=== PATIENT | female | born 1940 | race Caucasian/White ===

== ENCOUNTER 2017-07-21 10:10 | Emergency (ER) | payer OTHER, MEDICARE, SELFPAY | END 2017-07-21 11:46 | disposition home or self-care (01) | PROVIDERS: Emergency Provider Emergency Medicine; Family Provider Family Medicine; Visit Provider Emergency Medicine | DX: S90.02XA Contusion of left ankle, initial encounter (principal); M79.672 Pain in left foot; V03.90XA Pedestrian on foot injured in collision with car, pick-up truck or van, unspecified whether traffic or nontraffic accident, initial encounter | CPT/HCPCS: 73610; 73630; 99282 ==

== ENCOUNTER → 2017-11-22 09:55 | Outpatient (CLI) | payer MEDICARE, SELFPAY | PROVIDERS: PCP Family Medicine; Visit Provider Family Medicine | DX: I25.10 Atherosclerotic heart disease of native coronary artery without angina pectoris (principal) | CPT/HCPCS: 93005 ==

== ENCOUNTER → 2017-11-28 09:16 | Outpatient (CLI) | payer MEDICARE, SELFPAY ==
--- NOTE | 2017-11-28 09:22 | MM_ITS ---
MM Dig screening mamm BI w/CAD CAD Screening ORDERING PHYSICIAN : Yuniel Rosales MD PATIENT AGE: 77 years GENDER: Female INDICATION: Routine screening mammogram.. Note Premarin. Previous mammograms but not fissure. Previous stereotactic biopsy left breast. Family history. Sister with breast cancer COMPARISON: Previous mammograms: September 2014, 2013, January 2010 & May 2008 TECHNIQUE: Standard CC and MLO images were obtained. R2 CAD reviewed. FINDINGS: Moderate density breast with mild asymmetry RIGHT BREAST:Scattered small secretory calcifications. Benign appearance. And no significant change since previous study. LEFT BREAST Small metallic marker from previous percutaneous biopsy central left breast.:Stable appearing mild asymmetry with what is likely ductal prominence seen at the lateral retroareolar region,. It overall stable since 2014 and 14 with Similar appearance dates back to to 2009 2007 study. ...IMPRESSION: ...... . Stable mammogram with no significant new findings. Stable mild asymmetry, most likely reflecting some minimal ductal prominence retroareolar region on left. Follow-up in one year recommended BI-RADS Category: 2 Benign Finding(s) RECOMMENDED FOLLOW-UP: 1YR - 1 YEAR FOLLOW-UP (A letter has been sent to the patient regarding results of the study.)
--- NOTE | 2017-11-28 09:23 | XR_ITS ---
XR DEXA axial skeleton HISTORY: ITS.REASON: OSTEOPENIA ORDERING PHYSICIAN: Yuniel Rosales MD PATIENT AGE: 77 years FINDINGS: The BMD measured at the left femoral neck is 0.862 g/cm squared with a T score of -1.3. This is considered Osteopenic according to the World Health Organization criteria. Fracture risk is Moderate. Treatment is advised. IMPRESSION: Osteopenia with moderate fracture risk. Recommend follow-up exam November 2019
== END ==
PROVIDERS: Family Provider Family Medicine; PCP Family Medicine; Visit Provider Family Medicine
DX: Z12.31 Encounter for screening mammogram for malignant neoplasm of breast (principal); Z13.820 Encounter for screening for osteoporosis; M85.89 Other specified disorders of bone density and structure, multiple sites
CPT/HCPCS: 77067; 77080

== ENCOUNTER → 2020-01-17 09:39 | Outpatient (CLI) | payer MEDICARE, SELFPAY ==
[2020-01-17 11:46] LABS: Coronavirus 19 IgG Antibody Negative (Negative); Coronavirus 19 IgM Antibody Negative (Negative)
== END ==
PROVIDERS: Physician Assistant; Visit Provider Family Medicine
DX: Z03.818 Encounter for observation for suspected exposure to other biological agents ruled out (principal); Z11.59 Encounter for screening for other viral diseases
CPT/HCPCS: 36415; 86328

== ENCOUNTER → 2020-03-04 09:38 | Outpatient (CLI) | payer MEDICARE, SELFPAY ==
--- NOTE | 2020-03-04 09:42 | XR_ITS ---
PROCEDURE: XR DEXA AXIAL SKELETON CLINICAL HISTORY: OSTEOPENIA COMPARISON: No exams were available for comparison FINDINGS: The right hip BMD is 0.673 with a t-score of -1.6. The left hip BMD is 0.687 with a t-score of -1.5. The lumbar spine BMD is 1.114 with a t-score of 0.6. IMPRESSION: This patient is considered osteopenic according to the World Health Organization criteria. Bone density is between 10 and 25 percent below young normal . Fracture risk is moderate. Treatment is advised. Based on these results of follow-up exam is recommended in 2 years Dictated b Lenny Ralph MD 03/05/2020 23:22 Lenny Rlaph MD in [place] 03/06/2020 08:51
--- NOTE | 2020-03-04 09:42 | MM_ITS ---
PROCEDURE: MM DIG SCREENING MAMM BI W/CAD Digital Breast Tomosynthesis Included CLINICAL INDICATION: FIBROCYSTIC BREAST DISEASE, UNSPECIFIED LATERALITY There is a history of breast cancer in patient's sister. There has been a previous biopsy left breast for benign disease. COMPARISON: MG [facility] DIG MAMM-SCREEN LONA from 10/07/2013 MG [facility] DIG MAMM-SCREEN LONA from 10/20/2014 [facility] MM Dig screening mamm BI w/CAD from 11/28/2017 TECHNIQUE: Standard CC and MLO images and 3D Tomosynthesis was obtained. R2 CAD reviewed. FINDINGS: Scattered fibroglandular densities are seen throughout both breast again with slightly more ductal prominence subareolar region left breast. There are scattered benign-appearing calcifications in each breast primarily secretory type calcifications. There is a biopsy clip left breast. There are couple of stable benign-appearing nodular densities subareolar region right breast. There is no new or suspicious lesion in either breast and no suspicious microcalcifications. IMPRESSION: Fibrofatty parenchyma with no suspicious lesions seen BI-RAD Category: 2 Benign Finding(s) FOLLOW-UP: 1YR 1 Year Follow-up (A letter has been sent to the patient regarding results of the study.) Dictated Dr. Eliazar Aldana MD 03/06/2020 08:45 Dr. Eliazar Grimes MD in [place] 03/06/2020 08:45
== END ==
PROVIDERS: PCP Family Medicine; Visit Provider Family Medicine
DX: Z12.31 Encounter for screening mammogram for malignant neoplasm of breast (principal); M85.89 Other specified disorders of bone density and structure, multiple sites
CPT/HCPCS: 77063; 77067; 77080

== ENCOUNTER 2020-03-21 09:03 | Emergency (ER) | payer MEDICARE, SELFPAY ==
[2020-03-21] VITALS (8 sets, daily range): BP systolic 152–182; BP diastolic 58–100; PULSE 54–63; RESP 13–19; TEMP 36.4–36.6; O2SAT 96–99; BMI 28.3
--- NOTE | 2020-03-21 09:05 | HMH.EDGENADL ---
ED Disposition Clinical Impression: Back pain Qualifiers: Back pain location: thoracic back pain Chronicity: acute Back pain laterality: unspecified Qualified Code(s): M54.6 - Pain in thoracic spine Disposition: Home, Self-Care Condition on Discharge: Good Instructions: DI for Low Back Pain Referrals: Yuniel Rosales MD [Primary Care Provider] - - Critical Care Critical Care Time: No Attestation: On , the high probability of a clinically significant, sudden or life threatening deterioration of the following system(s) required my full and direct attention, intervention and personal management. The time I documented below is in addition to time spent performing reported procedures but includes the following listed in this critical care notation. Medical Decision Making - Medical Records Medical records reviewed: Yes: I reviewed the patient's medical records. MR Comment: 79-year-old female presents emergency department 6 days after a fall with continued back pain. She arrives the ED hemodynamically stable, with reassuring vital signs, and looks well on exam. Given that she has paraspinal tenderness and trauma that occurred a few days ago, will CT her spine, she has multiple areas of paraspinal tenderness. She also hit her head will get a CT head to further evaluate. In the room, she is comfortable, she is ambulating without pain in her hips or lower extremities, so I do not feel that x-ray or CT of the pelvis or any further extremity x-rays are necessary at this time. Will get labs, scans and reassess. On reassessment, patient remained stable. Labs are personally reviewed and nonactionable. CT scan showing L1 compression fracture. She does have some height loss and retropulsion due to this. Talk to orthopedics as well and is calling PT here and she will need a soft brace that puts her in slight extension. There is also possible acute changes of T6, however patient has no pain or tenderness here, and I do not believe that this is an acute fracture. We do not have this available and it is also not available right now through physical therapy. Talk to the physician on-call for her PCP and wrote a prescription for her to take to [facility] to last picker the brace on Monday. She is given strict return precautions and discharge instructions and verbalized understanding and agreement to the plan. Safe to discharge. - Jaspreet Inquiry Pt receiving controlled substance: No Vital Signs: 03/21/20 09:04 03/21/20 09:27 03/21/20 10:24 Temperature 97.9 F Temperature Source Oral Pulse Rate Pulse Rate [Left Radial] 60 63 57 L Respiratory Rate 19 Blood Pressure Blood Pressure [Right Arm] 169/75 H 152/67 H 168/73 H Blood Pressure Mean [Right Arm] 106 95 104 Blood Pressure Source Blood Pressure Source [Right Arm] Automatic Cuff Automatic Cuff Automatic Cuff Blood Pressure Position Blood Pressure Position [Right Arm] Sitting Sitting Sitting 02 Sat by Pulse Oximetry 99 96 98 Oxygen Delivery Method Room Air Room Air Room Air 03/21/20 10:30 03/21/20 11:31 03/21/20 12:16 Temperature Temperature Source Pulse Rate Pulse Rate [Left Radial] 56 L 58 L 54 L Respiratory Rate Blood Pressure Blood Pressure [Right Arm] 157/72 H 160/58 H 169/75 H Blood Pressure Mean [Right Arm] 100 92 106 Blood Pressure Source Blood Pressure Source [Right Arm] Automatic Cuff Automatic Cuff Automatic Cuff Blood Pressure Position Blood Pressure Position [Right Arm] Sitting Sitting Sitting 02 Sat by Pulse Oximetry 98 98 98 Oxygen Delivery Method Room Air Room Air Room Air 03/21/20 13:03 03/21/20 13:36 Temperature 97.5 F L Temperature Source Oral Pulse Rate 56 L Pulse Rate [Left Radial] 59 L Respiratory Rate 13 Blood Pressure 172/70 H Blood Pressure [Right Arm] 182/100 H Blood Pressure Mean [Right Arm] 127 Blood Pressure Source Automatic Cuff Blood Pressure Source [Right Arm] Automatic Cuff Blo
--- NOTE | 2020-03-21 09:20 | CT_ITS ---
PROCEDURE: CT HEAD/BRAIN WO CON CLINICAL INDICATION: fall Head injury with headache/pain, contusion, abrasion or hematoma COMPARISON: No exams were available for comparison TECHNIQUE: Axial images obtained. All CT scans at the facility use one or more dose reduction, viz: automated exposure control, ma/kV adjustment per patient size (including targeted exams where dose is matched to indication, i.e. head), or iterative reconstruction technique. FINDINGS: No midline shift, mass effect, intracranial hemorrhage, hydrocephalus, or extra-axial fluid collection is evident. There is generalized atrophy with hypoattenuation of the periventricular white matter consistent with microangiopathic changes. The calvarium has an unremarkable appearance. No mastoid effusion. No sinus air-fluid level. IMPRESSION: No acute intracranial finding Dictated by: Lenny Ralph MD 03/21/2020 10:47 Lenny Ralph MD in [place] 03/21/2020 10:47
--- NOTE | 2020-03-21 09:22 | CT_ITS ---
PROCEDURE: CT THORACIC SPINE WO CON CLINICAL HISTORY: trauma Back pain following injury COMPARISON: CR XR CHEST 2V from 07/21/2019 TECHNIQUE: Axial images obtained with sagittal and coronal reformats. All CT scans at the facility use one or more dose reduction, viz: automated exposure control, ma/kV adjustment per patient size (including targeted exams where dose is matched to indication, i.e. head), or iterative reconstruction technique. FINDINGS: Normal alignment. There is mild wedge compression changes of T6 with loss of height anteriorly of approximately 30 percent without obvious retropulsion. The there is mild multilevel degenerative disc disease. The compression changes at T6 are slightly greater on the left compared to the right. IMPRESSION: Mild wedge compression changes of T6 possibly acute without obvious retropulsion with multilevel thoracic spondylosis Dictated by: Lenny Ralph MD 03/21/2020 10:56 Lenny Ralph MD in [place] 03/21/2020 10:56
--- NOTE | 2020-03-21 09:22 | CT_ITS ---
PROCEDURE: CT CERVICAL SPINE WO CON CLINICAL INDICATION: trauma Neck injury with pain, contusion/abrasion or hematoma, cervical sprain/strain the COMPARISON: No exams were available for comparison TECHNIQUE: Axial images obtained with sagittal and coronal reformats. All CT scans at the facility use one or more dose reduction, viz: automated exposure control, ma/kV adjustment per patient size (including targeted exams where dose is matched to indication, i.e. head), or iterative reconstruction technique. Axial spiral CT scanning performed of the cervical spine beginning at the base of the skull and continuing to the upper T-spine. 3-D multiplanar reconstruction with 3-D manipulation of volumetric data set in image rendering was completed by the radiologist and/or technologist with the supervision of the radiologist on independent workstation. FINDINGS: There is normal alignment. There is a defect within the right aspect of the posterior arch of C1. This is well-circumscribed and may be congenital or due to an old fracture. This does not appear to represent an acute fracture. Please correlate as the patient's area pain and tenderness. C2-C3: Unremarkable. C3-C4: 3 mm anterolisthesis of C3. C4-C5: Degenerative disc disease with endplate hypertrophy and small right paracentral disc protrusion with facet and uncovertebral hypertrophy. 3 mm anterolisthesis of C4. C5-C6: Degenerate disc disease with small left paracentral disc bulge with left lateral recess narrowing C6-C7: Degenerate disc disease with small left paracentral disc osteophyte complex with left lateral recess and foraminal narrowing. C7-T1: Unremarkable Lung apices are clear. IMPRESSION: 1. No definite acute fracture. 2. Old fracture versus congenital defect within the posterior arch of C1 on the right 3. Cervical spondylosis. Dictated by: Lenny Ralph MD 03/21/2020 10:51 Lenny Ralph MD in [place] 03/21/2020 10:51
--- NOTE | 2020-03-21 09:23 | CT_ITS ---
PROCEDURE: CT LUMBAR SPINE WO CON CLINICAL HISTORY: trauma Low back pain following injury COMPARISON: No exams were available for comparison TECHNIQUE: Axial images obtained with sagittal and coronal reformats. All CT scans at the facility use one or more dose reduction, viz: automated exposure control, ma/kV adjustment per patient size (including targeted exams where dose is matched to indication, i.e. head), or iterative reconstruction technique. FINDINGS: There is normal alignment. There is acute wedge compression changes involving the superior endplate L1 with loss of height centrally and anteriorly of approximately 25 percent. There is 3 mm retropulsion of the posterior superior aspect of the L1 vertebral body slightly greater on left compared to right. The pedicles and posterior elements are intact. L2-L3: Mild bulging disc. L3-L4: Bulging disc. There are hypertrophic changes the L3 and L4 spinous process at their junction with bony sclerosis consistent with Baastrup's disease. There is slight increase in soft tissue thickening at this area bony hypertrophy. L4-5: Bulging disc with mild degenerative changes at the posterior spinous process at L4 and L5 and slight increase in soft tissue thickening. L5-S1: Severe degenerative disc disease with bulging disc and small central/right paracentral disc osteophyte complex. 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 There is acute wedge compression changes involving the superior endplate L1 with loss of height centrally and anteriorly of approximately 25 percent. There is 3 mm retropulsion of the posterior superior aspect of the L1 vertebral body slightly greater on left compared to right 2. 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
--- NOTE | 2020-03-21 09:32 | PC.NURSE ---
Pt to rad.
--- NOTE | 2020-03-21 09:34 | PC.NURSE ---
20g IV inserted in right FA
[2020-03-21 09:38] LABS: Basophils % 0.5 % (0.1-2.0); Eosinophils # 0.1 K/mm3 (0.0-0.4); Eosinophils % 0.9 % (0.1-12.0); Hematocrit 37.9 % (37.0-47.0); Hemoglobin 13.1 g/dL (12.2-16.2); Lymphocytes # 1.5 K/mm3 (0.7-4.5); Lymphocytes % 24.8 % (10-50); Mean Corpuscular HGB Conc 34.5 g/dL (31.8-35.4); Mean Corpuscular Hemoglobin 31.7 pg (27.0-31.2); Mean Corpuscular Volume 91.7 fl (81-99); Mean Platelet Volume 7.4 fl (7.4-10.4); Monocytes # 0.4 K/mm3 (0.1-1.0); Monocytes % 7.1 % (1.7-9.3); Neutrophils # 4.1 K/mm3 (1.8-7.8); Neutrophils % 66.6 % (37.0-80.0); Platelet Count 244 K/mm3 (142-424); Red Blood Count 4.13 M/mm3 (4.20-5.40); Red Cell Distribution Width 13.2 % (11.5-17.5); White Blood Count 6.2 K/mm3 (4.8-10.8)
[2020-03-21 09:47] LABS: Alanine Aminotransferase 13 U/L (12-78); Albumin Level 4.2 g/dl (3.5-5.0); Albumin/Globulin Ratio 1.4 (1.1-1.8); Alkaline Phosphatase 65 U/L (38-126); Anion Gap 14.3 mEq/L (5-15); Aspartate Amino Transferase 23 U/L (14-36); Bilirubin,Total 0.6 mg/dl (0.2-1.3); Blood Urea Nitrogen 17 mg/dl (7-17); Calcium 10.2 mg/dl (8.4-10.2); Carbon Dioxide 26 mmol/L (22.0-30.0); Chloride 102 mmol/L (98-107); Creatinine Clearance Estimated 49 mL/min (50-200); Estimated Glomerular Filt Rate 60 ml/min (>60); GFR (African American) 73 ML/MIN (>60); Globulin 2.9 g/dL (1.3-3.2); Glucose 98 mg/dl (74-100); Potassium 4.3 mmoL/L (3.5-5.1); Sodium 138 mmol/L (136-145); Total Protein,Serum 7.1 g/dl (6.3-8.2)
[2020-03-21 10:13] LABS: Microscopic, Urine URINE MICROSCOPIC (MICROSCOPIC)
[2020-03-21 10:14] LABS: Appearance,Urine SL CLOUDY (Clear); Blood, Urine Negative (Negative); Color,Urine YELLOW (Yellow); Glucose,Urine (UA) Negative (Negative); Ketones,Urine TRACE (Negative); Leukocyte Esterase,Urine TRACE (Negative); Nitrate,Urine Negative (Negative); Protein,Urine Negative (Negative); Specific Gravity, Urine >= 1.030 (1.005-1.030)
[2020-03-21 10:16] LABS: Bilirubin,Urine Negative (Negative)
[2020-03-21 10:29] LABS: Amorphous Sediment,Urine 1+ /lpf; RBC,Urine Occasional #/hpf (0-3)
--- NOTE | 2020-03-21 11:53 | PC.NURSE ---
return call received from Dr. Doty
--- NOTE | 2020-03-21 12:07 | PC.NURSE ---
Called and spoke with Arsh in PT, he was going to call back concerning back brace that Dr Bey requested.
--- NOTE | 2020-03-21 12:22 | PC.NURSE ---
spoke with care management, reymundo concerning back brace and steps to follow in order to obtain. reymundo states that she will take care of ordering of brace on monday as ordering services are not available during the weekend. pt and family informed and updated on plan of care.
--- NOTE | 2020-03-21 13:11 | PC.NURSE ---
Dr stallworth spoke with Dr Lilly
--- NOTE | 2020-03-23 10:53 | SW/DCPLANNER ---
RECEIVED REFERRAL FOR THIS PATIENT FOR A SOFT SHELL BACK BRACE...PATIENT WENT TO [facility] [place] THIS MORNING AND WAS FITTED AND CAME BACK TO THE HOSPITAL PT TO MAKE SURE IT WAS ON APPROPRIATELY AND FOR PT SERVICES...
== END 2020-03-21 13:37 | disposition home or self-care (01) ==
PROVIDERS: Emergency Provider Emergency Medicine; PCP Family Medicine
DX: M54.6 Pain in thoracic spine (principal); W01.198A Fall on same level from slipping, tripping and stumbling with subsequent striking against other object, initial encounter; Y92.017 Garden or yard in single-family (private) house as the place of occurrence of the external cause; I10 Essential (primary) hypertension; E78.5 Hyperlipidemia, unspecified; Z90.09 Acquired absence of other part of head and neck
CPT/HCPCS: 70450; 72125; 72128; 72131; 80053; 81001; 85025; 96374; 99284

== ENCOUNTER → 2020-04-30 09:58 | Outpatient (CLI) | payer MEDICARE, SELFPAY ==
--- NOTE | 2020-04-30 09:58 | MR_ITS ---
PROCEDURE: MR HEAD/BRAIN WO CON CLINICAL INDICATION: memry loss, falls SHORT TERM MEMORY LOSS X9 MONTHS. PREVIOUS CT HEAD 03-21-20 COMPARISON: CT CT HEAD/BRAIN WO CON from 03/21/2020 TECHNIQUE: Routine multiplanar multi echo sequences are performed without gadolinium enhancement. FINDINGS: No midline shift, mass effect, intracranial hemorrhage, or hydrocephalus is evident. The cerebellopontine angles, cerebellum, and brainstem have an unremarkable appearance.. There are scattered periventricular and subcortical T2 white matter hyperintensities consistent with mild ischemic gliotic change from microvascular disease. There is a 6 mm choroidal fissure cyst in the subinsular region on the left. The hippocampal gyri are unremarkable in the temporal horns are symmetric. There is a partial empty sella as a normal variant. The optic chiasm, corpus callosum, and craniocervical junction have an unremarkable appearance. Upper cervical images show degenerative disc disease at C4-C5 and C5-C6 with mild bulging disc at C4-C5. No mastoid effusion or sinus air-fluid level. IMPRESSION: 1. No acute intracranial findings. 2. Nonacute findings as described above Dictated by: Lenny Ralph MD 05/01/2020 16:28 Lenny Ralph MD in [place] 05/01/2020 16:28
[2020-04-30 14:12] LABS: Vitamin B12 748 pg/mL (239-931)
[2020-05-06 22:02] LABS: Methylmalonic Acid 104 nmol/L (0-378)
== END ==
PROVIDERS: PCP Family Medicine; Visit Provider Specialist
DX: R41.3 Other amnesia (principal); E53.8 Deficiency of other specified B group vitamins
CPT/HCPCS: 36415; 70551; 82131; 82607

== ENCOUNTER 2020-05-20 00:19 | Observation (INO) | payer MEDICARE, SELFPAY ==
[2020-05-20] VITALS (18 sets, daily range): BP systolic 121–178; BP diastolic 51–100; PULSE 58–78; RESP 13–18; TEMP 36.8–36.9; O2SAT 97–100; BMI 27.4; BMI 26.8; BMI 30.7
--- NOTE | 2020-05-20 00:09 | XR_ITS ---
PROCEDURE: XR CHEST PORTABLE CLINICAL HISTORY: fall COMPARISON: CR XR CHEST 2V from 07/21/2019 FINDINGS: The cardiomediastinal silhouette and pulmonary vascularity are within normal limits considering the supine position. The lungs are clear without infiltrates, suspicious nodules, or pleural effusions, there is a slightly poor inspiration. No acute bony abnormalities. IMPRESSION: No acute findings. Dictated by: Dr. Eliazar Grimes MD 05/20/2020 07:45 Dr. Eliazar Grimes MD in [place] 05/20/2020 07:45
--- NOTE | 2020-05-20 00:09 | XR_ITS ---
PROCEDURE: XR PELVIS 1-2V CLINICAL INDICATION: fall COMPARISON: No exams were available for comparison TECHNIQUE: XR Pelvis AP View FINDINGS: No fracture or dislocation is evident. No significant degenerative change except for mild joint space narrowing of both hips. No lytic or blastic change. IMPRESSION: No acute findings. Dictated by: Dr. Eliazar Grimes MD 05/20/2020 07:46 Dr. Eliazar Grimes MD in [place] 05/20/2020 07:46
--- NOTE | 2020-05-20 00:09 | ECG_ITS ---
APPROVED REPORT Exam: Resting ECG HR:74 bpm ECG Measurements Heart Rate 74 AXES [place] 142 P 47 QRSd 90 QRS 4 QT 418 T 0 QTc 463 Conclusion Normal sinus rhythm Nonspecific ST and T wave abnormality Abnormal ECG Electronically signed by : Addison Stephens, 05/22/2020 11:22:08
--- NOTE | 2020-05-20 00:09 | CT_ITS ---
PROCEDURE: CT CERVICAL SPINE WO CON CLINICAL INDICATION: fall, unwitnessed Posttraumatic pain, Neck injury with pain, contusion/abrasion or hematoma, cervical sprain/strain the COMPARISON: CT CT CERVICAL SPINE WO CON from 03/21/2020 TECHNIQUE: Axial images obtained with sagittal and coronal reformats. All CT scans at the facility use one or more dose reduction, viz: automated exposure control, ma/kV adjustment per patient size (including targeted exams where dose is matched to indication, i.e. head), or iterative reconstruction technique. Axial spiral CT scanning performed of the cervical spine beginning at the base of the skull and continuing to the upper T-spine. 3-D multiplanar reconstruction with 3-D manipulation of volumetric data set in image rendering was completed by the radiologist and/or technologist with the supervision of the radiologist on independent workstation. FINDINGS: There is incomplete fusion of the C1 posterior arch on the right. There is mild multilevel cervical spondylosis with left-sided facet hypertrophic change at C3-C4, degenerative disc disease C4-C5, degenerative disc disease C5-C6 with endplate hypertrophic change eccentric toward the left, degenerative disc disease C6-C7 with endplate hypertrophic change in small left paracentral and foraminal disc osteophyte complex, anterior osteophytes at multiple levels. No acute fracture or dislocation. Lung apices are clear. Incidental note is made several small foci of air density in the pterygoid region on the left as mentioned in the head CT report and could be related to sequela from IV access, trauma, or infection. IMPRESSION: 1. Cervical spondylosis, no acute fracture. 2. Several small foci of air density in the pterygoid region on the left as mentioned in the head CT report and could be related to sequela from IV access, trauma, or infection Dictated by: Lenny Ralph MD 05/20/2020 06:24 Lenny Ralph MD in [place] 05/20/2020 06:24
--- NOTE | 2020-05-20 00:09 | CT_ITS ---
PROCEDURE: CT HEAD/BRAIN WO CON CLINICAL INDICATION: fall, unwitnessed Head injury with headache/pain, contusion, abrasion or hematoma COMPARISON: CT CT HEAD/BRAIN WO CON from 03/21/[address] CERVICAL SPINE WO CON from 05/20/2020 TECHNIQUE: Axial images obtained. All CT scans at the facility use one or more dose reduction, viz: automated exposure control, ma/kV adjustment per patient size (including targeted exams where dose is matched to indication, i.e. head), or iterative reconstruction technique. FINDINGS: No midline shift, mass effect, intracranial hemorrhage, hydrocephalus, or extra-axial fluid collection is evident. There is generalized atrophy with hypoattenuation of the periventricular white matter consistent with microangiopathic changes. The calvarium has an unremarkable appearance. No mastoid effusion. No sinus air-fluid level. There are a few small foci of air density noted in the pterygoid region on the left. This is nonspecific and could be from intravenous access, trauma, or infection. Please correlate clinically. IMPRESSION: 1. No acute intracranial findings. 2. There are a few small foci of air density noted in the pterygoid region on the left. This is nonspecific and could be from intravenous access, trauma, or infection. Please correlate clinically Dictated by: Lenny Ralph MD 05/20/2020 06:15 Lenny Ralph MD in [place] 05/20/2020 06:15
[2020-05-20 00:23] LABS: POC Glucose,Bedside 77 (70-110)
[2020-05-20 00:34] LABS: Microscopic, Urine URINE MICROSCOPIC (MICROSCOPIC)
[2020-05-20 00:40] LABS: Appearance,Urine CLEAR (Clear); Blood, Urine Negative (Negative); Color,Urine YELLOW (Yellow); Glucose,Urine (UA) Negative (Negative); Ketones,Urine TRACE (Negative); Leukocyte Esterase,Urine Negative (Negative); Nitrate,Urine Negative (Negative); Protein,Urine Negative (Negative); Specific Gravity, Urine >= 1.030 (1.005-1.030); Urobilinogen,Urine 0.2 EU/dl (0.2)
--- NOTE | 2020-05-20 00:42 | HMH.EDSYNC ---
ED Disposition Clinical Impression: Left carotid bruit Syncope Qualifiers: Syncope type: unspecified Qualified Code(s): R55 - Syncope and collapse Disposition: Admitted as Observation Condition on Discharge: Good Referrals: PCP,No [Primary Care Provider] - - Critical Care Critical Care Time: No Attestation: On , the high probability of a clinically significant, sudden or life threatening deterioration of the following system(s) required my full and direct attention, intervention and personal management. The time I documented below is in addition to time spent performing reported procedures but includes the following listed in this critical care notation. Medical Decision Making - Medical Records Medical records reviewed: Yes: I reviewed the patient's medical records. - Jaspreet Inquiry Pt receiving controlled substance: No Vital Signs: 05/20/20 00:11 05/20/20 00:30 05/20/20 01:08 Temperature 98.2 F Temperature Source Oral Pulse Rate [Right Brachial] 75 72 68 Respiratory Rate 13 17 17 Blood Pressure [Right Arm] 178/100 H 178/77 H 158/68 H Blood Pressure Mean [Right Arm] 126 110 98 Blood Pressure Source [Right Arm] Automatic Cuff Automatic Cuff Automatic Cuff Blood Pressure Position [Right Arm] Sitting Supine Supine 02 Sat by Pulse Oximetry 100 99 99 Oxygen Delivery Method Room Air Room Air Room Air 05/20/20 01:30 Temperature Temperature Source Pulse Rate [Right Brachial] 65 Respiratory Rate 17 Blood Pressure [Right Arm] 125/51 L Blood Pressure Mean [Right Arm] 75 Blood Pressure Source [Right Arm] Automatic Cuff Blood Pressure Position [Right Arm] Supine 02 Sat by Pulse Oximetry 99 Oxygen Delivery Method Room Air - Lab Data Lab results reviewed: Yes: I reviewed the patient's lab results. Lab Results 05/20/20 00:00: WBC 8.3, RBC 4.12 L, Hgb 12.3, Hct 38.1, MCV 92.5, MCH 29.8, MCHC 32.3, RDW 13.4, Plt Count 254, MPV 8.5, Neut % (Auto) 66.2, Lymph % (Auto) 24.9, [place] % (Auto) 7.5, Eos % (Auto) 0.8, Baso % (Auto) 0.5, Neut # (Auto) 5.5, Lymph # (Auto) 2.1, [place] # (Auto) 0.6, Eos # (Auto) 0.1, Baso # (Auto) 0.0 05/20/20 00:00: Sodium Cancelled, Potassium Cancelled, Chloride Cancelled, Carbon Dioxide Cancelled, Anion Gap Cancelled, BUN Cancelled, Creatinine Cancelled, Estimated Creat Clear Cancelled, Estimated GFR Cancelled, Est GFR ( Amer) Cancelled, Glucose Cancelled, Calcium Cancelled, Total Bilirubin Cancelled, AST Cancelled, ALT Cancelled, Alkaline Phosphatase Cancelled, Total Protein Cancelled, Albumin Cancelled, Globulin Cancelled, Albumin/Globulin Ratio Cancelled 05/20/20 00:00: SARS-CoV-2 IgG Ab (Rapid) Negative, SARS-CoV-2 IgM Ab (Rapid) Negative 05/20/20 00:00: Sodium 139, Potassium 4.0, Chloride 107, Carbon Dioxide 25, Anion Gap 11.0, BUN 18 H, Creatinine 0.90, Estimated Creat Clear 46, Estimated GFR 60, Est GFR ( Amer) 73, Glucose 96, Calcium 9.4, Total Bilirubin 0.5, AST 25, ALT 14, Alkaline Phosphatase 67, Troponin I < 0.01, Total Protein 6.5, Albumin 3.9, Globulin 2.6, Albumin/Globulin Ratio 1.5, TSH 4.14 05/20/20 00:00: Free T4 1.48 05/20/20 00:11: POC Glucose 77 05/20/20 00:30: Urine Color Yellow, Urine Appearance Clear, Urine pH 6.0, Ur Specific [place] >= 1.030, Urine Protein Negative, Urine Glucose (UA) Negative, Urine Ketones Trace, Urine Blood Negative, Urine Nitrate Negative, Urine Bilirubin Negative, Urine Urobilinogen 0.2, Ur Leukocyte Esterase Negative, Urine RBC Occasional, Urine WBC Occasional, Calcium Oxalate Crystal Trace, Urine Bacteria Trace 05/20/20 00:30: Urine Opiates Screen Negative, Urine Methadone Screen Negative, Ur Barbituates Screen Negative, Ur Phencyclidine Scrn Negative, Ur Amphetamines Screen Negative, U Benzodiazepines Scrn Negative, Urine Cocaine Screen Negative, U Marijuana (THC) Screen Negative Result diagrams: 05/20/20 00:00 05/20/20 00:00 Orders (Tests/Meds): ORDERS Category Date Time Status CT cervical spine wo con Stat Cat Scan 04/24
[2020-05-20 00:47] LABS: Bilirubin,Urine Negative (Negative)
[2020-05-20 00:52] LABS: Alanine Aminotransferase 14 U/L (12-78); Albumin Level 3.9 g/dl (3.5-5.0); Albumin/Globulin Ratio 1.5 (1.1-1.8); Alkaline Phosphatase 67 U/L (38-126); Aspartate Amino Transferase 25 U/L (14-36); Bilirubin,Total 0.5 mg/dl (0.2-1.3); Blood Urea Nitrogen 18 mg/dl (7-17); Calcium 9.4 mg/dl (8.4-10.2); Carbon Dioxide 25 mmol/L (22.0-30.0); Chloride 107 mmol/L (98-107); Creatinine Clearance Estimated 46 mL/min (50-200); Estimated Glomerular Filt Rate 60 ml/min (>60); GFR (African American) 73 ML/MIN (>60); Globulin 2.6 g/dL (1.3-3.2); Glucose 96 mg/dl (74-100); Sodium 139 mmol/L (136-145); Total Protein,Serum 6.5 g/dl (6.3-8.2)
[2020-05-20 01:07] LABS: Coronavirus 19 IgG Antibody Negative (Negative); Coronavirus 19 IgM Antibody Negative (Negative)
[2020-05-20 01:09] LABS: Free T4 (Free Thyroxine) 1.48 ng/dl (0.78-2.19)
[2020-05-20 01:18] LABS: Basophils % 0.5 % (0.1-2.0); Eosinophils # 0.1 K/mm3 (0.0-0.4); Eosinophils % 0.8 % (0.1-12.0); Hematocrit 38.1 % (37.0-47.0); Hemoglobin 12.3 g/dL (12.2-16.2); Lymphocytes # 2.1 K/mm3 (0.7-4.5); Lymphocytes % 24.9 % (10-50); Mean Corpuscular HGB Conc 32.3 g/dL (31.8-35.4); Mean Corpuscular Hemoglobin 29.8 pg (27.0-31.2); Mean Corpuscular Volume 92.5 fl (81-99); Mean Platelet Volume 8.5 fl (7.4-10.4); Monocytes # 0.6 K/mm3 (0.1-1.0); Monocytes % 7.5 % (1.7-9.3); Neutrophils # 5.5 K/mm3 (1.8-7.8); Neutrophils % 66.2 % (37.0-80.0); Platelet Count 254 K/mm3 (142-424); Red Blood Count 4.12 M/mm3 (4.20-5.40); Red Cell Distribution Width 13.4 % (11.5-17.5); White Blood Count 8.3 K/mm3 (4.8-10.8)
[2020-05-20 01:20] LABS: RBC,Urine Occasional #/hpf (0-3); WBC,Urine Occasional #/hpf (0-3)
[2020-05-20 01:21] LABS: Bacteria,Urine Trace /lpf; Calcium Oxalate Crystals,Urine Trace /lpf
[2020-05-20 01:31] LABS: Amphetamine/Metha Screen,Urine Negative ng/ml (<1000); Benzodiazepines Screen,Urine Negative ng/ml (<200)
[2020-05-20 01:32] LABS: Barbiturates Screen,Urine Negative ng/ml (<200); Cannabinoid Screen,Urine Negative ng/ml (<50)
[2020-05-20 01:33] LABS: Cocaine Screen,Urine Negative ng/ml (<300)
[2020-05-20 01:34] LABS: Methadone Screen,Urine Negative ng/ml (<300); Opiate Screen,Urine Negative ng/ml (<300)
[2020-05-20 01:35] LABS: Phencyclidine Screen,Urine Negative ng/ml (<25)
[2020-05-20 02:26] LABS: Thyroid Stimulating Hormone 4.14 uIU/mL (0.465-4.68); Troponin I < 0.01 ng/ml (0.00-0.034)
--- NOTE | 2020-05-20 02:32 | PC.NURSE ---
call placed to dr mills
--- NOTE | 2020-05-20 03:20 | PC.NURSE ---
Report received from Miguel Angel Lopez at this time.
--- NOTE | 2020-05-20 03:45 | PC.NURSE ---
PT ARRIVED TO ROOM 276 AT THIS TIME VIA STRETCHER.
[2020-05-20 03:58] LABS: Troponin I < 0.01 ng/ml (0.00-0.034)
--- NOTE | 2020-05-20 04:15 | PC.NURSE ---
PT ASSESSMENT COMPLETED AT THIS TIME. PT DENIES ANY PAIN. BILATERAL LUNG SOUNDS CLEAR. NO EDEMA NOTED. L CAROTID BRUIT NOTED. PT ABLE TO COMPLETE ADMISSION AND HISTORY QUESTIONS. HOWEVER, PT DID SEEM TO BE CONFUSED ABOUT HEALTH HISTORY AT TIMES. PT NOTED TO BE TAKING A MEDICATION THAT IS TO HELP WITH DEMENTIA. INDWELLING CATH PATENT AND DRAINING FREELY. RAC IV INFUSING 50ML/HR OF NS. LAC IV SL.
--- NOTE | 2020-05-20 05:47 | PC.NURSE ---
PT ASLEEP WITH EYES CLOSED. RESPIRATIONS EVEN AND UNLABORED. WILL CONTINUE TO OBSERVE.
--- NOTE | 2020-05-20 06:30 | PC.NURSE ---
PT SLEPT AT INTERVAL. DENIES ANY PAIN OR FURTHER NEEDS AT THIS TIME. WILL CONTINUE TO OBSERVE.
--- NOTE | 2020-05-20 06:35 | PC.NURSE ---
Ultrasound at bedside at this time performing echo.
--- NOTE | 2020-05-20 07:05 | PC.NURSE ---
LAB AT BEDSIDE AT THIS TIME.
--- NOTE | 2020-05-20 07:10 | PC.NURSE ---
Report given to Rashard Galdamez RN.
[2020-05-20 07:22] LABS: Basophils % 0.5 % (0.1-2.0); Chloride 111 mmol/L (98-107); Eosinophils # 0.1 K/mm3 (0.0-0.4); Eosinophils % 0.7 % (0.1-12.0); Hematocrit 34.7 % (37.0-47.0); Hemoglobin 11.7 g/dL (12.2-16.2); Lymphocytes # 1.6 K/mm3 (0.7-4.5); Lymphocytes % 24.9 % (10-50); Mean Corpuscular HGB Conc 33.6 g/dL (31.8-35.4); Mean Corpuscular Hemoglobin 31.1 pg (27.0-31.2); Mean Corpuscular Volume 92.6 fl (81-99); Mean Platelet Volume 7.7 fl (7.4-10.4); Monocytes # 0.5 K/mm3 (0.1-1.0); Monocytes % 7.5 % (1.7-9.3); Neutrophils # 4.4 K/mm3 (1.8-7.8); Neutrophils % 66.4 % (37.0-80.0); Platelet Count 237 K/mm3 (142-424); Red Blood Count 3.75 M/mm3 (4.20-5.40); Red Cell Distribution Width 13.5 % (11.5-17.5); Sodium 139 mmol/L (136-145); White Blood Count 6.6 K/mm3 (4.8-10.8)
[2020-05-20 07:25] LABS: Blood Urea Nitrogen 14 mg/dl (7-17); Carbon Dioxide 23 mmol/L (22.0-30.0); Creatinine Clearance Estimated 53 mL/min (50-200); Estimated Glomerular Filt Rate 69 ml/min (>60); GFR (African American) 84 ML/MIN (>60)
[2020-05-20 07:26] LABS: Glucose 93 mg/dl (74-100); Magnesium 1.8 mg/dl (1.6-2.3)
--- NOTE | 2020-05-20 07:31 | PC.NURSE ---
ULTRASOUND STILL AT BEDSIDE. NO NEEDS. WILL RETURN FOR ASSESSMENT
[2020-05-20 07:38] LABS: Troponin I < 0.01 ng/ml (0.00-0.034)
--- NOTE | 2020-05-20 08:00 | CA_ITS ---
APPROVED REPORT EXAM: Comprehensive 2D, Doppler, and color-flow Echocardiogram Student Truck Driver: Nikia Batista CRT Ht: 5 ft 1 in Wt: 142lbs BSA: 1.63 BP: 158/68 mmHg Indications: Syncope, Hyperlipidemia, Hypertension/HDD 2D Dimensions Aortic Root 2.56 cm LVOT 1.61 cm (M/F) 1.5-2.5 M-Mode Dimensions RVDd 2.10 cm (0.9-2.6) LA Diam 4.07 cm (1.9-4.0) LVDd 3.91 cm (3.5-5.7) Ao Diam 3.30 cm (2.0-3.7) LVDs 2.66 cm (3.5-5.7) IVSd 1.63 cm (0.6-1.1) PWd 0.75 cm (0.6-1.1) EF (Teich) 60.80% FS 32.00% EDV (Teich) 66.30 mL ESV (Teich) 26.00 mL LV Diastology E Decel Time 213.00 (160-240 msec) E/A Ratio 0.65 MED E' 8.80 (< 7 cm/sec) E'/MED E' Ratio 8.18 (>14) LAT E' 6.40 (<10 cm/sec) E/LAT E' Ratio 11.25 (>14) Aortic Valve LVOT Max 127.00 (70-110 cm/s) LVOT VTI 29.74 cm AoV Peak Ilan. 148.00 (50-130 cm/s) AI PHT 585.00 ms AO Peak GR. 8.80 mmHg AO Mean GR. 4.40 (<5 mmHg) AO VTI 33.48 (18-25 cm) NII (VTI) 1.81 (2.5-4.5 cm2) Mitral Valve MV A Velocity 110.00 (40-130 cm/s) E/A Ratio 0.65 MV Decel. Time 213.00 (160-240 ms) Pulmonary Valve PV Peak Velocity 113.00 (50-150 cm/s) Tricuspid Valve TR P. Velocity 379.00 cm/s RAP Estimate 10.00 mmHg RVSP 67.50 mmHg Left Ventricle Left atrium is moderately enlarged, left ventricle is normal size, mild concentric left ventricular hypertrophy, visually estimated ejection fraction 55% with no regional wall motion abnormality, grade 1 diastolic dysfunction seen without tissue Doppler evidence of raise left atrial pressure. Right Ventricle Right atrium and right ventricular normal size and contractility. Aortic Valve Aortic valve is thickened and calcified leaflet chordae display good mobility, there is no aortic stenosis, there is mild aortic insufficiency. Mitral Valve Mitral valve leaflets are minimally thickened, there is mild mitral regurgitation. Tricuspid Valve Tricuspid valve is grossly normal, there is mild tricuspid regurgitation, tricuspid regurgitation jet velocity is inadequate for calculation of the right ventricular systolic pressure. Pulmonic Valve Pulmonic valve is poorly visualized. Great Vessels Aortic root is normal size. Pericardium No significant pericardial effusion noted. Conclusion 1. Moderately enlarged left atrium, normal left ventricular size, mild concentric left ventricular hypertrophy, visually estimated ejection fraction 55% with no regional wall motion abnormality, grade 1 diastolic dysfunction seen without tissue Doppler evidence of raise left atrial pressure. 2. Mild mitral, mild aortic and tricuspid regurgitation. 3. No significant pericardial effusion noted. Electronically signed by : Nixon Valencia, 05/21/2020 10:08:39
--- NOTE | 2020-05-20 08:00 | P.CONPHA_ITS ---
[facility] Pharmacy VTE Monitoring - Patient Demographics Admission date: 05/20/20 Report Date: 05/20/20 Time: 08:00 Allergies/Adverse Reactions: Patient Allergies No Known Allergies Allergy (Verified 05/07/20 10:24) Height: 1.55 m Weight: 73.618 kg Patient Problems: Current Active Problems Syncope (Acute) Left carotid bruit (Acute) - VTE Risk Labs: VTE Related Lab Results Hgb 11.7 g/dL (12.2-16.2) L 05/20/20 07:05 Hct 34.7 % (37.0-47.0) L 05/20/20 07:05 Plt Count 237 K/mm3 (142-424) 05/20/20 07:05 BUN 14 mg/dl (7-17) 05/20/20 07:05 Creatinine 0.80 mg/dl (0.52-1.04) 05/20/20 07:05 Estimated Creat Clear 53 mL/min (50-200) 05/20/20 07:05 Was VTE Risk Assessment Performed: Yes VTE Score: 1 VTE Risk Level: Very Low Risk - Prophylaxis VTE Prophylaxis Ordered?: Yes Types of VTE Prophylaxis: TEDS Knee High Location of Applied Device: Bilateral Lower Extremeties
--- NOTE | 2020-05-20 08:00 | CA_ITS ---
APPROVED REPORT Director Of Teenage Activities: CT Laterality: Bilateral Study Quality: Fair, Due to body habitus. Indications: syncope/carotid bruit Risk Factors Hypertension: Hyperlipidemia Doppler Spectral Velocity Analysis ECA (R) 93.50/12.70 cm/s ECA (L) 152.20/1.00 cm/s dICA (R) 114.00/21.80 cm/s dICA (L) 85.30/18.70 cm/s Serena (R) 124.30/24.30 cm/s Serena (L) 122.30/32.70 cm/s pICA (R) 151.20/17.90 cm/s pICA (L) 80.90/16.40 cm/s dCCA (R) 118.80/16.50 cm/s dCCA (L) 175.40/19.20 cm/s pCCA (R) 94.10/14.10 cm/s pCCA (L) 171.10/21.40 cm/s Vert (R) 62.00/8.90 cm/s Vert (L) 24.60/5.40 cm/s ICA/CCA 1.30 ICA/CCA 0.70 Findings Duplex evaluation demonstrates stenosis of the right proximal internal carotid artery in the range of 50-69%. Duplex evaluation demonstrates stenosis of the left proximal internal carotid artery in the range of 20-49%. Duplex evaluation demonstrates antegrade flow of the bilateral Vertebral Arteries. Plaque noted in CCA's bilaterally. Cysts noted in thyroid. Conclusion Duplex evaluation demonstrates stenosis of the right proximal internal carotid artery in the range of 50-69%. Duplex evaluation demonstrates stenosis of the left proximal internal carotid artery in the range of 20-49%. Duplex evaluation demonstrates antegrade flow of the bilateral Vertebral Arteries. Electronically signed by : Lenny Ralph MD 05/20/2020 16:22:08
--- NOTE | 2020-05-20 09:01 | HMH.HP ---
*Admission Date: 05/20/20 *Chief complaint: Syncopal episode *History of present illness: Ms. Mccabe is a 79-year-old female with a history of hypertension, left carotid stenosis, hypothyroidism, and some dementia as well as heart disease who presented to [facility] after experiencing a syncopal episode at home. Patient states she was sitting on the couch, got up to go to the kitchen and then fell to the floor. She states she does not recall having any chest, pain shortness of breath, or heart palpitations before or after her fall. The next thing she remembers is being transported by EMS to the hospital. Her apparently was in the home and did call EMS. He did not actually witness the fall. She had no loss of bowel or bladder function. Apparently she had a low heart rate and received some IV fluids in the ambulance after which she did improve. She denies having any injuries from the fall. She had multiple imagings completed in the emergency room with CT of the cervical spine showing no acute fracture, Chest x-ray with no acute findings, CT of the head/brain with no acute intracranial findings, X-ray of the pelvis showing no acute findings. Laboratory data showed a hemoglobin of 12.3 and hematocrit of 38.1. Blood chemistry showed normal electrolytes with a BUN of 18 and creatinine 0.9. Liver function studies were normal. Troponin I's have been normal x3. TSH normal at 4.14. Urinalysis was negative. Drug screen was negative as well. Covid IgG and IgM were both negative. In the emergency room with evaluation patient was felt to be alert. Son did report that she was confused after the fall. She was admitted for further evaluation and treatment. [facility] History Medical History: Reports:: Carotid Stenosis, Coronary Artery Disease, Hyperlipidemia, Hypertension Denies:: Cancer, Diabetes Mellitus Type 1, Diabetes Mellitus Type 2, MRSA *Have you ever received a pneumonia vaccine?: No *Have you received a flu vaccine this season?: Yes Other Medical History: Reports: Hypothyroidism, Thyroid Disease Laterality Cases: Right: Carotid Endarterectomy, Bilateral: Tonsillectomy Other Surgeries: Yes: Cardiac Catheterization, Colonoscopy, Hysterectomy-Total Amputation: No Fractures: No - *Social History Last grade of school completed: High school graduate Smoking Status: Never smoker Alcohol Intake: never Alcohol Intake Frequency:: other Substance Use Type: denies use *Occupational Status:: employed Housing: house Household Members: spouse *Travel in the last 8 weeks: None Family Hx:: Coronary Artery Disease Review of Systems - Constitutional Denies fever(s), Denies lack of energy - Eyes Denies change in vision - ENT Denies ear pain, Denies sore throat - *Cardiovascular Denies chest pain, Denies shortness of breath, Denies leg swelling, Denies rapid, pounding, or irregular heartbeat - *Respiratory Denies chest congestion, Denies cough, Denies shortness of breath - *Gastrointestinal Denies abdominal pain, Denies constipation, Denies loose stools, Denies nausea, Denies vomiting - *Genitourinary Denies difficulty urinating - *Musculoskeletal Denies abnormal walking, Denies muscle weakness, Denies body aches - *Neurologic Denies abnormal walking, Denies dizziness, Denies localized weakness, Denies headache(s), Denies lack of coordination, Denies seizure-like activity Meds Home Medications Medication Instructions Recorded Confirmed Type Evolocumab [Repatha Syringe] 140 mg SQ .[id number] 03/21/20 05/20/20 History Levocetirizine Dihydrochloride 5 mg PO DAILY 03/21/20 05/20/20 History Levothyroxine Sodium 25 mcg PO DAILY 03/21/20 05/20/20 History [Levothyroxine 25mcg (0.025mg) Tab] Metoprolol Succinate [Metoprolol 25 mg PO DAILY 03/21/20 05/20/20 History Succinate 25mg Tablet*] Ranolazine [Ranexa 500mg ER tablet] 500 mg PO BID 03/21/20 05/20/20 History lisinopriL [Zestril 5mg 5 mg PO DAILY 03/21/20
--- NOTE | 2020-05-20 09:08 | HMH.PHAINT ---
home medication reconciliation completed using list from [facility]
--- NOTE | 2020-05-20 10:59 | HMH.CNCARD ---
History of Present Illness Consult date: 05/20/20 Requesting physician: Yuniel Rosales Chief complaint: syncope Additional Medical History:: 1. CAD A. Reports having been told she has coronary artery disease with 100% occlusion with collateral circulation. She does not know when she had her last left cardiac catheterization or stress test. 2. Bilateral carotid artery stenosis A. Carotid ultrasound March 2017 shows right internal carotid arteries 50 to 69% stenosis and left internal carotid artery is 20 to 49% stenosis 3. Hypertension 4. Hyperlipidemia History of present illness: This is a 79-year-old white female who presented to the emergency department with a syncopal episode at home. The patient states that she was sitting on the couch and she got up and walked to the kitchen. She states that while she was in the kitchen she fell to the floor. She does not recall what happened after she got into the kitchen. She states that when she woke up she was being transported to [facility] by EMS. Her was at home and states that he called EMS when she passed out. Her is not here today to give me any information about how long she was passed out and the patient states that she does not know. She does not recall having any chest pain or chest pressure. She does not recall being short of breath or having palpitations. She does not recall being dizzy or lightheaded either. The patient states that she has still been working and feeling pretty well. Some occasional shortness of breath with exertion that improves with rest. According to her emergency department records EMS reported that her heart rate was low when her blood pressure was low but I am not sure how low her heart rate or blood pressure was because there is no documentation of this and no one can tell me how low her blood pressure and heart rate really work. She does have a history of coronary artery disease. The patient reports that she had a cardiac catheterization several years ago and was told she had 100% occlusion that had rerouted its own circulation. She states it has been several years since she has had a cardiac catheterization or a stress test. We are going to try to obtain the records of her previous cardiac catheterization from [facility]. She also has known bilateral carotid artery stenosis that was last evaluated here in 2016. She also has a history of hypertension, hyperlipidemia and some dementia. Her first 2 troponins have been negative. Did report that she was confused initially after her fall. Oriented today but she does have some trouble recalling her history and is kind of vague on some information. [facility] History I have reviewed the patient's past medical history: Yes Medical History: Reports:: Atherosclerotic Heart Disease, Carotid Stenosis, Coronary Artery Disease, Hyperlipidemia, Hypertension Denies:: Cancer, Diabetes Mellitus Type 1, Diabetes Mellitus Type 2, MRSA *Have you ever received a pneumonia vaccine?: No *Have you received a flu vaccine this season?: Yes Other Medical History: Reports: Hypothyroidism, Thyroid Disease Laterality Cases: Right: Carotid Endarterectomy, Bilateral: Tonsillectomy Other Surgeries: Yes: Cardiac Catheterization, Colonoscopy, Hysterectomy-Total Amputation: No Fractures: No - *Social History Last grade of school completed: High school graduate Smoking Status: Never smoker Alcohol Intake: never Alcohol Intake Frequency:: other Substance Use Type: denies use *Occupational Status:: employed Housing: house Household Members: spouse *Travel in the last 8 weeks: None Family Hx:: Coronary Artery Disease Meds Home Medications Medication Instructions Recorded Confirmed Type Evolocumab [Repatha Syringe] 140 mg SQ .[id number] 03/21/20 05/20/20 History Levocetirizine Dihydrochloride 5 mg PO DAILY 03/21/20 05/20/20 History Levothyroxine Sodium 25 mcg PO DAILY 03/21/20 05/20/20
--- NOTE | 2020-05-20 12:30 | PC.NURSE ---
Took patient's tray in to her. refused tray, states she is not hungry. Told patient we will get up to chair later if she wanted. pt agreeable.
--- NOTE | 2020-05-20 16:00 | PC.NURSE ---
NO CHANGES NOTED FROM PREVIOUS ASSESSMENT. PT/. A/OX4 THROUGHOUT SHIFT. LUNGS REMAIN CTA AND BOWELS ACTIVE X4. PULSES 2+ AND NO EDEMA NOTED. TEDS APPLIED BILATERALLY. CAP REFILL <3 SECONDS. NO DISTRESS NOTED. PATIENT IS AWARE OF HEART CATH IN AM. NO NEEDS.
--- NOTE | 2020-05-20 17:15 | PC.NURSE ---
PATIENTS IV TO LEFT A/C HURTING HER- REMOVED PER PT. REQUEST.
--- NOTE | 2020-05-20 18:00 | PC.NURSE ---
HEART CATH CONSENT WENT OVER AT THIS TIME AND SIGNED. ENCOURAGED QUESTIONS AND PT V/U
--- NOTE | 2020-05-20 19:10 | PC.NURSE ---
REPORT RECEIVED FROM Rashard STUBBS RN.
--- NOTE | 2020-05-20 20:10 | PC.NURSE ---
PT ASSESSED AT THIS TIME. BILATERAL LUNG SOUNDS SOUNDS CLEAR. NO EDEMA NOTED. CAP REFILL LESS THAN THREE SECS. BILATERAL KNEE HIGH TEDS IN PLACE. CAROTID, BRACHIAL, RADIAL, TIBIAL, AND PEDAL PULSES ARE EASILY PALPABLE AND STRONG PT IS ABLE TO AMBULATE TO BR AND BACK WITHOUT ASSISTANCE AND TOLERATES IT WELL. PT DENIES ANY PAIN AT THIS TIME. PT AWARE OF NPO STATUS AT MIDNIGHT. AND IS ENCOURAGED TO TAKE A SHOWER AND TO BE SHAVED FOR CATH IN AM. PT WILL RING OUT WHEN READY TO DO SO. WILL CONTINUE TO OBSERVE.
--- NOTE | 2020-05-20 21:44 | PC.NURSE ---
PT R GROIN AREA SHAVED AT THIS TIME AND PT IN SHOWER.
--- NOTE | 2020-05-20 22:15 | PC.NURSE ---
PT OUT OF SHOWER AT THIS TIME. IV FLUSHED AND RESTARTED. TELE MONITOR REAPPLIED. NYDIA HOSE REAPPLIED. PT DENIES ANY FURTHER NEEDS AT THIS TIME. WILL CONTINUE TO OBSERVE.
[2020-05-21] VITALS (24 sets, daily range): BP systolic 103–176; BP diastolic 47–74; PULSE 54–90; RESP 16–20; TEMP 36.4–36.7; O2SAT 94–99; BMI 29.2; BMI 29.7
--- NOTE | 2020-05-21 | IR_ITS ---
APPROVED REPORT Patient Location: Inpatient Assisted Living Assistant: ROSEMARY Schmid RT (R) PROCEDURES Left heart catheterization Left ventriculogram Selective coronary angiogram Informed consent was obtained prior to the procedure. COMPLICATIONS None Estimated Blood Loss: less than 10ml TECHNIQUE One percent lidocaine used to anesthetize the right anterior aspect of the wrist. The right radial artery was accessed via the Seldinger technique. A 6 Greek sheath was placed in the right radial artery. 2.5 mg of verapamil, 800 mcg of nitroglycerin, 1mg Lidocaine and 5000 U Heparin were given through the arterial sheath. The an AL 0.75 guide catheter was also used to perform left heart catheterization, left ventriculogram and selective coronary angiogram. At the end of the procedure the sheath was removed good hemostasis was achieved using Traclet band, patient was transferred to the postop holding area in stable condition. ANGIOGRAPHIC RESULTS The left main artery Is normal The left anterior descending artery Is an unusually shaped yet still large vessel with proximal and mid vessel 10 to 20% stenoses. The circumflex artery Nondominant with a proximal 20% stenosis. The vessel was tortuous. Large Kugel collateral supply the distal right coronary artery The right coronary artery Is a dominant vessel and has an ostial 90% a proximal greater than 90% stenosis followed by an additional proximal 90% stenosis. The mid segment has a calcified 90% stenosis. Kugel collateral supply the posterior lateral branch as well as bridging collaterals supply the mid right coronary artery beyond the subtotal occlusion. There is antegrade flow via the Kugel collateral as well as the bridging collaterals. Distally the vessel also has left to right collaterals from the circumflex artery The PACHE[place] ventriculogram reveals Normal 65% The left ventricular end-diastolic pressure 10 mmHg IMPRESSION Coronary disease as described above Normal ejection fraction Normal left ventricular end-diastolic pressure PLAN 1. Medical management 2. Loop recorder to continue assessment of syncope 3. Referral for electrophysiology study to determine if inducible arrhythmia is identified Electronically signed by : True Cohen, 05/21/2020 13:47:33
--- NOTE | 2020-05-21 04:10 | PC.NURSE ---
NO CHANGES NOTED IN REASSESSMENT. PT AMBULATED TO BR AND BACK TO BED. TOLERATED WELL. DENIES ANY NEEDS AT THIS TIME. WILL CONTINUE TO OBSERVE.
--- NOTE | 2020-05-21 08:00 | PC.NURSE ---
PATIENT SITTING ON THE SIDE OF THE BED THIS AM. DENIES ANY PAIN AT THIS TIME. A/O X4. IV INFUSING WITHOUT DIFFICULTY. PLAN IS FOR PATIENT TO HAVE A LEFT HEART CATH TODAY.
--- NOTE | 2020-05-21 10:20 | PC.NURSE ---
DR. MACIEL AT BEDSIDE.
--- NOTE | 2020-05-21 10:35 | PC.NURSE ---
CHULA BERMUDEZ AT BEDSIDE.
--- NOTE | 2020-05-21 10:58 | HMH.ACPN2 ---
Internal Medicine - PN: Subj *Date: 05/21/20 *Time: 10:58 Interval history: She reports a quiet night. She has had no rhythm disturbances or syncope. She is scheduled for cardiac catheterization this morning. Exam Vital signs and Labs for Last 24 Hours: Temp Pulse Resp BP Pulse Ox 98.1 F 71 18 160/70 H 99 05/21/20 08:00 05/21/20 08:00 05/21/20 08:00 05/21/20 09:57 05/21/20 08:00 I & O for Last 24 hours: Intake & Output 05/18/20 05/19/20 05/20/20 05/21/20 11:59 11:59 11:59 11:59 Intake Total 1709 / 1709 Output Total 800 / 800 1300 / 1300 Balance -800 / -800 409 / 409 Weight 162 lb 4.8 oz 155 lb 3.2 oz - Constitutional no acute distress - *Routine HEENT Exam Head: Present: normocephalic Eye: Present: PERRL ENT: Present: mucous membranes moist - *Routine Neck Exam Present: supple. Absent: JVD - *Routine Respiratory Exam Present: rales (Bibasilar but more prominent on the left.) - *Routine Cardiovascular Exam Present: RRR - *Routine Abdominal Exam Present: soft. Absent: tenderness - *Routine Extremities Exam Absent: edema Assessment and Plan (1) Syncope Status: Acute Qualifiers: Syncope type: unspecified Qualified Code(s): R55 - Syncope and collapse Category: Medical Code(s): R55 - Syncope and collapse (2) Coronary artery disease Status: Chronic Category: Medical Code(s): I25.10 - Atherosclerotic heart disease of [place] coronary artery without angina pectoris (3) Hypertension Status: Chronic Category: Medical Code(s): I10 - Essential (primary) hypertension (4) Left carotid bruit Status: Chronic Category: Medical Code(s): R09.89 - Other specified symptoms and signs involving the circulatory and respiratory systems (5) HLD (hyperlipidemia) Status: Chronic Qualifiers: Hyperlipidemia type: mixed hyperlipidemia Qualified Code(s): E78.2 - Mixed hyperlipidemia Category: Medical Code(s): E78.5 - Hyperlipidemia, unspecified (6) Bilateral carotid bruits Status: Acute Category: Medical Code(s): R09.89 - Other specified symptoms and signs involving the circulatory and respiratory systems (7) Carotid artery stenosis Status: Chronic Qualifiers: Laterality: bilateral Qualified Code(s): I65.23 - Occlusion and stenosis of bilateral carotid arteries Category: Medical Code(s): I65.29 - Occlusion and stenosis of unspecified carotid artery (8) SOB (shortness of breath) Status: Acute Category: Medical Code(s): R06.02 - Shortness of breath (9) Hypothyroidism Status: Chronic Category: Medical Code(s): E03.9 - Hypothyroidism, unspecified - Assessment and plan all Dx Assessment and Plan for all problems:: Left heart cath today.
--- NOTE | 2020-05-21 11:13 | HMH.PNCARD ---
Subjective Date: 05/21/20 Time: 11:13 Principal diagnosis: Syncope Interval history: 79-year-old white female in bed in no acute distress denies any chest pain, pressure or tightness overnight. Carotid ultrasound results reviewed with the patient with essentially no change compared to previous reports. Exam Vital signs and Labs for Last 24 Hours: Temp Pulse Resp BP Pulse Ox 98.1 F 71 18 160/70 H 99 05/21/20 08:00 05/21/20 08:00 05/21/20 08:00 05/21/20 09:57 05/21/20 08:00 I & O for Last 24 hours: Intake & Output 05/18/20 05/19/20 05/20/20 05/21/20 11:59 11:59 11:59 11:59 Intake Total 1709 / 1709 Output Total 800 / 800 1300 / 1300 Balance -800 / -800 409 / 409 Weight 162 lb 4.8 oz 155 lb 3.2 oz - *Routine Neck Exam Present: supple, carotid bruit. Absent: lymphadenopathy - *Routine Respiratory Exam Present: CTA bilaterally - *Routine Cardiovascular Exam Present: RRR - *Routine Extremities Exam Absent: cyanosis, clubbing, edema - *Routine Neurological Exam Present: alert, oriented X3 Progress Note: A&P (1) Syncope Status: Acute (2) Coronary artery disease Status: Chronic (3) Hypertension Status: Chronic (4) Left carotid bruit Status: Chronic (5) HLD (hyperlipidemia) Status: Chronic (6) Bilateral carotid bruits Status: Acute (7) Carotid artery stenosis Status: Chronic (8) SOB (shortness of breath) Status: Acute (9) Hypothyroidism Status: Chronic Assessment and Plan for All Diagnoses:: 1. Proceed with left heart catheterization today 2. Echo shows ejection fraction of 55% with moderate left atrial enlargement. Mild AR MR and TR. No wall motion abnormalities noted. 3. Further recommendations to follow pending above results. Consideration for loop recorder implantation pending results of cardiac catheterization.
--- NOTE | 2020-05-21 11:50 | PC.NURSE ---
called maddy serrato regarding patients bp. orders for metoprolol 25 mg po now. all orders r/v
--- NOTE | 2020-05-21 12:00 | PC.NURSE ---
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
--- NOTE | 2020-05-21 18:24 | PC.NURSE ---
PT IS SITTING UP IN THE CHAIR WITH FAMILY IN THE ROOM. NO COMPLAINTS OF CP/SOA/DIZZINESS. PT TOLERATED GETTING OOB AMBULATING TO THE BATHROOM W/O DIZZINESS. VSS. TRACELET TO THE RT WRIST WAS REMOVED AT 1800. NO BLEEDING/HEMATOMA NOTED. THE PLAN IS FOR PT TO HAVE A LOOP RECORDER PLACED IN THE MORNING BEFORE DISCHARGE.
[2020-05-22] VITALS: BP 122/68; PULSE 60; PULSE 75; RESP 16; TEMP 36.7; O2SAT 98
--- NOTE | 2020-05-22 03:12 | PC.NURSE ---
Pt A&OX4. Lungs CTA. pt denies pain SOA. post cath incision surgical dressing in place c/d/i. pt ambulates to BR x1. pt has rested quietly
[2020-05-22 04:00] VITALS: BP 133/63; PULSE 60; PULSE 75; RESP 16; TEMP 36.8; O2SAT 98
[2020-05-22 05:20] VITALS: BMI 28.5
[2020-05-22 08:00] VITALS: BP 164/72; PULSE 76; PULSE 80; RESP 18; TEMP 36.5; O2SAT 98
--- NOTE | 2020-05-22 08:21 | P.PN_ITS ---
Subjective Date: 05/22/20 Time: 08:21 Principal diagnosis: Syncope Interval history: 79-year-old white female at bedside eating breakfast in no acute distress. Denies any chest pain, pressure or tightness overnight. Telemetry shows no arrhythmias overnight. Cardiac catheter results reviewed with recommendation for medical therapy. Exam Vital signs and Labs for Last 24 Hours: Temp Pulse Resp BP Pulse Ox 98.3 F 75 16 133/63 98 05/22/20 04:00 05/22/20 04:00 05/22/20 04:00 05/22/20 04:00 05/22/20 04:00 I & O for Last 24 hours: Intake & Output 05/19/20 05/20/20 05/21/20 05/22/20 11:59 11:59 11:59 11:59 Intake Total 1709 / 1709 364 / 364 Output Total 800 / 800 1300 / 1300 Balance -800 / -800 409 / 409 364 / 364 Weight 162 lb 4.8 oz 155 lb 3.2 oz 150 lb 12.8 oz - Constitutional no acute distress - *Routine HEENT Exam Head: Present: normocephalic Eye: Present: EOMI, PERRL ENT: Present: mucous membranes moist - *Routine Neck Exam Present: supple. Absent: lymphadenopathy - *Routine Respiratory Exam Present: CTA bilaterally - *Routine Cardiovascular Exam Present: RRR - *Routine Abdominal Exam Present: soft, normoactive bowel sounds. Absent: tenderness - *Routine Extremities Exam Absent: cyanosis, clubbing, edema - *Routine Skin Exam Present: warm. Absent: rash - *Routine Neurological Exam Present: alert, oriented X3 Progress Note: A&P (1) Syncope Status: Acute (2) Coronary artery disease Status: Chronic (3) Hypertension Status: Chronic (4) Left carotid bruit Status: Chronic (5) HLD (hyperlipidemia) Status: Chronic (6) Bilateral carotid bruits Status: Acute (7) Carotid artery stenosis Status: Chronic (8) SOB (shortness of breath) Status: Acute (9) Hypothyroidism Status: Chronic Assessment and Plan for All Diagnoses:: 1. Syncope of unknown etiology. Discussed recommendation for loop recorder and referral to estate conservator. We will plan to proceed with loop recorder implantation today and referral to Dr. Guevara in [place] as an outpatient. 2. Coronary artery disease, primarily of the right coronary artery, medical therapy recommended. Continue aspirin and Ranexa 500 mg twice daily 3. Bilateral carotid artery disease of moderate severity, continue Repatha therapy. Patient has been intolerant of statins in the past. 4. Hypertension, controlled on lisinopril therapy. Patient could be discharged home later today from a cardiac standpoint with follow-up in our office in 1 week.
[2020-05-22 09:23] VITALS: BP 165/69; PULSE 69; RESP 20; O2SAT 98
--- NOTE | 2020-05-22 09:45 | PC.NURSE ---
PATIENT ARRIVED BACK ON FLOOR FROM CARDIOLOGY AFTER LOOP RECORDER PLACEMENT. WHILE IN WHEELCHAIR, PATIENT'S HANDS BEGAN SHAKING, THIS RN INQUIRED IF PATIENT WAS OKAY. PATIENT STATED, YES, I WAS JUST A LITTLE WORRIED, I COULD HEAR THEM CUTTING MY SKIN. PATIENT STOOD UP, THIS RN ADJUSTED HER GOWN AND PATIENT STATED. LOOK I AM NOT SHAKING ANYMORE, I WILL BE OKAY. PATIENT AMBULATED TO RESTROOM, GAIT STEADY. NO OTHER CONCERNS.
--- NOTE | 2020-05-22 10:22 | P.PCN_ITS ---
[facility] Loop Recorder Date: 05/22/20 Time: 09:00 Procedure Performed:: Implantation of loop recorder Indication:: Syncope Technique:: Patient was brought to the cardiac [employer]. After informed consent obtained, 1% lidocaine with epinephrine was used to anesthetize the site along the left anterior aspect of the chest near the sternal border. Using the preformed scalpel, an incision was made and using the supplied preloaded apparatus, the lo op recorder was placed subcutaneously without difficulty. Following the deployment of the loop recorder interrogation of the device was performed to ensure appropriate voltage was being detected (0.9 mV). Once this was verified, Steri-Strips were placed over the incision and the patient was prepped to discharge home. Patient tolerated the procedure well with minimal discomfort. Impression:: Successful implantation of loop recorder Serial Number:: [id number] Plan:: Routine postop care
[2020-05-22 11:30] VITALS: BMI 28.1
[2020-05-22 12:00] VITALS: PULSE 60
--- NOTE | 2020-05-22 13:37 | P.PN_ITS ---
Internal Medicine - PN: Subj *Date: 05/22/20 *Time: 13:37 Interval history: She was stable through the night. [facility] report reviewed. Stable CAD with collaterals. Loop recorder placed this AM per cardiology. Will discharge and follow up in [facility]. Exam Vital signs and Labs for Last 24 Hours: Temp Pulse Resp BP Pulse Ox 97.7 F 69 20 165/69 H 98 05/22/20 08:00 05/22/20 09:23 05/22/20 09:23 05/22/20 09:23 05/22/20 09:23 I & O for Last 24 hours: Intake & Output 05/20/20 05/21/20 05/22/20 05/23/20 11:59 11:59 11:59 11:59 Intake Total 1709 / 1709 724 / 724 Output Total 800 / 800 1300 / 1300 Balance -800 / -800 409 / 409 724 / 724 Weight 162 lb 4.8 oz 155 lb 3.2 oz 149 lb - Constitutional no acute distress - *Routine HEENT Exam Head: Present: normocephalic Eye: Present: PERRL ENT: Present: mucous membranes moist - *Routine Respiratory Exam Present: rales (few bibasilar) - *Routine Cardiovascular Exam Present: RRR - *Routine Abdominal Exam Present: soft. Absent: tenderness - *Routine Extremities Exam Absent: edema Assessment and Plan (1) Syncope Status: Acute Qualifiers: Syncope type: unspecified Qualified Code(s): R55 - Syncope and collapse Category: Medical Code(s): R55 - Syncope and collapse (2) Coronary artery disease Status: Chronic Category: Medical Code(s): I25.10 - Atherosclerotic heart disease of [place] coronary artery without angina pectoris (3) Hypertension Status: Chronic Category: Medical Code(s): I10 - Essential (primary) hypertension (4) Left carotid bruit Status: Chronic Category: Medical Code(s): R09.89 - Other specified symptoms and signs involving the circulatory and respiratory systems (5) HLD (hyperlipidemia) Status: Chronic Qualifiers: Hyperlipidemia type: mixed hyperlipidemia Qualified Code(s): E78.2 - Mixed hyperlipidemia Category: Medical Code(s): E78.5 - Hyperlipidemia, unspecified (6) Bilateral carotid bruits Status: Acute Category: Medical Code(s): R09.89 - Other specified symptoms and signs involving the circulatory and respiratory systems (7) Carotid artery stenosis Status: Chronic Qualifiers: Laterality: bilateral Qualified Code(s): I65.23 - Occlusion and stenosis of bilateral carotid arteries Category: Medical Code(s): I65.29 - Occlusion and stenosis of unspecified carotid artery (8) SOB (shortness of breath) Status: Acute Category: Medical Code(s): R06.02 - Shortness of breath (9) Hypothyroidism Status: Chronic Category: Medical Code(s): E03.9 - Hypothyroidism, unspecified - Assessment and plan all Dx Assessment and Plan for all problems:: discharge, follow up [facility] next week
[2020-05-22 16:00] VITALS: BP 169/81; PULSE 60; PULSE 71; RESP 18; TEMP 36.9; O2SAT 95
--- NOTE | 2020-05-22 17:16 | PC.NURSE ---
PATIENT A&O X4, LUNGS CLEAR, PULSES EQUAL. THIS RN PROVIDED D/C INSTRUCTIONS FOR CARDIAC CATHERIZATION, PATIENT AND SPOUSE VERBALIZED AN UNDERSTANDING. PATIENT SENT HOME WITH LOOP RECORDER, EDUCATION PROVIDED BY SUDHEER JENKINS FROM [facility]. PATIENT LEFT FLOOR VIA WHEELCHAIR. NO CONCERNS AT D/C.
--- NOTE | 2020-05-22 23:30 | HMH.DCSUM ---
General - General Admission date:: 05/20/20 Discharge date: 05/22/20 HPI HPI: Ms. Mccabe is a 79-year-old female with a history of hypertension, left carotid stenosis, hypothyroidism, and some dementia as well as heart disease who presented to [facility] after experiencing a syncopal episode at home. Patient stated she was sitting on the couch, got up to go to the kitchen and then fell to the floor. She stated she did not recall having any chest pain, shortness of breath, or heart palpitations before or after her fall. The next thing she remembered was being transported by EMS to the hospital. Her apparently was in the home and did call EMS. He did not actually witness the fall. She had no loss of bowel or bladder function. Apparently she had a low heart rate and received some IV fluids in the ambulance after which she did improve. She denied having any injuries from the fall. She had multiple imagings completed in the emergency room with CT of the cervical spine showing no acute fracture, Chest x-ray with no acute findings, CT of the head/brain with no acute intracranial findings, X-ray of the pelvis showing no acute findings. Laboratory data showed a hemoglobin of 12.3 and hematocrit of 38.1. Blood chemistry showed normal electrolytes with a BUN of 18 and creatinine 0.9. Liver function studies were normal. Troponin I's were normal x3. TSH was normal at 4.14. Urinalysis was negative. Drug screen was negative as well. Covid IgG and IgM were both negative. In the emergency room with evaluation patient was felt to be alert. Son did report that she was confused after the fall. She was admitted for further evaluation and treatment. Hospital Course Hospital Course: Patient had a cardiology consult on admission who followed her throughout her stay. She had no rhythm disturbances or syncope after admission. She did have a cardiac cath with the following results: ANGIOGRAPHIC RESULTS The left main artery Is normal The left anterior descending artery Is an unusually shaped yet still large vessel with proximal and mid vessel 10 to 20% stenoses. The circumflex artery Nondominant with a proximal 20% stenosis. The vessel was tortuous. Large Kugel collateral supply the distal right coronary artery The right coronary artery Is a dominant vessel and has an ostial 90% a proximal greater than 90% stenosis followed by an additional proximal 90% stenosis. The mid segment has a calcified 90% stenosis. Kugel collateral supply the posterior lateral branch as well as bridging collaterals supply the mid right coronary artery beyond the subtotal occlusion. There is antegrade flow via the Kugel collateral as well as the bridging collaterals. Distally the vessel also has left to right collaterals from the circumflex artery The [place] ventriculogram reveals Normal 65% The left ventricular end-diastolic pressure 10 mmHg IMPRESSION Coronary disease as described above Normal ejection fraction Normal left ventricular end-diastolic pressure PLAN 1. Medical management 2. Loop recorder to continue assessment of syncope 3. Referral for electrophysiology study to determine if inducible arrhythmia is identified Hypertension was controlled with lisinopril therapy. She had a loop recorder implantation without problems.. She was to have a referral to Dr. Guevara in [place] as an outpatient. On 05/22/2020 she remained stable through the night. She was discharged home on this date in stable and satisfactory condition. She [facility] following week and with cardiology as well. see data for test resuts. Objective Vital signs: Temp Pulse Resp BP Pulse Ox 98.4 F 71 18 169/81 H 95 05/22/20 16:00 05/22/20 16:00 05/22/20 16:00 05/22/20 16:00 05/22/20 16:00 Narrative: Exam Vital signs and Labs for Last 24 Hours: Temp Pulse Resp BP Pulse Ox 97
== END 2020-05-22 17:14 | disposition home or self-care (01) ==
LOC: ER 02:39 → OB 03:50 → 2ND 05-21 13:58
PROVIDERS: Internal Medicine; Admitting Provider Family Medicine; Emergency Provider Emergency Medicine; Visit Provider Family Medicine
DX: R55 Syncope and collapse (principal); I25.10 Atherosclerotic heart disease of native coronary artery without angina pectoris; R09.89 Other specified symptoms and signs involving the circulatory and respiratory systems; I10 Essential (primary) hypertension; E03.9 Hypothyroidism, unspecified; I65.23 Occlusion and stenosis of bilateral carotid arteries; Z79.899 Other long term (current) drug therapy
CPT/HCPCS: 33285; 36415; 70450; 71045; 72125; 72170; 80048; 80053; 80305; 81001; 82962; 83735; 84439; 84443; 84484; 85025; 86328; 93005; 93306; 93458; 93880; 96365; 96366; 99152; 99153; 99284; C1725; C1769; G0378; J1644; Q9967

== ENCOUNTER → 2020-10-28 10:49 | Outpatient (CLI) | payer MEDICARE, SELFPAY ==
--- NOTE | 2020-10-28 10:50 | CA_ITS ---
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: Chitra RCS, RVS Laterality: Bilateral Study Quality: Good Indications: CARISA Doppler Spectral Velocity Analysis ECA (R) 156.00/14.40 cm/s ECA (L) 152.90/10.70 cm/s dICA (R) 133.90/29.90 cm/s dICA (L) 119.80/25.70 cm/s Serena (R) 133.90/32.70 cm/s Serena (L) 149.70/32.10 cm/s pICA (R) 95.40/23.10 cm/s pICA (L) 106.90/20.30 cm/s dCCA (R) 70.30/15.40 cm/s dCCA (L) 105.00/21.20 cm/s pCCA (R) 97.00/14.00 cm/s mCCA (L) 89.60/14.40 cm/s Vert (R) 43.30/15.40 cm/s Vert (L) 98.80/15.00 cm/s ICA/CCA 1.90 ICA/CCA 1.68 Findings Duplex evaluation demonstrates antegrade flow of the bilateral Vertebral Arteries.Duplex evaluation demonstrates stenosis of the right proximal internal carotid artery in the range of 20-49% with PSV =140 cm/sec, EDV <100 cm/sec, and IC/CC Ratio <4.0.Duplex evaluation demonstrates stenosis of the left proximal internal carotid artery in the range of 50-69% with PSV =140 cm/sec, EDV <100 cm/sec, and IC/CC Ratio <4.0. Conclusion Duplex evaluation demonstrates antegrade flow of the bilateral Vertebral Arteries.Duplex evaluation demonstrates stenosis of the right proximal internal carotid artery in the range of 20-49% with PSV =140 cm/sec, EDV <100 cm/sec, and IC/CC Ratio <4.0.Duplex evaluation demonstrates stenosis of the left proximal internal carotid artery in the range of 50-69% with PSV =140 cm/sec, EDV <100 cm/sec, and IC/CC Ratio <4.0. Electronically signed by : Lenny Ralph MD 10/28/2020 17:10:48
== END ==
PROVIDERS: PCP Family Medicine; Visit Provider Physician Assistant
DX: I65.23 Occlusion and stenosis of bilateral carotid arteries (principal)
CPT/HCPCS: 93880

== ENCOUNTER → 2020-12-22 10:03 | Outpatient (CLI) | payer MEDICARE, SELFPAY ==
--- NOTE | 2020-12-22 10:12 | XR_ITS ---
PROCEDURE: XR FOOT WT BEARING LT 3V CLINICAL INDICATION: COMPARISON VIEWS COMPARISON: CR FTL3 FOOT-LT-3 VIEWS from 07/21/2017 FINDINGS: Bunion formation at the distal aspect of the 1st metatarsal with mild bony hypertrophy and subchondral cystic changes at the medial and distal aspect of the 1st metatarsal. There is a small area of cortical discontinuity involving the distal medial aspect of the 1st metatarsal just deep to the soft tissue swelling. No other significant anomalies are evident. There is an old distal fibular fracture suspected. Small calcaneal spur noted. IMPRESSION: Mild bony hypertrophy with subchondral cystic changes and overlying soft tissue swelling at the distal 1st metatarsal medially. The oblique view shows some minimal cortical discontinuity at this region which could be related to the subchondral cystic changes. Please correlate with clinical parameters. Dictated by: Lenny Ralph MD 12/22/2020 11:42 Lenny Ralph MD in [place] 12/22/2020 11:42
--- NOTE | 2020-12-22 10:12 | XR_ITS ---
PROCEDURE: XR FOOT WT BEARING RT 3V CLINICAL INDICATION: painful callus of right foot COMPARISON: CR FTL3 FOOT-LT-3 VIEWS from 07/21/2017 FINDINGS: No fracture or dislocation. No lytic or blastic change. There is normal mineralization. 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 There is 3 mm lateral displacement of the middle phalanx of the 2nd toe. The there is a tiny calcaneal spur and partially calcified Achilles enthesophyte. Other findings:None. IMPRESSION: Mild degenerative changes 3 mm lateral displacement the middle phalanx of the 2nd toe Dictated by: Lenny Ralph MD 12/22/2020 11:40 Lenny Ralph MD in [place] 12/22/2020 11:40
== END ==
PROVIDERS: PCP Family Medicine; Visit Provider Nurse Practitioner
DX: L84 Corns and callosities (principal); M79.674 Pain in right toe(s)
CPT/HCPCS: 73630

== ENCOUNTER → 2021-01-05 10:38 | Outpatient (CLI) | payer MEDICARE, SELFPAY | PROVIDERS: Visit Provider Physician Assistant | DX: Z01.812 Encounter for preprocedural laboratory examination (principal); Z20.822 Contact with and (suspected) exposure to COVID-19; I49.5 Sick sinus syndrome | CPT/HCPCS: 36415; U0003 ==

== ENCOUNTER 2021-01-06 09:42 | Day surgery (SDC) | payer MEDICARE, SELFPAY ==
--- NOTE | 2021-01-06 | IR_ITS ---
APPROVED REPORT Patient Location: Outpatient Health Tech: ROSEMARY Pittman RT (R) PROCEDURES 1. Pocket formation for Permanent Pacemaker Placement. 2. Placement of an atrial sensing and pacing coil into the right atrial appendage. 3. Placement of a ventricular sensing and pacing coil in the right ventricular apex. 4. Permanent Pacemaker Placement. INDICATION Sick Sinus Syndrome, Eduardo Tachy Syndrome Informed consent was obtained prior to the procedure. COMPLICATIONS None Estimated Blood Loss: Less than 10 mls TECHNIQUE 1% Lidocaine with epinephrine used to anesthetized the left anterior aspect of the chest. Scalpel was used to make the initial cutaneous incision while electrocautery was used to dissect down tinto the fascia. The fascia was lifted off the pectoralis muscle and digitally manipulated creating a pocket for the pacemaker. The patient was then placed in Trendelenburg position and the subclavian vein was accessed twice via the Selinger technique, there are two wires in the vein. A 6 [place] sheath was placed under fluoroscopic guidance into the subclavian vein over one of the wires while keeping the other wire in place within the subclavian vein. The dilator was removed from the sheath. Using fluoroscopic guidance, the ventricular lead was placed into the right ventricular apex, screwed and secured into place. Electronic interrogation proved acceptable thresholds and voltage within the lead. Using 3-0 silk, the ventricular lead was then secured into place. Lead was secured to the facia using the 3-0 silk. Following this, the sheath was pealed away. An additional 6 [place] fresh sheath and dilator was placed over the existing wire. Using fluoroscopic guidance, the atrial lead was the placed into the right atrial appendage and screwed and secured in place. Electrical interrogation demonstrated acceptable thresholds and voltage number. The atrial lead was then secured into place using 3-0 silk. 1 gram of Ancef was used to flush the pocket. Following the pacemaker generator being secured to the fascia and in place, Monocryl was used to close the subcutaneous layers while naima were used to close the cutaneous layer. A pressure dressing was placed and the patient was transferred to the postop holding area in stable condition for postoperative care. INTERROGATION Generator Model number: CASSANDRA GLEASON DR, L311 Generator Serial number: [id number] Atrial lead model number: INGEVITY+ 45cm, 7840 Atrial lead serial number: [id number] P-wave: 2.5mV Impedence: 700 ohms Threshold: 1.0V@0.4ms Right Ventricular lead model number: TODD+ 52cm, 7841 Right Ventricular lead serial number: [id number] R-wave: 14.0mV Impedence: 850 ohms Threshold: 0.5V@0.4ms Pacing Parameters: Mode: DDDR Base/Max Track: 60/130 ppm No diaphragmatic stimulation at 10 volts. IMPRESSION 1. Successful pocket formation for Permanent Pacemaker Placement. 2. Successful placement of an atrial sensing and pacing coil into the right atrial appendage. 3. Successful placement of a ventricular sensing and pacing coil in the right ventricular apex. 4. Successful permanent Pacemaker Placement. PLAN 1. Post op wound care, follow up office visit Electronically signed by : True Cohen, 01/06/2021 14:53:54
[2021-01-06 09:50] VITALS: BMI 62.8
[2021-01-06 10:13] VITALS: BP 195/82; PULSE 60; PULSE 69; RESP 18; O2SAT 98
[2021-01-06 10:25] LABS: Basophils # 0.1 K/mm3 (0-0.2); Basophils % 0.7 % (0.1-2.0); Eosinophils # 0.1 K/mm3 (0.0-0.4); Eosinophils % 0.9 % (0.1-12.0); Hematocrit 39.9 % (37.0-47.0); Hemoglobin 13.2 g/dL (12.2-16.2); Lymphocytes # 1.9 K/mm3 (0.7-4.5); Lymphocytes % 20.9 % (10-50); Mean Corpuscular HGB Conc 33.2 g/dL (31.8-35.4); Mean Corpuscular Hemoglobin 29.7 pg (27.0-31.2); Mean Corpuscular Volume 89.6 fl (81-99); Mean Platelet Volume 7.7 fl (7.4-10.4); Monocytes # 0.5 K/mm3 (0.1-1.0); Monocytes % 5.5 % (1.7-9.3); Neutrophils # 6.4 K/mm3 (1.8-7.8); Platelet Count 287 K/mm3 (142-424); Red Blood Count 4.45 M/mm3 (4.20-5.40); Red Cell Distribution Width 13.6 % (11.5-17.5); White Blood Count 8.9 K/mm3 (4.8-10.8)
[2021-01-06 10:29] LABS: Chloride 105 mmol/L (98-107); Potassium 4.4 mmoL/L (3.5-5.1); Sodium 141 mmol/L (136-145)
[2021-01-06 10:32] LABS: Anion Gap 13.4 mEq/L (5-15); Blood Urea Nitrogen 22 mg/dl (7-17); Carbon Dioxide 27 mmol/L (22.0-30.0); Creatinine Clearance Estimated 34 mL/min (50-200); Estimated Glomerular Filt Rate 60 ml/min (>60); GFR (African American) 73 ML/MIN (>60)
[2021-01-06 10:33] LABS: Calcium 10.4 mg/dl (8.4-10.2); Glucose 94 mg/dl (74-100)
--- NOTE | 2021-01-06 11:06 | HMH.ANESCL ---
[facility] Anesthesia Checklist - Patient Identification Patient Identification: Arm Band - Structural Data Admitted From: Home Planned Operative Procedure/s: Pacemaker placement Consent for Planned Operative Procedure(s) Verified: Yes - NPO Status Verified Time NPO: 00:00 - Airway Assessment C-Spine Mobility Assessed: Yes TMJ Mobility Assessed: Yes Dentition: Good Dentition - Neurological Assessment Level of Consciousness: Awake Hx Seizures: No Numbness or tingling in extremities: No - Anesthesia Plan Anesthesia Risk discussed: Yes Anesthesia Plan: Verified ASA Class: III Anesthesia Type: MAC [facility] History I have reviewed the patient's past medical history: Yes Medical History: Reports:: Atherosclerotic Heart Disease, Carotid Stenosis, Coronary Artery Disease, Hyperlipidemia, Hypertension Denies:: Cancer, Diabetes Mellitus Type 1, Diabetes Mellitus Type 2, Internal Pacemaker, MRSA, Seizures *Have you ever received a pneumonia vaccine?: Yes *Have you received a flu vaccine this season?: Yes Other Medical History: Reports: Hypothyroidism, Thyroid Disease Anesthesia experience/problems:: None Laterality Cases: Right: Carotid Endarterectomy, Bilateral: Tonsillectomy Other Surgeries: Yes: Cardiac Catheterization, Colonoscopy, Hysterectomy-Total. No: Pacemaker Amputation: No Fractures: No - *Social History Last grade of school completed: High school graduate Smoking Status: Never smoker Alcohol Intake: never Alcohol Intake Frequency:: other Substance Use Type: denies use *Occupational Status:: employed Housing: house Household Members: spouse *Travel in the last 8 weeks: None Family Hx:: Coronary Artery Disease
[2021-01-06 13:10] VITALS: BP 80/67; PULSE 90; RESP 18; TEMP 36.2; O2SAT 96
--- NOTE | 2021-01-06 13:18 | XR_ITS ---
PROCEDURE: XR CHEST PORTABLE CLINICAL HISTORY: Confirm pacemaker/AID placement COMPARISON: CR XR CHEST 2V from 07/21/2019 CR XR CHEST PORTABLE from 05/20/2020 FINDINGS: Portable chest shows interval placement of left-sided pacemaker with leads in right atrium and right ventricle in good position. Mild bibasilar scar versus atelectasis. No pleural effusion or pneumothorax. No acute bony abnormality. IMPRESSION: Interval placement of left-sided pacemaker with leads in good position. Mild bibasilar scar versus atelectasis. Dictated by: Eusebio Garcia MD 01/06/2021 13:34 Eusebio Garcia MD in [place] 01/06/2021 13:34
[2021-01-06 13:24] VITALS: PULSE 78
[2021-01-06 13:25] VITALS: BP 117/57; PULSE 62; RESP 12; TEMP 36.6; O2SAT 99
[2021-01-06 13:55] VITALS: BP 114/54; PULSE 60; RESP 18; O2SAT 96
[2021-01-06 14:47] VITALS: BP 143/61; PULSE 61; RESP 18; O2SAT 100
== END 2021-01-06 14:54 | disposition home or self-care (01) ==
LOC: CATHLAB 09:45
PROVIDERS: PCP Family Medicine; Visit Provider Internal Medicine
DX: I49.5 Sick sinus syndrome (principal); I25.10 Atherosclerotic heart disease of native coronary artery without angina pectoris; I65.23 Occlusion and stenosis of bilateral carotid arteries; E78.2 Mixed hyperlipidemia; I10 Essential (primary) hypertension; Z20.822 Contact with and (suspected) exposure to COVID-19; Z79.82 Long term (current) use of aspirin; I65.29 Occlusion and stenosis of unspecified carotid artery; E03.9 Hypothyroidism, unspecified
CPT/HCPCS: 33208; 71045; 80048; 85025; C1785; C1898

== ENCOUNTER → 2021-03-01 10:01 | Outpatient (CLI) | payer MEDICARE, SELFPAY | PROVIDERS: PCP Family Medicine; Visit Provider Family Medicine | DX: Z20.822 Contact with and (suspected) exposure to COVID-19 (principal) | CPT/HCPCS: U0003 ==

== ENCOUNTER → 2021-05-11 13:32 | Outpatient (CLI) | payer MEDICARE, SELFPAY ==
--- NOTE | 2021-05-11 13:47 | XR_ITS ---
PROCEDURE: XR CHEST 2V CLINICAL HISTORY: HTN,PACEMAKER, COMPARISON: CR XR CHEST 2V from 07/21/[address] LUMBAR SPINE WO CON from 03/21/2020 CR XR CHEST PORTABLE from 05/20/2020 CR XR CHEST PORTABLE from 01/06/2021 FINDINGS: Bipolar pacemaker is present from left subclavian approach. Borderline cardiomegaly without failure. The lungs are clear without infiltrates, suspicious nodules, or pleural effusions. There is mild chronic wedge compression changes of T6. Wedge compression changes are also present at L1 which was present on previous CT scan of 03/21/2020 and may be slightly increased now at approximately 50 percent previously at 30 percent.. There is retropulsion of the posterior superior aspect of L1 by 3 mm. IMPRESSION: No acute cardiac or pulmonary findings. Slight increased wedge compression changes of L1 with 3 mm retropulsion of the posterior superior aspect of L1. Dictated by: Lenny Ralph MD 05/12/2021 08:00 Lenny Ralph MD in [place] 05/12/2021 08:00
[2021-05-11 13:57] LABS: Basophils # 0.1 K/mm3 (0-0.2); Basophils % 0.6 % (0.1-2.0); Eosinophils # 0.1 K/mm3 (0.0-0.4); Eosinophils % 0.6 % (0.1-12.0); Hematocrit 42.2 % (37.0-47.0); Lymphocytes # 1.6 K/mm3 (0.7-4.5); Lymphocytes % 20.5 % (10-50); Mean Corpuscular HGB Conc 30.9 g/dL (31.8-35.4); Mean Corpuscular Hemoglobin 30.2 pg (27.0-31.2); Mean Corpuscular Volume 97.8 fl (81-99); Mean Platelet Volume 7.4 fl (7.4-10.4); Monocytes # 0.4 K/mm3 (0.1-1.0); Monocytes % 5.4 % (1.7-9.3); Neutrophils # 5.8 K/mm3 (1.8-7.8); Neutrophils % 72.8 % (37.0-80.0); Platelet Count 274 K/mm3 (142-424); Red Blood Count 4.32 M/mm3 (4.20-5.40); Red Cell Distribution Width 13.1 % (11.5-17.5)
[2021-05-11 14:36] LABS: Chloride 106 mmol/L (98-107); Potassium 4.7 mmoL/L (3.5-5.1); Sodium 140 mmol/L (136-145)
[2021-05-11 14:39] LABS: Alanine Aminotransferase 13 U/L (12-78); Albumin Level 3.9 g/dl (3.5-5.0); Albumin/Globulin Ratio 1.6 (1.1-1.8); Alkaline Phosphatase 60 U/L (38-126); Anion Gap 11.7 mEq/L (5-15); Aspartate Amino Transferase 21 U/L (14-36); Bilirubin,Total 0.3 mg/dl (0.2-1.3); Blood Urea Nitrogen 18 mg/dl (7-17); Carbon Dioxide 27 mmol/L (22.0-30.0); Estimated Glomerular Filt Rate 60 ml/min (>60); GFR (African American) 73 ML/MIN (>60); Globulin 2.5 g/dL (1.3-3.2); Total Protein,Serum 6.4 g/dl (6.3-8.2)
[2021-05-11 14:40] LABS: Calcium 10.1 mg/dl (8.4-10.2); Glucose 148 mg/dl (74-100)
== END ==
PROVIDERS: Visit Provider Podiatrist
DX: Z01.818 Encounter for other preprocedural examination (principal); M79.671 Pain in right foot; S93.104S Unspecified dislocation of right toe(s), sequela; M20.41 Other hammer toe(s) (acquired), right foot
CPT/HCPCS: 36415; 71046; 80053; 85025

== ENCOUNTER → 2021-05-17 10:19 | Outpatient (CLI) | payer MEDICARE, SELFPAY | PROVIDERS: Visit Provider Podiatrist | DX: Z01.812 Encounter for preprocedural laboratory examination (principal); Z11.52 Encounter for screening for COVID-19; M20.41 Other hammer toe(s) (acquired), right foot | CPT/HCPCS: C9803; U0003; U0005 ==

== ENCOUNTER 2021-05-19 07:38 | Day surgery (SDC) | payer MEDICARE, SELFPAY ==
[2021-05-14 14:37] VITALS: BMI 25.4
[2021-05-19 07:53] VITALS: BP 171/83; PULSE 58; RESP 18; TEMP 36.2; O2SAT 97
--- NOTE | 2021-05-19 08:37 | HMH.ANESCL ---
[facility] Anesthesia Checklist - Patient Identification Patient Identification: Arm Band, Verbal (Name & ) - Structural Data Admitted From: Home Planned Operative Procedure/s: Right 2nd hammer toe correction Consent for Planned Operative Procedure(s) Verified: Yes Verified Documents: Surgical Consent - NPO Status Verified Time NPO: 00:00 - Chart Verification Results Verified: CBC, BMP, Chest Xray - Additional verifications Anesthesia Reactions: No Hx Blood Transfusions: No Blood Transfusion Reaction: No - Cardiovascular Assessment Heart Sounds: S1 & S2 - Airway Assessment C-Spine Mobility Assessed: Yes TMJ Mobility Assessed: Yes Dentition: Good Dentition - Neurological Assessment Level of Consciousness: Awake, Alert, Appropriate - Anesthesia Plan Anesthesia Risk discussed: Yes ASA Class: III Anesthesia Type: MAC w/Block [facility] History Medical History: Reports:: Atherosclerotic Heart Disease, Carotid Stenosis, Coronary Artery Disease, Hyperlipidemia, Hypertension, Internal Pacemaker Denies:: Cancer, Diabetes Mellitus Type 1, Diabetes Mellitus Type 2, MRSA, Seizures *Have you ever received a pneumonia vaccine?: Yes *Have you received a flu vaccine this season?: Yes Other Medical History: Reports: Hypothyroidism, Thyroid Disease. Denies: Blood Transfusion Reaction Anesthesia experience/problems:: no issues Laterality Cases: Right: Carotid Endarterectomy, Bilateral: Cataract, Tonsillectomy Other Surgeries: Yes: Cardiac Catheterization, Colonoscopy, Hysterectomy-Total, Pacemaker Amputation: No Fractures: No - *Social History Last grade of school completed: High school graduate Smoking Status: Never smoker Alcohol Intake: never Alcohol Intake Frequency:: other Substance Use Type: denies use *Occupational Status:: employed Housing: house Household Members: spouse *Travel in the last 8 weeks: None Family Hx:: No significant family history
--- NOTE | 2021-05-19 11:23 | SUR.OPER ---
1101 family provided with update
--- NOTE | 2021-05-19 11:29 | XR_ITS ---
PROCEDURE: XR FOOT RT 2V CLINICAL INDICATION: RIGHT HAMMERTOE REPAIR IN SX COMPARISON: Plain films right foot same date FINDINGS: A fluoroscopic image obtained in surgery shows placement of the orthopedic wire through the distal middle and proximal phalanx 2nd toe. Fluoroscopic time is 0.15 minutes. IMPRESSION: Postop surgical reduction and stabilization hammertoe deformity 2nd toe Dictated by: Dr. Eliazar Grimes MD 05/19/2021 12:33 Dr. Eliazar Grimes MD in [place] 05/19/2021 12:33
[2021-05-19 11:43] VITALS: BP 124/69; PULSE 64; RESP 16; TEMP 36.6; O2SAT 92
--- NOTE | 2021-05-19 11:47 | HMH.OPNOTE ---
Date of procedure: 05/19/21 Pre-op Diagnosis:: 1. 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 Right hammertoe 3. Callus Post-op Diagnosis:: Same Procedure performed:: 1. Right open reduction internal fixation 2nd toe fracture 2. Right 2nd digit PIPJ arthrodesis 3. Callus debridement Surgeon:: Phyllis Montgomery DPM [employer] LIAISON:: Emile Ceron Anesthesia: MAC, regional, local (20cc 0.5% marcaine plain) Estimated blood loss (mL): 5 Clinical Note:: I discussed conservative versus surgical treatment for the hammertoe deformity. The patient has tried modification of shoe gear, taping, strapping, multiple office debridements and has failed conservative treatment. The patient continues to have pain and worsening symptoms, affecting daily activities. I discussed the risks versus benefits of surgery to include: bleeding, infection, nerve or blood vessel damage, need for future surgery, need for removal of the implant, prolonged swelling of the digit, prolonged pain, RSD/CRPS, wound complications including dehiscence, gangrene, soft tissue or bone infection which could lead to amputation, DVT/PE, and anesthetic complications including . Discussed ABIs-patient has palpable pedal pulses, CFT not delayed, skin temp wnl. No guarantees were given. All questions fully answered. The patient verbalized understanding and agreed to proceed with surgery. Consent was obtained. Necessary labs and pre-op testing ordered: cbc, cmp, chest x-ray, (defer ekg to cardiology), covid. Has pacemaker and sees Dr. Cohen. Denies hx DVT/PE, smoking, PVD. Cardio and PCP-Dr. Rosales clearance granted. Has a walker and got fitted for short fx boot at hospital. Operative findings:: Right second digit distal lateral fracture dislocation. Fracture noted to middle phalanx healed with malalignment and angulation of the toe. Scar tissue noted at the PIPJ. Difficulty to enter the PIPJ due to scar tissue. Prominent medial proximal phalanx head with overlying callus. No signs of infection noted. Operative note:: On this date and time patient was deemed an appropriate surgical candidate. With informed consent signed, the patient was taken to the operating theater. The patient was positioned supine. MAC anesthesia was induced. Tourniquet was applied to the right mid-calf. Pre-op right forefoot block given with 20 cc 0.5% marcaine plain. The right lower extremity was prepped and draped in normal sterile fashion. IV Ancef given. Right open reduction internal fixation 2nd toe fracture: Attention was directed to the right 2nd toe, where a dorsal linear incision was mapped out over the PIPJ extending distally over the DIPJ. There was dislocation noted at the level of the PIPJ, distal toe angulated laterally. Dissection was carried thru skin and sub q tissue, with care to maintain surgical hemostasis. Transverse tenotomy performed at the PIPJ, with release of the medial and lateral collateral ligaments. There were was fibrotic scar tissue noted over the base of the medial phalanx likely where the previous fracture was. Fracture is healed in the malunited position. Intraoperative fluoroscopy used. Due to soft tissue contracture and arthritic changes at the second toe, decision was made to proceed with PIP joint fusion. Right 2nd Digit PIPJ AD: The head of the proximal and base of the middle phalanx was removed, exposing good cancellous bone. The angulation was reduced and position maintained with a smooth 1.4 mm K wire. Utilizing standard technique, the digit was fixed with a BandPage phalanx hammertoe implant in standard technique. Smooth wire left intact due to soft tissue contracture. Intraoperative fluoroscopy was utilized to check reduction and position of the implants. Adequate reduction noted. The hammertoe implant was seated appropriately. Smooth wire intact. A Carlos ball was fixated to the K wire. The was flushed with copious amounts of normal sterile saline. The tendon was repaired with 3-0 Vicryl and 3-0
[2021-05-19 11:58] VITALS: BP 147/64; PULSE 64; RESP 16; TEMP 36.6; O2SAT 100
--- NOTE | 2021-05-19 12:00 | XR_ITS ---
PROCEDURE: XR FOOT RT MIN 3V CLINICAL INDICATION: Post op toe fx COMPARISON: CR XR FOOT RT 2V from 05/19/2021 FINDINGS: There is an orthopedic pin placed through the distal middle phalanx of the 2nd toe. There appears to be an osteotomy at the base of the middle phalanx. The metatarsals and remaining toes all appear intact. Other findings:None. IMPRESSION: Postop changes 2nd toe as noted Dictated by: Dr. Eliazar Grimes MD 05/19/2021 12:13 Dr. Eliazar Grimes MD in [place] 05/19/2021 12:13
[2021-05-19 12:13] VITALS: BP 136/66; PULSE 62; RESP 16; O2SAT 100
[2021-05-19 12:35] VITALS: BP 144/88; PULSE 62; RESP 16; TEMP 36.7; O2SAT 100
--- NOTE | 2021-05-19 12:47 | SUR.OPER ---
1130 family provided with update
== END 2021-05-19 12:38 | disposition home or self-care (01) ==
LOC: OR 07:41
PROVIDERS: PCP Family Medicine; Visit Provider Podiatrist
PROC: (CPT 28285; principal; 2021-05-19 09:15)
DX: M20.41 Other hammer toe(s) (acquired), right foot (principal); S92.521 Displaced fracture of middle phalanx of right lesser toe(s); M25.774 Osteophyte, right foot; W19.XXXD Unspecified fall, subsequent encounter; L84 Corns and callosities
CPT/HCPCS: 28285; 73620; 73630; 76000; 96374

== ENCOUNTER → 2021-06-21 09:05 | Outpatient (CLI) | payer MEDICARE, SELFPAY ==
--- NOTE | 2021-06-21 09:08 | XR_ITS ---
PROCEDURE: XR FOOT WT BEARING RT 3V CLINICAL INDICATION: post-op COMPARISON: CR XR FOOT WT BEARING LT 3V from 12/22/2020 CR XR FOOT WT BEARING RT 3V from 12/22/2020 CR XR FOOT RT 2V from 05/19/2021 CR XR FOOT RT MIN 3V from 05/19/2021 FINDINGS: No change status post K-wire placement through an indwelling screw at the 2nd PIP with good alignment. Hypertrophic changes with subchondral cyst at the 1st MTP joint. Other findings:None. IMPRESSION: No change status post ORIF good alignment 2nd PIP joint Dictated by: Lenny Ralph MD 06/21/2021 10:24 Lenny Ralph MD in [place] 06/21/2021 10:24
== END ==
PROVIDERS: PCP Family Medicine; Visit Provider Podiatrist
DX: Z98.890 Other specified postprocedural states (principal); S93.104D Unspecified dislocation of right toe(s), subsequent encounter
CPT/HCPCS: 73630

== ENCOUNTER 2021-08-17 13:42 | Emergency (ER) | payer MEDICARE, SELFPAY ==
[2021-08-17 13:44] VITALS: BP 134/55; PULSE 60; RESP 12; TEMP 36.7; O2SAT 99; BMI 27.3
--- NOTE | 2021-08-17 13:52 | XR_ITS ---
FINAL REPORT CLINICAL HISTORY: syncope COMPARISON: 05/11/2021 FINDINGS: SINGLE VIEW CHEST There is mild cardiomegaly. A pacer is identified. The mediastinum is unremarkable. There are chronic changes in both lungs. There is no pneumothorax. IMPRESSION: No acute cardiopulmonary process. Reviewed, Interpreted and Dictated by Herberth Dubois MD Transcribed by Bettie Sin Authenticated by Herberth Dubois MD on 08/17/2021 02:42:18 PM [facility]
--- NOTE | 2021-08-17 13:57 | CT_ITS ---
FINAL REPORT CLINICAL HISTORY: syncope FINDINGS: Axial images of the head were obtained without contrast. Coronal reformatted images were also obtained. This study was performed with techniques to keep radiation doses as low as reasonably achievable (ALARA). Individualized dose reduction techniques using automated exposure control or adjustment of mA and/or kV according to the patient's size were employed. There is mild to moderate atrophy. Periventricular low-attenuation areas are seen consistent with moderate chronic ischemic changes. There is no evidence of intracranial hemorrhage or mass. There is no evidence of acute infarct. There is no evidence of shift of the midline structures. No skull abnormality is seen on the bone window images. There is mild mucoperiosteal thickening of the left maxillary sinus. IMPRESSION: Atrophy and moderate periventricular chronic ischemic changes. No acute intracranial abnormality identified. Reviewed, Interpreted and Dictated by Herberth Dubois MD Transcribed by Bettie Sin Authenticated by Herberth Dubois MD on 08/17/2021 02:42:22 PM [facility]
--- NOTE | 2021-08-17 14:00 | HMH.EDSYNC ---
ED Disposition Clinical Impression: Syncope Qualifiers: Syncope type: unspecified Qualified Code(s): R55 - Syncope and collapse Disposition: Home, Self-Care Condition on Discharge: Good Instructions: DI for Syncope in Adults (Fainting), DI for Syncope in Children (Fainting) Additional Instructions: follow up Cardiology tomorrow - Critical Care Critical Care Time: No Attestation: On , the high probability of a clinically significant, sudden or life threatening deterioration of the following system(s) required my full and direct attention, intervention and personal management. The time I documented below is in addition to time spent performing reported procedures but includes the following listed in this critical care notation. Medical Decision Making - Medical Records Medical records reviewed: Yes: I reviewed the patient's medical records. - Jaspreet Inquiry Pt receiving controlled substance: No Vital Signs: 08/17/21 13:44 08/17/21 14:30 08/17/21 14:45 Temperature 98.1 F Temperature Source Oral Pulse Rate 61 60 Pulse Rate [Left Radial] 60 Respiratory Rate 12 18 17 Blood Pressure 119/50 L 133/64 Blood Pressure [Right Arm] 134/55 L Blood Pressure Mean [Right Arm] 81 Blood Pressure Source [Right Arm] Automatic Cuff Blood Pressure Position [Right Arm] Sitting 02 Sat by Pulse Oximetry 99 100 99 Oxygen Delivery Method Room Air 08/17/21 15:15 Temperature Temperature Source Pulse Rate 60 Pulse Rate [Left Radial] Respiratory Rate 16 Blood Pressure 130/65 Blood Pressure [Right Arm] Blood Pressure Mean [Right Arm] Blood Pressure Source [Right Arm] Blood Pressure Position [Right Arm] 02 Sat by Pulse Oximetry 100 Oxygen Delivery Method - Lab Data Lab Results 08/17/21 13:35: WBC 5.9, RBC 4.08 L, Hgb 12.4, Hct 39.0, MCV 95.8, MCH 30.4, MCHC 31.7 L, RDW 13.8, Plt Count 282, MPV 8.1, Neut % (Auto) 67.6, Lymph % (Auto) 24.6, [place] % (Auto) 5.8, Eos % (Auto) 1.1, Baso % (Auto) 0.8, Neut # (Auto) 4.0, Lymph # (Auto) 1.5, [place] # (Auto) 0.3, Eos # (Auto) 0.1, Baso # (Auto) 0.1 08/17/21 13:35: Sodium 138, Potassium 4.6, Chloride 104, Carbon Dioxide 28, Anion Gap 10.6, BUN 29 H, Creatinine 1.00, Estimated Creat Clear 46, Estimated GFR 53 L, Est GFR ( Amer) 64, Glucose 124 H, Calcium 10.0, Total Bilirubin 0.3, AST 24, ALT 15, Alkaline Phosphatase 43, Troponin I < 0.01, Total Protein 6.2 L, Albumin 3.9, Globulin 2.3, Albumin/Globulin Ratio 1.7 08/17/21 16:00: Troponin I < 0.01 Result diagrams: 08/17/21 13:35 08/17/21 13:35 Orders (Tests/Meds): ED MEDICATIONS Generic Name Dose Route Start Last Admin Trade Name Freq PRN Reason Stop Dose Admin Sodium Chloride 10 ml 08/17/21 14:27 Sodium Chloride 0.9% 10ml Flush Syringe IV 08/18/21 02:27 NEEDED PRN Maintain IV Site Discontinued Medications Generic Name Dose Route Start Last Admin Trade Name Freq PRN Reason Stop Dose Admin Sodium Chloride 1,000 mls @ 999 mls/hr 08/17/21 14:30 08/17/21 14:52 Sod Chlor 0.9% 1000ml Bag IV 08/17/21 15:30 999 mls/hr .[id number] [place] Administration ORDERS Category Date Time Status Troponin I Q3H Lab 08/17/21 20:00 Ordered Urinalysis and Microscopic Stat Lab 08/17/21 13:53 Ordered ABG [Arterial Blood Gas] Stat RT 08/17/21 15:00 Ordered - ECG Data Tracing #1 ekg by me paced 60, qrs narrow, non spec st changes Medical Decision Narrative: reeval, vss, appears well, asymptomatic here device interrogatiion unremarkable today discussed with PA for Dr Noel whitaker for lowering bp med and f/u tomorrow in office Syncope HPI - General Chief Complaint: Syncope Stated Complaint: syncopal Time Seen by Provider: 08/17/21 13:42 Mode of Arrival: Ambulatory Limitations: No Limitations Description of Symptoms (Recalled from ER Triage Doc. by RN): pt states that she was sitting talking to her and woke to vomit on her shirt. PER EMS family states stacey
[2021-08-17 14:03] LABS: Basophils # 0.1 K/mm3 (0-0.2); Basophils % 0.8 % (0.1-2.0); Eosinophils # 0.1 K/mm3 (0.0-0.4); Eosinophils % 1.1 % (0.1-12.0); Hemoglobin 12.4 g/dL (12.2-16.2); Lymphocytes # 1.5 K/mm3 (0.7-4.5); Lymphocytes % 24.6 % (10-50); Mean Corpuscular HGB Conc 31.7 g/dL (31.8-35.4); Mean Corpuscular Hemoglobin 30.4 pg (27.0-31.2); Mean Corpuscular Volume 95.8 fl (81-99); Mean Platelet Volume 8.1 fl (7.4-10.4); Monocytes # 0.3 K/mm3 (0.1-1.0); Monocytes % 5.8 % (1.7-9.3); Neutrophils % 67.6 % (37.0-80.0); Platelet Count 282 K/mm3 (142-424); Red Blood Count 4.08 M/mm3 (4.20-5.40); Red Cell Distribution Width 13.8 % (11.5-17.5); White Blood Count 5.9 K/mm3 (4.8-10.8)
[2021-08-17 14:05] LABS: Alanine Aminotransferase 15 U/L (12-78); Albumin Level 3.9 g/dl (3.5-5.0); Albumin/Globulin Ratio 1.7 (1.1-1.8); Alkaline Phosphatase 43 U/L (38-126); Anion Gap 10.6 mEq/L (5-15); Aspartate Amino Transferase 24 U/L (14-36); Bilirubin,Total 0.3 mg/dl (0.2-1.3); Blood Urea Nitrogen 29 mg/dl (7-17); Carbon Dioxide 28 mmol/L (22.0-30.0); Chloride 104 mmol/L (98-107); Creatinine Clearance Estimated 46 mL/min (50-200); Estimated Glomerular Filt Rate 53 ml/min (>60); GFR (African American) 64 ML/MIN (>60); Globulin 2.3 g/dL (1.3-3.2); Glucose 124 mg/dl (74-100); Potassium 4.6 mmoL/L (3.5-5.1); Sodium 138 mmol/L (136-145); Total Protein,Serum 6.2 g/dl (6.3-8.2)
--- NOTE | 2021-08-17 14:09 | PC.NURSE ---
pt to rad
--- NOTE | 2021-08-17 14:10 | PC.NURSE ---
BUSTER MOTT speaking with Dr Cohen.
--- NOTE | 2021-08-17 14:13 | PC.NURSE ---
pt returning from rad.
[2021-08-17 14:17] LABS: Troponin I < 0.01 ng/ml (0.00-0.034)
[2021-08-17 14:30] VITALS: BP 119/50; PULSE 61; RESP 18; O2SAT 100
[2021-08-17 14:45] VITALS: BP 133/64; PULSE 60; RESP 17; O2SAT 99
[2021-08-17 15:15] VITALS: BP 130/65; PULSE 60; RESP 16; O2SAT 100
[2021-08-17 16:30] LABS: Troponin I < 0.01 ng/ml (0.00-0.034)
[2021-08-17 17:30] VITALS: BP 132/84; PULSE 71; RESP 17; TEMP 36.7; O2SAT 99
== END 2021-08-17 17:31 | disposition home or self-care (01) ==
PROVIDERS: Emergency Provider Emergency Medicine; PCP Family Medicine
DX: R55 Syncope and collapse (principal); I10 Essential (primary) hypertension; I25.10 Atherosclerotic heart disease of native coronary artery without angina pectoris; E78.5 Hyperlipidemia, unspecified; Z95.0 Presence of cardiac pacemaker; E03.9 Hypothyroidism, unspecified; Z79.899 Other long term (current) drug therapy
CPT/HCPCS: 70450; 71045; 80053; 84484; 85025; 96365; 99283

== ENCOUNTER → 2021-08-23 08:41 | Outpatient (CLI) | payer MEDICARE, SELFPAY ==
--- NOTE | 2021-08-23 08:51 | XR_ITS ---
FINAL REPORT CLINICAL HISTORY: post-op COMPARISON: June 12, 2021 FINDINGS: RIGHT FOOT Three views of the right foot demonstrate no acute fracture or dislocation. There are postoperative changes again noted from fusion at the 2nd PIP joint. There has been interval removal of the K-wire. There are mild degenerative changes. The soft tissues are unremarkable. IMPRESSION: Postoperative changes with interval removal of the K-wire. Reviewed, Interpreted and Dictated by Kvng Huynh III, MD Transcribed by Ina Farnsworth Authenticated by Kvng Huynh III, MD on 08/23/2021 10:33:07 AM [facility]
== END ==
PROVIDERS: PCP Family Medicine; Visit Provider Podiatrist
DX: R60.9 Edema, unspecified (principal); S93.104D Unspecified dislocation of right toe(s), subsequent encounter; Z98.890 Other specified postprocedural states
CPT/HCPCS: 73630

== ENCOUNTER → 2021-08-24 09:25 | Outpatient (CLI) | payer MEDICARE, SELFPAY ==
--- NOTE | 2021-08-24 09:26 | CA_ITS ---
FINAL REPORT TECHNIQUE: Color Doppler, duplex Doppler and andrade scale sonography of the bilateral neck arterial vasculature was performed. Velocities were measured in the carotid arteries. Stenosis evaluation based on the validated velocity criteria. CLINICAL HISTORY: syncope FINDINGS: The peak systolic velocity of the right common carotid artery is 91 cm/s. The peak systolic velocity of the right internal carotid artery is 112 cm/s and end diastolic velocity 27 cm/s. The ICA/CCA ratio is 1.3. A small amount of plaque is present. The right external carotid artery is patent. The right vertebral artery is patent with antegrade flow. The peak systolic velocity of the left common carotid artery is 128 cm/s. The peak systolic velocity of the left internal carotid artery is 128 cm/s and end diastolic velocity 15 cm/s. The ICA/CCA ratio is 1.0. A small amount of plaque is present. The left external carotid artery is patent.The left vertebral artery is patent with antegrade flow. IMPRESSION: Less than 50% bilateral carotid stenoses. Bilateral patent vertebral arteries with antegrade flow. If indicated, CTA or MRA could further evaluate. Reviewed, Interpreted and Dictated by Kvng Huynh III, MD Transcribed by Bettie Sin Authenticated by Kvng Huynh III, MD on 08/24/2021 01:42:19 PM [facility]
== END ==
PROVIDERS: PCP Family Medicine; Visit Provider Physician Assistant
DX: E78.2 Mixed hyperlipidemia (principal); I10 Essential (primary) hypertension; I65.23 Occlusion and stenosis of bilateral carotid arteries; R55 Syncope and collapse
CPT/HCPCS: 93880

== ENCOUNTER → 2022-04-21 17:10 | Outpatient (CLI) | payer MEDICARE, SELFPAY ==
--- NOTE | 2022-04-21 17:28 | XR_ITS ---
PROCEDURE INFORMATION: Exam: XR Left Knee Exam date and time: 04/21/2022 5:21 PM Age: 81 years old Clinical indication: Pain; Knee; Left TECHNIQUE: Imaging protocol: Radiologic exam of the Left knee. Views: 3 views. COMPARISON: CR XR FOOT WT BEARING LT 3V 12/22/2020 10:14 AM FINDINGS: Bones/joints: Horizontal lucency along the midportion of the patella may reflect nondisplaced fracture. Knee joint effusion is present. Diffuse bone demineralization. Loss of joint space, osteophytosis and eburnation in the tricompartmental distribution. Soft tissues: Normal. Vasculature: Arterial calcifications. IMPRESSION: 1. Horizontal lucency along the midportion of the patella may reflect nondisplaced fracture. 2. Knee joint effusion is present. 3. Osteopenia/osteoporosis 4. Osteoarthritis. 5. Atherosclerotic vascular disease.
== END ==
PROVIDERS: PCP Family Medicine; Visit Provider Family Medicine
DX: M70.52 Other bursitis of knee, left knee (principal)
CPT/HCPCS: 73562

== ENCOUNTER 2022-04-27 11:29 | Emergency (ER) | payer MEDICARE, SELFPAY ==
[2022-04-27 11:30] VITALS: BP 166/69; PULSE 67; RESP 18; TEMP 37.2; O2SAT 96; BMI 25.4
--- NOTE | 2022-04-27 11:36 | HMH.EDGENADL ---
Discharge Plan Disposition Patient Disposition: Home, Self-Care Condition: Fair Prescriptions Prescriptions: New Paxlovid (EUA) 300 mg (150 mg x 2)-100 mg tablets,dose pack See Rx Instructions .ROUTE .COMPLEX Qty: 30 0RF Rx Instructions: take TWO 150 mg tablets of nirmatrelvir with ONE 100 mg tablet of ritonavir twice daily for 5 days No Action aspirin [Adult Aspirin Regimen] 81 mg tablet,delayed release (DR/EC) 81 mg PO DAILY mecobalamin (vitamin B12) 1,000 mcg tablet,chewable 1,000 mcg PO DAILY donepezil 5 mg tablet 5 mg PO DAILY bisoprolol fumarate 10 mg tablet 10 mg PO DAILY Qty: 30 5RF memantine 10 mg tablet 10 mg PO DAILY levothyroxine 25 MCG tablet 25 mcg PO DAILY levocetirizine 5 MG tablet 5 mg PO DAILY evolocumab 140 mg/mL syringe 140 mg SQ .[id number] Referrals Follow up/Referrals: Yuniel Rosales MD [Primary Care Provider] - See instructions Activity Restrictions/Add. Instructions Additional Instructions/Restrictions: Return to the emergency department immediately if you feel worse in any way. Your test today showed that you have COVID-19. At this point your oxygen level is good and you do not require admission to the hospital. I have prescribed you a medication called Paclovid. It improves the chance of you not require hospitalization. You may take [id number] Tylenol for fevers or muscle aches. Clinical Impressions Clinical Impression: COVID-19 Instructions Patient Instructions: Coronavirus Disease 2019 Discharge ED Provider: Josephine Duvall Adult HPI General Chief complaint: Dizziness Stated complaint: covid exposure, dehydrated, Muscle cramps Time Seen by Provider: 04/27/22 11:36 Mode of Arrival: Wheelchair Source of Information: Patient and Relative (son) Limitations: No Limitations History of Present Illness HPI narrative: The patient presents to the emergency department accompanied by her son for feeling myalgias and generalized weakness. The patient's was recently diagnosed with COVID-19. The patient does complain of a mild cough. She denies any fevers. She has had similar symptoms in the past during which she was found to be dehydrated. Related Data Home Medications Medication Instructions Recorded Confirmed evolocumab 140 mg/mL subcutaneous 140 mg SQ .[id number] Cholesterol 03/21/20 10/25/21 syringe levocetirizine 5 mg tablet 5 mg PO DAILY allergies 03/21/20 10/25/21 levothyroxine 25 mcg tablet 25 mcg PO DAILY hypothyroidism 03/21/20 10/25/21 aspirin 81 mg tablet,delayed 81 mg PO DAILY heart health 04/21/20 10/25/21 release (Adult Aspirin Regimen) mecobalamin (vitamin B12) 1,000 1,000 mcg PO DAILY Supplement 04/21/20 10/25/21 mcg chewable tablet donepezil 5 mg tablet 5 mg PO DAILY . 10/06/20 10/25/21 memantine 10 mg tablet 10 mg PO DAILY 10/25/21 10/25/21 Previous Rx's Medication Instructions Recorded bisoprolol fumarate 10 mg tablet 10 mg PO DAILY #30 tabs 09/13/21 nirmatrelvir 300 mg (150 mg See Rx Instructions PO .COMPLEX 04/27/22 x2)-ritonavir 100 mg tablet,dose #30 tabs pack(EUA) (Paxlovid) Allergies Allergy/AdvReac Type Severity Reaction Status Date / Time No Known Allergies Allergy Verified 10/25/21 13:49 [facility] Medical History (Updated 04/27/22 @ 12:16 by Josephine Duvall MD) Abnormal EKG Sinus tachycardia SSS (sick sinus syndrome) Tachy-clemencia syndrome Social History Smoking Status: Never smoker alcohol intake: never substance use type: denies use current occupational status: employed Travel in the last 8 weeks: Inside the [place] household members: spouse housing: house current occupational exposures/hazards: No caffeine: Yes ROS Obtained: Yes All systems reviewed & no additional complaints except as documented Physical Exam General General appearance: jules
[2022-04-27 11:42] VITALS: BP 166/69; PULSE 67; RESP 18; O2SAT 96
--- NOTE | 2022-04-27 11:45 | XR_ITS ---
FINAL REPORT CLINICAL HISTORY: cough COMPARISON: August 17, 2021 FINDINGS: SINGLE VIEW CHEST There is a left subclavian pacemaker. The heart size is enlarged. The mediastinum is within normal limits. No acute pulmonary abnormality is identified. There is no evidence of pneumothorax. The bony thorax is intact. IMPRESSION: No acute cardiopulmonary process. Reviewed, Interpreted and Dictated by Kvng Huynh III, MD Transcribed by Irvin Rodriguez Authenticated and . [facility]
--- NOTE | 2022-04-27 11:49 | ECG_ITS ---
APPROVED REPORT Exam: Resting ECG HR:67 bpm ECG Measurements Heart Rate 67 AXES MI 169 P 67 QRSd 87 QRS 44 QT 367 T 34 QTc 383 Conclusion SINUS RHYTHM MODERATE ST DEPRESSION [0.05+ mV ST DEPRESSION] ABNORMAL ECG WARNING: DATA QUALITY MAY AFFECT INTERPRETATION UNCONFIRMED REPORT Electronically signed by : Chaz Orantes MD 04/30/2022 17:46:40
[2022-04-27 11:50] LABS: Influenza A, PCR Not Detected (NotDetected); Influenza B, PCR Not Detected (NotDetected)
[2022-04-27 11:53] LABS: Chloride 98 mmol/L (98-107); Sodium 134 mmol/L (136-145)
[2022-04-27 11:54] LABS: Potassium 4.5 mmoL/L (3.5-5.1)
[2022-04-27 11:56] LABS: Alanine Aminotransferase 18 U/L (12-78); Albumin Level 4.3 g/dl (3.5-5.0); Albumin/Globulin Ratio 1.7 (1.1-1.8); Alkaline Phosphatase 67 U/L (38-126); Anion Gap 10.5 mEq/L (5-15); Aspartate Amino Transferase 27 U/L (14-36); Bilirubin,Total 0.5 mg/dl (0.2-1.3); Blood Urea Nitrogen 16 mg/dl (7-17); Carbon Dioxide 30 mmol/L (22.0-30.0); Estimated Glomerular Filt Rate 69 ml/min (>60); GFR (African American) 83 ML/MIN (>60); Globulin 2.6 g/dL (1.3-3.2); Total Protein,Serum 6.9 g/dl (6.3-8.2)
[2022-04-27 11:57] LABS: Calcium 9.5 mg/dl (8.4-10.2); Glucose 105 mg/dl (74-100)
[2022-04-27 11:58] LABS: Basophils # 0.2 K/mm3 (0-0.2); Basophils % 1.9 % (0.1-2.0); Eosinophils % 0.3 % (0.1-12.0); Hematocrit 42.1 % (37.0-47.0); Hemoglobin 13.5 g/dL (12.2-16.2); Lymphocytes # 0.9 K/mm3 (0.7-4.5); Lymphocytes % 11.7 % (10-50); Mean Corpuscular HGB Conc 32.1 g/dL (31.8-35.4); Mean Corpuscular Volume 93.3 fl (81-99); Mean Platelet Volume 7.9 fl (7.4-10.4); Monocytes # 0.9 K/mm3 (0.1-1.0); Monocytes % 11.2 % (1.7-9.3); Neutrophils # 5.8 K/mm3 (1.8-7.8); Neutrophils % 74.9 % (37.0-80.0); Platelet Count 200 K/mm3 (142-424); Red Blood Count 4.52 M/mm3 (4.20-5.40); Red Cell Distribution Width 14.1 % (11.5-17.5); White Blood Count 7.8 K/mm3 (4.8-10.8)
[2022-04-27 12:01] VITALS: BP 162/63; PULSE 65; RESP 16; O2SAT 98
[2022-04-27 12:10] LABS: Coronavirus 19, PCR Detected (NotDetected)
[2022-04-27 12:30] VITALS: BP 164/63; PULSE 64; RESP 16; O2SAT 98
[2022-04-27 12:44] VITALS: BP 164/63; PULSE 63; RESP 18; TEMP 37.2; O2SAT 98
== END 2022-04-27 12:49 | disposition home or self-care (01) ==
PROVIDERS: Emergency Provider Emergency Medicine; PCP Family Medicine
DX: U07.1 COVID-19 (principal); R94.31 Abnormal electrocardiogram [ECG] [EKG]; R00.1 Bradycardia, unspecified; E86.0 Dehydration; R25.2 Cramp and spasm; M79.10 Myalgia, unspecified site; Z79.82 Long term (current) use of aspirin; Z79.899 Other long term (current) drug therapy
CPT/HCPCS: 71045; 80053; 85025; 93005; 96360; 99285; C9803; U0003; U0005

== ENCOUNTER → 2022-11-16 11:44 | Outpatient (CLI) | payer MEDICARE, SELFPAY ==
[2022-11-16 12:35] LABS: Basophils % 0.5 % (0.1-2.0); Eosinophils % 0.5 % (0.1-12.0); Hematocrit 43.6 % (37.0-47.0); Hemoglobin 13.6 g/dL (12.2-16.2); Lymphocytes # 1.6 K/mm3 (0.7-4.5); Lymphocytes % 25.6 % (10-50); Mean Corpuscular HGB Conc 31.2 g/dL (31.8-35.4); Mean Corpuscular Hemoglobin 28.9 pg (27.0-31.2); Mean Corpuscular Volume 92.6 fl (81-99); Mean Platelet Volume 8.2 fl (7.4-10.4); Monocytes # 0.4 K/mm3 (0.1-1.0); Neutrophils # 4.1 K/mm3 (1.8-7.8); Neutrophils % 66.5 % (37.0-80.0); Platelet Count 262 K/mm3 (142-424); Red Blood Count 4.71 M/mm3 (4.20-5.40); Red Cell Distribution Width 13.7 % (11.5-17.5); White Blood Count 6.1 K/mm3 (4.8-10.8)
[2022-11-16 13:33] LABS: Alanine Aminotransferase 14 U/L (12-78); Albumin Level 4.1 g/dl (3.5-5.0); Alkaline Phosphatase 65 U/L (38-126); Anion Gap 11.5 mEq/L (5-15); Aspartate Amino Transferase 21 U/L (14-36); Bilirubin,Indirect 0.8 mg/dL (0.0-0.9); Bilirubin,Total 0.8 mg/dl (0.2-1.3); Bilirubin,Unconjugated 0.8 mg/dL (0.0-1.1); Blood Urea Nitrogen 17 mg/dl (7-17); Calcium 9.9 mg/dl (8.4-10.2); Carbon Dioxide 29 mmol/L (22.0-30.0); Chloride 105 mmol/L (98-107); Cholesterol 181 mg/dl (140-200); Estimated Glomerular Filt Rate 60 ml/min (>60); GFR (African American) 73 ML/MIN (>60); Glucose 86 mg/dl (74-100); HDL Cholesterol 61 mg/dl (40-60); Magnesium 1.9 mg/dl (1.6-2.3); Potassium 4.5 mmoL/L (3.5-5.1); Sodium 141 mmol/L (136-145); Total Protein,Serum 6.3 g/dl (6.3-8.2); Triglycerides 109 mg/dl (30-150); VLDL Cholesterol 22 mg/dL (0-40)
[2022-11-16 13:45] LABS: Direct LDL Cholesterol 95.74 mg/dL (100-129)
[2022-11-16 14:03] LABS: Thyroid Stimulating Hormone 0.89 uIU/mL (0.465-4.68)
== END ==
PROVIDERS: PCP Family Medicine; Visit Provider Nurse Practitioner
DX: E78.2 Mixed hyperlipidemia (principal); R94.31 Abnormal electrocardiogram [ECG] [EKG]
CPT/HCPCS: 36415; 80048; 80061; 80076; 83735; 84439; 84443; 85025

== ENCOUNTER → 2023-03-03 13:14 | Outpatient (CLI) | payer MEDICARE, SELFPAY ==
--- NOTE | 2023-03-03 13:18 | CA_ITS ---
APPROVED REPORT EXAM: Comprehensive 2D, Doppler, and color-flow Echocardiogram Neck Fitter: Kirstie Esquivel RVT Ht: 5 ft 1 in Wt: 158lbs BSA: 1.71 BP: 173/62 mmHg Indications: SOA,ABN EKG,PACER,SSS 2D Dimensions IVSd 1.72 cm F: 0.6-1.0 LA Volume 50.30 mL PWd 0.74 cm F: 0.6 - 1.0 LA Volume Index 29.42 mL/m2 (M/F) 16-34 LVDd 4.30 cm F: 3.9 - 5.3 LVOT 1.84 cm (M/F) 1.5-2.5 M-Mode Dimensions RVDd 1.69 cm (0.9-2.6) LVDd 4.74 cm (3.5-5.7) LVDs 3.45 cm (3.5-5.7) IVSd 1.61 cm (0.6-1.1) PWd 0.72 cm (0.6-1.1) EF (Teich) 53.00% FS 27.20% EDV (Teich) 104.40 mL TAPSE 1.79 (<1.7) ESV (Teich) 49.10 mL LV Diastology E Decel Time 200.00 (160-240 msec) E/A Ratio 0.7 MED E' 5.00 (< 7 cm/sec) E'/MED E' Ratio 16.22 (>14) LAT E' 5.80 (<10 cm/sec) E/LAT E' Ratio 13.98 (>14) Aortic Valve AI PHT 676.00 ms AO Peak GR. 5.70 mmHg Mitral Valve MV E Max Ilan. 81.00 (40-130 cm/s) MV A Velocity 115.00 (40-130 cm/s) E/A Ratio 0.70 MV Decel. Time 200.00 (160-240 ms) MV PHT 59.00 ms Pulmonary Valve PV Peak Velocity 73.00 (50-150 cm/s) Tricuspid Valve TR P. Velocity 257.00 cm/s RAP Estimate 10.00 mmHg RVSP 36.50 mmHg Left Ventricle The left ventricle is normal size. The left ventricular systolic function is normal. The left ventricular ejection fraction is within the normal range. There is increased LV wall thickness. There is normal LV segmental wall motion. Transmitral Doppler flow pattern suggests impaired LV relaxation. LVEF is 55-60%. Right Ventricle The right ventricle is normal size. The right ventricular systolic function is normal. A device lead is noted in the RV. Atria The left atrium size is normal. The right atrium size is normal. There is no Doppler evidence of interatrial shunt. Aortic Valve The aortic valve is mildly thickened. There is no aortic valvular stenosis. Mild aortic regurgitation. Mitral Valve There is mild mitral annular calcification (MAC). The mitral valve is mildly thickened. No evidence of mitral valve stenosis. Trace mitral regurgitation. Tricuspid Valve The tricuspid valve leaflets are thin and pliable. Mild tricuspid regurgitation. RVSP is normal. Pulmonic Valve The pulmonary valve is normal in structure. Trace pulmonic regurgitation. Great Vessels The aortic root is normal in size. IVC is normal in size and collapses >50% with inspiration. Pericardium There is trivial pericardial effusion noted anteriorly. Other Information Study Quality: Fair Conclusion Normal biventricular systolic function. Mild AI. Trivial pericardial effusion. Electronically signed by : Ellen Hamilton, 03/05/2023 17:22:18
== END ==
PROVIDERS: PCP Internal Medicine; Visit Provider Nurse Practitioner
DX: E78.5 Hyperlipidemia, unspecified (principal); I10 Essential (primary) hypertension; I25.10 Atherosclerotic heart disease of native coronary artery without angina pectoris; I65.29 Occlusion and stenosis of unspecified carotid artery; R94.31 Abnormal electrocardiogram [ECG] [EKG]; Z95.0 Presence of cardiac pacemaker; R06.09 Other forms of dyspnea
CPT/HCPCS: 93306

== ENCOUNTER → 2023-04-24 09:17 | Outpatient (CLI) | payer MEDICARE, SELFPAY ==
--- NOTE | 2023-04-24 09:29 | ECG_ITS ---
APPROVED REPORT Exam: Resting ECG HR:60 bpm ECG Measurements Heart Rate 60 AXES MO 189 P 44 QRSd 80 QRS -5 QT 392 T -11 QTc 392 Conclusion ELECTRONIC ATRIAL PACEMAKER VOLTAGE CRITERIA FOR LVH [MEETS CRITERIA IN ONE OF: R(aVL), S(V1), R(V5), R(V5/V6)+S(V1)] POSSIBLE ANTERIOR MYOCARDIAL INFARCTION , PROBABLY OLD [30 ms Q WAVE IN V3/V4, OR R < 0.2 mV IN V4] ABNORMAL ECG UNCONFIRMED REPORT Electronically signed by : Chaz Orantes MD 04/24/2023 17:06:53
--- NOTE | 2023-04-24 09:48 | XR_ITS ---
FINAL REPORT CLINICAL HISTORY: Preoperative respiratory clearance. Hypertension. FINDINGS: Two views of the chest were obtained. A left subclavian pacemaker is present. The heart size and pulmonary vascularity are within normal limits. The mediastinum is normal. No acute pulmonary abnormality is identified. There is no pneumothorax. The bony thorax is intact. IMPRESSION: No active cardiopulmonary disease. Reviewed, Interpreted and Dictated by Kvng Huynh III, MD Transcribed by Sabrina Lyman Authenticated and [facility]
[2023-04-24 09:55] LABS: Basophils # 0.1 K/mm3 (0-0.2); Basophils % 0.7 % (0.1-2.0); Eosinophils # 0.1 K/mm3 (0.0-0.4); Hemoglobin 13.5 g/dL (12.2-16.2); Lymphocytes % 26.6 % (10-50); Mean Corpuscular HGB Conc 31.3 g/dL (31.8-35.4); Mean Corpuscular Hemoglobin 29.4 pg (27.0-31.2); Mean Corpuscular Volume 93.8 fl (81-99); Mean Platelet Volume 7.9 fl (7.4-10.4); Monocytes # 0.5 K/mm3 (0.1-1.0); Monocytes % 6.7 % (1.7-9.3); Neutrophils % 65.1 % (37.0-80.0); Platelet Count 268 K/mm3 (142-424); Red Blood Count 4.58 M/mm3 (4.20-5.40); Red Cell Distribution Width 13.6 % (11.5-17.5); White Blood Count 7.6 K/mm3 (4.8-10.8)
[2023-04-24 10:16] LABS: Microscopic, Urine URINE MICROSCOPIC (MICROSCOPIC)
[2023-04-24 10:30] LABS: Chloride 108 mmol/L (98-107); Potassium 4.3 mmoL/L (3.5-5.1); Sodium 140 mmol/L (136-145)
[2023-04-24 10:32] LABS: Alanine Aminotransferase 17 U/L (12-78); Aspartate Amino Transferase 22 U/L (14-36); Blood Urea Nitrogen 23 mg/dl (7-17); Estimated Glomerular Filt Rate 60 ml/min (>60); GFR (African American) 73 ML/MIN (>60)
[2023-04-24 10:33] LABS: Albumin/Globulin Ratio 1.7 (1.1-1.8); Alkaline Phosphatase 72 U/L (38-126); Anion Gap 7.3 mEq/L (5-15); Bilirubin,Total 0.4 mg/dl (0.2-1.3); Calcium 10.3 mg/dl (8.4-10.2); Carbon Dioxide 29 mmol/L (22.0-30.0); Globulin 2.4 g/dL (1.3-3.2); Glucose 100 mg/dl (74-100); Total Protein,Serum 6.4 g/dl (6.3-8.2)
[2023-04-24 10:50] LABS: Appearance,Urine CLEAR (Clear); Bilirubin,Urine Negative (Negative); Blood, Urine TRACE-I (Negative); Color,Urine YELLOW (Yellow); Glucose,Urine (UA) Negative (Negative); Ketones,Urine Negative (Negative); Leukocyte Esterase,Urine 2+ (Negative); Nitrate,Urine Negative (Negative); Protein,Urine Negative (Negative); Specific Gravity, Urine 1.025 (1.005-1.030); Urobilinogen,Urine 0.2 EU/dl (0.2)
[2023-04-24 11:37] LABS: Bacteria,Urine Trace /lpf
== END ==
PROVIDERS: PCP Family Medicine; Visit Provider Orthopaedic Surgery
DX: Z01.818 Encounter for other preprocedural examination (principal); J20.9 Acute bronchitis, unspecified; M17.12 Unilateral primary osteoarthritis, left knee; N39.0 Urinary tract infection, site not specified
CPT/HCPCS: 36415; 71046; 80053; 81001; 85025; 87086; 93005

== ENCOUNTER 2023-05-05 09:00 | Outpatient (RCR) | payer MEDICARE, OTHER, SELFPAY ==
--- NOTE | 2023-03-07 09:03 | HMH.PTOPEV ---
PT Outpatient Evaluation Rehab PT Outpatient Evaluation Start: 03/07/23 08:04 Freq: Status: Active Protocol: Document 03/07/23 08:46 JANETH (Rec: 03/07/23 09:03 JANETH [id number]) E-signed By Christian Cruz, PT Outpatient Therapy Subjective History Subjective History This is the initial PT eval for Jeannie Mccabe, 82 yowf who presents with c/o L knee pain and giving out x ~ 1-2 yrs. She reports insidious onset of symptoms and has no memory of any falls or injuries. She reports pain is intermittent and depends on the activity she is doing. She has no c/o numbness or tingling. She does reports she feels her knee will not hold her weight at times, but she has not fallen yet. She has PMH of SSS, Tachy -Eduardo syndrome, and Pacemaker . TU sec. Chief Complaint Pain,Stiff,Weakness Symptom Type Ache,Sharp Symptoms Relieved By Rest/Positioning Symptoms Aggravated By Physical Activity,Walking Prior Functional Limitations None Current Functional Limitations Standing,Recreation Activity, Walking,Stairs Symptom Description Intermittent,Activity Dependent Level of pain today (0-10) 0 Pain scale - at its best (0-10) 0 Pain scale - at its worst (0-10) 5 Hip/Knee Eval Gait Observation General Gait Pattern Observation Antalgic Gait Palpation Tenderness left Knee Palpation Finding Tenderness Knee Palpation Overall Comment quad tendon and pat tendon 1/4 MMT Hip Flexion Strength Grade 4 Good Hip Abduction Strength Grade 4 Good Hip Adduction Strength Grade 4 Good Hip Extension Strength Grade 4 Good Gluteus Akash Strength Grade 4 Good Knee Extension Strength Grade 4 Good Knee Flexion Strength Grade 4 Good ROM Knee Extension Active Range of Motion ( -2 degrees) Knee Flexion Active Range of Motion ( 2-114 degrees) Special Tests Sciatic Nerve Tension Test Negative Left,Negative Right Hip Scouring (Quadrant) Test Negative Left,Negative Right Knee Anterior Drawer Test Negative Left,Negative Right Miller 90/90 Test (PCL) Negative Left,Negative Right Knee Anterior Michelle Test Negative Left,Negative Right Knee Valgus Stress Test Negative Left,Negative Right Knee Varus Stress
--- NOTE | 2023-04-10 11:42 | HMH.RHREAS ---
Rehab Reassessment Rehab OP Re-assessment Start: 03/07/23 08:04 Freq: Status: Active Protocol: Document 04/10/23 11:32 PHORNITA (Rec: 04/10/23 11:42 PHORNE [id number]) E-signed By Christian Cruz, PT Rehab Re-assessment Subjective Subjective Pt reports no current pain in the L knee, 0/10. At worst she reports pain 7/10, which is increased vs evaluation. Pain is worse with prolonged walking and if I twist it the wrong way. Objective Objective Notes L KNEE AROM: 0-121 deg. L LE MMT: HIP FLEX 4+/5, HIP EXT 4+/5, HIP ABD 5/5, HIP ADD 5/5, KNEE FLEX 5/5, KNEE EXT 5/5. Assessment Progress Assessment Progressing as Expected Assessment Notes Pt with significantly improve gait pattern for short distances. However, her L knee pain continues to limit her ability to perform all household care and prolonged ambulation. Pt mild dementia continues to be a significant limiting factor in her care. She continues to need skilled intervention to return to prior level of function. Patient goals met ST,2,3,[address] LT,2,3,4,5,6,7 Plan Plan Continue per initial POC. Frequency of Therapy 2 x/wk Duration of therapy 4 wks Time and Billing Re-Eval Time 13 Re-Eval Billing Units 1 PHYSICIAN CERTIFICATION: I certify the specified therapy services for Jeannie Mccabe are required, authorized, and reviewed every 30 days.
== END 2023-05-05 09:05 | disposition home or self-care (01) ==
LOC: PT 09:00
PROVIDERS: PCP Internal Medicine; Visit Provider Orthopaedic Surgery
DX: M25.562 Pain in left knee (principal)
CPT/HCPCS: 97110; 97112; 97163; 97164; 97530

== ENCOUNTER 2023-05-08 08:47 | Observation (INO) | payer MEDICARE, OTHER, SELFPAY ==
[2023-05-03 13:32] VITALS: BMI 27.4
[2023-05-08] VITALS (23 sets, daily range): BP systolic 110–181; BP diastolic 50–100; PULSE 58–84; RESP 12–17; TEMP 36.2–43; O2SAT 95–100; BMI 31.8
--- NOTE | 2023-05-08 07:34 | P.PNANES_ITS ---
[facility] Disclaimer: The information contained in this section may have been updated after the patient was seen, as this information can be updated by other users. Medical History (Updated 05/03/23 @ 13:31 by Diego Hua RN) Abnormal EKG Dementia Dyspnea History of pacemaker HLD (hyperlipidemia) HTN (hypertension) Hypothyroidism Sinus tachycardia SSS (sick sinus syndrome) Tachy-clemencia syndrome Surgical History (Updated 05/03/23 @ 13:31 by Diego Hua RN) History of cardiac cath History of hysterectomy Family History (Updated 05/03/23 @ 13:31 by Diego Hua RN) Other Family history of heart disease Social History Smoking Status: Never smoker alcohol intake: never substance use type: denies use current occupational status: employed Travel in the last 8 weeks: Inside the [place] household members: spouse housing: house current occupational exposures/hazards: No caffeine: Yes [facility] Anesthesia Checklist Patient Identification Patient Identification: Arm Band, Family and Verbal (Name & ) Structural Data Admitted From: Home Planned Operative Procedure/s: LEFT TKA Consent for Planned Operative Procedure(s) Verified: Yes Verified Documents: Surgical Consent and History and Physical NPO Status Verified Time NPO: 00:00 Chart Verification Results Verified: CBC, BMP, H & H, ECG (ECHO - EF 55-60% No ) and Chest Xray Additional verifications Patient : No Anesthesia Reactions: No Hx Blood Transfusions: No Blood Transfusion Reaction: No Cephalosporin Allergy: No Cardiovascular Assessment Heart Sounds: S1 & S2 Pulse Rhythm: Irregular Peripheral Edema: No Airway Assessment Mallampati Score:: Class II C-Spine Mobility Assessed: Yes TMJ Mobility Assessed: Yes Dentition: Good Dentition (Nothing loose per pt.) Neurological Assessment Level of Consciousness: Awake, Alert, Appropriate and Disoriented (+Dementia. Unable to answer many H&P questions) Hx Seizures: No Numbness or tingling in extremities: No Anesthesia Plan Anesthesia Risk discussed: Yes Anesthesia Plan: Verified ASA Class: III Anesthesia Type: Spinal (w/Block)
--- NOTE | 2023-05-08 11:57 | P.PNANES_ITS ---
[facility] Anesthesia Record Part I Anesthesia Record I Intake, IV Amount: 1,500 Hydration: Adequate Estimated blood loss (mL): 0 Urine output (mL): 200 Blood Pressure: 110/61 SaO2: 96 Pulse Rate: 60 Airway Patency: Patent Respiratory Rate: 12 Temperature: 97.2 F Patient is:: Awake and Stable Stable to PACU at:: 11:53
--- NOTE | 2023-05-08 12:39 | XR_ITS ---
FINAL REPORT CLINICAL HISTORY: s/p left TKA COMPARISON: None FINDINGS: Two views of the left knee were obtained. Postoperative changes from left knee arthroplasty. There is soft tissue air. No evidence of complication. IMPRESSION: No evidence of complication postop left knee arthroplasty. Reviewed, Interpreted and Dictated by Kvng Huynh III, MD Transcribed by Razia Hughes Authenticated and [facility]
--- NOTE | 2023-05-08 12:40 | P.OP_ITS ---
Date of procedure: 05/08/23 Pre-op Diagnosis:: End-stage osteoarthritis left knee Post-op Diagnosis:: Same Procedure performed:: Left total knee arthroplasty Surgeon:: Ag Luna DO HOME EXTENSION AGENT:: Kris Guzman Anesthesia: local and spinal Estimated blood loss (mL): 50 Clinical Note:: Implants Esme persona size 6 narrow femur size C tibia with 12 mm congruent poly implant 32 mm patella Operative findings:: See dictation Operative note:: Patient was identified preoperatively. Left knee marked yes my initials. Transferred operative suite. Given a spinal anesthesia and then placed upon the operating bed. Left lower extremity was prepped and draped normal sterile fashion. Once prepped and draped final operative timeout performed to identify proper patient procedure and extremity. Everyone involved the case agreed. No counter indications to beginning. Did receive preoperative antibiotics. Marking pen was used to urmila plan incision midline the Esmarch was used to exsanguinate extremity pneumatic tourniquet inflated to 300 mmHg. Knee was flexed midline incision was made soft tissue retracted medial parapatellar approach used for arthrotomy. Patella everted. Anterior aspect the medial lateral meniscus sacrificed ACL sacrificed. Fat pad anterior femur sacrificed. Intramedullary tibial drill was used and intramedullary tibial guide was used to cut 11 mm off the distal femur. The distal cutting guide was pinned into place and distal cutting of the femur was performed. Posterior referencing guide was then placed and sized to a size 6. Epicondylar axis holes were drilled and the 4-in-1 cutting block was utilized for a size 6 anterior and posterior cuts were made followed by the posterior and anterior chamfer cuts. This was removed and the trial femur was placed and lug holes were drilled. Attention was brought the tibia subluxed anteriorly the remaining of the medial lateral meniscus were removed. The extramedullary tibial guide was used for cutting 10 mm off the least affected lateral joint line. This was pinned in the place and a flat cut was made on the tibia with approximately 7 degrees of posterior slope. The sizer was placed and sized to a size C. This was pinned into place poly was placed starting with a size 10 along with the femoral trial knee was taken to the front flexion extension found to be slightly loose in both flexion and extension so upsized the poly trial to a size 12 which gave good symmetrical fit and fill. Patella was then cut freehand cutting 8 mm from the patella leaving 10 mm of bone and a size 32 patella clamp was placed and lug holes were drilled. The patella implant was placed knee was taken through range of motion and trialed and found to be very stable. Trial implants were then removed Copious irrigation was performed with the pulse lavage final implants were opened. Copious irrigation repeated. Joint was dried. Cement was mixed. Cemented and the tibial component femoral component patellar components along with the trial poly size 12. Cement was allowed to harden his knee was brought out straight. Excess cement was removed. Once the cement was hardened the final 12 implant congruent implant was then placed knee was taken through range of motion found to be very stable. Irrigation repeated. Capsule closed with a running strata fix #1 suture. Deep layers with 0 Vicryl subcutaneous with 2-0 Vicryl surgical clips in the skin for closure sterile dressing placed tourniquet was deflated prior to suturing to confirm hemostasis. Sterile dressing placed patient waken anesthesia taken recovery stable condition Condition: stable Disposition: PACU Complications:: None apparent
--- NOTE | 2023-05-08 13:05 | PC.NURSE ---
arrived to floor by stretcher from surgery
--- NOTE | 2023-05-08 13:57 | EXP.ANES.I ---
[facility] Anesthesia Record Part I Anesthesia Record I Intake, IV Amount: 1,400 Hydration: Adequate Estimated blood loss (mL): 20 Urine output (mL): 0 Blood Pressure: 150/100 SaO2: 96 Pulse Rate: 84 Airway Patency: Patent Respiratory Rate: 14 Temperature: 97.4 F Patient is:: Awake and Stable Stable to PACU at:: 13:54
[2023-05-08 14:53] LABS: Microscopic,Cath URINE MICROSCOPIC (MICROSCOPIC)
[2023-05-08 15:02] LABS: Appearance,Urine/Cath CLEAR (Clear); Bilirubin,Cath Negative (Negative); Blood, Urine/Cath Negative (Negative); Color,Urine/Cath YELLOW (Yellow); Glucose,Urine/Cath (UA) Negative (Negative); Ketones,Urine/Cath Negative (Negative); Leukocyte Esterase,Cath Negative (Negative); Nitrate,Cath Negative (Negative); Protein,Urine/Cath Negative (Negative); Urobilinogen,Cath 0.2 EU/dl (0.2)
--- NOTE | 2023-05-08 18:24 | PC.NURSE ---
A&OX4. TOLERATING RA WELL. F/C PRESENT DRAINING LIGHT YELLOW URINE. PT C/O L LEG PAIN X1 THUS FAR, TX PER MAR. EFFECTIVENESS NOTED. PT ATE SUPPER AND IS SITTING UP IN BED RESTING. FAMILY AT BEDSIDE. NO OTHER NEEDS OR C/O NOTED. DX TO L HIP INTACT. VSS.
[2023-05-09] VITALS: BP 119/58; PULSE 63; RESP 20; TEMP 36.9; O2SAT 94
[2023-05-09 04:00] VITALS: BP 121/53; PULSE 63; RESP 18; TEMP 36.7; O2SAT 97; BMI 33.6
--- NOTE | 2023-05-09 05:23 | PC.NURSE ---
Patient has had a good night. Patient has complained of pain a couple times. See MAr. Once we readjusted her in the bed she was much more comfortable. Remains with the rodriguez until PT can work with her. No other issues noted
[2023-05-09 05:57] LABS: Basophils % 0.4 % (0.1-2.0); Eosinophils % 0.1 % (0.1-12.0); Hemoglobin 11.6 g/dL (12.2-16.2); Lymphocytes # 1.3 K/mm3 (0.7-4.5); Lymphocytes % 14.1 % (10-50); Mean Corpuscular Hemoglobin 31.1 pg (27.0-31.2); Mean Corpuscular Volume 91.4 fl (81-99); Mean Platelet Volume 8.5 fl (7.4-10.4); Monocytes # 0.9 K/mm3 (0.1-1.0); Monocytes % 9.9 % (1.7-9.3); Neutrophils # 6.9 K/mm3 (1.8-7.8); Neutrophils % 75.5 % (37.0-80.0); Platelet Count 173 K/mm3 (142-424); Red Blood Count 3.72 M/mm3 (4.20-5.40); Red Cell Distribution Width 13.8 % (11.5-17.5); White Blood Count 9.1 K/mm3 (4.8-10.8)
[2023-05-09 06:05] LABS: Chloride 106 mmol/L (98-107)
[2023-05-09 06:06] LABS: Potassium 4.3 mmoL/L (3.5-5.1); Sodium 135 mmol/L (136-145)
[2023-05-09 06:08] LABS: Blood Urea Nitrogen 16 mg/dl (7-17); Creatinine Clearance Estimated 55 mL/min (50-200); Estimated Glomerular Filt Rate 69 ml/min (>60); GFR (African American) 83 ML/MIN (>60)
[2023-05-09 06:09] LABS: Anion Gap 9.3 mEq/L (5-15); Carbon Dioxide 24 mmol/L (22.0-30.0); Glucose 121 mg/dl (74-100)
--- NOTE | 2023-05-09 07:15 | EXP.ANES.CKL ---
[facility] Disclaimer: The information contained in this section may have been updated after the patient was seen, as this information can be updated by other users. Medical History Abnormal EKG Dementia Dyspnea History of pacemaker HLD (hyperlipidemia) HTN (hypertension) Hypothyroidism Sinus tachycardia SSS (sick sinus syndrome) Tachy-clemencia syndrome Surgical History History of cardiac cath History of hysterectomy Family History Other Family history of heart disease Social History Smoking Status: Never smoker alcohol intake: never substance use type: denies use current occupational status: employed Travel in the last 8 weeks: [place] the [place] household members: spouse housing: house current occupational exposures/hazards: No caffeine: Yes [facility] Anesthesia Checklist Patient Identification Patient Identification: Verbal (Name & ) Structural Data Admitted From: Inpatient Planned Operative Procedure/s: c/section Consent for Planned Operative Procedure(s) Verified: Yes NPO Status Verified Time NPO: 00:00 Additional verifications Anesthesia Reactions: No Hx Blood Transfusions: No Blood Transfusion Reaction: No Cephalosporin Allergy: No Airway Assessment Mallampati Score:: Class II C-Spine Mobility Assessed: Yes TMJ Mobility Assessed: Yes Dentition: Good Dentition Neurological Assessment Level of Consciousness: Awake, Alert and Appropriate Anesthesia Plan Anesthesia Risk discussed: Yes Anesthesia Plan: Verified ASA Class: II Anesthesia Type: Spinal Preoperative Comments Pre-Operative Comments: discussed tap block, pt agrees to proceed
[2023-05-09 07:56] VITALS: BP 122/50; PULSE 66; RESP 18; TEMP 36.7; O2SAT 96
--- NOTE | 2023-05-09 09:27 | HMH.OTEV ---
OT Inpatient Evaluation Rehab OT IP Evaluation Start: 05/08/23 12:30 Freq: ONCE Status: Active Protocol: Document 05/09/23 08:59 NESTORDENNY (Rec: 05/09/23 09:26 CHRISTIANA [id number]) Rehab OT IP Assessment Subjective History 82 year old female referred to skilled OP OT services for Left total knee arthroplasty on 05/08/23. Patient lives in 2 story home with . No COBY. Independent with all ADLs and fx'l mobility. Subjective That wasn't too bad to get up . Instructed Patient on proper hand and foot placement to complete bed mobility from supine->sit @ EOB requiring Mod A. Instructed Patient on SPT from EOB->recliner requiring Min A and extended time with RW. No LOB noted. Left Patient sitting upright in chair with needs met at end of session. Objective Patient Orientation Person,Time,Name,Age,Year Upper Extremity Gross ROM WFL Bed Mobility bed mobility - supine/sit Assist Level Moderate x 1 (50% assist) Transfer Training Sit/Stand/Pivot Transfer Assist Level Minimal x 1 (25% assist) Chair Transfer Ability Minimal x 1 (25% assist) Chair Transfer Technique Sit to/from Ambulatory Chair Transfer Assistive Devices Rolling Walker Lower Body Dressing Ability Unable/Dependant Rehab OT IP prob,goals,plan Problems Date of Evaluation: 05/09/23 OT IP Problems Bed Mobility,Transfers,Balance ,Self care,Safety Rehab Potential Rehab Potential Good Equipment Needs Assistive Devices Rolling / Wheeled Walker Plan OT intervention Plan Bed Mobility,Transfers,Balance ,Self care,Safety,Therapeutic Exercise OT Plan Frequency Daily Duration LOS Discharge Goals Bed Mobility Ability Assistance x1 Sit to Stand Chair Transfer Ability Minimal x 2 (25% assist) Chair Transfer Ability Contact Guard/Hand Hold Chair Transfer Technique Sit to/from Ambulatory Chair Transfer Assistive Devices Rolling Walker Lower Body Dressing Ability Maximum Assistance Discharge Plan OT Discharge Plan to assist patient with
--- NOTE | 2023-05-09 10:12 | P.PN_ITS ---
Subjective *Date: 05/09/23 *Time: 10:15 Interval history: Patient up in the chair this morning. Doing reasonably well. No complaints. Status post left total knee arthroplasty 05/08/2023 Ortho Exam (Inpt) Vital signs and Labs for Last 24 Hours: Temp Pulse Resp BP Pulse Ox O2 Del Method 98.0 F 66 18 122/50 L 96 Room Air 05/09/23 07:56 05/09/23 07:56 05/09/23 07:56 05/09/23 07:56 05/09/23 07:56 05/09/23 08:42 Laboratory Results - last 24 hr 05/08/23 09:15: Urine Color Yellow, Urine Appearance Clear, Urine pH 6.0, Ur Specific [place] 1.020, Urine Protein Negative, Urine Glucose (UA) Negative, Urine Ketones Negative, Urine Blood Negative, Urine Nitrate Negative, Urine Bilirubin Negative, Urine Urobilinogen 0.2, Ur Leukocyte Esterase Negative, Urine RBC None, Urine WBC None, Ur Squamous Epith Cells None, Urine Bacteria None 05/09/23 05:28: WBC 9.1, RBC 3.72 L, Hgb 11.6 L, Hct 34.0 L, MCV 91.4, MCH 31.1, MCHC 34.0, RDW 13.8, Plt Count 173, MPV 8.5, Neut % (Auto) 75.5, Lymph % (Auto) 14.1, [place] % (Auto) 9.9 H, Eos % (Auto) 0.1, Baso % (Auto) 0.4, Neut # (Auto) 6.9, Lymph # (Auto) 1.3, [place] # (Auto) 0.9, Eos # (Auto) 0.0, Baso # (Auto) 0.0, Sodium 135 L, Potassium 4.3, Chloride 106, Carbon Dioxide 24, Anion Gap 9.3, BUN 16, Creatinine 0.80, Estimated Creat Clear 55, Estimated GFR 69, Est GFR ( Amer) 83, Glucose 121 H, Calcium 9.0 I & O for Labs for Last 24 Hours: Intake & Output 05/06/23 05/07/23 05/08/23 05/09/23 23:59 23:59 23:59 23:59 Intake Total 3140 / 3290 270 / 270 Output Total 0 / 0 1250 / 1250 Balance 3140 / 3290 -980 / -980 Weight 168 lb 9 oz 178 lb Comment:: Left lower extremity: Surgical dressing in place. Grossly neurovascular intact. Wiggles toes. Minimal pain with range of motion of the ankle and knee. Assessment and Plan *Assessment and plan (1) Osteoarthritis of left knee: Problem Comment: Status post left total knee arthroplasty Status: Acute Category: Medical Code(s): M17.12 - Unilateral primary osteoarthritis, left knee Plan Plan is to work with physical therapy today and discharge home today. Patient will follow-up in the clinic in 2 weeks for staple removal. Given specific instructions to call the clinic with any questions or concerns. Given instructions on appropriate use of narcotics postoperatively. Weightbearing as tolerated. Provide rolling walker for ambulation. Arrange for outpatient physical therapy
--- NOTE | 2023-05-09 10:22 | HMH.PTEV ---
Physical Therapy Evaluation Rehab PT IP Evaluation Start: 05/08/23 12:30 Freq: ONCE Status: Active Protocol: Document 05/09/23 10:15 PHORNE (Rec: 05/09/23 10:21 PHORNE [id number]) Subjective/History History History 82 yowf adm to [facility] S/P L TKA due to OA. She has PMH of dementia. She lives with her , 1 step to enter the home and she is generally independent with all mobility and ADLs. Subjective Subjective Currently she reports minimal pain in the L knee. HEP given and reviewed with patient and her . She remains pleasantly confused and agres to mobility assessment. New diagnosis of cancer in past 12 No months? Rehab PT IP Eval Objective Appearance Patient Behavior Appropriate Patient Orientation Person Difficulty following instructions none Speech Pattern Clear Ambulation Patient Able to Ambulate Yes Ambulation Observation IP General Gait Pattern Observation Antalgic Gait Ambulation Distance (feet) 30 Ambulation Assistive Device Rolling Walker Ambulation Ability Contact Guard/Hand Hold Balance Ability to Arise Able, uses arms to help Sitting Balance Steady, safe Standing Balance Steady, wide stance Dynamic Sitting Balance Ability Good Dynamic Standing Balance Ability Good Transfers Bed Transfer Ability Contact Guard/Hand Hold Chair Transfer Ability Contact Guard/Hand Hold Sit to Stand Bed Transfer Ability Contact Guard/Hand Hold Sit to Stand Chair Transfer Ability Contact Guard/Hand Hold Rehab PT IP prob,goals,plan Problems Date of Evaluation: 05/09/23 PT IP Problems Bed Mobility,Transfers,Gait Rehab Potential Rehab Potential Good Equipment Needs Assistive Devices Rolling / Wheeled Walker Plan PT Intervention Plan Bed Mobility,Transfers,Gait, Therapeutic Exercise PT Plan Frequency BID Duration LOS Discharge Goals Bed Transfer Ability Supervision/Stand by Sit to Stand Chair Transfer Ability Supervision/Stand by Ambulation Assistive Device Rolling Walker Ambulation Distance (feet) 40 Discharge Plan PT Discharge Plan Pt is currently appropriate to return home once medically stable for d/c. Recommend
--- NOTE | 2023-05-09 10:44 | SW/DCPLANNER ---
Addendum entered by Eufemia Ku RN 05/10/23 10:51: Patient Choice signed for [facility]. BSC and Rolling Walker were delivered prior to discharge. Original Note: Patient will return to outpatient PT at [facility] on 05/11/23 at 11AM. The plan for this patient is to discharge home this afternoon pending no setbacks.
[2023-05-09 12:00] VITALS: BP 132/54; PULSE 62; RESP 18; TEMP 36.8; O2SAT 99
--- NOTE | 2023-05-09 13:03 | EXP.ANES.II ---
[facility] Anesthesia Record Part II Anesthesia Record Part II Discharge Time: 12:52 Destination: Surgical Day Care (OP Surgery) PACU nurse assessment reviewed?: Yes Patient Condition:: Good Anesthesia Complications:: None Swallowing reflex intact?: Yes Airway Patency: Patent Cyanosis?: No Blood Pressure: 157/76 SaO2: 98 Respiratory Rate: 14 Pulse Rate: 60 Temperature: 97.2 F Mental Status: Alert & Oriented Pain level:: 0 Nausea and/or vomitting:: None Intake, IV Amount: 1,400 Hydration: Adequate
--- NOTE | 2023-05-09 13:03 | PC.NURSE ---
AT TIME OF DISCHARGE, PT L KNEE FOUND TO BE BLEEDING AFTER DR KRAUS CHANGED DRESSING. LEG ELEVATED. DR KRAUS MADE AWARE, STATES TO APPLY PRESSURE DRESSING AND THAT HE ISN'T CONCERNED WITH THIS BLEEDING. PRESSURE DRESSING APPLIED, AND PT SAT WITH LEG ELEVATED FOR 10 MINUTES. NO MORE BLEEDING FOUND AT TIME OF D/C.
[2023-05-09 13:05] VITALS: BP 157/76; PULSE 60; RESP 14; TEMP 36.2; O2SAT 98
--- NOTE | 2023-05-11 14:00 | CARE MANAGER ---
Contacted patient's . He states she is doing well. She went to outpatient therapy today. They are aware of follow up appointments. They said therapy was trying to find her a polar pack as she did not go home with one from the hospital. Will follow up with therapy to see if were able to get her a polar pack. ALICE Soliman
--- NOTE | 2023-05-18 11:51 | EXP.HPDC ---
General Admission date:: 05/08/23 Discharge date: 05/09/23 *Admission Date: 05/08/23 *Chief complaint: Left knee end-stage osteoarthritis *History of present illness: 82-year-old female with end-stage osteoarthritis left knee. Failed reasonable conservative treatment with activity modification significant amount of time injections home exercise program therapy did not resolve issues. After long discussion with the patient and family she was to undergo total knee arthroplasty as definitive treatment for end-stage osteoarthritis in her knee and presented for such. [facility] Disclaimer: The information contained in this section may have been updated after the patient was seen, as this information can be updated by other users. Medical History Abnormal EKG Dementia Dyspnea History of pacemaker HLD (hyperlipidemia) HTN (hypertension) Hypothyroidism Memory loss Osteoarthritis of left knee Sinus tachycardia SSS (sick sinus syndrome) Tachy-clemencia syndrome Surgical History History of cardiac cath History of hysterectomy History of total left knee replacement Family History Other Family history of heart disease Social History Smoking Status: Never smoker alcohol intake: never substance use type: denies use current occupational status: employed Travel in the last 8 weeks: Inside the [place] household members: spouse housing: house current occupational exposures/hazards: No caffeine: Yes Review of Systems Review of Systems Review of systems:: pertinent systems reviewed and negative unless documented below *Musculoskeletal Musculoskeletal: Reports arthralgias, Reports joint swelling, Reports limited range of motion and Reports muscle cramps Exam Data for Last 24 hours Vital signs and Labs for Last 24 Hours: Temp Pulse Resp BP Pulse Ox O2 Del Method 98.2 F 62 14 132/54 L 99 Room Air 05/09/23 12:00 05/09/23 12:00 05/09/23 13:05 05/09/23 12:00 05/09/23 12:00 05/09/23 12:00 Constitutional Constitutional: no acute distress *Routine HEENT Exam Head: Present normocephalic Eye: Present EOMI ENT: Present mucous membranes moist *Routine Respiratory Exam Respiratory: Absent respiratory distress *Routine Cardiovascular Exam Cardiovascular: Present RRR *Routine Abdominal Exam Abdominal: Present soft *Routine Rectal Exam Rectal:: deferred *Routine Genitalia Exam Genitalia:: deferred Additional findings Additional findings: Left knee: Surgical dressing changed surgical clips in place island dressing 4 x 4 reinforcement applied. Meds Home Medications and Allergies Home Medications Medication Instructions Recorded Confirmed Type evolocumab 140 mg/mL subcutaneous 140 mg SQ DIRECTED Cholesterol 03/21/20 05/13/23 History syringe levothyroxine 25 mcg tablet 25 mcg PO DAILY Thyroid 03/21/20 05/13/23 History mecobalamin (vitamin B12) 1,000 1,000 mcg PO DAILY Supplement 04/21/20 05/13/23 History mcg chewable tablet bisoprolol fumarate 10 mg tablet 10 mg PO DAILY High Blood Pressure 02/15/23 05/13/23 History diclofenac sodium 1 % topical gel 2 g topical QID arthritis pain 05/08/23 05/13/23 History (Voltaren Arthritis Pain) memantine 5 mg tablet 5 mg PO BID Memory 05/08/23 05/13/23 History aspirin 325 mg tablet 325 mg PO BID DVT Prophylaxis 05/13/23 05/13/23 History hydrocodone 5 mg-acetaminophen 325 1 tab PO Q4HP PRN Moderate Pain 05/13/23 05/13/23 History mg tablet (Scale Score 5-6) New Prescriptions to Start Prescriptions: Allergies Allergy/AdvReac Type Severity Reaction Status Date / Time No Known Allergies Allergy Verified 05/08/23 07:35 Hospital Course Hospital Course Hospital Course: Patient underwent uneventful total knee art
== END 2023-05-09 13:03 | disposition home or self-care (01) ==
LOC: 2ND 08:49
PROVIDERS: Admitting Provider Orthopaedic Surgery; PCP Family Medicine; Visit Provider Orthopaedic Surgery
PROC: (CPT 27447; principal; 2023-05-08 08:30)
DX: M17.12 Unilateral primary osteoarthritis, left knee (principal); Z79.899 Other long term (current) drug therapy; I49.5 Sick sinus syndrome; Z95.0 Presence of cardiac pacemaker; E03.9 Hypothyroidism, unspecified; I10 Essential (primary) hypertension
CPT/HCPCS: 27447; 36415; 73560; 80048; 81001; 85025; 97163; 97165; C1713; C1776; C9290; G0378; J2704

== ENCOUNTER 2023-05-13 06:32 | Observation (INO) | payer MEDICARE, OTHER, SELFPAY ==
[2023-05-13] VITALS (11 sets, daily range): BP systolic 149–221; BP diastolic 55–89; PULSE 52–75; RESP 17–19; TEMP 36.6–37.1; O2SAT 90–97; BMI 26.5; BMI 29.9
--- NOTE | 2023-05-13 06:40 | PC.NURSE ---
in room talking with patient at this time.
--- NOTE | 2023-05-13 06:43 | CT_ITS ---
PROCEDURE INFORMATION: Exam: CT Head Without Contrast Exam date and time: 05/13/2023 7:21 AM Age: 82 years old Clinical indication: Altered mental status/memory loss; Additional info: AMS, acute postop 05/08 knee SX TECHNIQUE: Imaging protocol: Computed tomography of the head without contrast. Radiation optimization: All CT scans at this facility use at least one of these dose optimization techniques: automated exposure control; mA and/or kV adjustment per patient size (includes targeted exams where dose is matched to clinical indication); or iterative reconstruction. REPORTING DATA: Count of CT and Cardiac NM exams in prior 12 months: This patient has received 0 known CTs and 0 known cardiac nuclear medicine studies in the 12 months prior to the current study. COMPARISON: CT HEAD/BRAIN WO CON 08/17/2021 2:06 PM FINDINGS: Brain: No acute intracranial hemorrhage.. There is mild diffuse heterogeneity of the white matter attenuation, consistent with chronic white matter ischemic changes. Mild cerebral atrophy Cerebral ventricles: No ventriculomegaly. Paranasal sinuses: Visualized sinuses are unremarkable. No fluid levels. Mastoid air cells: Visualized mastoid air cells are well aerated. Bones/joints: Unremarkable. No acute fracture. Soft tissues: Unremarkable. IMPRESSION: No acute intracranial hemorrhage..
--- NOTE | 2023-05-13 06:43 | CT_ITS ---
PROCEDURE INFORMATION: Exam: CT Abdomen And Pelvis With Contrast Exam date and time: 05/13/2023 7:23 AM Age: 82 years old Clinical indication: Constipation; Additional info: AMS, no bm since 05/07, increased urinary freq TECHNIQUE: Imaging protocol: Computed tomography of the abdomen and pelvis with contrast. Radiation optimization: All CT scans at this facility use at least one of these dose optimization techniques: automated exposure control; mA and/or kV adjustment per patient size (includes targeted exams where dose is matched to clinical indication); or iterative reconstruction. Contrast material: ISOVUE; Contrast volume: 75 ml; Contrast route: IV; REPORTING DATA: Count of CT and Cardiac NM exams in prior 12 months: This patient has received 0 known CTs and 0 known cardiac nuclear medicine studies in the 12 months prior to the current study. COMPARISON: CR XR PELVIS 1-2V 05/20/2020 1:00 AM FINDINGS: Tubes, catheters and devices: Transvenous pacemaker leads in the heart Lungs: Left basilar atelectasis Heart: There is calcification of the aortic valve annulus. There is calcification of the mitral valve annulus. Coronary arteries: Coronary artery calcifications may indicate coronary artery disease. Diaphragm: Mild hiatal hernia Liver: 11 mm simple cyst in the dome of the liver.Subcentimeter low attenuation area in the liver is too small for characterization. Gallbladder and bile ducts: Normal. No calcified stones. No ductal dilation. Pancreas: Normal. No ductal dilation. Spleen: Normal. No splenomegaly. Adrenal glands: Normal. No mass. Kidneys and ureters: Pararenal simple cysts in the left kidney . No follow-up imaging recommended . 14 mm simple cyst anteromedial right kidney.Subcentimeter low attenuation area in the right kidney is too small for characterization. There is no evidence of renal or ureteral calcifications. Stomach and bowel: Diverticulosis of the rectosigmoid. No diverticulitis Appendix: No evidence of appendicitis. Intraperitoneal space: Unremarkable. No free air. No significant fluid collection. Vasculature: Unremarkable. No abdominal aortic aneurysm. Lymph nodes: Unremarkable. No enlarged lymph nodes. Urinary bladder: Unremarkable as visualized. Reproductive: Unremarkable as visualized. Bones/joints: Well corticated unhealed avulsion fracture off the right ischial tuberosity. Compression fracture of unknown age at L1 Soft tissues: Unremarkable. IMPRESSION: No acute process COMMENTS: Consistent with the [employer]'s Incidental Findings Committee white paper (J Am Khalif Radiol 2018): Any incidental renal lesion less than 1 cm or classified as too small to characterize, or any incidental cystic renal lesion characterized as simple-appearing, is likely benign. No follow-up imaging is recommended for these lesions per consensus recommendations based on imaging criteria.
--- NOTE | 2023-05-13 06:49 | XR_ITS ---
PROCEDURE INFORMATION: Exam: XR Chest Exam date and time: 05/13/2023 7:02 AM Age: 82 years old Clinical indication: Other: AMS; Additional info: Postop AMS TECHNIQUE: Imaging protocol: Radiologic exam of the chest. Views: 2 views. COMPARISON: CR XR CHEST 2V 04/24/2023 9:52 AM FINDINGS: Tubes, catheters and devices: Transvenous pacemaker leads in the heart Lungs: Unremarkable. No consolidation. Pleural spaces: Unremarkable. No pleural effusion. No pneumothorax. Heart/Mediastinum: Unremarkable. No cardiomegaly. Bones/joints: Unremarkable. IMPRESSION: No acute process
[2023-05-13 06:51] LABS: Basophils % 0.2 % (0.1-2.0); Eosinophils # 0.1 K/mm3 (0.0-0.4); Eosinophils % 1.4 % (0.1-12.0); Hemoglobin 11.9 g/dL (12.2-16.2); Lymphocytes # 1.5 K/mm3 (0.7-4.5); Lymphocytes % 16.1 % (10-50); Mean Corpuscular Hemoglobin 30.4 pg (27.0-31.2); Mean Corpuscular Volume 92.1 fl (81-99); Mean Platelet Volume 7.9 fl (7.4-10.4); Monocytes # 0.7 K/mm3 (0.1-1.0); Monocytes % 7.7 % (1.7-9.3); Neutrophils # 7.1 K/mm3 (1.8-7.8); Neutrophils % 74.6 % (37.0-80.0); Platelet Count 288 K/mm3 (142-424); Red Blood Count 3.91 M/mm3 (4.20-5.40); Red Cell Distribution Width 13.5 % (11.5-17.5); White Blood Count 9.5 K/mm3 (4.8-10.8)
[2023-05-13 06:53] LABS: Chloride 106 mmol/L (98-107); Potassium 3.8 mmoL/L (3.5-5.1); Sodium 139 mmol/L (136-145)
[2023-05-13 06:55] LABS: Alanine Aminotransferase 21 U/L (12-78); Aspartate Amino Transferase 25 U/L (14-36); Blood Urea Nitrogen 13 mg/dl (7-17); Creatinine Clearance Estimated 45 mL/min (50-200); Estimated Glomerular Filt Rate 69 ml/min (>60); GFR (African American) 83 ML/MIN (>60)
--- NOTE | 2023-05-13 06:55 | ECG_ITS ---
APPROVED REPORT Exam: Resting ECG HR:67 bpm ECG Measurements Heart Rate 67 AXES DC 173 P 77 QRSd 90 QRS 37 QT 381 T 37 QTc 397 Conclusion SINUS RHYTHM MODERATE ST DEPRESSION [0.05+ mV ST DEPRESSION] ABNORMAL ECG UNCONFIRMED REPORT Electronically signed by : Chaz Orantes MD 05/15/2023 08:34:05
[2023-05-13 06:56] LABS: Albumin Level 3.7 g/dl (3.5-5.0); Albumin/Globulin Ratio 1.3 (1.1-1.8); Alkaline Phosphatase 63 U/L (38-126); Anion Gap 9.8 mEq/L (5-15); Bilirubin,Total 0.8 mg/dl (0.2-1.3); Calcium 9.8 mg/dl (8.4-10.2); Carbon Dioxide 27 mmol/L (22.0-30.0); Globulin 2.9 g/dL (1.3-3.2); Glucose 109 mg/dl (74-100); Total Protein,Serum 6.6 g/dl (6.3-8.2)
[2023-05-13 06:58] LABS: Microscopic, Urine URINE MICROSCOPIC (MICROSCOPIC)
[2023-05-13 06:59] LABS: Appearance,Urine CLEAR (Clear); Bilirubin,Urine Negative (Negative); Blood, Urine Negative (Negative); Color,Urine YELLOW (Yellow); Glucose,Urine (UA) Negative (Negative); Ketones,Urine Negative (Negative); Leukocyte Esterase,Urine TRACE (Negative); Nitrate,Urine Negative (Negative); Protein,Urine Negative (Negative)
[2023-05-13 07:11] LABS: RBC,Urine Occasional #/hpf (0-3); Squamous Epithelial Cell,Urine Occasional #/hpf (0-5)
--- NOTE | 2023-05-13 07:11 | PC.NURSE ---
Pt gone to RAD via wheelchair
[2023-05-13 07:12] LABS: Bacteria,Urine 1+ /lpf; Mucus,Urine Trace /lpf
--- NOTE | 2023-05-13 07:14 | HMH.EDGENADL ---
Discharge Plan Disposition Patient Disposition: Admitted Condition: Fair Prescriptions Prescriptions: No Action mecobalamin (vitamin B12) 1,000 mcg tablet,chewable 1,000 mcg PO DAILY bisoprolol fumarate 10 mg tablet 10 mg PO DAILY memantine 5 mg tablet 5 mg PO BID diclofenac sodium [Voltaren Arthritis Pain] 1 % gel 2 g topical QID Rx Instructions: apply to single elbow, wrist or hand; for hand includes palm/fingers/back of hand hydrocodone-acetaminophen 5-325 mg tablet 1 tab PO Q4H PRN (Reason: post op pain) Qty: 42 0RF aspirin 325 mg tablet 325 mg PO BID Qty: 60 1RF levothyroxine 25 MCG tablet 25 mcg PO DAILY evolocumab 140 mg/mL syringe 140 mg [id number] Referrals Follow up/Referrals: Yuniel Rosales MD [Primary Care Provider] - See instructions Clinical Impressions Clinical Impression: Encephalopathy acute, Acute UTI Instructions Patient Instructions: DI for Altered Mental Status Discharge ED Provider: Akin Varela I General Adult HPI <Chelita Falcon DO - Last Filed: 05/13/23 07:29> General Chief complaint: Altered Mental Status Stated complaint: burning,frequency with urination Time Seen by Provider: 05/13/23 06:37 Mode of Arrival: Wheelchair Source of Information: Patient and Relative Limitations: No Limitations Description of Symptoms (Recalled from ER Triage Doc. by RN): Patient is 5 days post op from a left total knee replacement. Son reports that earlier tonight patient began having altered mental status, including attempting to walk without her walker, trying to walk outside to look for her , and has had frequent urination. Family reports patient was prescribed hydrocodone 5/325 after surgery but that she has not taken any for several days now. Patient is oriented x 3 during triage. History of Present Illness HPI narrative: This patient is an 82-year-old female with a history of hypertension, hyperlipidemia, carotid artery stenosis, sick sinus syndrome status post pacemaker placement presented to the emergency department for evaluation with concern for confusion. Patient's son reports that she has had confusion since earlier last night. He reports that she had been doing well since her knee replacement 05/08/2023, aside from the fact that she had not yet had a bowel movement postoperatively. Last night, she began walking without her walker, trying to leave out of the front door to look for her , who was inside, and she kept going to the bathroom very frequently stating that she needed to pee. Her son reports that he is concerned that she may either be dehydrated or have a urinary tract infection, as this is happened before in the past. He also notes that she has not been eating or drinking very much. She does have a history of memory issues on memantine, but he notes that she is usually pretty with it. Patient is currently alert and oriented. She denies any concerns or complaints at this time and states that she is feeling well. Related Data Home Medications Medication Instructions Recorded Confirmed evolocumab 140 mg/mL subcutaneous 140 mg SQ .[id number] Cholesterol 03/21/20 05/08/23 syringe levothyroxine 25 mcg tablet 25 mcg PO DAILY hypothyroidism 03/21/20 05/08/23 mecobalamin (vitamin B12) 1,000 1,000 mcg PO DAILY Supplement 04/21/20 05/08/23 mcg chewable tablet bisoprolol fumarate 10 mg tablet 10 mg PO DAILY High Blood Pressure 02/15/23 05/08/23 diclofenac sodium 1 % topical gel 2 g topical QID arthritis pain 05/08/23 05/08/23 (Voltaren Arthritis Pain) memantine 5 mg tablet 5 mg PO BID dementia 05/08/23 05/08/23 Previous Rx's Medication Instructions Recorded aspirin 325 mg tablet 325 mg PO BID #60 tabs 05/09/23 hydrocodone 5 mg-acetaminophen 325 1 tab PO Q4H PRN post op pain #42 05/09/23 mg tablet tabs Allergies Allergy/AdvReac Type Severity Reaction Status Date / Time No Known Allergies Allergy Verif
--- NOTE | 2023-05-13 07:30 | PC.NURSE ---
Pt returned from RAD
[2023-05-13 07:51] LABS: T4 (Thyroxine) 8.4 ug/dl (5.53-11.0)
--- NOTE | 2023-05-13 08:01 | PC.NURSE ---
rounded on pt at this time, pt resting in bed, at BS. Pt states no needs at this time.
[2023-05-13 08:05] LABS: Thyroid Stimulating Hormone 1.94 uIU/mL (0.465-4.68)
--- NOTE | 2023-05-13 08:32 | PC.NURSE ---
Rounded on pt. Pillow provided. No other needs voiced at this time. Family remains at BS.
--- NOTE | 2023-05-13 09:08 | PC.NURSE ---
Spoke with Alicia in Dietary; bringing a regular breakfast tray
--- NOTE | 2023-05-13 09:09 | PC.NURSE ---
verbal orders for admission orders received from Dr. Lilly on the phone. All orders repeated back and verified.
--- NOTE | 2023-05-13 09:24 | PC.NURSE ---
pt is confused. Family @ bedside. encouraged her to eat breakfast.
--- NOTE | 2023-05-13 09:37 | PC.NURSE ---
Lab at bedside to collect 2nd set of blood cultures
--- NOTE | 2023-05-13 09:52 | PC.NURSE ---
Dr. Lilly at
--- NOTE | 2023-05-13 09:58 | HMH.PHAINT1 ---
Pharmacy Intervention Comments: MEDICATION RECONCILIATION COMPLETED ON PATIENT USING EXTERNAL FILL HISTORY FROM PHARMACY AND DISCHARGE SUMMARY FROM PREVIOUS ADMISSION. -NEERAJ ORR, LUIS ENRIQUED
--- NOTE | 2023-05-13 10:12 | EXP.HP ---
History of Present Illness *Admission Date: 05/13/23 *Reason for visit:: Confusion *History of present illness: Mrs. Mccabe is an 82 year old female patient of [facility], who sees Dr. Rosales for her primary care. Patient was brought to the ER overnight due to confusion associated with frequent urination. Patient's son states that she had a total left knee replacement done at [facility] by Dr. Luna about 5 days ago. He has seen her regularly since surgery. The night prior to admission patient started complaining of the need to urinate frequently but was only able to produce small amounts of urine. She also became confused and tried to walk without the assistance of her walker and tried to go outside several times. She did not think that she was at home. Her son reports that she has not taken any of the pain medication that was prescribed after surgery. [facility] Disclaimer: The information contained in this section may have been updated after the patient was seen, as this information can be updated by other users. Medical History (Updated 05/13/23 @ 10:51 by Sony Lilly MD) Abnormal EKG Dementia Dyspnea History of pacemaker HLD (hyperlipidemia) HTN (hypertension) Hypothyroidism Memory loss Osteoarthritis of left knee Sinus tachycardia SSS (sick sinus syndrome) Tachy-clemencia syndrome Surgical History (Updated 05/13/23 @ 10:20 by Sony Lilly MD) History of cardiac cath History of hysterectomy History of total left knee replacement Family History Other Family history of heart disease Social History (Updated 05/13/23 @ 10:03 by Jasmin Pereyra RN) Smoking Status: Never smoker alcohol intake: never substance use type: denies use current occupational status: employed Travel in the last 8 weeks: Inside the [place] household members: spouse housing: house current occupational exposures/hazards: No caffeine: Yes Review of Systems Constitutional Constitutional: Denies chills and Denies fever(s) Eyes Eyes: Denies blurry vision ENT Ears, Nose, Mouth, and Throat: Denies bleeding gums and Denies dizziness *Cardiovascular Cardiovascular: Denies chest pain and Denies dyspnea *Respiratory Respiratory: Denies dyspnea *Gastrointestinal Gastrointestinal: Reports constipation *Genitourinary Genitourinary: Reports difficulty voiding *Musculoskeletal Musculoskeletal: Denies arthralgias Integumentary/Breasts Skin/Breast: Denies rash *Neurologic Neurologic: Denies dizziness Meds Home Medications and Allergies Home Medications Medication Instructions Recorded Confirmed Type evolocumab 140 mg/mL subcutaneous 140 mg SQ DIRECTED Cholesterol 03/21/20 05/13/23 History syringe levothyroxine 25 mcg tablet 25 mcg PO DAILY Thyroid 03/21/20 05/13/23 History mecobalamin (vitamin B12) 1,000 1,000 mcg PO DAILY Supplement 04/21/20 05/13/23 History mcg chewable tablet bisoprolol fumarate 10 mg tablet 10 mg PO DAILY High Blood Pressure 02/15/23 05/13/23 History diclofenac sodium 1 % topical gel 2 g topical QID arthritis pain 05/08/23 05/13/23 History (Voltaren Arthritis Pain) memantine 5 mg tablet 5 mg PO BID Memory 05/08/23 05/13/23 History aspirin 325 mg tablet 325 mg PO BID DVT Prophylaxis 05/13/23 05/13/23 History hydrocodone 5 mg-acetaminophen 325 1 tab PO Q4HP PRN Moderate Pain 05/13/23 05/13/23 History mg tablet (Scale Score 5-6) New Prescriptions to Start Prescriptions: Allergies Allergy/AdvReac Type Severity Reaction Status Date / Time No Known Allergies Allergy Verified 05/08/23 07:35 Exam Data for Last 24 hours Vital signs and Labs for Last 24 Hours: Temp Pulse Resp BP Pulse Ox O2 Del Method 98.7 F 71 18 196/74 H 96 Room Air 05/13/23 06:33 05/13/23 09:00 05/13/23 08:01 05/13/23 09:00 05/13/23 09:00 05/13/23 09:00 Laboratory Results - last 24 hr 05/13/23 06:42: WBC 9.5, R
--- NOTE | 2023-05-13 10:13 | PC.NURSE ---
report called to jb jackson on second floor at this time.
--- NOTE | 2023-05-13 14:39 | PC.WOUNDNOTE ---
(L) knee post op 5 days
--- NOTE | 2023-05-13 18:00 | PC.NURSE ---
Pt is confused at times. Has been anxious at times since arrival to floor. Has not c/o any discomfort. BP is elevated. Pt has ambulated to BR with assist x1. Tolerated well. Call light within reach. Safety measures in place.
--- NOTE | 2023-05-14 03:30 | PC.NURSE ---
At the beginning of this shift pt was alert and oriented x4, as the night went on pt became more confused and is currently only oriented to self. Pt has complained of no pain and has rested well at times. Pt has awoke several times and states she wants to go home and is not sure where she is. Pt is reoriented to environment and a bed safety alarm is in use. Pt denies pain and other needs at this time
[2023-05-14 04:00] VITALS: BP 147/76; PULSE 68; RESP 18; TEMP 36.8; O2SAT 97; BMI 30.2
[2023-05-14 06:59] LABS: Basophils % 0.4 % (0.1-2.0); Eosinophils # 0.1 K/mm3 (0.0-0.4); Eosinophils % 1.8 % (0.1-12.0); Hematocrit 34.6 % (37.0-47.0); Hemoglobin 11.5 g/dL (12.2-16.2); Lymphocytes # 1.3 K/mm3 (0.7-4.5); Lymphocytes % 21.1 % (10-50); Mean Corpuscular HGB Conc 33.2 g/dL (31.8-35.4); Mean Corpuscular Volume 93.4 fl (81-99); Mean Platelet Volume 7.9 fl (7.4-10.4); Monocytes # 0.5 K/mm3 (0.1-1.0); Monocytes % 7.4 % (1.7-9.3); Neutrophils # 4.4 K/mm3 (1.8-7.8); Neutrophils % 69.3 % (37.0-80.0); Platelet Count 278 K/mm3 (142-424); Red Blood Count 3.71 M/mm3 (4.20-5.40); Red Cell Distribution Width 13.6 % (11.5-17.5); White Blood Count 6.3 K/mm3 (4.8-10.8)
[2023-05-14 07:03] LABS: Chloride 107 mmol/L (98-107); Potassium 3.9 mmoL/L (3.5-5.1); Sodium 139 mmol/L (136-145)
[2023-05-14 07:06] LABS: Anion Gap 9.9 mEq/L (5-15); Blood Urea Nitrogen 11 mg/dl (7-17); Calcium 9.4 mg/dl (8.4-10.2); Carbon Dioxide 26 mmol/L (22.0-30.0); Creatinine Clearance Estimated 51 mL/min (50-200); Estimated Glomerular Filt Rate 80 ml/min (>60); GFR (African American) 97 ML/MIN (>60); Glucose 106 mg/dl (74-100)
[2023-05-14 07:55] VITALS: BP 160/66; PULSE 70; RESP 18; TEMP 36.8; O2SAT 99
--- NOTE | 2023-05-14 09:55 | EXP.ACUTE.PN ---
Subjective *Date: 05/14/23 *Time: 09:55 Interval history: No new issues overnight. Patient did not sleep well. She is still confused, nurse reports that patient did have a bowel movement. Medical Exam Vital signs and Labs for Last 24 Hours: Vital Signs Temp Pulse Pulse Resp BP BP Pulse Ox 05/14/23 09:00 05/14/23 07:55 98.2 F 70 18 160/66 H 99 05/14/23 07:22 05/14/23 04:00 98.2 F 68 18 147/76 H 97 05/14/23 06:43 05/14/23 04:54 05/14/23 02:38 05/14/23 00:57 05/13/23 23:00 05/13/23 21:00 05/13/23 20:00 90 L 05/13/23 20:00 98.2 F 66 17 149/65 H 90 L 05/13/23 18:34 05/13/23 17:00 05/13/23 15:00 05/13/23 16:00 97.8 F 71 18 180/80 H 92 L 05/13/23 13:00 05/13/23 10:57 05/13/23 10:55 05/13/23 10:41 98.0 F 52 L 17 162/68 H 95 05/13/23 10:15 98.2 F 75 18 174/72 H O2 Del Method 05/14/23 09:00 Room Air 05/14/23 07:55 Room Air 05/14/23 07:22 Room Air 05/14/23 04:00 Room Air 05/14/23 06:43 Room Air 05/14/23 04:54 Room Air 05/14/23 02:38 Room Air 05/14/23 00:57 Room Air 05/13/23 23:00 Room Air 05/13/23 21:00 Room Air 05/13/23 20:00 Room Air 05/13/23 20:00 Room Air 05/13/23 18:34 Room Air 05/13/23 17:00 Room Air 05/13/23 15:00 Room Air 05/13/23 16:00 Room Air 05/13/23 13:00 Room Air 05/13/23 10:57 Room Air 05/13/23 10:55 Room Air 05/13/23 10:41 Room Air 05/13/23 10:15 Room Air Intake and Output 05/13/23 05/14/23 05/14/23 23:59 07:59 15:59 Intake Total 360 / 480 120 / 600 480 / 600 Output Total 1100 / 1100 900 / 900 Balance -740 / -620 -780 / -300 480 / -300 Intake: Intake, Oral Amount 360 / 480 120 / 600 480 / 600 Output: Output, Urine Amount 1100 / 1100 900 / 900 Other: Number of Unmeasured Voids 1 1 Number of Bowel Movements 1 1 Weight 164 lb 7.437 oz Patient Weight 05/14/23 23:59 Weight 164 lb 7.437 oz Laboratory Results - last 24 hr 05/14/23 06:44: WBC 6.3 D, RBC 3.71 L, Hgb 11.5 L, Hct 34.6 L, MCV 93.4, MCH 31.0, MCHC 33.2, RDW 13.6, Plt Count 278, MPV 7.9, Neut % (Auto) 69.3, Lymph % (Auto) 21.1, Burnet % (Auto) 7.4, Eos % (Auto) 1.8, Baso % (Auto) 0.4, Neut # (Auto) 4.4, Lymph # (Auto) 1.3, Burnet # (Auto) 0.5, Eos # (Auto) 0.1, Baso # (Auto) 0.0, Sodium 139, Potassium 3.9, Chloride 107, Carbon Dioxide 26, Anion Gap 9.9, BUN 11, Creatinine 0.70, Estimated Creat Clear 51, Estimated GFR 80, Est GFR ( Amer) 97, Glucose 106 H, Calcium 9.4 I & O for Labs for Last 24 Hours: Intake & Output 05/11/23 05/12/23 05/13/23 05/14/23 23:59 23:59 23:59 23:59 Intake Total 360 / 480 600 / 600 Output Total 1100 / 1100 900 / 900 Balance -740 / -620 -300 / -300 Weight 163 lb 0.016 oz 164 lb 7.437 oz Constitutional: Present no acute distress Comment:: pleasant but confused Respiratory: Present normal respiratory effort Cardiac: Present Reg Rate and Rhythm Comment:: dressing on left knee was just replaced by the nurse, photograph of wound reviewed Assessment and Plan *Assessment and plan (1) Acute UTI: Status: Acute Category: Medical Code(s): N39.0 - Urinary tract infection, site not specified (2) Encephalopathy acute: Status: Acute Category: Medical Code(s): G93.40 - Encephalopathy, unspecified (3) Hypertension: Status: Chronic Qualifiers: Hypertension type: essential hypertension Qualified Code(s): I10 - Essential (primary) hypertension Category: Medical Code(s): I10 - Essential (primary) hypertension (4) HLD (hyperlipidemia): Status: Chronic Qualifiers: Hyperlipidemia type: mixed hyperlipidemia Qualified Code(s): E78.2 - Mixed hyperlipidemia Category: Medical Code(s): E78.5 - Hyperlipidemia, unspecified (5) Hypothyroidism: Status: Chronic Qualifiers:
--- NOTE | 2023-05-14 15:38 | PC.NURSE ---
Pt has been confused at times. Has had family visiting today. She has ambulated in the room and hallway with assistance. Tolerated well. IV fluids SL per MD Lilly. Call light within reach. Safety measures in place.
[2023-05-14 16:00] VITALS: BP 162/79; PULSE 72; RESP 16; TEMP 36.6; O2SAT 93
--- NOTE | 2023-05-14 18:39 | PC.NURSE ---
Pt ambulated with walker in hallway with assist x1.
--- NOTE | 2023-05-15 03:57 | PC.NURSE ---
Pt is alert to self and location and confusion increases at times. Pt has restted well this shift and offers no complaints, Pt's son stayed in room with pt most of shift and it has seemed to help with confusion and rest.
[2023-05-15 04:00] VITALS: BP 172/79; PULSE 69; RESP 18; TEMP 36.9; O2SAT 97; BMI 29.7
[2023-05-15 07:29] VITALS: BP 169/80; PULSE 75; RESP 18; TEMP 36.7; O2SAT 98
--- NOTE | 2023-05-15 08:35 | EXP.ACUTE.PN ---
Subjective *Date: 05/15/23 *Time: 08:35 Interval history: Patient states she would like to go home today but will do what everyone tells her today. She denies pain anyplace. She states she is breathing without difficulty. She walked in the [place] with her walker with physical therapy yesterday and did fine. Her son stayed during the night and assisted her to the bathroom several times. She is voiding QS. She thinks her bowels moved yesterday. IV is out. Nursing states she is confused at times. Family plans for her to go home. Medical Exam Vital signs and Labs for Last 24 Hours: Vital Signs Temp Pulse Resp BP Pulse Ox O2 Del Method O2 Flow Rate 05/15/23 07:29 98.0 F 75 18 169/80 H 98 Room Air 05/15/23 06:38 Room Air 05/15/23 04:00 98.4 F 69 18 172/79 H 97 Room Air 05/15/23 04:44 Room Air 05/15/23 03:00 Room Air 05/15/23 01:00 Room Air 05/14/23 23:00 Room Air 05/14/23 21:00 Room Air 05/14/23 20:00 Room Air 05/14/23 18:40 Room Air 05/14/23 17:00 Room Air 05/14/23 16:00 97.9 F 72 16 162/79 H 93 L Room Air 05/14/23 15:00 Room Air 05/14/23 13:00 Room Air 05/14/23 14:15 97.7 F 60 18 129/53 L 100 Nasal Cannula 2 05/14/23 10:56 Room Air 05/14/23 09:00 Room Air Intake and Output 05/14/23 05/15/23 05/15/23 19:59 03:59 11:59 Intake Total 290 / 290 240 / 530 270 / 800 Output Total 600 / 600 0 / 600 Balance -310 / -310 240 / -70 270 / 200 Intake: Intake, Oral Amount 240 / 240 240 / 480 270 / 750 Intake, Total IV Amount 50 / 50 Ceftriaxone 1 gm 1 gm In 0.9 % 50 / 50 Sodium Chloride 50 ml @ 100 mls /hr IV Q24H [facility] Rx#:[id number] Output: Output, Urine Amount 600 / 600 0 / 600 Other: Number of Unmeasured Voids 1 1 Weight 216 lb 6 oz 161 lb 4 oz Patient Weight 05/15/23 11:59 Weight 161 lb 4 oz I & O for Labs for Last 24 Hours: Intake & Output 05/12/23 05/13/23 05/14/23 05/15/23 11:59 11:59 11:59 11:59 Intake Total 960 / 960 800 / 800 Output Total 2000 / 1999 600 / 600 Balance -1040 / -1040 200 / 200 Weight 163 lb 0.016 oz 164 lb 7.437 oz 161 lb 4 oz Constitutional: Present no acute distress Comment:: Sitting up in recliner in room with family at bedside. She appears very comfortable. Respiratory: Present crackles (Few basilar crackles) Cardiac: Present Reg Rate and Rhythm and pedal pulses present GI: Present soft; Absent distention, tenderness or guarding Extremities: Present edema (Left lower leg.); Absent tenderness or calf tenderness Comment:: Left knee dressing is clean and dry. Neuro: Present alert and awake Assessment and Plan *Assessment and plan (1) Acute UTI: Status: Acute Category: Medical Code(s): N39.0 - Urinary tract infection, site not specified (2) Encephalopathy acute: Status: Acute Category: Medical Code(s): G93.40 - Encephalopathy, unspecified (3) Hypertension: Status: Chronic Qualifiers: Hypertension type: essential hypertension Qualified Code(s): I10 - Essential (primary) hypertension Category: Medical Code(s): I10 - Essential (primary) hypertension (4) HLD (hyperlipidemia): Status: Chronic Qualifiers: Hyperlipidemia type: mixed hyperlipidemia Qualified Code(s): E78.2 - Mixed hyperlipidemia Category: Medical Code(s): E78.5 - Hyperlipidemia, unspecified (5) Hypothyroidism: Status: Chronic Qualifiers: Hypothyroidism type: unspecified Qualified Code(s): E03.9 - Hypothyroidism, unspecified Category: Medical Code(s): E03.9 - Hypothyroidism, unspecified (6) Constipation: Status: Acute Qualifiers: Constipation type: unspecified constipation type Qualified Code(s): K59.00 - Constipation, unspecified Category: Medical Code(s): K59.00 - Constipatio
--- NOTE | 2023-05-15 09:11 | CA_ITS ---
FINAL REPORT CLINICAL HISTORY: post-op total knee 8 days post left knee COMPARISON: None FINDINGS: Color Doppler, duplex Doppler and compression sonography of the bilateral lower extremities was performed. There is no evidence of deep venous thrombosis from the level of the groin to the calf. The deep veins are patent and compressible. IMPRESSION: No evidence of deep venous thrombosis bilateral lower extremities. Reviewed, Interpreted and Dictated by Kvng Huynh III, MD Transcribed by Razia Hughes Authenticated and [facility]
--- NOTE | 2023-05-15 09:26 | SW/DCPLANNER ---
Patient is currently established w/ outpatient rehab services at [facility]. Patient/family prefer to return [facility] outpatient rehab services. Patient will discharge later today pending no setbacks.
[2023-05-15 11:14] LABS: Anion Gap 12.1 mEq/L (5-15); Blood Urea Nitrogen 12 mg/dl (7-17); Calcium 9.7 mg/dl (8.4-10.2); Carbon Dioxide 26 mmol/L (22.0-30.0); Chloride 102 mmol/L (98-107); Creatinine Clearance Estimated 50 mL/min (50-200); Estimated Glomerular Filt Rate 69 ml/min (>60); GFR (African American) 83 ML/MIN (>60); Glucose 99 mg/dl (74-100); Potassium 4.1 mmoL/L (3.5-5.1); Sodium 136 mmol/L (136-145)
[2023-05-15 11:21] LABS: Basophils % 0.5 % (0.1-2.0); Eosinophils # 0.1 K/mm3 (0.0-0.4); Eosinophils % 1.7 % (0.1-12.0); Hematocrit 32.7 % (37.0-47.0); Hemoglobin 10.9 g/dL (12.2-16.2); Lymphocytes # 1.2 K/mm3 (0.7-4.5); Lymphocytes % 18.1 % (10-50); Mean Corpuscular HGB Conc 33.3 g/dL (31.8-35.4); Mean Corpuscular Hemoglobin 30.9 pg (27.0-31.2); Mean Corpuscular Volume 92.9 fl (81-99); Mean Platelet Volume 8.3 fl (7.4-10.4); Monocytes # 0.4 K/mm3 (0.1-1.0); Monocytes % 6.8 % (1.7-9.3); Neutrophils # 4.8 K/mm3 (1.8-7.8); Neutrophils % 72.9 % (37.0-80.0); Platelet Count 312 K/mm3 (142-424); Red Blood Count 3.52 M/mm3 (4.20-5.40); Red Cell Distribution Width 13.7 % (11.5-17.5); White Blood Count 6.5 K/mm3 (4.8-10.8)
[2023-05-15 15:09] VITALS: BP 147/59; PULSE 60; RESP 18; TEMP 36.9; O2SAT 95
--- NOTE | 2023-05-16 12:52 | CARE MANAGER ---
Called and spoke with patient's regarding recent discharge. He states patient is doing much better, no concerns at time of call. He was not aware of scheduled f/u appt until phone call.
--- NOTE | 2023-05-16 13:19 | PC.NURSE ---
1219 RECEIVED + BC RESULTS FROM [facility] IN LAB, AEROBIC BOTTLE. GRAM + COCCI. SPOKE WITH DR HUDSON. 1318 CONTACTED PT'S SON, REPORTS IMPROVEMENT. PT HAS RETURNED TO BASELINE. NO NEW SYMPTOMS. NO NEW ORDERS FROM DR HUDSON
--- NOTE | 2023-05-17 08:43 | EXP.DC.SUM ---
General Admission date:: 05/13/23 Discharge date: 05/15/23 HPI HPI HPI: Mrs. Mccabe is an 82 year old female patient of [facility], who sees Dr. Rosales for her primary care. Patient was brought to the ER overnight due to confusion associated with frequent urination. Patient's son states that she had a total left knee replacement done at [facility] by Dr. Luna about 5 days ago. He has seen her regularly since surgery. The night prior to admission patient started complaining of the need to urinate frequently but was only able to produce small amounts of urine. She also became confused and tried to walk without the assistance of her walker and tried to go outside several times. She did not think that she was at home. Her son reports that she has not taken any of the pain medication that was prescribed after surgery. Hospital Course Hospital Course Hospital Course: The patient was started on Rocephin with urine culture pending. She was also started on stool softeners and laxatives for constipation. Xarelto was used for DVT prophylaxis she did have a bowel movement but remained confused. She was able to work with physical therapy and walk in the [place] with a walker. Her confusion seemed to improve and her family wanted to take her home. She was stable for discharge. Cultures are all still pending. Exam Data for Last 24 hours Vital signs and Labs for Last 24 Hours: Temp Pulse Resp BP Pulse Ox O2 Del Method O2 Flow Rate 98.5 F 60 18 147/59 H 95 Room Air 2 05/15/23 15:09 05/15/23 15:09 05/15/23 15:09 05/15/23 15:09 05/15/23 15:09 05/15/23 17:00 05/14/23 14:15 I & O for Last 24 hours: Intake & Output 05/14/23 05/15/23 05/16/23 05/17/23 11:59 11:59 11:59 11:59 Intake Total 960 / 960 800 / 800 360 / 360 Output Total 2000 / 2000 600 / 600 900 / 900 Balance -1040 / -1040 200 / 200 -540 / -540 Weight 164 lb 7.437 oz 161 lb 4 oz Microbiology Reports for the Last 24 Hours: Microbiology 05/13/23 09:30 Blood Blood Culture - Preliminary Narrative: Constitutional Constitutional: no acute distress *Routine HEENT Exam Head: Present normocephalic Eye: Present EOMI and PERRL ENT: Present mucous membranes moist *Routine Neck Exam Neck: Present supple; Absent lymphadenopathy *Routine Respiratory Exam Respiratory: Present CTA bilaterally *Routine Cardiovascular Exam Cardiovascular: Present RRR *Routine Abdominal Exam Abdominal: Present soft and normoactive bowel sounds; Absent tenderness *Routine Rectal Exam Rectal:: deferred *Routine Genitalia Exam Genitalia:: deferred *Routine Extremities Exam Extremities: Absent cyanosis, clubbing or edema Comments: dressing over anterior left knee C/D/I *Routine Skin Exam Skin: Present warm; Absent rash *Routine Neurological Exam Neurological: Present alert and oriented X3 Results Data Completed and Pending Labs on day of discharge: Preliminary micro results at discharge 05/13/23 09:30 Blood Culture - Preliminary Blood DS: Diagnosis Discharge Diagnosis (1) Acute UTI: Status: Acute Code(s): N39.0 - Urinary tract infection, site not specified (2) Encephalopathy acute: Status: Acute Code(s): G93.40 - Encephalopathy, unspecified (3) Hypertension: Status: Chronic Code(s): I10 - Essential (primary) hypertension Qualifiers: Hypertension type: essential hypertension Qualified Code(s): I10 - Essential (primary) hypertension (4) HLD (hyperlipidemia): Status: Chronic Code(s): E78.5 - Hyperlipidemia, unspecified Qualifiers: Hyperlipidemia type: mixed hyperlipidemia Qualified Code(s): E78.2 - Mixed hyperlipidemia (5) Hypothyroidism: Status: Chronic Code(s): E03.9 - Hypothyroidism, unspecified Qualifiers: Hypothyroidism type: unspecified Qualified Code(s): E03.9 - Hypothyroidism, unspecified (6) Constipation: Status: Acut
--- NOTE | 2023-05-18 16:20 | PC.NURSE ---
1500-urine culture and ID/sensitivity on worklist. States it was also called to tony at dr. nava office. Spoke with tony states she has received and will notify . notified dr. lopez and dr. pollard of urine culture with id and sensitivity. stated dr. nava office has been made aware as well. States to speak with dr. abad to see if he is addressing culture result. 1619-spoke with dr. abad states he is aware of culture and sensitivity result and has addressed it.
--- NOTE | 2023-05-22 14:29 | PC.NURSE ---
blood culture result gram + cocci, pt given rocephin, admitted to [facility], MD Falcon notified, no further action
== END 2023-05-15 17:49 | disposition home or self-care (01) ==
LOC: ER 09:11 → 2ND 09:24
PROVIDERS: Emergency Medicine; Admitting Provider Family Medicine; Emergency Provider Emergency Medicine; PCP Family Medicine; Visit Provider Family Medicine
DX: N39.0 Urinary tract infection, site not specified (principal); G93.40 Encephalopathy, unspecified; I10 Essential (primary) hypertension; E78.2 Mixed hyperlipidemia; E03.9 Hypothyroidism, unspecified; K59.00 Constipation, unspecified; R41.3 Other amnesia; M17.12 Unilateral primary osteoarthritis, left knee; Z79.899 Other long term (current) drug therapy; R06.02 Shortness of breath; Z96.652 Presence of left artificial knee joint; I49.5 Sick sinus syndrome; Z95.0 Presence of cardiac pacemaker
CPT/HCPCS: 36415; 70450; 71046; 74177; 80048; 80053; 81001; 84436; 84443; 85025; 87040; 87086; 93005; 93970; 99285; G0378; J0696; Q9967

== ENCOUNTER → 2023-05-23 08:27 | Outpatient (CLI) | payer MEDICARE, OTHER, SELFPAY ==
--- NOTE | 2023-05-23 08:32 | XR_ITS ---
FINAL REPORT CLINICAL HISTORY: lt knee pain FINDINGS: 3 weightbearing views of the left knee were obtained. There is no acute fracture or dislocation. There has been left knee arthroplasty. There is anterior soft tissue swelling. Vascular calcifications are present. There are overlying skin naima IMPRESSION: Left knee arthroplasty. Reviewed, Interpreted and Dictated by Kvng Huynh III, MD Transcribed by Irvin Rodriguez Authenticated and [facility]
== END ==
PROVIDERS: PCP Family Medicine; Visit Provider Orthopaedic Surgery
DX: M17.12 Unilateral primary osteoarthritis, left knee (principal)
CPT/HCPCS: 73562

== ENCOUNTER 2023-06-19 13:00 | Outpatient (RCR) | payer MEDICARE, OTHER, SELFPAY ==
--- NOTE | 2023-05-11 12:06 | HMH.PTOPEV ---
PT Outpatient Evaluation Rehab PT Outpatient Evaluation Start: 05/11/23 11:53 Freq: Status: Active Protocol: Document 05/11/23 11:53 TREASURE (Rec: 05/11/23 12:06 TREASURE [id number]) E-signed By Jarad Medrano, PT Outpatient Therapy Subjective History Subjective History Patient is an 82 year old female presenting to outpatient PT with reports of L post-surgical knee S/P L TKA performed 05/08/23. Patient reports hx of chronic knee pain prior to surgery. She was discharged from hospital without a polar pack for icing . PT has contacted MD and med /surg to assure that patient gets set up with device for post-op swelling and pain modulation. New diagnosis of cancer in past 12 No months? Chief Complaint Pain,Stiff,Swelling,Weakness Symptom Type Ache Symptoms Relieved By Prescription Meds Symptoms Aggravated By Standing,Physical Activity, Walking Prior Functional Limitations Standing,Walking Current Functional Limitations Housework,Dressing,Driving, Sleeping,Standing,Squatting, Walking,Stairs,Balance,Bending /Stooping Symptom Description Constant but Variable Level of pain today (0-10) 6 Pain scale - at its best (0-10) 2 Pain scale - at its worst (0-10) 8 Hip/Knee Eval Assistive Device Assistive Devices Rolling / Wheeled Walker Palpation Tenderness left Knee Palpation Finding Tenderness Knee Palpation Overall Comment Medial compartment 3/4 MMT Hip Strength Reason Not Measured Orthopedic Precautions Knee Strength Reason Not Measured Orthopedic Precautions ROM Hip ROM Reason Not Measured Within Functional Limits Knee Extension Active Range of Motion ( -5 degrees) Knee Flexion Active Range of Motion ( 38 degrees) Knee Flexion Passive Range of Motion ( 93 degrees) Special Tests Knee Valgus Stress Test Negative Left Knee Varus Stress Test Negative Left Lower Extremity Functional Index Activities Today, do you or would you have any difficulty at all with: a.Any of your usual work, housework or Extreme difficulty or unable school activities to perform activity b. Your usual hobbies, recreational or Extreme difficulty or unable sporting activities to perform activity c. Getting into or out of the bath Quite a bit of difficulty d. Walking between rooms Extreme difficulty or unable to perform activity e. Putting on your shoes or socks Extreme difficulty or unable to perform activity f. Squatting Extreme difficulty or unable to perform activity g. Lifting an object, like a bag of Extreme difficulty or unable groceries from the floor to perform activity h. Performing light activities around Extreme difficulty or unable your home to perform activity i. Performing heavy activities around Extreme difficulty or unable your home to perform activity j. Getting into or out of a car Quite a bit of difficulty k. Walking 2 blocks Extreme difficulty or unable to perform activity l. Walking a mile Extreme difficulty or unable to perform activity m. Going up or down 10 stairs (about 1 Extreme difficulty or unable flight of stairs) to perform activity n. Standing for 1 hour Extreme difficulty or unable to perform activity o. Sitting for 1 hour Extreme difficulty or unable to perform activity p. Running on even ground Extreme difficulty or unable to perform activity q. Running on uneven ground Extreme difficulty or unable to perform activity r. Making sharp turns while running fast Extreme difficulty or unable to perform activity s. Hopping Extreme difficulty or unable to perform activity t. Rolling over in bed Extreme difficulty or unable to perform activity LEFI Score Lower Extremity Functional Index Score 2 Outpatient Therapy Assessment Impairments Problems/Impairmments Palpation Tenderness,Impaired Range of Motion,Impaired Strength,Impaired Walking, Impaired Standing,Impaired Shower/Bathing,Impaired Household Care,Impaired Stair Climbing,Impaired Incline Stepping,Impaired Stepping on Uneven Surface,Impaired Squatting,Impaired Recreational Activities, Impaired Balance,Increased Edema,Subjective C/O Pain, Impaired Self Care/Self Management Prognosis Rehab Potential Good Clinical Impression Consistent with Diagnosis Yes Short Term Goals Number of Weeks 2 Decrease Subjective C/O Pain Yes: 5/10 at worst Patient to be Ind w/ HEP Yes Care Home Goals Number of Weeks 6-8 Decreased Palpation Tenderness Yes: 1/4 Increase Range of Motion Yes: 0-120 Increase Strength Yes: 4+/5 grossly Increase Ability to Walk Yes: 30 min without difficulty Increase Ability to Stand Yes: Improve Ability For Household Care Yes Decrease Edema Yes Decrease Subjective C/O Pain Yes: 2/10 at worst Outpatient Therapy Plan of Care Treatment Plan May Include Therapeutic Exercise Including Home Yes Exercise Program Manual Therapy Techniques Yes Neuromuscular Re-education Yes Therapeutic Activities to Return to Yes Previous Functional/Work Level Gait Training Yes ADL/Self Care Education Yes Dry Needling Yes Thermal Modalities Yes Electrical Stimulation Yes Ultrasound/Phonophoresis Yes Iontophoresis Yes Orthotics/Bracing/Splinting Yes Vasopneumatic Compression Pump Yes Massage Yes Manual Lymphatic Drainage Yes Wound Care Yes Eval/Re-Eval Yes Aquatic Therapy Yes Frequency Times per week 2 Duration Number of Weeks 6-8 Addendums This patient is a candidate for social No or vocational rehab? Patient/Guardian verbally acknowledges Yes understanding of treatment program and consents to further treatment? Patient/Guardian verbally acknowledges Yes understanding of diagnosis, prognosis and goals for treatment? Eval Complexity PT Charges 40577 - Moderate Complexity Shoulder/Elbow Eval Shoulder Objective Measurements Elbow Objective Measurements PHYSICIAN CERTIFICATION: I certify the specified therapy services for Jeannie Mccabe are required, authorized, and reviewed every 30 days.
--- NOTE | 2023-06-06 14:28 | HMH.RHREAS ---
Rehab Reassessment Rehab OP Re-assessment Start: 05/11/23 11:53 Freq: Status: Active Protocol: Document 06/06/23 13:46 TREASURE (Rec: 06/06/23 14:27 TREASURE [id number]) E-signed By Jarad Medrano, PT Lower Extremity Functional Index Activities Today, do you or would you have any difficulty at all with: a.Any of your usual work, housework or Moderate difficulty school activities b. Your usual hobbies, recreational or A little bit of difficulty sporting activities c. Getting into or out of the bath A little bit of difficulty d. Walking between rooms A little bit of difficulty e. Putting on your shoes or socks A little bit of difficulty f. Squatting A little bit of difficulty g. Lifting an object, like a bag of A little bit of difficulty groceries from the floor h. Performing light activities around A little bit of difficulty your home i. Performing heavy activities around Quite a bit of difficulty your home j. Getting into or out of a car Moderate difficulty k. Walking 2 blocks A little bit of difficulty l. Walking a mile Quite a bit of difficulty m. Going up or down 10 stairs (about 1 Moderate difficulty flight of stairs) n. Standing for 1 hour A little bit of difficulty o. Sitting for 1 hour No difficulty p. Running on even ground Moderate difficulty q. Running on uneven ground Moderate difficulty r. Making sharp turns while running fast Extreme difficulty or unable to perform activity s. Hopping Quite a bit of difficulty t. Rolling over in bed No difficulty LEFI Score Lower Extremity Functional Index Score 48 Rehab Re-assessment Subjective Subjective Patient reports 50% improvement since start of care. Objective Objective Notes AROM: -2-111 MMT: 4+/5 for all hip/thigh mm Pain: 3/10 today; 3/10 at worst over past week. Neuro: WNL Assessment Progress Assessment Progressing as Expected Assessment Notes Patient has been seen for 7 visits to date. Patient near reaching post-op ROM standards . Suspect non-compliance with ROM HEP. Patient is very active with ambulatory activities. Patient would benefit from continuing with skilled PT interventions in order to address difficulty with all standing/ambulatory activities. Patient goals met STG's Goals Not Met LTG's Revised Goals NA Plan Plan Continue with current POC. Frequency of Therapy 2x/week Duration of therapy 4 weeks Time and Billing Re-Eval Time 16 Re-Eval Billing Units 1 PHYSICIAN CERTIFICATION: I certify the specified therapy services for Jeannie Eliot are required, authorized, and reviewed every 30 days.
== END 2023-06-19 14:10 | disposition home or self-care (01) ==
LOC: PT 13:00
PROVIDERS: PCP Family Medicine; Visit Provider Orthopaedic Surgery
DX: M25.562 Pain in left knee (principal); Z96.652 Presence of left artificial knee joint
CPT/HCPCS: 97010; 97016; 97110; 97112; 97140; 97163; 97164; 97530

== ENCOUNTER → 2023-06-20 09:29 | Outpatient (CLI) | payer MEDICARE, OTHER, SELFPAY ==
--- NOTE | 2023-06-20 09:32 | XR_ITS ---
FINAL REPORT CLINICAL HISTORY: lt tka FINDINGS: 3 views of the left knee knee were obtained. The post arthroplasty changes. Soft tissue swelling with a small joint effusion. No fracture or obvious hardware abnormality. IMPRESSION: Expected postoperative change. Reviewed, Interpreted and Dictated by Yuniel Tran MD Transcribed by Irvin Rodriguez Authenticated and [facility]
== END ==
PROVIDERS: PCP Family Medicine; Visit Provider Orthopaedic Surgery
DX: M17.12 Unilateral primary osteoarthritis, left knee (principal)
CPT/HCPCS: 73562

== ENCOUNTER 2023-09-11 15:05 | Outpatient (CLI) | payer MEDICARE, OTHER, SELFPAY ==
--- NOTE | 2023-09-11 15:11 | XR_ITS ---
FINAL REPORT CLINICAL HISTORY: RT FOOT MASS COMPARISON: None FINDINGS: AP, oblique and lateral views of the right foot were obtained. There is no prior exam for comparison. There is no acute fracture or dislocation. There is fusion of the second proximal inner phalangeal joint. Soft tissues are normal. IMPRESSION: No acute osseous abnormality of the right foot. Prior fusion of the second PIP joint. Reviewed, Interpreted and Dictated by Herberth Dubois MD Transcribed by Nicki Panda Authenticated and [facility]
== END 2023-09-11 23:59 ==
PROVIDERS: PCP Family Medicine; Visit Provider Family Medicine
DX: R22.41 Localized swelling, mass and lump, right lower limb (principal)
CPT/HCPCS: 73630

== ENCOUNTER 2023-10-09 09:43 | Outpatient (CLI) | payer MEDICARE, SELFPAY ==
--- NOTE | 2023-10-09 09:46 | XR_ITS ---
FINAL REPORT CLINICAL HISTORY: Foot Pain COMPARISON: None FINDINGS: LEFT FOOT: Three views of the left foot were obtained. There is no acute fracture or dislocation. Mild degenerative changes present along with a mild hallux valgus deformity. A plantar calcaneal spur is present. There is no soft tissue abnormality. IMPRESSION: No acute bony abnormality. Mild degenerative change with mild hallux valgus deformity. Reviewed, Interpreted and Dictated by Kvng Huynh III, MD Transcribed by Nicki Panda Authenticated and [facility]
--- NOTE | 2023-10-09 09:46 | XR_ITS ---
FINAL REPORT CLINICAL HISTORY: Foot Pain COMPARISON: 09/11/2023 FINDINGS: RIGHT FOOT: Three views of the right foot were obtained. There is no acute fracture or dislocation. There has been previous fusion of the second PIP joint. Mild degenerative changes present in the foot. There is a small plantar calcaneal spur present. There are small calcifications in the region of the distal Achilles tendon. IMPRESSION: Mild degenerative change, with small calcifications in the region of the distal Achilles tendon. Prior fusion of the second PIP joint, stable. Reviewed, Interpreted and Dictated by Kvng Huynh III, MD Transcribed by Nicki Panda Authenticated and [facility]
== END 2023-10-09 23:59 ==
LOC: RAD 09:44
PROVIDERS: PCP Family Medicine; Visit Provider Podiatrist
DX: M79.671 Pain in right foot (principal); M79.672 Pain in left foot
CPT/HCPCS: 73630

== ENCOUNTER 2023-12-12 15:09 | Outpatient (POV) | payer MEDICARE, OTHER, SELFPAY | END 2023-12-12 23:59 | disposition home or self-care (01) | LOC: SC 15:10 | PROVIDERS: Visit Provider Dermatology | DX: Z00.00 Encounter for general adult medical examination without abnormal findings (principal) ==

== ENCOUNTER 2024-06-03 17:27 | Emergency (ER) | payer MEDICARE, OTHER, SELFPAY ==
--- NOTE | 2024-06-03 17:34 | ECG_ITS ---
APPROVED REPORT Exam: Resting ECG HR:70 bpm ECG Measurements Heart Rate 70 AXES NV 157 P 18 QRSd 90 QRS 40 QT 363 T 29 QTc 384 Conclusion ELECTRONIC ATRIAL PACEMAKER MODERATE ST DEPRESSION [0.05+ mV ST DEPRESSION] ABNORMAL ECG no significant change from prior Electronically signed by : AARON RIOS, 06/04/2024 00:06:25
[2024-06-03 17:41] VITALS: BP 177/69; PULSE 80; RESP 18; TEMP 37; O2SAT 98; BMI 30.2
[2024-06-03 18:01] VITALS: BP 135/60; PULSE 70; O2SAT 95
--- NOTE | 2024-06-03 18:12 | XR_ITS ---
PROCEDURE INFORMATION: Exam: XR Chest Exam date and time: 06/03/2024 6:36 PM Age: 83 years old Clinical indication: Shortness of breath; Additional info: SOA TECHNIQUE: Imaging protocol: Radiologic exam of the chest. Views: 2 views. COMPARISON: CR XR CHEST 2V 13/05/2023 07:02 FINDINGS: Tubes, catheters and devices: Unchanged cardiac pacemaker leads. Lungs: Unremarkable. No consolidation. Pleural spaces: Unremarkable. No pleural effusion. No pneumothorax. Heart/Mediastinum: Unremarkable. No cardiomegaly. Vasculature: Vascular calcifications. Bones/joints: Chronic lower thoracic spine fracture unchanged from prior study. IMPRESSION: No acute findings.
[2024-06-03 18:17] LABS: Basophils # 0.1 K/mm3 (0-0.2); Basophils % 0.8 % (0.1-2.0); Eosinophils # 0.1 K/mm3 (0.0-0.4); Eosinophils % 1.3 % (0.1-12.0); Hematocrit 40.8 % (37.0-47.0); Hemoglobin 13.4 g/dL (12.2-16.2); Lymphocytes # 1.6 K/mm3 (0.7-4.5); Lymphocytes % 23.3 % (10-50); Mean Corpuscular HGB Conc 32.8 g/dL (31.8-35.4); Mean Corpuscular Hemoglobin 30.3 pg (27.0-31.2); Mean Corpuscular Volume 92.2 fl (81-99); Mean Platelet Volume 7.8 fl (7.4-10.4); Monocytes # 0.5 K/mm3 (0.1-1.0); Monocytes % 7.3 % (1.7-9.3); Neutrophils # 4.7 K/mm3 (1.8-7.8); Neutrophils % 67.2 % (37.0-80.0); Platelet Count 245 K/mm3 (142-424); Red Blood Count 4.43 M/mm3 (4.20-5.40); Red Cell Distribution Width 13.6 % (11.5-17.5)
[2024-06-03 18:31] VITALS: BP 144/88; PULSE 69; O2SAT 95
--- NOTE | 2024-06-03 18:38 | [facility].EDCP ---
Discharge Plan Disposition Patient Disposition: Home, Self-Care Condition: Good Prescriptions Prescriptions: New azithromycin 500 mg tablet 500 mg PO DAILY 3 Days Qty: 3 0RF prednisone 20 mg tablet 40 mg PO DAILY 3 Days Qty: 6 0RF No Action mecobalamin (vitamin B12) 1,000 mcg tablet,chewable 1,000 mcg PO DAILY omeprazole 40 mg capsule,delayed release(DR/EC) 40 mg PO bisoprolol fumarate 5 mg tablet 5 mg PO DAILY Qty: 30 5RF memantine 5 mg tablet 5 mg PO BID diclofenac sodium [Voltaren Arthritis Pain] 1 % gel 2 g topical QID Rx Instructions: apply to single elbow, wrist or hand; for hand includes palm/fingers/back of hand aspirin 325 mg tablet 325 mg PO BID hydrocodone-acetaminophen 5-325 mg tablet 1 tab PO Q4HP PRN (Reason: Moderate Pain (Scale Score 5-6)) levothyroxine 25 MCG tablet 25 mcg PO DAILY evolocumab 140 mg/mL syringe 140 mg SQ DIRECTED Rx Instructions: EVERY 2 WEEKS Referrals Follow up/Referrals: Yuniel Rosales MD [Primary Care Provider] - See instructions True Cohen MD [Staff Physician] - See instructions Brenden Hudson MD [Physician] - See instructions Activity Restrictions/Add. Instructions Additional Instructions/Restrictions: You were evaluated in the emergency department today. At this time, your workup is reassuring with the exception of being diagnosed with bronchiolitis as well as lung nodules, for which we recommend close follow-up with primary care. We are also providing you with information for cardiology and pulmonology given your significant dyspnea on exertion. We are providing with inhaler to use at home every 4 hours as needed for wheezing or shortness of breath. We are also providing you with prescriptions for azithromycin and prednisone to treat bronchiolitis. Return to the emergency department for new or worsening symptoms Clinical Impressions Clinical Impression: Dyspnea on exertion, Cough, Bronchiolitis, Lung nodule Instructions Patient Instructions: DI for Shortness of Breath Print Language Print Language: Albanian Discharge ED Provider: Chelita Falcon [facility] General Chief Complaint: Shortness of Breath/Dyspnea Stated Complaint: SOA doesn't feel right Time Seen by Provider: 06/03/24 17:31 Mode of Arrival: Ambulatory Source of Information: Patient Limitations: No Limitations Description of Symptoms (Recalled from ER Triage Doc. by RN): Pt reports SOB. PT reports when she checked her O2 at home its was in the 70s. History of Present Illness HPI narrative: This patient is an 83-year-old female with a history of hypertension, hyperlipidemia, memory loss, CAD, hypothyroidism, sick sinus syndrome status post pacemaker placement, and hypothyroidism presenting to the emergency department for evaluation. According to the patient's , she was walking up an incline when she said she could not go anymore and felt severely short of air. When they tried to put a pulse ox on her to check her O2, they noted that it was so low it could not read and then they got a rate in the 70s. She notes that she has had dyspnea on exertion if she tries to walk a lot as of late, but she used to walk all the time. She notes she has not done that in some time, however. She also notes that she constantly feels like she has heartburn/acid reflux. She has a medication at home for this but her asthma is not sure she is taking it as prescribed. It looks that she is prescribed omeprazole. Currently, she does not have any concerns or complaints at all at rest. No fevers, chills, cough, congestion, chest pain, calf pain or swelling. Related Data Home Medications ?Medication ?Instructions ?Recorded ?Confirmed evolocumab 140 mg/mL subcutaneous 140 mg SQ DIRECTED Cholesterol 03/21/20 03/18/24 syringe levothyroxine 25 mcg tablet 25 mcg PO DAILY Thyroid 03/21/20 03/18/24 mecobalamin (vitamin B12) 1,000 1,000 mcg PO DAILY Supplement 04/21/20 03/18/24 mcg chewable tablet diclofenac sodium 1 % topical gel 2 g topical QID arthritis pain 05/08/23 03/18/24 (Voltaren Arthritis Pain) memantine 5 mg tablet 5 mg PO BID Memory 05/08/23 03/18/24 aspirin 325 mg tablet 325 mg PO BID DVT Prophylaxis 05/13/23 03/18/24 hydrocodone 5 mg-acetaminophen 325 1 tab PO Q4HP PRN Moderate Pain 05/13/23 03/18/24 mg tablet (Scale Score 5-6) omeprazole 40 mg capsule,delayed 40 mg PO 03/18/24 03/18/24 release Previous Rx's ?Medication ?Instructions ?Recorded bisoprolol fumarate 5 mg tablet 5 mg PO DAILY #30 tabs 12/11/23 azithromycin 500 mg tablet 500 mg PO DAILY 3 days #3 tabs 06/03/24 prednisone 20 mg tablet 40 mg (2 x 20 mg) PO DAILY 3 days 06/03/24 #6 tabs Allergies Allergy/AdvReac Type Severity Reaction Status Date / Time No Known Allergies Allergy Verified 03/18/24 13:44 [facility] Disclaimer: The information contained in this section may have been updated after the patient was seen, as this information can be updated by other users. Medical History Memory loss Constipation Osteoarthritis of left knee History of pacemaker Hypothyroidism HLD (hyperlipidemia) HTN (hypertension) Dementia Dyspnea Acquired hammertoe of right foot History of toe fracture Sinus tachycardia SSS (sick sinus syndrome) Tachy-clemencia syndrome Overweight with body mass index (BMI) 25.0-29.9 Callus of foot Abnormal EKG Syncope Back pain Surgical History History of total left knee replacement History of cardiac cath History of hysterectomy Status post foot surgery Family History Other Family history of heart disease Social History Smoking Status: Never smoker alcohol intake: never substance use type: denies use current occupational status: employed Travel in the last 8 weeks: Inside the [place] household members: spouse housing: house current occupational exposures/hazards: No caffeine: Yes Other Medical History Have you received the Flu Vaccine for this season: No Have you received the Pneumonia Vaccine: Yes ROS Obtained: Yes All systems reviewed & no additional complaints except as documented Physical Exam General General appearance: alert, in no apparent distress and obese Head Head exam: atraumatic and normocephalic Eye Eye exam: Present normal appearance, PERRL and EOMI ENT ENT exam: Present normal exam, normal oropharynx, mucous membranes moist and normal external ear exam Neck Neck exam: Present normal inspection, full ROM and trachea midline; Absent tenderness Chest Chest inspection: Present normal inspection and symmetric chest wall rise; Absent tenderness Respiratory Respiratory exam: Present normal lung sounds bilaterally; Absent respiratory distress, wheezes, stridor or accessory muscle use Cardiovascular Cardiovascular exam: Present regular rate and normal rhythm Abdominal Exam Abdominal exam: Present soft; Absent distention, tenderness or guarding Extremities Exam Extremities exam: Present normal inspection, full ROM and normal capillary refill; Absent tenderness or edema Back Exam Back exam: Present normal inspection and full ROM; Absent tenderness Neurological Exam Neurological exam: Present alert, oriented X3, CN II-XII intact and normal gait; Absent motor sensory deficit Psychiatric Psychiatric exam: Present normal affect and normal mood Skin Skin exam: Present warm and dry HEART Score HEART Score HEART Score assessment performed?: Yes History (anamnesis): Slightly suspicious ECG: Normal Age: >65 years Risk factors: 3 or more risk factors Troponin: </= normal limit HEART Score: 4 Critical Care Critical Care Time Critical Care Time: No Medical Decision Making Jaspreet Inquiry Pt receiving controlled substance: No Vital Signs Vital Signs: 06/03/24 17:41 06/03/24 18:01 06/03/24 18:31 Temperature 98.6 F Temperature Source Oral Pulse Rate 70 69 Pulse Rate [Right Brachial] 80 Respiratory Rate 18 Blood Pressure 135/60 144/88 H Blood Pressure [Right Arm] 177/69 H Blood Pressure Mean Blood Pressure Mean [Right Arm] 105 02 Sat by Pulse Oximetry 98 95 95 Oxygen Delivery Method Room Air Room Air Room Air 06/03/24 18:52 06/03/24 19:00 06/03/24 21:53 Temperature 97.8 F Temperature Source Pulse Rate 77 70 71 Pulse Rate [Right Brachial] Respiratory Rate 20 Blood Pressure 205/88 H 167/76 H 159/84 H Blood Pressure [Right Arm] Blood Pressure Mean 109 106 Blood Pressure Mean [Right Arm] 02 Sat by Pulse Oximetry 94 L 96 Oxygen Delivery Method Lab Data Labs: Lab Results 06/03/24 17:45: WBC 7.0, RBC 4.43, Hgb 13.4, Hct 40.8, MCV 92.2, MCH 30.3, MCHC 32.8, RDW 13.6, Plt Count 245, MPV 7.8, Neut % (Auto) 67.2, Lymph % (Auto) 23.3, [place] % (Auto) 7.3, Eos % (Auto) 1.3, Baso % (Auto) 0.8, Neut # (Auto) 4.7, Lymph # (Auto) 1.6, [place] # (Auto) 0.5, Eos # (Auto) 0.1, Baso # (Auto) 0.1, D-Dimer 0.80 H, Sodium 139, Potassium 4.3, Chloride 105, Carbon Dioxide 28, Anion Gap 10.3, BUN 26 H, Creatinine 0.90, Estimated Creat Clear 49, Estimated GFR 60, Est GFR ( Amer) 72, Glucose 92, Calcium 9.7, Total Bilirubin 0.5, AST 31, ALT 18, Alkaline Phosphatase 61, Troponin I < 0.01, NT-Pro-B Natriuret Pep 259, Total Protein 6.5, Albumin 4.1, Globulin 2.4, Albumin/Globulin Ratio 1.7, Lipase 127, TSH 2.30, Thyroxine (T4) 8.8, HIV 1&2 Antibody Rapid Nonreactive 06/03/24 18:53: Urine Color Yellow, Urine Appearance Clear, Urine pH 6.0, Ur Specific [place] 1.020, Urine Protein Negative, Urine Glucose (UA) Negative, Urine Ketones Negative, Urine Blood Negative, Urine Nitrate Negative, Urine Bilirubin Negative, Urine Urobilinogen 0.2, Ur Leukocyte Esterase 2+ A, Urine WBC 20-50, Ur Squamous Epith Cells 3-5, Urine Bacteria 1+ 06/03/24 21:16: Troponin I < 0.01 06/03/24 17:45 06/03/24 17:45 Response Orders (Tests/Meds): ED MEDICATIONS Discontinued Medications Generic Name Dose Route Start Last Admin Trade Name Jackq PRN Reason Stop Dose Admin Albuterol Sulfate 2 puff 06/03/24 21:26 06/03/24 21:52 Albuterol-Hfa 90mcg/Puff Inhaler 8gm IH 06/03/24 21:27 1 puff ONCE ONE Administration Azithromycin 500 mg 06/03/24 21:25 06/03/24 21:52 Azithromycin 250mg Tablet PO 06/03/24 21:26 500 mg ONCE ONE Administration Belladonna Alkaloids 60 ml 06/03/24 18:34 06/03/24 18:39 Belladonna Alkaloids 60 Ml Ml PO 06/03/24 18:35 60 ml ONCE ONE Administration Iopamidol 70 ml 06/03/24 20:37 06/03/24 20:39 Iopamidol-370 (76%);100ml Bottle IV 06/03/24 20:38 70 ml ONCE ONE Administration Miscellaneous 1 unit 06/03/24 21:25 Aerochamber/Optihaler MC 06/03/24 21:26 ONCE ONE Prednisone 40 mg 06/03/24 21:25 06/03/24 21:53 Prednisone 20mg Tab PO 06/03/24 21:26 40 mg ONCE ONE Administration Sodium Chloride 40 ml 06/03/24 20:37 06/03/24 20:39 0.9 % Sodium Chloride 50 Ml Vial IV 06/03/24 20:38 40 ml ONCE ONE Administration Sodium Chloride 10 ml 06/03/24 20:37 06/03/24 20:39 Sodium Chloride 0.9% 10ml Syr (Rad Only) IV 06/03/24 20:38 10 ml ONCE ONE Administration ORDERS Category Date Time Status CT angio chest PE protocol Stat Cat Scan 06/03/24 19:56 Completed XR chest 2V Stat Exams 06/03/24 18:12 Completed BNP [NT Pro Brain Natriuretic Pep.] Stat Lab 06/03/24 17:45 Completed Complete Blood Count Auto Diff Stat Lab 06/03/24 17:45 Completed Comprehensive Metabolic Panel Stat Lab 06/03/24 17:45 Completed D-Dimer Stat Lab 06/03/24 17:45 Completed HIV (1&2) Antibody Rapid Stat Lab 06/03/24 17:45 Completed Hep C Ab with Reflex to RNA Stat Lab 06/03/24 17:45 Received Lipase Stat Lab 06/03/24 17:45 Completed T4 (Thyroxine) Stat Lab 06/03/24 17:45 Completed TSH [Thyroid Stimulating Hormone] Stat Lab 06/03/24 17:45 Completed Troponin I Q3H Lab 06/03/24 21:16 Completed Troponin I Stat Lab 06/03/24 17:45 Completed UA [Urinalysis and Microscopic] Stat Lab 06/03/24 18:53 Completed Urine Culture Stat Micro 06/03/24 18:53 Received ECG Data Tracing #1: Attestation: I reviewed this ECG and interpreted as documented below: ECG Narrative: Atrially paced at a ventricular rate of [address]/T wave changes which are unchanged from prior EKG. No acute ischemic change noted. ECG initial impression date: 06/03/24 ECG initial impression time: 17:38 MDM Narrative Medical Decision Narrative: In summary, this patient is a 83-year-old female presenting to the Emergency Department for evaluation of shortness of breath that occurred while walking up a steep incline as well as persistent acid reflux type symptoms. Differential diagnoses considered include but are not limited to ACS, dysrhythmia, CHF, CHF exacerbation, GERD, pneumonia, exercise intolerance. Ruling out the most morbid conditions drove assessment. It should be noted patient's history includes sick sinus syndrome status post pacemaker placement, hypertension, hyperlipidemia, CAD, hypothyroidism which may or may not be at goal therapy. This complicates all aspects of care by increasing patient's risk for morbidity. I reviewed patient's past medical records and noted previous admission about a year ago with concerns for urinary tract infection. I noted most recent cardiology evaluation back in February. Echo per the records demonstrates EF of 55-60%. They noted CAD is most likely stable. On exam, the patient is sitting upright in bed in no acute distress. She has no increased work of breathing. Cardiopulmonary exam is reassuring. Vitals are normal on cardiac telemetry. workup included CBC, CMP, troponin, BNP, TSH, T4, D-dimer, chest x-ray, EKG. EKG obtained is reassuring without significant changes from prior. Will assess the patient's ability to ambulate and monitor her O2 saturation. I independently interpreted x-ray prior to the radiologist read and noted no acute focal consolidation. Please see their read for final interpretation. Labs were obtained that demonstrated mildly elevated D-dimer. Patient has negative troponin and otherwise reassuring workup. Urine is contaminated with skin cells but is possibly concerning for infection, however she does not complain of symptoms related to UTI. No fevers, confusion, urinary symptoms, or other concerns. Culture was sent and is pending. Will defer treatment at this time.. On reassessment, patient is resting comfortably with normal vital signs on cardiac telemetry and no increased work of breathing. CT PE was obtained given her elevated D-dimer, which demonstrated bronchiolitis versus asthma related changes. She also has pulmonary nodules which I notified her of. Ultimately, I feel that we could treat with inhaler, prednisone, azithromycin. She ambulated without desaturation. Given this, I do feel that she is appropriate for discharge home with close follow-up with cardiology, pulmonology, and primary care given her dyspnea on exertion in the setting of some lung changes noted on scan including nodules. Patient was discharged with strict return precautions.
[2024-06-03] MEDS: BELLADONNA ALKALOIDS 60 ML ML PO (18:39)
[2024-06-03 18:52] VITALS: BP 205/88; PULSE 77; O2SAT 94
[2024-06-03 19:00] VITALS: BP 167/76; PULSE 70; O2SAT 96
[2024-06-03 19:00] LABS: Microscopic, Urine URINE MICROSCOPIC (MICROSCOPIC)
[2024-06-03 19:15] LABS: HIV (1&2) Antibody Rapid NONREACTIVE (NONREACTIVE)
[2024-06-03 19:30] LABS: Lipase 127 U/L (23-300)
[2024-06-03 19:42] LABS: NT Pro Brain Natriuretic Pep. 259 pg/mL (0-450)
[2024-06-03 19:44] LABS: Appearance,Urine CLEAR (Clear); Bilirubin,Urine Negative (Negative); Blood, Urine Negative (Negative); Color,Urine YELLOW (Yellow); Glucose,Urine (UA) Negative (Negative); Ketones,Urine Negative (Negative); Leukocyte Esterase,Urine 2+ (Negative); Nitrate,Urine Negative (Negative); Protein,Urine Negative (Negative); Urobilinogen,Urine 0.2 EU/dl (0.2)
[2024-06-03 19:50] LABS: T4 (Thyroxine) 8.8 ug/dl (5.53-11.0)
[2024-06-03 19:51] LABS: Alanine Aminotransferase 18 U/L (12-78); Albumin Level 4.1 g/dl (3.5-5.0); Albumin/Globulin Ratio 1.7 (1.1-1.8); Alkaline Phosphatase 61 U/L (38-126); Anion Gap 10.3 mEq/L (5-15); Aspartate Amino Transferase 31 U/L (14-36); Bilirubin,Total 0.5 mg/dl (0.2-1.3); Blood Urea Nitrogen 26 mg/dl (7-17); Calcium 9.7 mg/dl (8.4-10.2); Carbon Dioxide 28 mmol/L (22.0-30.0); Chloride 105 mmol/L (98-107); Creatinine Clearance Estimated 49 mL/min (50-200); Estimated Glomerular Filt Rate 60 ml/min (>60); GFR (African American) 72 ML/MIN (>60); Globulin 2.4 g/dL (1.3-3.2); Glucose 92 mg/dl (74-100); Potassium 4.3 mmoL/L (3.5-5.1); Sodium 139 mmol/L (136-145); Total Protein,Serum 6.5 g/dl (6.3-8.2)
--- NOTE | 2024-06-03 19:56 | CT_ITS ---
PROCEDURE INFORMATION: Exam: CTA Chest With Contrast Exam date and time: 06/03/2024 8:33 PM Age: 83 years old Clinical indication: Shortness of breath and other: Hypoxia; Additional info: SOA, hypoxia TECHNIQUE: Imaging protocol: Computed tomographic angiography of the chest with contrast. Exam focused on the arteries. 3D rendering (Not supervised by radiologist): MIP and/or 3D reconstructed images were created by the technologist. Radiation optimization: All CT scans at this facility use at least one of these dose optimization techniques: automated exposure control; mA and/or kV adjustment per patient size (includes targeted exams where dose is matched to clinical indication); or iterative reconstruction. Contrast material: ISOUVE 370; Contrast volume: 70 ml; Contrast route: INTRAVENOUS (IV); COMPARISON: CR XR CHEST 2V 06/03/2024 18:36 FINDINGS: Tubes, catheters and devices: Cardiac pacemaker leads are in the expected location. Pulmonary arteries: No pulmonary emboli. Aorta: The aorta demonstrates severe atherosclerotic disease. Lungs: Mosaic attenuation of the lungs is nonspecific, but suggests small airway disease. Mild scarring and atelectasis in the lower lungs. Multiple nonspecific pulmonary nodules. For follow-up purposes, examples include: 2 mm right upper lobe nodule image 16 series 5, 3 mm right lower lobe nodule image 36 series 5, and 3 mm left lower lobe nodule image 47 series 5. Pleural spaces: Unremarkable. No pneumothorax. No pleural effusion. Heart: Cardiomegaly. Aortic valve calcifications. Coronary arteries: Coronary artery calcifications. Lymph nodes: Unremarkable. No enlarged lymph nodes. Liver: Low attenuation hepatic lesions measuring up to 9 mm in diameter are incompletely characterized, but are likely cysts. No followup imaging is recommended. Intestine: Colonic diverticula. Bones/joints: Chronic T6 superior endplate fracture. Soft tissues: Unremarkable. Other findings: Stigmata of old granulomatous disease. IMPRESSION: 1. No pulmonary emboli. 2. Mosaic attenuation of the lungs is nonspecific, but suggests small airway disease. Please correlate for evidence of asthma or bronchiolitis. 3. Pulmonary nodules measuring up to 3 mm. For patients at low risk (minimal or absent history of smoking and of other known risk factors), no routine follow-up is indicated. For patients at high risk (history of smoking or of other known risk factors), consider optional CT Chest at 12 months. (Reference: Nicki) REFERENCES: MacMahon H, et al. Guidelines for Management of Incidental Pulmonary Nodules Detected on CT Images: From the Fleischner Society 2017. Radiology. 2017;284(1):228-243.
[2024-06-03 20:19] LABS: Troponin I < 0.01 ng/ml (0.00-0.034)
[2024-06-03] MEDS: SODIUM CHLORIDE 0.9% 10ML SYR (RAD ONLY) 10 ML IV (20:39)
[2024-06-03] MEDS: 0.9 % SODIUM CHLORIDE 50 ML VIAL 40 ML IV (20:39)
[2024-06-03] MEDS: IOPAMIDOL-370 (76%);100ML BOTTLE 70 ML IV (20:39)
[2024-06-03 20:50] LABS: Bacteria,Urine 1+ /lpf; WBC,Urine 20-50 #/hpf (0-3)
[2024-06-03] MEDS: AZITHROMYCIN 250MG TABLET 500 MG PO (21:52)
[2024-06-03] MEDS: ALBUTEROL-HFA 90MCG/PUFF INHALER 8GM 2 PUFF IH (21:52)
[2024-06-03 21:53] VITALS: BP 159/84; PULSE 71; RESP 20; TEMP 36.6; O2SAT 96
[2024-06-03] MEDS: predniSONE 20MG TAB 40 MG PO (21:53)
[2024-06-03 22:05] LABS: Troponin I < 0.01 ng/ml (0.00-0.034)
[2024-06-04 09:22] LABS: HCV Ab Non Reactive (Non Reactive)
--- NOTE | 2024-06-05 13:10 | PC.NURSE ---
URINE CULTURE DISCUSSED WITH DR SOLOMON, NO NEW ORDERS
== END 2024-06-03 22:03 | disposition home or self-care (01) ==
PROVIDERS: Emergency Provider Emergency Medicine; PCP Family Medicine
DX: R91.1 Solitary pulmonary nodule (principal); R06.09 Other forms of dyspnea; J21.9 Acute bronchiolitis, unspecified; R05.9 Cough, unspecified; R06.02 Shortness of breath; R12 Heartburn
CPT/HCPCS: 71046; 71275; 80053; 81001; 83690; 83880; 84436; 84443; 84484; 85025; 85378; 86803; 87086; 87088; 87186; 87389; 93005; 99285; Q9967

== ENCOUNTER 2024-06-12 11:52 | Outpatient (CLI) | payer MEDICARE, OTHER, SELFPAY ==
[2024-06-12 12:16] LABS: Basophils # 0.1 K/mm3 (0-0.2); Eosinophils # 0.1 K/mm3 (0.0-0.4); Eosinophils % 1.4 % (0.1-12.0); Hematocrit 40.9 % (37.0-47.0); Hemoglobin 13.7 g/dL (12.2-16.2); Lymphocytes # 1.3 K/mm3 (0.7-4.5); Lymphocytes % 20.3 % (10-50); Mean Corpuscular HGB Conc 33.6 g/dL (31.8-35.4); Mean Corpuscular Hemoglobin 30.3 pg (27.0-31.2); Mean Platelet Volume 7.7 fl (7.4-10.4); Monocytes # 0.5 K/mm3 (0.1-1.0); Monocytes % 8.2 % (1.7-9.3); Neutrophils # 4.5 K/mm3 (1.8-7.8); Neutrophils % 69.1 % (37.0-80.0); Platelet Count 228 K/mm3 (142-424); Red Blood Count 4.54 M/mm3 (4.20-5.40); Red Cell Distribution Width 13.8 % (11.5-17.5); White Blood Count 6.4 K/mm3 (4.8-10.8)
[2024-06-12 12:54] LABS: Alanine Aminotransferase 16 U/L (12-78); Albumin Level 4.2 g/dl (3.5-5.0); Alkaline Phosphatase 75 U/L (38-126); Anion Gap 11.4 mEq/L (5-15); Aspartate Amino Transferase 21 U/L (14-36); Bilirubin,Direct 0.3 mg/dl (0.0-0.4); Bilirubin,Indirect 0.4 mg/dL (0.0-0.9); Bilirubin,Total 0.7 mg/dl (0.2-1.3); Bilirubin,Unconjugated 0.5 mg/dL (0.0-1.1); Blood Urea Nitrogen 11 mg/dl (7-17); Calcium 10.8 mg/dl (8.4-10.2); Carbon Dioxide 27 mmol/L (22.0-30.0); Chloride 106 mmol/L (98-107); Chol/HDL Ratio 2.9 (1-3.5); Cholesterol 200 mg/dl (140-200); Estimated Glomerular Filt Rate 60 ml/min (>60); GFR (African American) 72 ML/MIN (>60); Glucose 92 mg/dl (74-100); HDL Cholesterol 70 mg/dl (40-60); Potassium 4.4 mmoL/L (3.5-5.1); Sodium 140 mmol/L (136-145); Total Protein,Serum 6.3 g/dl (6.3-8.2); Triglycerides 170 mg/dl (30-150); VLDL Cholesterol 34 mg/dL (0-40)
[2024-06-12 13:05] LABS: Direct LDL Cholesterol 107.57 mg/dL (100-129)
[2024-06-12 13:10] LABS: Free T4 (Free Thyroxine) 1.34 ng/dl (0.78-2.19)
[2024-06-12 13:25] LABS: Thyroid Stimulating Hormone 3.44 uIU/mL (0.465-4.68)
== END 2024-06-12 23:59 | disposition home or self-care (01) ==
LOC: LAB 11:53
PROVIDERS: PCP Family Medicine; Visit Provider Physician Assistant
DX: I65.29 Occlusion and stenosis of unspecified carotid artery (principal); R06.09 Other forms of dyspnea; E03.9 Hypothyroidism, unspecified; I25.10 Atherosclerotic heart disease of native coronary artery without angina pectoris; I10 Essential (primary) hypertension; E78.2 Mixed hyperlipidemia; I65.23 Occlusion and stenosis of bilateral carotid arteries
CPT/HCPCS: 36415; 80048; 80061; 80076; 84439; 84443; 85025

== ENCOUNTER 2024-06-26 07:55 | Outpatient (CLI) | payer MEDICARE, OTHER, SELFPAY ==
[2024-06-26 08:25] VITALS: PULSE 74; PULSE 79
[2024-06-26] MEDS: ALBUTEROL 0.083% 2.5 MG/3 ML NEB IH (08:25)
== END 2024-06-26 23:59 | disposition home or self-care (01) ==
LOC: RT 07:56
PROVIDERS: PCP Family Medicine; Visit Provider Physician Assistant
DX: R06.02 Shortness of breath (principal)
CPT/HCPCS: 94060; 94640; J7613

== ENCOUNTER 2024-07-21 11:13 | Emergency (ER) | payer MEDICARE, OTHER, SELFPAY ==
[2024-07-21 11:14] VITALS: BP 127/100; PULSE 77; RESP 20; TEMP 36.8; O2SAT 96; BMI 30.2
[2024-07-21 11:22] VITALS: BP 127/107; PULSE 74; O2SAT 98
--- NOTE | 2024-07-21 11:23 | XR_ITS ---
PROCEDURE INFORMATION: Exam: XR Chest Exam date and time: 07/21/2024 11:36 AM Age: 83 years old Clinical indication: Dyspnea TECHNIQUE: Imaging protocol: Radiologic exam of the chest. Views: 1 view. COMPARISON: CT ANGIO CHEST PE PROTOCOL 06/03/2024 8:33 PM FINDINGS: Tubes, catheters and devices: There is a 2 lead pacemaker on the left side of the chest. Lungs: Unremarkable. No consolidation. Pleural spaces: Unremarkable. No pleural effusion. No pneumothorax. Heart/Mediastinum: Unremarkable. No cardiomegaly. Bones/joints: Unremarkable. IMPRESSION: No radiographic evidence of acute cardiopulmonary disease.
--- NOTE | 2024-07-21 11:23 | CT_ITS ---
PROCEDURE INFORMATION: Exam: CT Head Without Contrast Exam date and time: 07/21/2024 11:36 AM Age: 83 years old Clinical indication: Altered mental status/memory loss; Additional info: AMS TECHNIQUE: Imaging protocol: Computed tomography of the head without contrast. Radiation optimization: All CT scans at this facility use at least one of these dose optimization techniques: automated exposure control; mA and/or kV adjustment per patient size (includes targeted exams where dose is matched to clinical indication); or iterative reconstruction. COMPARISON: CT HEAD/BRAIN WO CON 05/13/2023 7:21 AM FINDINGS: Brain: Diffuse cerebral atrophy and white matter microangiopathic chronic ischemia in both hemispheres. No CT evidence of acute infarct, hemorrhage, mass or mass effect. Cerebral ventricles: No ventriculomegaly. Paranasal sinuses: Visualized sinuses are unremarkable. No fluid levels. Mastoid air cells: Visualized mastoid air cells are well aerated. Bones: Unremarkable. No acute fracture. Soft tissues: Unremarkable. IMPRESSION: Senescent brain changes but no CT evidence of acute brain injury.
[2024-07-21 11:24] LABS: Microscopic, Urine URINE MICROSCOPIC (MICROSCOPIC)
[2024-07-21 11:26] LABS: Appearance,Urine CLEAR (Clear); Bilirubin,Urine Negative (Negative); Blood, Urine Negative (Negative); Color,Urine YELLOW (Yellow); Glucose,Urine (UA) Negative (Negative); Ketones,Urine Negative (Negative); Leukocyte Esterase,Urine 1+ (Negative); Nitrate,Urine Negative (Negative); Protein,Urine Negative (Negative); Specific Gravity, Urine >= 1.030 (1.005-1.030); Urobilinogen,Urine 0.2 EU/dl (0.2)
--- NOTE | 2024-07-21 11:26 | ED_ITS ---
Discharge Plan Disposition Patient Disposition: Home, Self-Care Prescriptions Prescriptions: New cefdinir 300 mg capsule 300 mg PO BID 10 Days Qty: 20 0RF No Action mecobalamin (vitamin B12) 1,000 mcg tablet,chewable 1,000 mcg PO DAILY omeprazole 40 mg capsule,delayed release(DR/EC) 40 mg PO bisoprolol fumarate 5 mg tablet 5 mg PO DAILY Qty: 30 5RF memantine 5 mg tablet 5 mg PO BID diclofenac sodium [Voltaren Arthritis Pain] 1 % gel 2 g topical QID Rx Instructions: apply to single elbow, wrist or hand; for hand includes palm/fingers/back of hand aspirin 325 mg tablet 325 mg PO BID hydrocodone-acetaminophen 5-325 mg tablet 1 tab PO Q4HP PRN (Reason: Moderate Pain (Scale Score 5-6)) levothyroxine 25 MCG tablet 25 mcg PO DAILY evolocumab 140 mg/mL syringe 140 mg SQ DIRECTED Rx Instructions: EVERY 2 WEEKS Referrals Follow up/Referrals: Yuniel Rosales MD [Primary Care Provider] - See instructions Activity Restrictions/Add. Instructions Additional Instructions/Restrictions: You have a urinary tract infection and mildly elevated calcium which needs to be followed up on and looked into further. No alternative explanation to your symptoms today please return with a significant worsening of her symptoms otherwise follow-up close with primary care doctor. Clinical Impressions Clinical Impression: Acute encephalopathy, UTI (urinary tract infection), Hypercalcemia Print Language Print Language: Senegalese Discharge ED Provider: Heladio Hernandez General Adult HPI General Chief complaint: Weakness Stated complaint: poss. uti poss. dehydration Time Seen by Provider: 07/21/24 11:17 History of Present Illness HPI narrative: Patient is an 83-year-old female presents today with acute encephalopathy. She is brought in by her son who works here in the emergency department. He states that she has had similar presentations in the past that have been secondary to urinary tract infections which is his main concern today. Her symptoms today include delusional statements of possible hallucinations where she says she has been seeing things and making statements that are nonsensical. Currently she has no complaints. No fevers or head injuries or other concerns from historical standpoint. Related Data Home Medications ?Medication ?Instructions ?Recorded ?Confirmed evolocumab 140 mg/mL subcutaneous 140 mg SQ DIRECTED Cholesterol 03/21/20 06/12/24 syringe levothyroxine 25 mcg tablet 25 mcg PO DAILY Thyroid 03/21/20 06/12/24 mecobalamin (vitamin B12) 1,000 1,000 mcg PO DAILY Supplement 04/21/20 06/12/24 mcg chewable tablet diclofenac sodium 1 % topical gel 2 g topical QID arthritis pain 05/08/23 06/12/24 (Voltaren Arthritis Pain) memantine 5 mg tablet 5 mg PO BID Memory 05/08/23 06/12/24 aspirin 325 mg tablet 325 mg PO BID DVT Prophylaxis 05/13/23 06/12/24 hydrocodone 5 mg-acetaminophen 325 1 tab PO Q4HP PRN Moderate Pain 05/13/23 06/12/24 mg tablet (Scale Score 5-6) omeprazole 40 mg capsule,delayed 40 mg PO 03/18/24 06/12/24 release Previous Rx's ?Medication ?Instructions ?Recorded bisoprolol fumarate 5 mg tablet 5 mg PO DAILY #30 tabs 12/11/23 cefdinir 300 mg capsule 300 mg PO BID 10 days #20 caps 07/21/24 Allergies Allergy/AdvReac Type Severity Reaction Status Date / Time No Known Allergies Allergy Verified 06/12/24 11:24 [facility] Disclaimer: The information contained in this section may have been updated after the patient was seen, as this information can be updated by other users. Medical History Memory loss Constipation Osteoarthritis of left knee Status post left total knee arthroplasty History of pacemaker Hypothyroidism HLD (hyperlipidemia) HTN (hypertension) Dementia Dyspnea Acquired hammertoe of right foot History of toe fracture Sinus tachycardia SSS (sick sinus syndrome) Tachy-clemencia syndrome Overweight with body mass index (BMI) 25.0-29.9 Callus of foot Abnormal EKG Syncope Back pain Surgical History History of total left knee replacement History of cardiac cath History of hysterectomy Status post foot surgery Family History Other Family history of heart disease Social History Smoking Status: Never smoker alcohol intake: never substance use type: denies use current occupational status: employed Travel in the last 8 weeks: Inside the [place] household members: spouse housing: house current occupational exposures/hazards: No caffeine: Yes Have you lived/traveled outside [place] in past 30 days?: No Contact w/someone who lives/traveled outside [place] past 30 days?: No Exposure to someone with infectious disease in past 14 days?: No Do you have a fever (greater than 100.4 F or 38 C)?: No Have you tested positive for COVID-19: No Exposed to someone with COVID-19 in past 14 days?: No Do you have a sore throat?: No Do you have a cough?: No Do you have any weakness?: No Do you have any diarrhea?: No Are you experiencing any unusual bleeding?: No Do you have any muscle aches/pain?: No Do you have any abdominal pain?: No Are you experiencing loss of taste or smell?: No Other Medical History Have you received the Flu Vaccine for this season: No Have you received the Pneumonia Vaccine: Yes ROS Obtained: Yes All systems reviewed & no additional complaints except as documented Physical Exam General General appearance: alert and in no apparent distress Respiratory Respiratory exam: Present normal lung sounds bilaterally Cardiovascular Cardiovascular exam: Present regular rate Neurological Exam Neurological exam: Present alert; Absent oriented X3 (Oriented to person and place but disoriented to time otherwise nonfocal) Medical Decision Making Medical Records Screening: Per USPSTF and CDC recommendations, given the prevalence of disease in our region, it is our hospital?s policy to screen for HIV and viral Hepatitis for all patients aged 18 and over and those with ongoing risk factors. Jaspreet Inquiry Pt receiving controlled substance: No Vital Signs: 07/21/24 11:14 07/21/24 11:22 07/21/24 12:00 Temperature 98.2 F Temperature Source Oral Pulse Rate 74 66 Pulse Rate [Left Radial] 77 Respiratory Rate 20 Blood Pressure 127/107 H 129/60 Blood Pressure [Right Arm] 127/100 H Blood Pressure Mean [Right Arm] 109 02 Sat by Pulse Oximetry 96 98 95 Oxygen Delivery Method Room Air Room Air Room Air 07/21/24 12:31 Temperature Temperature Source Pulse Rate 70 Pulse Rate [Left Radial] Respiratory Rate Blood Pressure 147/76 H Blood Pressure [Right Arm] Blood Pressure Mean [Right Arm] 02 Sat by Pulse Oximetry 96 Oxygen Delivery Method Room Air Lab Data Lab results reviewed: Yes I reviewed the patient's lab results. Lab Results 07/21/24 11:18: Urine Color Yellow, Urine Appearance Clear, Urine pH 6.0, Ur Specific [place] >= 1.030, Urine Protein Negative, Urine Glucose (UA) Negative, Urine Ketones Negative, Urine Blood Negative, Urine Nitrate Negative, Urine Bilirubin Negative, Urine Urobilinogen 0.2, Ur Leukocyte Esterase 1+ A, Urine RBC Occasional, Urine WBC 5-10, Ur Squamous Epith Cells Occasional, Urine Bacteria 1+, Urine Mucus Trace 07/21/24 11:30: WBC 7.0, RBC 4.48, Hgb 13.2, Hct 40.5, MCV 90.4, MCH 29.5, MCHC 32.6, RDW 13.0, Plt Count 231, MPV 10.2, Neut % (Auto) 70.7, Lymph % (Auto) 19.2, [place] % (Auto) 8.2, Eos % (Auto) 1.0, Baso % (Auto) 0.6, Neut # (Auto) 4.9, Lymph # (Auto) 1.3, [place] # (Auto) 0.6, Eos # (Auto) 0.1, Baso # (Auto) 0.0, Sodium 136, Potassium 4.1, Chloride 106, Carbon Dioxide 25, Anion Gap 9.1, BUN 24 H, Creatinine 1.10 H, Estimated Creat Clear 44, Estimated GFR 47 L, Est GFR ( Amer) 57 L, Glucose 103 H, Calcium 10.4 H, Total Bilirubin 0.5, AST 29, ALT 20, Alkaline Phosphatase 68, Troponin I < 0.01, Total Protein 6.6, Albumin 4.2, Globulin 2.4, Albumin/Globulin Ratio 1.8, TSH 3.04 07/21/24 11:50: Ammonia < 9 L 07/21/24 11:30 07/21/24 11:30 Orders (Tests/Meds): ED MEDICATIONS Discontinued Medications Generic Name Dose Route Start Last Admin Trade Name Freq PRN Reason Stop Dose Admin Cefdinir 300 mg 07/21/24 13:04 Cefdinir 300mg Capsule PO 07/21/24 13:05 ONCE ONE Lactated Ringer's 1,000 mls @ 999 mls/hr 07/21/24 11:30 07/21/24 11:52 Lactated Ringer's 1000 Ml Bag IV 07/21/24 12:30 999 mls/hr .[id number] [place] Administration ORDERS Category Date Time Status CT head/brain wo con Stat Cat Scan 07/21/24 11:23 Completed CXR --portable [XR chest portable] Stat Exams 07/21/24 11:23 Completed Ammonia Stat Lab 07/21/24 11:50 Completed CBC w/Auto Diff [Complete Blood Count Auto Diff] Stat Lab 07/21/24 11:30 Completed CMP [Comprehensive Metabolic Panel] Stat Lab 07/21/24 11:30 Completed TSH [Thyroid Stimulating Hormone] Stat Lab 07/21/24 11:30 Completed Trop I [Troponin I] Stat Lab 07/21/24 11:30 Completed Troponin I Q3H Lab 07/21/24 14:30 Ordered Troponin I Q3H Lab 07/21/24 17:30 Ordered UA [Urinalysis and Microscopic] Stat Lab 07/21/24 11:18 Completed Urine Culture Stat Micro 07/21/24 11:18 Received Medical Decision Narrative: 83-year-old with acute encephalopathy with a broad differential including infectious pathology such as pneumonia and urinary tract infection, intracranial pathology such as hemorrhage from trauma spontaneous or tumors, metabolic abnormalities etc. Broad workup is pending and initiated also patient has a history of being dehydrated in such instances and IV fluids have been administered. Reassessment [address] scan of her head performed which I personally interpreted shows no acute intracranial pathology chest x-ray performed which I personally interpreted shows no cardiopulmonary pathology Labs remarkable for a creatinine of 1.1 not far off her baseline she does have an elevated calcium which is nonspecific could be contributory I discussed this with her family she needs to have this looked into further no evidence of malignancy or no history of hyperparathyroidism. Lastly she does have positive leuk esterase and white blood cells in her urine consistent with urinary tract infection first dose of antibiotics given here and will give her a prescription of cefdinir at home with. She is not sick enough to be in the hospital at this point she has a GCS of 15 with a normal neurologic exam my reassessment patient discharged in stable condition. Critical Care Critical Care Time Critical Care Time: No
--- NOTE | 2024-07-21 11:29 | ECG_ITS ---
APPROVED REPORT Exam: Resting ECG HR:70 bpm ECG Measurements Heart Rate 70 AXES NH 210 P 144 QRSd 82 QRS -3 QT 380 T 17 QTc 400 Conclusion ELECTRONIC ATRIAL PACEMAKER ABNORMAL RHYTHM ECG No STEMI Electronically signed by : YOLANDA TILLEY, 07/22/2024 02:54:39
--- NOTE | 2024-07-21 11:32 | PC.NURSE ---
Patient gone to CT scan
[2024-07-21 11:34] LABS: Bacteria,Urine 1+ /lpf; Mucus,Urine Trace /lpf; RBC,Urine Occasional #/hpf (0-3); Squamous Epithelial Cell,Urine Occasional #/hpf (0-5)
[2024-07-21 11:36] LABS: Basophils % 0.6 % (0.1-2.0); Eosinophils # 0.1 K/mm3 (0.0-0.4); Hematocrit 40.5 % (37.0-47.0); Hemoglobin 13.2 g/dL (12.2-16.2); Lymphocytes # 1.3 K/mm3 (0.7-4.5); Lymphocytes % 19.2 % (10-50); Mean Corpuscular HGB Conc 32.6 g/dL (31.8-35.4); Mean Corpuscular Hemoglobin 29.5 pg (27.0-31.2); Mean Corpuscular Volume 90.4 fl (81-99); Mean Platelet Volume 10.2 fl (7.4-10.4); Monocytes # 0.6 K/mm3 (0.1-1.0); Monocytes % 8.2 % (1.7-9.3); Neutrophils # 4.9 K/mm3 (1.8-7.8); Neutrophils % 70.7 % (37.0-80.0); Platelet Count 231 K/mm3 (142-424); Red Blood Count 4.48 M/mm3 (4.20-5.40)
[2024-07-21 11:40] LABS: Chloride 106 mmol/L (98-107)
[2024-07-21 11:41] LABS: Albumin Level 4.2 g/dl (3.5-5.0); Potassium 4.1 mmoL/L (3.5-5.1); Sodium 136 mmol/L (136-145)
[2024-07-21 11:43] LABS: Blood Urea Nitrogen 24 mg/dl (7-17); Creatinine Clearance Estimated 44 mL/min (50-200); Estimated Glomerular Filt Rate 47 ml/min (>60); GFR (African American) 57 ML/MIN (>60)
[2024-07-21 11:44] LABS: Alanine Aminotransferase 20 U/L (12-78); Albumin/Globulin Ratio 1.8 (1.1-1.8); Alkaline Phosphatase 68 U/L (38-126); Anion Gap 9.1 mEq/L (5-15); Aspartate Amino Transferase 29 U/L (14-36); Bilirubin,Total 0.5 mg/dl (0.2-1.3); Calcium 10.4 mg/dl (8.4-10.2); Carbon Dioxide 25 mmol/L (22.0-30.0); Globulin 2.4 g/dL (1.3-3.2); Glucose 103 mg/dl (74-100); Total Protein,Serum 6.6 g/dl (6.3-8.2)
[2024-07-21] MEDS: LACTATED RINGERS 1000ML 1,000 ML 999 ML IV (11:52)
[2024-07-21 11:57] LABS: Troponin I < 0.01 ng/ml (0.00-0.034)
[2024-07-21 12:00] VITALS: BP 129/60; PULSE 66; O2SAT 95
[2024-07-21 12:06] LABS: Ammonia < 9 umol/L (9-30)
[2024-07-21 12:15] LABS: Thyroid Stimulating Hormone 3.04 uIU/mL (0.465-4.68)
[2024-07-21 12:31] VITALS: BP 147/76; PULSE 70; O2SAT 96
[2024-07-21 13:01] VITALS: BP 166/79; PULSE 70; O2SAT 96
--- NOTE | 2024-07-21 13:03 | PC.NURSE ---
DR ISABEL AT BEDSIDE TO REEVALUATE PT
[2024-07-21] MEDS: CEFDINIR 300MG CAPSULE 300 MG PO (13:10)
[2024-07-21 13:16] VITALS: BP 128/79; PULSE 77; RESP 20; TEMP 36.8; O2SAT 96
== END 2024-07-21 13:17 | disposition home or self-care (01) ==
PROVIDERS: Emergency Provider Student in an Organized Health Care Education/Training Program; PCP Family Medicine
DX: E83.52 Hypercalcemia (principal); N39.0 Urinary tract infection, site not specified; G93.40 Encephalopathy, unspecified; R41.82 Altered mental status, unspecified; R53.1 Weakness
CPT/HCPCS: 70450; 71045; 80053; 81001; 82140; 84443; 84484; 85025; 87086; 93005; 96360; 99285; J7120

== ENCOUNTER 2024-08-26 11:17 | Outpatient (CLI) | payer MEDICARE, OTHER, SELFPAY ==
[2024-08-26 11:21] LABS: Microscopic, Urine URINE MICROSCOPIC (MICROSCOPIC)
[2024-08-26 12:10] LABS: Appearance,Urine CLEAR (Clear); Bilirubin,Urine Negative (Negative); Blood, Urine Negative (Negative); Color,Urine YELLOW (Yellow); Glucose,Urine (UA) Negative (Negative); Ketones,Urine Negative (Negative); Leukocyte Esterase,Urine 2+ (Negative); Nitrate,Urine Negative (Negative); Protein,Urine Negative (Negative); Specific Gravity, Urine >= 1.030 (1.005-1.030); Urobilinogen,Urine 0.2 EU/dl (0.2)
[2024-08-26 12:16] LABS: Bacteria,Urine Trace /lpf; Squamous Epithelial Cell,Urine Occasional #/hpf (0-5)
== END 2024-08-26 23:59 | disposition home or self-care (01) ==
LOC: LAB 11:18
PROVIDERS: PCP Family Medicine; Visit Provider Family Medicine
DX: R41.0 Disorientation, unspecified (principal)
CPT/HCPCS: 81001; 87086

== ENCOUNTER 2024-09-05 14:27 | Emergency (ER) | payer MEDICARE, OTHER, SELFPAY ==
[2024-09-05 14:39] VITALS: BP 178/51; PULSE 76; RESP 18; TEMP 38.3; O2SAT 99; BMI 30.2
--- NOTE | 2024-09-05 15:00 | PC.NURSE ---
ROUNDED ON THE PT. THE PT VOICES THAT SHE DOES NOT NEED ANYTHING AT THIS TIME. CALL LIGHT IS WITHIN REACH OF THE PT
--- NOTE | 2024-09-05 15:19 | HMH.EDGENADL ---
Discharge Plan Disposition Patient Disposition: Home, Self-Care Prescriptions Prescriptions: New dexamethasone 6 mg tablet 6 mg PO DAILY Qty: 5 0RF cefdinir 300 mg capsule 300 mg PO BID 7 Days Qty: 14 0RF No Action mecobalamin (vitamin B12) 1,000 mcg tablet,chewable 1,000 mcg PO DAILY omeprazole 40 mg capsule,delayed release(DR/EC) 40 mg PO bisoprolol fumarate 5 mg tablet 5 mg PO DAILY Qty: 30 5RF memantine 5 mg tablet 5 mg PO BID diclofenac sodium [Voltaren Arthritis Pain] 1 % gel 2 g topical QID Rx Instructions: apply to single elbow, wrist or hand; for hand includes palm/fingers/back of hand aspirin 325 mg tablet 325 mg PO BID hydrocodone-acetaminophen 5-325 mg tablet 1 tab PO Q4HP PRN (Reason: Moderate Pain (Scale Score 5-6)) levothyroxine 25 MCG tablet 25 mcg PO DAILY evolocumab 140 mg/mL syringe 140 mg SQ DIRECTED Rx Instructions: EVERY 2 WEEKS cefdinir 300 mg capsule 300 mg PO BID 10 Days Qty: 20 0RF Referrals Follow up/Referrals: Yuniel Rosales MD [Primary Care Provider] - See instructions Activity Restrictions/Add. Instructions Additional Instructions/Restrictions: Call your family doctor to establish care for this visit to the emergency department and schedule follow-up within 48 hours to ensure improvement. If you have any worsening of your condition or any other concerning signs or symptoms, return to the emergency department or your primary care doctor for further evaluation. Have them redraw labs. Also talk to them about having rheumatology follow-up. Clinical Impressions Clinical Impression: Facial rash, UTI (urinary tract infection), Fever Instructions Patient Instructions: DI for Urinary Tract Infection (UTI), DI for Rash Print Language Print Language: Persian Discharge ED Provider: Ricky Castellanos General Adult HPI <Ricky Castellanos MD - Last Filed: 09/05/24 23:41> General Chief complaint: Skin/Abscess/Foreign Body Stated complaint: rash/ swelling on face Time Seen by Provider: 09/05/24 14:50 History of Present Illness HPI narrative: Please note that above description of symptoms, in this electronic medical record under categorization of recalled from ER triage doctor by RN are reflective of an initial nursing assessment, however, is not reflective of my full history and physical exam that was personally taken and clarified. Consequentially, this preceding description of symptoms, which may include the patient's categorized chief complaint in the EMR, do not reflect my personal clinical impression, and the ultimate description of history of present illness and patient stated complaints should be deferred to this section of the note. Unless stated otherwise or congruent with this section of the note, additional signs, symptoms, or incongruence should be interpreted as inaccurate with my clinical impression. Related Data Home Medications ?Medication ?Instructions ?Recorded ?Confirmed evolocumab 140 mg/mL subcutaneous 140 mg SQ DIRECTED Cholesterol 03/21/20 06/12/24 syringe levothyroxine 25 mcg tablet 25 mcg PO DAILY Thyroid 03/21/20 06/12/24 mecobalamin (vitamin B12) 1,000 1,000 mcg PO DAILY Supplement 04/21/20 06/12/24 mcg chewable tablet diclofenac sodium 1 % topical gel 2 g topical QID arthritis pain 05/08/23 06/12/24 (Voltaren Arthritis Pain) memantine 5 mg tablet 5 mg PO BID Memory 05/08/23 06/12/24 aspirin 325 mg tablet 325 mg PO BID DVT Prophylaxis 05/13/23 06/12/24 hydrocodone 5 mg-acetaminophen 325 1 tab PO Q4HP PRN Moderate Pain 05/13/23 06/12/24 mg tablet (Scale Score 5-6) omeprazole 40 mg capsule,delayed 40 mg PO 03/18/24 06/12/24 release Previous Rx's ?Medication ?Instructions ?Recorded cefdinir 300 mg capsule 300 mg PO BID 10 days #20 caps 07/21/24 bisoprolol fumarate 5 mg tablet 5 mg PO DAILY #30 tabs 08/13/24 cefdinir 300 mg capsule 300 mg PO BID 7 days #14 caps 09/05/24 dexamethasone 6 mg tablet 6 mg PO DAILY #5 tabs 09/05/24 Allergies Allergy/AdvReac Type Severity Reaction Status Date / Time No Known Allergies Allergy Verified 06/12/24 11:24 <Mercedes Greene APRN - Last Filed: 09/05/24 22:44> General Mode of Arrival: Ambulatory Source of Information: Patient and Spouse Limitations: No Limitations Description of Symptoms (Recalled from ER Triage Doc. by RN): Pt states she woke up this AM with a rash and swelling to her face. Pt denies any new medications, hygiene products or foods. PFSH <Ricky Castellanos MD - Last Filed: 09/05/24 23:41> COUNT INCLUDES THE [facility] Medical History Memory loss Constipation Osteoarthritis of left knee Status post left total knee arthroplasty History of pacemaker Hypothyroidism HLD (hyperlipidemia) HTN (hypertension) Dementia Dyspnea Acquired hammertoe of right foot History of toe fracture Sinus tachycardia SSS (sick sinus syndrome) Tachy-clemencia syndrome Overweight with body mass index (BMI) 25.0-29.9 Callus of foot Abnormal EKG Syncope Back pain Surgical History History of total left knee replacement History of cardiac cath History of hysterectomy Status post foot surgery Family History Other Family history of heart disease Social History Smoking Status: Never smoker alcohol intake: never substance use type: denies use current occupational status: employed Travel in the last 8 weeks: Inside the [place] household members: spouse housing: house current occupational exposures/hazards: No caffeine: Yes Have you lived/traveled outside [place] in past 30 days?: No Contact w/someone who lives/traveled outside [place] past 30 days?: No Exposure to someone with infectious disease in past 14 days?: No Do you have a fever (greater than 100.4 F or 38 C)?: No Have you tested positive for COVID-19: No Exposed to someone with COVID-19 in past 14 days?: No Do you have a sore throat?: No Do you have a cough?: No Do you have any weakness?: No Do you have any diarrhea?: No Are you experiencing any unusual bleeding?: No Do you have any muscle aches/pain?: No Do you have any abdominal pain?: No Are you experiencing loss of taste or smell?: No <Mercedes Greene APRN - Last Filed: 09/05/24 22:44> COUNT INCLUDES THE [facility] Disclaimer: The information contained in this section may have been updated after the patient was seen, as this information can be updated by other users. Other Medical History Have you received the Flu Vaccine for this season: No Have you received the Pneumonia Vaccine: Yes <Ricky Castellanos MD - Last Filed: 09/05/24 23:41> ROS Obtained: Yes All systems reviewed & no additional complaints except as documented Physical Exam <Ricky Castellanos MD - Last Filed: 09/05/24 23:41> General General appearance: alert Head Head exam: atraumatic, normocephalic and other (Petechial rash on the forehead down the bridge of the nose. Sparing nasolabial fold. Periorbital edema bilaterally) Eye Eye exam: Present normal appearance, PERRL and EOMI Neck Neck exam: Present normal inspection, full ROM and trachea midline Respiratory Respiratory exam: Absent respiratory distress, wheezes, stridor, accessory muscle use or prolonged expiratory phase Cardiovascular Cardiovascular exam: Present other (Pulses equal symmetric in upper and lower extremities) Abdominal Exam Abdominal exam: Present soft; Absent distention, tenderness or pulsatile mass Extremities Exam Extremities exam: Absent edema Neurological Exam Neurological exam: Present alert, oriented X3 and CN II-XII intact; Absent motor sensory deficit Skin Skin exam: Present warm and dry; Absent diaphoresis or erythema Medical Decision Making <Ricky Castellanos MD - Last Filed: 09/05/24 23:41> Medical Records Medical records reviewed: Yes I reviewed the patient's medical records. Jaspreet Inquiry Pt receiving controlled substance: No Jaspreet was queried for this patient: No Vital Signs: 09/05/24 14:39 09/05/24 18:27 Temperature 100.9 F H 98.5 F Temperature Source Oral Oral Pulse Rate 70 Pulse Rate [Right] 76 Respiratory Rate 18 18 Blood Pressure 160/86 H Blood Pressure [Right Arm] 178/51 H Blood Pressure Mean [Right Arm] 93 Blood Pressure Source Automatic Cuff Blood Pressure Source [Right Arm] Automatic Cuff Blood Pressure Position [Right Arm] Sitting 02 Sat by Pulse Oximetry 99 Oxygen Delivery Method Room Air Room Air Lab Data Lab Results 09/05/24 15:18: Urine Color Yellow, Urine Appearance Clear, Urine pH 6.0, Ur Specific Sen[place] <= 1.005, Urine Protein Negative, Urine Glucose (UA) Negative, Urine Ketones Negative, Urine Blood Trace-i, Urine Nitrate Negative, Urine Bilirubin Negative, Urine Urobilinogen 1.0, Ur Leukocyte Esterase 2+ A, Urine RBC None, Urine WBC 10-20, Ur Squamous Epith Cells Occasional, Ur Transition Epith Cell Occ, Urine Bacteria Trace 09/05/24 15:55: WBC 11.8 H, RBC 4.37, Hgb 12.6, Hct 39.4, MCV 90.2, MCH 28.8, MCHC 32.0, RDW 13.3, Plt Count 206, MPV 10.4, Neut % (Auto) 80.5 H, Lymph % (Auto) 8.0 L, Boyd % (Auto) 10.4 H, Eos % (Auto) 0.3, Baso % (Auto) 0.4, Neut # (Auto) 9.5 H, Lymph # (Auto) 1.0, Boyd # (Auto) 1.2 H, Eos # (Auto) 0.0, Baso # (Auto) 0.1, ESR 18, PT 11.3, INR 1.03, APTT 27.1, VBG pH 7.38, VBG pCO2 40.0, VBG pO2 29.5, VBG HCO3 23.2, VBG Total CO2 24.4, VBG O2 Saturation 54.9, VBG Base Excess -1.9, VBG Lactic Acid 1.2, Sodium 137, Potassium 4.3, Chloride 101, Carbon Dioxide 27, Anion Gap 13.3, BUN 20 H, Creatinine 1.00, Estimated Creat Clear 48, Estimated GFR 53 L, Est GFR ( Amer) 64, Glucose 103 H, Calcium 9.8, Total Bilirubin 0.8, AST 25, ALT 18, Alkaline Phosphatase 66, C-Reactive Protein 93.0 H, Total Protein 7.2, Albumin 4.6, Globulin 2.6, Albumin/Globulin Ratio 1.8 09/05/24 17:17: SARS-CoV-2 (PCR) Not detected, Influenza A Untype (PCR) Not detected, Influenza Type B (PCR) Not detected 09/05/24 15:55 09/05/24 15:55 Orders (Tests/Meds): ED MEDICATIONS Discontinued Medications Generic Name Dose Route Start Last Admin Trade Name Freq PRN Reason Stop Dose Admin Acetaminophen 1,000 mg 09/05/24 15:41 09/05/24 15:52 Acetaminophen 500mg Tab PO 09/05/24 15:42 1,000 mg ONCE ONE Administration Cefdinir 300 mg 09/05/24 17:18 09/05/24 17:25 Cefdinir 300mg Capsule PO 09/05/24 17:19 300 mg ONCE ONE Administration Dexamethasone 10 mg 09/05/24 17:40 09/05/24 18:04 Dexamethasone 4mg Tablet PO 09/05/24 17:41 10 mg ONCE ONE Administration Ibuprofen 600 mg 09/05/24 15:41 09/05/24 15:52 Ibuprofen 600 Mg Tablet PO 09/05/24 15:42 600 mg ONCE ONE Administration ORDERS Category Date Time Status CXR --portable [XR chest portable] Stat Exams 09/05/24 17:18 Completed CRP [C-Reactive Protein] Stat Lab 09/05/24 15:55 Completed Complete Blood Count Auto Diff Stat Lab 09/05/24 15:55 Completed Comprehensive Metabolic Panel Stat Lab 09/05/24 15:55 Completed ESR [Erythrocyte Sedimentation Rate] Stat Lab 09/05/24 15:55 Completed PT INR [Prothrombin Time INR] Stat Lab 09/05/24 15:55 Completed PTT [Activated Partial Thrombo Time] Stat Lab 09/05/24 15:55 Completed Rapid PCR Covid and Flu A/B Stat Lab 09/05/24 17:17 Completed Urinalysis and Microscopic Stat Lab 09/05/24 15:18 Completed Blood Culture Stat Micro 09/05/24 15:19 Received Urine Culture Stat Micro 09/05/24 15:18 Received Venous Blood Gas Stat RT 09/05/24 15:55 Completed Medical Decision Narrative: 84-year-old female history of hypertension, hyperlipidemia, sick sinus syndrome status post pacemaker placement presenting with facial rash and swelling. Started with a facial rash yesterday on the left side. Had 1 episode of fever that was not objectively measured. General feeling of malaise, but no unilateral weakness. No scalp tenderness, vision changes, numbness, weakness, tingling anywhere. Patient had 1 episode of posttussive emesis, but has not been coughing or vomiting since that 1 time yesterday, 09/04. Patient currently has no complaints other than rash being present and some periorbital swelling. History was obtained via conversation with patient and , son. On arrival, patient hemodynamically stable, alert, oriented x4, appropriate, GCS 15, moving all extremities spontaneously, pupils equal and reactive to light. Full physical exam performed and significant for very clinically well-appearing female no acute distress. Pleasant, jovial. Answering questions appropriately. She has a petechial rash across her forehead just above eyebrow for that goes down the bridge of the nose. No periorbital petechiae. She does have periorbital edema. Eyes are uninvolved. No rash elsewhere on the body. Spares palms and soles. No intraoral abnormalities. No scalp tenderness, etc. Differential includes ITP, TTP, other coagulopathy, rheumatologic, head trauma, among others. Patient placed on continuous cardiac monitoring and continuous pulse ox with initial blood pressure 178/51, heart rate 76, saturation 100.9 ?F. Treatments withheld at this time other than Tylenol and Motrin for fever, given she is otherwise asymptomatic. Workup independently interpreted and significant for nonactionable hematologic labs other than moderately elevated CRP.. On independent interpretation of imaging, no acute cardiopulmonary airspace disease. See radiology read for full review of final results. Patient does have UTI. Cefdinir given. I am not sure what is causing patient rash. Close return precautions were discussed, but unsure of what exactly may be causing it. I feel life-threatening conditions have been reasonably ruled out at this point. Do not feel this is consistent with life-threatening process. Because patient at baseline without signs or symptoms of clinical decompensation, deemed appropriate for discharge. Results were relayed to patient who voiced understanding and were agreeable to outpatient management and follow up. I discussed my clinical impression with patient and answered all questions. At this time, the evidence for any other entities in the differential is insufficient to warrant any further testing or ED observation. This was explained as well. Advisory was given that persistent or worsening symptoms require further evaluation. I confirmed the understanding of this discussion. Insurance Legal Assistant disclaimer Much of this encounter note is an electronic logistics service representative spoken language to printed text. Electronic logistics service representative of the spoken language may permit errors. Although I have reviewed the note, some errors may still exist. <Mercedes Greene, RAG PRODUCTION WORKER - Last Filed: 09/05/24 22:44> Medical Records Screening: Per USPSTF and CDC recommendations, given the prevalence of disease in our region, it is our hospital?s policy to screen for HIV and viral Hepatitis for all patients aged 18 and over and those with ongoing risk factors. Vital Signs: 09/05/24 14:39 09/05/24 18:27 Temperature 100.9 F H 98.5 F Temperature Source Oral Oral Pulse Rate 70 Pulse Rate [Right] 76 Respiratory Rate 18 18 Blood Pressure 160/86 H Blood Pressure [Right Arm] 178/51 H Blood Pressure Mean [Right Arm] 93 Blood Pressure Source Automatic Cuff Blood Pressure Source [Right Arm] Automatic Cuff Blood Pressure Position [Right Arm] Sitting 02 Sat by Pulse Oximetry 99 Oxygen Delivery Method Room Air Room Air Lab Data Lab Results 09/05/24 15:18: Urine Color Yellow, Urine Appearance Clear, Urine pH 6.0, Ur Specific [place] <= 1.005, Urine Protein Negative, Urine Glucose (UA) Negative, Urine Ketones Negative, Urine Blood Trace-i, Urine Nitrate Negative, Urine Bilirubin Negative, Urine Urobilinogen 1.0, Ur Leukocyte Esterase 2+ A, Urine RBC None, Urine WBC 10-20, Ur Squamous Epith Cells Occasional, Ur Transition Epith Cell Occ, Urine Bacteria Trace 09/05/24 15:55: WBC 11.8 H, RBC 4.37, Hgb 12.6, Hct 39.4, MCV 90.2, MCH 28.8, MCHC 32.0, RDW 13.3, Plt Count 206, MPV 10.4, Neut % (Auto) 80.5 H, Lymph % (Auto) 8.0 L, Boyd % (Auto) 10.4 H, Eos % (Auto) 0.3, Baso % (Auto) 0.4, Neut # (Auto) 9.5 H, Lymph # (Auto) 1.0, Boyd # (Auto) 1.2 H, Eos # (Auto) 0.0, Baso # (Auto) 0.1, ESR 18, PT 11.3, INR 1.03, APTT 27.1, VBG pH 7.38, VBG pCO2 40.0, VBG pO2 29.5, VBG HCO3 23.2, VBG Total CO2 24.4, VBG O2 Saturation 54.9, VBG Base Excess -1.9, VBG Lactic Acid 1.2, Sodium 137, Potassium 4.3, Chloride 101, Carbon Dioxide 27, Anion Gap 13.3, BUN 20 H, Creatinine 1.00, Estimated Creat Clear 48, Estimated GFR 53 L, Est GFR ( Amer) 64, Glucose 103 H, Calcium 9.8, Total Bilirubin 0.8, AST 25, ALT 18, Alkaline Phosphatase 66, C-Reactive Protein 93.0 H, Total Protein 7.2, Albumin 4.6, Globulin 2.6, Albumin/Globulin Ratio 1.8 09/05/24 17:17: SARS-CoV-2 (PCR) Not detected, Influenza A Untype (PCR) Not detected, Influenza Type B (PCR) Not detected Orders (Tests/Meds): ED MEDICATIONS Discontinued Medications Generic Name Dose Route Start Last Admin Trade Name Tomas PRN Reason Stop Dose Admin Acetaminophen 1,000 mg 09/05/24 15:41 09/05/24 15:52 Acetaminophen 500mg Tab PO 09/05/24 15:42 1,000 mg ONCE ONE Administration Cefdinir 300 mg 09/05/24 17:18 09/05/24 17:25 Cefdinir 300mg Capsule PO 09/05/24 17:19 300 mg ONCE ONE Administration Dexamethasone 10 mg 09/05/24 17:40 09/05/24 18:04 Dexamethasone 4mg Tablet PO 09/05/24 17:41 10 mg ONCE ONE Administration Ibuprofen 600 mg 09/05/24 15:41 09/05/24 15:52 Ibuprofen 600 Mg Tablet PO 09/05/24 15:42 600 mg ONCE ONE Administration ORDERS Category Date Time Status CXR --portable [XR chest portable] Stat Exams 09/05/24 17:18 Completed CRP [C-Reactive Protein] Stat Lab 09/05/24 15:55 Completed Complete Blood Count Auto Diff Stat Lab 09/05/24 15:55 Completed Comprehensive Metabolic Panel Stat Lab 09/05/24 15:55 Completed ESR [Erythrocyte Sedimentation Rate] Stat Lab 09/05/24 15:55 Completed PT INR [Prothrombin Time INR] Stat Lab 09/05/24 15:55 Completed PTT [Activated Partial Thrombo Time] Stat Lab 09/05/24 15:55 Completed Rapid PCR Covid and Flu A/B Stat Lab 09/05/24 17:17 Completed Urinalysis and Microscopic Stat Lab 09/05/24 15:18 Completed Blood Culture Stat Micro 09/05/24 15:19 Received Urine Culture Stat Micro 09/05/24 15:18 Received Venous Blood Gas Stat RT 09/05/24 15:55 Completed Critical Care <Ricky Castellanos MD - Last Filed: 09/05/24 23:41> Critical Care Time Critical Care Time: No
[2024-09-05 15:23] LABS: Microscopic, Urine URINE MICROSCOPIC (MICROSCOPIC)
[2024-09-05 15:32] LABS: Appearance,Urine CLEAR (Clear); Bilirubin,Urine Negative (Negative); Blood, Urine TRACE-I (Negative); Color,Urine YELLOW (Yellow); Glucose,Urine (UA) Negative (Negative); Ketones,Urine Negative (Negative); Leukocyte Esterase,Urine 2+ (Negative); Nitrate,Urine Negative (Negative); Protein,Urine Negative (Negative); Specific Gravity, Urine <= 1.005 (1.005-1.030)
[2024-09-05] MEDS: IBUPROFEN 600 MG TABLET PO (15:52)
[2024-09-05] MEDS: ACETAMINOPHEN 500MG TAB 1000 MG PO (15:52)
[2024-09-05 16:06] LABS: Lactate Venous 1.2 mmol/L (0.4-2.0); VBG Base Excess -1.9 mmol/L (-2.4-2.3); VBG HCO3 23.2 mmol/L (23-30); VBG Oxygen Saturation 54.9 % (50-70); VBG PH 7.38 mmol/L (7.31-7.41); VBG PO2 29.5 mmol/L (28-40); VBG Total CO2 24.4 mmol/L (23-27)
[2024-09-05 16:29] LABS: Bacteria,Urine Trace /lpf; Squamous Epithelial Cell,Urine Occasional #/hpf (0-5); Transitional Epi Cells,Urine OCC #/lpf (0-3)
[2024-09-05 16:29] LABS: Activated Partial Thrombo Time 27.1 seconds (22.5-28.5); Alanine Aminotransferase 18 U/L (12-78); Albumin Level 4.6 g/dl (3.5-5.0); Albumin/Globulin Ratio 1.8 (1.1-1.8); Alkaline Phosphatase 66 U/L (38-126); Anion Gap 13.3 mEq/L (5-15); Aspartate Amino Transferase 25 U/L (14-36); Basophils # 0.1 K/mm3 (0-0.2); Basophils % 0.4 % (0.1-2.0); Bilirubin,Total 0.8 mg/dl (0.2-1.3); Blood Urea Nitrogen 20 mg/dl (7-17); Calcium 9.8 mg/dl (8.4-10.2); Carbon Dioxide 27 mmol/L (22.0-30.0); Chloride 101 mmol/L (98-107); Creatinine Clearance Estimated 48 mL/min (50-200); Eosinophils % 0.3 % (0.1-12.0); Estimated Glomerular Filt Rate 53 ml/min (>60); GFR (African American) 64 ML/MIN (>60); Globulin 2.6 g/dL (1.3-3.2); Glucose 103 mg/dl (74-100); Hematocrit 39.4 % (37.0-47.0); Hemoglobin 12.6 g/dL (12.2-16.2); INR 1.03 (0.9-1.1); Mean Corpuscular Hemoglobin 28.8 pg (27.0-31.2); Mean Corpuscular Volume 90.2 fl (81-99); Mean Platelet Volume 10.4 fl (7.4-10.4); Monocytes # 1.2 K/mm3 (0.1-1.0); Monocytes % 10.4 % (1.7-9.3); Neutrophils # 9.5 K/mm3 (1.8-7.8); Neutrophils % 80.5 % (37.0-80.0); Platelet Count 206 K/mm3 (142-424); Potassium 4.3 mmoL/L (3.5-5.1); Prothrombin Time 11.3 seconds (9.2-12.1); Red Blood Count 4.37 M/mm3 (4.20-5.40); Red Cell Distribution Width 13.3 % (11.5-17.5); Sodium 137 mmol/L (136-145); Total Protein,Serum 7.2 g/dl (6.3-8.2); White Blood Count 11.8 K/mm3 (4.8-10.8)
--- NOTE | 2024-09-05 16:39 | PC.NURSE ---
ROUNDED ON THE PT. THE PT VOICES THAT SHE DOES NOT NEED ANYTHING AT THIS TIME. CALL LIGHT IS WITHIN REACH OF THE PT.
[2024-09-05 17:18] LABS: Erythrocyte Sedimentation Rate 18 mm/hr (0-30)
--- NOTE | 2024-09-05 17:18 | XR_ITS ---
PROCEDURE INFORMATION: Exam: XR Chest Exam date and time: 09/05/2024 5:28 PM Age: 84 years old Clinical indication: Cough; Additional info: Cough, new rash TECHNIQUE: Imaging protocol: Radiologic exam of the chest. Views: 1 view. Total images: 1 COMPARISON: CR XR CHEST PORTABLE 07/21/2024 11:36 AM FINDINGS: Tubes, catheters and devices: A pacemaker device is present, its leads in appropriate position. Lungs: Atelectatic changes right lung base. No focal pneumonia. Pleural spaces: Unremarkable. No pleural effusion. No pneumothorax. Heart/Mediastinum: Unremarkable. No cardiomegaly. Vasculature: Mild atherosclerotic disease. Diaphragm: There is nonspecific elevation of the left hemidiaphragm. Bones/joints: The thoracic spine demonstrates mild degenerative changes at multiple levels. IMPRESSION: 1. Atelectatic changes right lung base. 2. No focal pneumonia.
[2024-09-05 17:21] LABS: Coronavirus 19, PCR Not Detected (NotDetected); Influenza A, PCR Not Detected (NotDetected); Influenza B, PCR Not Detected (NotDetected)
[2024-09-05] MEDS: CEFDINIR 300MG CAPSULE 300 MG PO (17:25)
--- NOTE | 2024-09-05 17:31 | PC.NURSE ---
PT IS BACK IN THE ROOM FROM XRAY.
[2024-09-05] MEDS: DEXAMETHASONE 4MG TABLET 10 MG PO (18:04)
[2024-09-05 18:27] VITALS: BP 160/86; PULSE 70; RESP 18; TEMP 36.9; O2SAT 97
== END 2024-09-05 18:31 | disposition home or self-care (01) ==
PROVIDERS: Emergency Provider Emergency Medicine; PCP Family Medicine
DX: N39.0 Urinary tract infection, site not specified (principal); R21 Rash and other nonspecific skin eruption; R50.9 Fever, unspecified; R53.81 Other malaise; R11.10 Vomiting, unspecified
CPT/HCPCS: 71045; 80053; 81001; 82803; 85025; 85610; 85651; 85730; 86140; 87040; 87086; 87636; 99283; J8540

== ENCOUNTER 2024-09-08 07:57 | Emergency (ER) | payer MEDICARE, OTHER, SELFPAY ==
[2024-09-08] VITALS (7 sets, daily range): BP systolic 156–193; BP diastolic 65–83; PULSE 69–77; RESP 16–18; TEMP 36.6–36.7; O2SAT 97–99; BMI 27.4
--- NOTE | 2024-09-08 08:25 | XR_ITS ---
PROCEDURE INFORMATION: Exam: XR Chest Exam date and time: 09/08/2024 9:23 AM Age: 84 years old Clinical indication: Dyspnea TECHNIQUE: Imaging protocol: Radiologic exam of the chest. Views: 1 view. COMPARISON: CR XR CHEST PORTABLE 09/05/2024 5:28 PM FINDINGS: Tubes, catheters and devices: There is a pacemaker in place from a left-sided approach. Lungs: No consolidation. Pleural spaces: No pleural effusion. No pneumothorax. Heart/Mediastinum: No cardiomegaly. The aorta is slightly tortuous. Bones/joints: Unchanged. IMPRESSION: No evidence of active pulmonary disease.
--- NOTE | 2024-09-08 08:25 | CT_ITS ---
PROCEDURE INFORMATION: Exam: CT Head Without Contrast Exam date and time: 09/08/2024 9:20 AM Age: 84 years old Clinical indication: Altered mental status/memory loss; Additional info: AMS TECHNIQUE: Imaging protocol: Computed tomography of the head without contrast. Radiation optimization: All CT scans at this facility use at least one of these dose optimization techniques: automated exposure control; mA and/or kV adjustment per patient size (includes targeted exams where dose is matched to clinical indication); or iterative reconstruction. COMPARISON: CT HEAD/BRAIN WO CON 07/21/2024 11:36 AM FINDINGS: Brain: The brain demonstrates diffuse volume loss. There is white matter hypodensity most consistent with chronic small vessel ischemic change. Cerebral ventricles: The ventricles and CSF spaces are proportionately enlarged. Paranasal sinuses: Visualized sinuses are unremarkable. No fluid levels. Mastoid air cells: Visualized mastoid air cells are well aerated. Orbital cavities: There are postoperative changes from prior cataract surgery. Bones: No acute fracture. Soft tissues: Unremarkable. IMPRESSION: 1. Atrophy and the sequela of prior small vessel ischemia. 2. There is no acute intracranial abnormality.
--- NOTE | 2024-09-08 08:29 | ED_ITS ---
Discharge Plan Disposition Patient Disposition: Home, Self-Care Prescriptions Prescriptions: No Action mecobalamin (vitamin B12) 1,000 mcg tablet,chewable 1,000 mcg PO DAILY omeprazole 40 mg capsule,delayed release(DR/EC) 40 mg PO DAILY bisoprolol fumarate 5 mg tablet 5 mg PO DAILY Qty: 30 5RF memantine 5 mg tablet 5 mg PO BID diclofenac sodium [Voltaren Arthritis Pain] 1 % gel 2 g topical QID Rx Instructions: apply to single elbow, wrist or hand; for hand includes palm/fingers/back of hand aspirin 325 mg tablet 325 mg PO BID hydrocodone-acetaminophen 5-325 mg tablet 1 tab PO Q4HP PRN (Reason: Moderate Pain (Scale Score 5-6)) dexamethasone 6 mg tablet 6 mg PO DAILY Qty: 5 0RF cefdinir 300 mg capsule 300 mg PO BID 7 Days Qty: 14 0RF levothyroxine 25 MCG tablet 25 mcg PO DAILY evolocumab 140 mg/mL syringe 140 mg SQ DIRECTED Rx Instructions: EVERY 2 WEEKS cefdinir 300 mg capsule 300 mg PO BID 10 Days Qty: 20 0RF Referrals Follow up/Referrals: Yuniel Rosales MD [Primary Care Provider] - See instructions Clinical Impressions Clinical Impression: Acute delirium, UTI (urinary tract infection), Steroid-induced psychosis Instructions Patient Instructions: DI for Altered Mental Status Print Language Print Language: Romanian Discharge ED Provider: Heladio Hernandez General Adult HPI General Chief complaint: Altered Mental Status Stated complaint: AMS, uti Time Seen by Provider: 09/08/24 08:08 Mode of Arrival: Ambulatory Source of Information: Patient, Spouse and Relative Limitations: Altered Mental Status Description of Symptoms (Recalled from ER Triage Doc. by RN): pt is confused. possible urinary symptoms. hasnt slept in 3 days. History of Present Illness HPI narrative: Patient is an 84-year-old female brought in today by her son for delirium. She has had multiple urinary tract infections recently with similar presenting symptoms. Additionally she had a facial rash recently in the ER for which she was started on steroids and her symptoms have worsened since that time. Last night she was very agitated trying to leave the house having visual and auditory hallucinations. Currently she is back to her baseline has no complaints. Her son asks if it is possible to have her admitted however they would not like placement from historical standpoint. Related Data Home Medications ?Medication ?Instructions ?Recorded ?Confirmed evolocumab 140 mg/mL subcutaneous 140 mg SQ DIRECTED Cholesterol 03/21/20 09/08/24 syringe levothyroxine 25 mcg tablet 25 mcg PO DAILY Thyroid 03/21/20 09/08/24 mecobalamin (vitamin B12) 1,000 1,000 mcg PO DAILY Supplement 04/21/20 09/08/24 mcg chewable tablet diclofenac sodium 1 % topical gel 2 g topical QID arthritis pain 05/08/23 09/08/24 (Voltaren Arthritis Pain) memantine 5 mg tablet 5 mg PO BID Memory 05/08/23 09/08/24 aspirin 325 mg tablet 325 mg PO BID DVT Prophylaxis 05/13/23 09/08/24 hydrocodone 5 mg-acetaminophen 325 1 tab PO Q4HP PRN Moderate Pain 05/13/23 09/08/24 mg tablet (Scale Score 5-6) omeprazole 40 mg capsule,delayed 40 mg PO DAILY 03/18/24 09/08/24 release Previous Rx's ?Medication ?Instructions ?Recorded cefdinir 300 mg capsule 300 mg PO BID 10 days #20 caps 07/21/24 bisoprolol fumarate 5 mg tablet 5 mg PO DAILY #30 tabs 08/13/24 cefdinir 300 mg capsule 300 mg PO BID 7 days #14 caps 09/05/24 dexamethasone 6 mg tablet 6 mg PO DAILY #5 tabs 09/05/24 Allergies Allergy/AdvReac Type Severity Reaction Status Date / Time No Known Allergies Allergy Verified 09/08/24 08:16 [facility] Disclaimer: The information contained in this section may have been updated after the patient was seen, as this information can be updated by other users. Medical History Memory loss Constipation Osteoarthritis of left knee Status post left total knee arthroplasty History of pacemaker Hypothyroidism HLD (hyperlipidemia) HTN (hypertension) Dementia Dyspnea Acquired hammertoe of right foot History of toe fracture Sinus tachycardia SSS (sick sinus syndrome) Tachy-clemencia syndrome Overweight with body mass index (BMI) 25.0-29.9 Callus of foot Abnormal EKG Syncope Back pain Surgical History History of total left knee replacement History of cardiac cath History of hysterectomy Status post foot surgery Family History Other Family history of heart disease Social History Smoking Status: Never smoker alcohol intake: never substance use type: denies use current occupational status: employed Travel in the last 8 weeks: Inside the [place] household members: spouse housing: house current occupational exposures/hazards: No caffeine: Yes Have you lived/traveled outside US in past 30 days?: No Contact w/someone who lives/traveled outside US past 30 days?: No Exposure to someone with infectious disease in past 14 days?: No Do you have a fever (greater than 100.4 F or 38 C)?: No Have you tested positive for COVID-19: No Exposed to someone with COVID-19 in past 14 days?: No Do you have a sore throat?: No Do you have a cough?: No Do you have any weakness?: No Do you have any diarrhea?: No Are you experiencing any unusual bleeding?: No Do you have any muscle aches/pain?: No Do you have any abdominal pain?: No Are you experiencing loss of taste or smell?: No Other Medical History Have you received the Flu Vaccine for this season: No Have you received the Pneumonia Vaccine: Yes ROS Obtained: Yes All systems reviewed & no additional complaints except as documented Physical Exam General General appearance: alert and in no apparent distress Head Head exam: other (Facial rash in comparison with recent pictures is significantly improved) Respiratory Respiratory exam: Present normal lung sounds bilaterally; Absent respiratory distress Cardiovascular Cardiovascular exam: Present regular rate and normal rhythm Abdominal Exam Abdominal exam: Present soft; Absent distention or tenderness Neurological Exam Neurological exam: Present alert, oriented X3, CN II-XII intact, normal gait and other; Absent motor sensory deficit Medical Decision Making Medical Records Screening: Per USPSTF and CDC recommendations, given the prevalence of disease in our region, it is our hospital?s policy to screen for HIV and viral Hepatitis for all patients aged 18 and over and those with ongoing risk factors. Jaspreet Inquiry Pt receiving controlled substance: No Vital Signs: 09/08/24 07:58 09/08/24 08:07 09/08/24 08:30 Temperature 97.8 F Temperature Source Oral Pulse Rate 74 70 Pulse Rate [Right] 70 Respiratory Rate 18 Blood Pressure 164/65 H 193/81 H Blood Pressure [Right Arm] 164/65 H Blood Pressure Mean [Right Arm] 98 02 Sat by Pulse Oximetry 98 97 97 Oxygen Delivery Method 09/08/24 09:00 Temperature Temperature Source Pulse Rate 69 Pulse Rate [Right] Respiratory Rate Blood Pressure 156/78 H Blood Pressure [Right Arm] Blood Pressure Mean [Right Arm] 02 Sat by Pulse Oximetry 99 Oxygen Delivery Method Room Air Lab Data Lab results reviewed: Yes I reviewed the patient's lab results. Lab Results 09/08/24 08:02: Urine Color Yellow, Urine Appearance Clear, Urine pH 6.0, Ur Specific Jordan >= 1.030, Urine Protein Trace, Urine Glucose (UA) Negative, Urine Ketones Negative, Urine Blood Negative, Urine Nitrate Negative, Urine Bilirubin Negative, Urine Urobilinogen 0.2, Ur Leukocyte Esterase 2+ A, Urine RBC None, Urine WBC 5-10, Ur Squamous Epith Cells 5-10, Urine Bacteria 1+ 09/08/24 08:11: WBC 8.1 D, RBC 4.48, Hgb 12.8, Hct 40.5, MCV 90.4, MCH 28.6, M CHC 31.6 L, RDW 13.2, Plt Count 294 D, MPV 10.2, Neut % (Auto) 72.3, Lymph % (Auto) 14.8, [place] % (Auto) 11.6 H, Eos % (Auto) 0.4, Baso % (Auto) 0.5, Neut # (Auto) 5.8, Lymph # (Auto) 1.2, [place] # (Auto) 0.9, Eos # (Auto) 0.0, Baso # (Auto) 0.0, Sodium 141, Potassium 4.6, Chloride 107, Carbon Dioxide 27, Anion Gap 11.6, BUN 30 H D, Creatinine 1.00, Estimated Creat Clear 48, Estimated GFR 53 L, Est GFR ( Amer) 64, Glucose 91, Calcium 10.3 H, Total Bilirubin 1.1, AST 50 H D, ALT 23 D, Alkaline Phosphatase 48, Total Protein 7.6, Albumin 4.5, Globulin 3.1, Albumin/Globulin Ratio 1.5 09/08/24 08:26: VBG pH 7.40, VBG pCO2 34.4 L, VBG pO2 51.5 H, VBG HCO3 20.9 L, V BG Total CO2 21.9 L, VBG O2 Saturation 85.7 H, VBG Base Excess -3.9 L, VBG Lactic Acid 1.3 09/08/24 08:28: SARS-CoV-2 (PCR) Not detected, Influenza A Untype (PCR) Not detected, Influenza Type B (PCR) Not detected 09/08/24 08:11 09/08/24 08:11 Orders (Tests/Meds): ED MEDICATIONS Discontinued Medications Generic Name Dose Route Start Last Admin Trade Name Freq PRN Reason Stop Dose Admin Sodium Chloride 1,000 mls @ 999 mls/hr 09/08/24 08:30 09/08/24 08:33 Sod Chlor 0.9% 1000ml Bag IV 09/08/24 09:30 999 mls/hr .Q1H1M VALENTINA Administration ORDERS Category Date Time Status CT head/brain wo con Stat Cat Scan 09/08/24 08:25 Completed CXR --portable [XR chest portable] Stat Exams 09/08/24 08:25 Completed CBC w/Auto Diff [Complete Blood Count Auto Diff] Stat Lab 09/08/24 08:11 Completed CMP [Comprehensive Metabolic Panel] Stat Lab 09/08/24 08:11 Completed Rapid PCR Covid and Flu A/B Stat Lab 09/08/24 08:28 Completed UA [Urinalysis and Microscopic] Stat Lab 09/08/24 08:02 Completed Urine Culture Stat Micro 09/08/24 08:02 Received Venous Blood Gas Stat RT 09/08/24 08:26 Completed Medical Decision Narrative: Patient is currently awake alert and oriented with a nonfocal neurologic exam and has no complaints. Her son is very concerned about her behavior recently and it seems as though she has had steroid-induced psychosis in addition to probable delirium secondary to recent urinary tract infection. She has been on cefdinir. She is very well-appearing currently. This seems to be an acute on chronic problem at this point. Will get a basic altered mental status workup. I have already had a discussion with the family that she does not appear sick enough to be in the hospital and that if they do not need placement that likely she needs to be managed in an outpatient setting at this is likely multifactorial and a chronic progressive decline. Her son is convinced that her symptoms are secondary to dehydration that when he can keep her hydrated that she does well. Will give her IV fluids. But clinically she does not appear dehydrated. Overall I encouraged her son to be prepared for a progressive decline and to have more serious conversations regarding this and preparatory decision making. CT scan performed which I personally interpreted which shows no acute intracranial pathology. Labs unremarkable aside from urine contamination versus colonization versus urinary tract infection. Patient is still awake alert and oriented on serial assessments stable for outpatient management her son and at the bedside and are agreeable to this plan. Will keep her off of the steroids at this point as that likely was a contributory factor. Patient was discharged in stable condition. Critical Care Critical Care Time Critical Care Time: No
[2024-09-08] MEDS: 0.9 % SODIUM CHLORIDE 1000ML 1,000 ML 999 ML IV (08:33)
[2024-09-08 08:34] LABS: Microscopic, Urine URINE MICROSCOPIC (MICROSCOPIC)
[2024-09-08 08:35] LABS: Basophils % 0.5 % (0.1-2.0); Eosinophils % 0.4 % (0.1-12.0); Hematocrit 40.5 % (37.0-47.0); Hemoglobin 12.8 g/dL (12.2-16.2); Lymphocytes # 1.2 K/mm3 (0.7-4.5); Lymphocytes % 14.8 % (10-50); Mean Corpuscular HGB Conc 31.6 g/dL (31.8-35.4); Mean Corpuscular Hemoglobin 28.6 pg (27.0-31.2); Mean Corpuscular Volume 90.4 fl (81-99); Mean Platelet Volume 10.2 fl (7.4-10.4); Monocytes # 0.9 K/mm3 (0.1-1.0); Monocytes % 11.6 % (1.7-9.3); Neutrophils # 5.8 K/mm3 (1.8-7.8); Neutrophils % 72.3 % (37.0-80.0); Platelet Count 294 K/mm3 (142-424); Red Blood Count 4.48 M/mm3 (4.20-5.40); Red Cell Distribution Width 13.2 % (11.5-17.5); White Blood Count 8.1 K/mm3 (4.8-10.8)
[2024-09-08 08:37] LABS: Albumin Level 4.5 g/dl (3.5-5.0); Chloride 107 mmol/L (98-107); Potassium 4.6 mmoL/L (3.5-5.1); Sodium 141 mmol/L (136-145)
[2024-09-08 08:40] LABS: Alanine Aminotransferase 23 U/L (12-78); Albumin/Globulin Ratio 1.5 (1.1-1.8); Alkaline Phosphatase 48 U/L (38-126); Anion Gap 11.6 mEq/L (5-15); Aspartate Amino Transferase 50 U/L (14-36); Bilirubin,Total 1.1 mg/dl (0.2-1.3); Blood Urea Nitrogen 30 mg/dl (7-17); Carbon Dioxide 27 mmol/L (22.0-30.0); Creatinine Clearance Estimated 48 mL/min (50-200); Estimated Glomerular Filt Rate 53 ml/min (>60); GFR (African American) 64 ML/MIN (>60); Globulin 3.1 g/dL (1.3-3.2); Total Protein,Serum 7.6 g/dl (6.3-8.2)
[2024-09-08 08:40] LABS: Coronavirus 19, PCR Not Detected (NotDetected); Influenza A, PCR Not Detected (NotDetected); Influenza B, PCR Not Detected (NotDetected)
[2024-09-08 08:41] LABS: Calcium 10.3 mg/dl (8.4-10.2); Glucose 91 mg/dl (74-100)
[2024-09-08 08:55] LABS: Appearance,Urine CLEAR (Clear); Bilirubin,Urine Negative (Negative); Blood, Urine Negative (Negative); Color,Urine YELLOW (Yellow); Glucose,Urine (UA) Negative (Negative); Ketones,Urine Negative (Negative); Leukocyte Esterase,Urine 2+ (Negative); Nitrate,Urine Negative (Negative); Protein,Urine TRACE (Negative); Specific Gravity, Urine >= 1.030 (1.005-1.030); Urobilinogen,Urine 0.2 EU/dl (0.2)
[2024-09-08 09:05] LABS: Bacteria,Urine 1+ /lpf
--- NOTE | 2024-09-08 09:13 | PC.NURSE ---
Respiratory notified of a green top in lab for the VBG
[2024-09-08 09:20] LABS: Lactate Venous 1.3 mmol/L (0.4-2.0); VBG Base Excess -3.9 mmol/L (-2.4-2.3); VBG HCO3 20.9 mmol/L (23-30); VBG Oxygen Saturation 85.7 % (50-70); VBG PCO2 34.4 mmol/L (35-51); VBG PO2 51.5 mmol/L (28-40); VBG Total CO2 21.9 mmol/L (23-27)
== END 2024-09-08 10:07 | disposition home or self-care (01) ==
PROVIDERS: Emergency Provider Student in an Organized Health Care Education/Training Program; PCP Family Medicine
DX: N39.0 Urinary tract infection, site not specified (principal); F19.150 Other psychoactive substance abuse with psychoactive substance-induced psychotic disorder with delusions; R41.82 Altered mental status, unspecified
CPT/HCPCS: 70450; 71045; 80053; 81001; 82803; 85025; 87086; 87636; 96360; 99284; J7030

== ENCOUNTER 2024-09-27 10:52 | Outpatient (CLI) | payer MEDICARE, OTHER, SELFPAY ==
[2024-09-27 11:00] VITALS: BMI 31.4
[2024-09-27 11:25] VITALS: BP 146/79; PULSE 75; RESP 18; TEMP 36.4; O2SAT 98
[2024-09-27] MEDS: 0.9 % SODIUM CHLORIDE 1000ML 1,000 ML 999 ML IV (11:25)
[2024-09-27 11:34] LABS: Basophils % 0.9 % (0.1-2.0); Eosinophils # 0.1 K/mm3 (0.0-0.4); Eosinophils % 1.8 % (0.1-12.0); Hematocrit 39.7 % (37.0-47.0); Hemoglobin 12.7 g/dL (12.2-16.2); Lymphocytes # 0.8 K/mm3 (0.7-4.5); Lymphocytes % 17.3 % (10-50); Mean Corpuscular Hemoglobin 28.7 pg (27.0-31.2); Mean Corpuscular Volume 89.8 fl (81-99); Mean Platelet Volume 9.9 fl (7.4-10.4); Monocytes # 0.4 K/mm3 (0.1-1.0); Monocytes % 9.8 % (1.7-9.3); Neutrophils # 3.1 K/mm3 (1.8-7.8); Neutrophils % 69.7 % (37.0-80.0); Platelet Count 247 K/mm3 (142-424); Red Blood Count 4.42 M/mm3 (4.20-5.40); Red Cell Distribution Width 13.4 % (11.5-17.5); White Blood Count 4.4 K/mm3 (4.8-10.8)
[2024-09-27 12:35] VITALS: BP 126/83; PULSE 73; RESP 18; O2SAT 98
[2024-09-27 13:28] LABS: Albumin Level 4.8 g/dl (3.5-5.0); Chloride 106 mmol/L (98-107); Potassium 4.2 mmoL/L (3.5-5.1); Sodium 140 mmol/L (136-145)
[2024-09-27 13:31] LABS: Alanine Aminotransferase 19 U/L (12-78); Albumin/Globulin Ratio 1.8 (1.1-1.8); Alkaline Phosphatase 82 U/L (38-126); Anion Gap 11.2 mEq/L (5-15); Aspartate Amino Transferase 26 U/L (14-36); Bilirubin,Total 0.5 mg/dl (0.2-1.3); Blood Urea Nitrogen 16 mg/dl (7-17); Calcium 10.8 mg/dl (8.4-10.2); Carbon Dioxide 27 mmol/L (22.0-30.0); Creatinine Clearance Estimated 50 mL/min (50-200); Estimated Glomerular Filt Rate 53 ml/min (>60); GFR (African American) 64 ML/MIN (>60); Globulin 2.7 g/dL (1.3-3.2); Glucose 98 mg/dl (74-100); Total Protein,Serum 7.5 g/dl (6.3-8.2)
== END 2024-09-27 12:35 | disposition home or self-care (01) ==
LOC: LAB.DROPOF 10:52 → INF 10:55
PROVIDERS: PCP Physician Assistant; Visit Provider Physician Assistant
DX: E86.0 Dehydration (principal); Z87.440 Personal history of urinary (tract) infections
CPT/HCPCS: 80053; 85025; 87040; 87086; 96360; J7030

== ENCOUNTER 2024-10-24 14:11 | Outpatient (CLI) | payer MEDICARE, OTHER, SELFPAY ==
--- NOTE | 2024-10-24 14:17 | US_ITS ---
FINAL REPORT TECHNIQUE: Real-time grayscale and color ultrasound of the thyroid was performed. CLINICAL HISTORY: HYPERPARATHYROIDISM COMPARISON: none FINDINGS: The thyroid gland is normal in size measuring 36 x 11 x 18 mm on the right and 36 x 14 x 20 mm on the left. The isthmus measures 3 mm. The parenchyma is unremarkable . Nodules: There are few small nodules measuring 5 mm or less on the right. There is a 9 mm mixed cystic and solid TR 3 nodule in the inferior right lobe. Dominant TR 4 lesion with coarse central calcifications mid left lobe measuring up to 21 mm. IMPRESSION: Normal thyroid size. Dominant moderately suspicious lesion on the left. Ultrasound-directed FNA recommended per TI-RADS criteria. Other smaller nodules, likely benign. No further follow-up needed per TI-RADS criteria. Reviewed, Interpreted and Dictated by Yuniel Tran MD Transcribed by Razia Hughes Authenticated and [facility]
== END 2024-10-24 23:59 | disposition home or self-care (01) ==
LOC: RAD 14:11
PROVIDERS: PCP Physician Assistant; Visit Provider Family Medicine
DX: E21.3 Hyperparathyroidism, unspecified (principal)
CPT/HCPCS: 76536

== ENCOUNTER 2024-11-29 08:56 | Outpatient (CLI) | payer MEDICARE, OTHER, SELFPAY ==
--- OUTSIDE RECORDS SUMMARY | 2024-11-29 08:58 | XMS_ITS | Data Portability ---
Author Organization MICHAELA ANNA Harrison [facility] Address [address] [place] [address] [address] [place] [address] Assessment No assessment recorded. Plan of Treatment Reminders Order Date Submit Date Provider Last Modified By Organization Details Last Modified Time Details Appointments None recorded. Lab PTH (parathyr oid hormone), intact + calcium, serum or plasma [address] [facility], [address] [place] [address], [id number], 5 10:53:19 PTH (parathyr oid hormone), intact + calcium, serum or plasma 025 025 [facility], [address] [place] [address], [id number], 5 14:50:22 vitamin D, 25-hydrox y, total, serum 025 025 [facility], [address] [place] [address], [address], 5 14:50:23 phosphoru s, serum or plasma 025 025 [facility], [address] [place] [address], [address], 5 14:56:34 CMP, serum or plasma 025 025 [facility], [address] [place] [address], [id number], 5 14:56:32 magnesium , QN, serum or plasma 025 025 [facility], [address] [place] [address], [id number], 5 14:56:35 TSH, serum or plasma 025 025 [facility], [address] [place] [address], [id number], 5 14:39:25 Referral None recorded. Procedures None recorded. Surgeries None recorded. Imaging None recorded. Medication Orders None recorded. Patient TargetsNo targets recorded. Patient InstructionsNo instructions recorded. Reason for Referral None Reported. Results Created Date Observation Date Name Description Value Unit Range Abnormal Flag Note LastModifiedBy Organization Detail LastModifiedTime 08/08/19 25 08/08/2024 TSH TSH 1.970 u[IU] /mL 0.270- 4.200 normal Not Available [facility] [address] [place] [address], [id number], 08/08/2024 14:39:24 08/08/19 25 08/08/2024 PTH, INTAC T WITH CA PTH, intact 99.0 pg/mL 15.0-6 5.0 high INTER PRETI VE GUIDE ===== ===== ===== ===== ===== ===== ===== ===== ===== ===== ===== === PTH CALCI UM CONDI TION ===== ===== ===== ===== ===== ===== ===== ===== ===== ===== ===== = Heidi l Heidi l Heidi l Parat hyroi d _ Low or Low Hypop fabienne yroid ism Low Heidi l _ Heidi l or High Prima ry Hyper parat hyroi dism High __ High Heidi l or Secon shaun Hyper parat hyroi dism Low __ High High Terti fiorella Hyper parat hyroi dism __ Low or High Non-P fabienne yroid Hyper calce sunshine Low Heidi l ===== ===== ===== ===== ===== ===== ===== ===== ===== ===== ===== ==== Not Available [facility] [address] [place] [address], [address], 08/08/2024 14:56:44 08/08/19 25 08/08/2024 PTH, INTAC T WITH CA calcium 10.7 mg/dL 8.6-10 .2 high Not Available [facility] [address] [place] [address], [id number], 08/08/2024 14:56:44 08/08/19 25 08/08/2024 VITAM IN D 25-OH vitamin D 25-oh, total 27 NG/mL >=30 NG/mL abnormal Not Available [facility] [address] [place] [address], [address], 08/08/2024 14:50:23 08/08/19 25 08/08/2024 COMP. METAB OLIC PANEL glucose 90 mg/dL 74-100 normal Not Available [facility] [address] [place] [address], [address], 08/08/2024 14:56:32 08/08/19 25 08/08/2024 COMP. METAB OLIC PANEL blood urea nitrogen 16 mg/dL 6-20 normal Not Available [facility] [address] [place] [address], [address], 08/08/2024 14:56:32 08/08/19 25 08/08/2024 COMP. METAB OLIC PANEL creatinine 0.88 mg/dL 0.50-0 .95 normal Not Available [facility] [address] [place] [address], [address], 08/08/2024 14:56:32 08/08/19 25 08/08/2024 COMP. METAB OLIC PANEL BUN/creatini ne ratio 18 (calc ) 10-20 normal Not Available [facility] [address] [place] [address], [address], 08/08/2024 14:56:32 08/08/19 25 08/08/2024 COMP. METAB OLIC PANEL sodium 144 mmol/ L 136-14 5 normal Not Available [facility] [address] [place] [address], [address], 08/08/2024 14:56:32 08/08/19 25 08/08/2024 COMP. METAB OLIC PANEL potassium 4.4 mmol/ L 3.4-5. 0 normal Not Available [facility] [address] [place] [address], [id number], 08/08/2024 14:56:32 08/08/19 25 08/08/2024 COMP. METAB OLIC PANEL chloride 106 mmol/ L 98-107 normal Not Available [facility] [address] [place] [address], [address], 08/08/2024 14:56:32 08/08/19 25 08/08/2024 COMP. METAB OLIC PANEL carbon dioxide 24 mmol/ L 22-31 normal Not Available [facility] [address] [place] [address], [address], 08/08/2024 14:56:32 08/08/19 25 08/08/2024 COMP. METAB OLIC PANEL anion gap 14 (calc ) 7-25 normal Not Available [facility] [address] [place] [address], [address], 08/08/2024 14:56:32 08/08/19 25 08/08/2024 COMP. METAB OLIC PANEL calcium 10.6 mg/dL 8.6-10 .2 high Not Available [facility] [address] [place] [address], [address], 08/08/2024 14:56:32 08/08/19 25 08/08/2024 COMP. METAB OLIC PANEL total protein 7.0 g/dL 6.4-8. 3 normal Not Available [facility] [address] [place] [address], [phone], 08/08/2024 14:56:32 08/08/19 25 08/08/2024 COMP. METAB OLIC PANEL albumin 4.5 g/dL 3.5-5. 2 normal Not Available [facility] [address] [place] [address], [id number], 08/08/2024 14:56:32 08/08/19 25 08/08/2024 COMP. METAB OLIC PANEL globulin 2.5 1.5-4. 5 normal Not Available [facility] [address] [place] [address], [id number], 08/08/2024 14:56:32 08/08/19 25 08/08/2024 COMP. METAB OLIC PANEL albumin/glob ulin ratio 1.8 (calc ) 1.1-2. 5 normal Not Available [facility] [address] [place] [address], [address], 08/08/2024 14:56:32 08/08/19 25 08/08/2024 COMP. METAB OLIC PANEL bilirubin, total 0.4 mg/dL 0.1-1. 2 normal Not Available [facility] [address] [place] [address], [address], 08/08/2024 14:56:32 08/08/19 25 08/08/2024 COMP. METAB OLIC PANEL alkaline phosphatase 81 U/L 30-121 normal Not Available [facility] [address] [place] [address], [address], 08/08/2024 14:56:32 08/08/19 25 08/08/2024 COMP. METAB OLIC PANEL AST 17 U/L 0-32 normal Not Available [facility] [address] [place] [address], [phone], 08/08/2024 14:56:32 08/08/19 25 08/08/2024 COMP. METAB OLIC PANEL ALT 13 U/L 0-33 normal Not Available [facility] [address] [place] [address], [id number], 08/08/2024 14:56:32 08/08/19 25 08/08/2024 COMP. METAB OLIC PANEL GFR 65 >= 60 normal NOT E New calcu latio n for GFR (CKD- EPI 2020) is formu lated witho ut race adjus tment facto rs at the recom menda tion of the [place] [facility] of Nephr ology . This calcu latio n has not been valid ated in pregn ant women . For pedia tric patie nts refer to https ://tana steiner.miguel luna/pr ofess ional s/KDO QI/gf r_cal culat orPed Not Available [facility] [address] [place], [address], 08/08/2024 14:56:32 08/08/19 25 08/08/2024 PHOSP HORUS phosphorus 3.3 mg/dL 2.5-4. 5 normal Not Available [facility] [address] [place], [address], 08/08/2024 14:56:34 08/08/19 25 08/08/2024 MAGNE SIUM magnesium 2.0 mg/dL 1.6-2. 6 normal Not Available [facility] [address] [place], [address], 08/08/2024 14:56:35 11/05/19 25 11/04/2024 PTH, INTAC T WITH CA PTH, intact 97.0 pg/mL 15.0-6 5.0 high INTER PRETI VE GUIDE ===== ===== ===== ===== ===== ===== ===== ===== ===== ===== ===== === PTH CALCI UM CONDI TION ===== ===== ===== ===== ===== ===== ===== ===== ===== ===== ===== = Heidi l Heidi l Heidi l Parat hyroi d _ Low or Low Hypop fabienne yroid ism Low Heidi l _ Heidi l or High Prima ry Hyper parat hyroi dism High __ High Heidi l or Secon shaun Hyper parat hyroi dism Low __ High High Terti fiorella Hyper parat hyroi dism __ Low or High Non-P fabienne yroid Hyper calce sunshine Low Heidi l ===== ===== ===== ===== ===== ===== ===== ===== ===== ===== ===== ==== Not Available [facility] [address] [place] [address], [address], 11/04/2024 12:12:11 11/05/1911/04/2024 PTH, INTAC T WITH CA calcium 10.7 mg/dL 8.6-10 .2 high Not Available [facility] [address] [place] [address], [address], 11/04/2024 12:12:11 11/05/1911/04/2024 VITAM IN D 25-OH vitamin D 25-oh, total 48 NG/mL >=30 NG/mL normal Not Available [facility] [address] [place] [address], [address], 11/04/2024 12:12:12 Result Notes None recorded. Medical Equipment None Reported. Allergies No known drug allergies Medications Name Sig Start Date Stop Date Status Note LastModified by Organization Details LastModified Time aspirin 325 mg tablet Daily 08/08 completed Duration : 30 days;Jack quency: daily;Me dication Descript ion: aspirin; Dosage:1 ; Route:or al; refills: 0; Quantity :30 tablet Not Available Not Available Not Available omeprazol e 40 mg capsule,d elayed release Take 1 capsule every day by oral route. active PRN Not Available Not Available No t Available levothyro xine 25 mcg tablet Take 1 tablet every day by oral route. active Not Available Not Available No t Available bisoprolo l fumarate 5 mg tablet Take 1 tablet every day by oral route. active Not Available Not Available No t Available Niaspan 1,000 mg tablet,ex tended release Daily 08/08 completed Frequenc y: daily;Me dication Descript ion: niacin; Dosage:2 ; Route:or al; refills: 5 Not Available Not Available Not Available lisinopri l 5 mg tablet Bedtime 08/08 completed Duration : 30 days;Jack quency: hs;Medic ation Descript ion: lisinopr il; Dosage:1 ; Route:or al; refills: 5; Quantity :30 tablet Not Available Not Available Not Available ergocalci ferol (vitamin D2) 1,250 mcg (50,000 unit) capsule Take 1 capsule every week by oral route for 90 days. 11/08 completed Not Available Not Available Not Available Zetia 10 mg tablet Daily 08/08 completed Frequenc y: daily;Me dication Descript ion: ezetimib e; Dosage:1 ; Route:or al; refills: 0 Not Available Not Available Not Available memantine 5 mg tablet Take 2 tablets twice a day by oral route. active Not Available Not Available No t Available Fish Oil 08/08 completed Medicati on Descript ion: omega-3 polyunsa turated fatty acids; Route:or al; refills: 0 Not Available Not Available Not Available Caltrate- 600 Two times a day 08/08 completed Duration : 10 days;Jack quency: bid;Medi cation Descript ion: calcium carbonat e; Dosage:1 ; Route:or al; refills: 0 Not Available Not Available Not Available Vitamin B12 active Not Available Not Available Not Available Ranexa 500 mg tablet,ex tended release Two times a day 08/08 completed Frequenc y: bid;Medi cation Descript ion: ranolazi ne; Dosage:1 ; Route:or al; refills: 0 Not Available Not Available Not Available Repatha SureClick 140 mg/mL subcutane ous pen injector Inject 1 mL every 2 weeks by subcutan eous route. active Not Available Not Available No t Available aspirin 81 mg capsule Take 1 capsule every day by oral route. active Not Available Not Available No t Available Vitals Date Recorded Body weight Heart rate Systolic blood pressure Diastolic blood pressure Provider Name and Address Organization Details Last Updated DateTime 08/08/2024 50137.33 g 70 /min 136 mm[Hg] 84 mm[Hg] Rhea Cerda [facility] 08/08/2024 12:57:56 Date Recorded Body weight Body mass index (BMI) Body height Systolic blood pressure Diastolic blood pressure Provider Name and Address Organization Details Last Updated DateTime 11/08/2024 80605.74 g 31.2 kg/m2 154.94 cm 134 mm[Hg] 72 mm[Hg] [facility] 10:[facility]:25 Social History None recorded. Functional Status None recorded. Mental Status None recorded. Family History Nothing Reported. Medical History No medical history recorded. Gynecological HistoryNo gynecological history recorded. Obstetrics History GPAL:G 0 P 0 0 0 0 Past Encounters Encounter ID Performer Location Encounter Start Date Encounter Closed Date Diagnosis/Indication Diagnosis SNOMED-CT Code Diagnosis ICD10 Code Diagnosis Note [id number] [facility] [place] [address] 10/25/2016 07:58:55 10/25/2016 07:58:55 [id number] DELROY BYRNE APRN [facility] [address] [place] [address] 08/08/2024 12:10:32 08/08/2024 13:18:43 Hypercalcemia 85219645 E83.52 Referral labs from July 26, 2024 show:PTH Intact 103Serum Calcium 10.7Ionize d Calcium 5.56GFR 54 Patient denies any personal or family history of parathyroi d dysfunctio n or hypercalce sunshine. Patient denies taking calcium supplement ation, recent fracture, history of vitamin D deficiency , or chronic renal insufficie ncy. Patient states no history of kidney stones or osteoporos is.Patient denies symptomati c palpitatio ns, tremors, diarrhea, joint pain or swelling. Patient denies any difficulty swallowing or hoarseness in voice. Mentation Will recheck PTH intact with calcium alongside vitamin D, Phos, mag, CMP. Will call patient with these results once received to discuss further actions needed and plan of care. Patient states understand ing of the above plan of care and with no questions or concerns at this time. [id number] DELROY BYRNE APRN [facility] [address] [place] [address] 11/08/2024 10:32:11 11/08/2024 12:04:05 Hypercalcemia 88950669 E83.52 Labs from November 04, 2024 showPTH intact 97Calcium 10.7Vitami n D level 48 Magnesium phosphorus and TSH have all been within normal range. She is with history of now corrected vitamin D deficiency .Patient denies any personal or family history of parathyroi d dysfunctio n or hypercalce sunshine.Patien t denies taking calcium supplement ation, recent fracturE or chronic renal insufficie ncy.Patien t states no history of kidney stones or osteoporos is.Patient denies symptomati c palpitatio ns, tremors, diarrhea, joint pain or swelling. Patient denies any difficulty swallowing or hoarseness in voice. Recommenda tionAll labs have been reviewed with patient and patient states she would like to continue to monitor this as opposed to proceed with further imaging and definitive treatment. Lab orders have been placed.Pat ient states understand ing of the above plan of care and with no questions or concerns at this time. Health Concerns Section Related Observation LastModified by Organization Detai ls LastModified Time None Recorded Concern Status LastModified by Organization Details LastModified Time None Recorded Advance Directives Directive None Recorded Payers Insurance Date Sequence Insurance Name Policy Number Policy Uribe Covered Member ID Uribe Member ID Guarantor Name 11/08/2024 1 [employer] - GOLD PLUS (MEDICARE REPLACEMENT HMO) Jeannie Mccabe [id number] Jeannie Mccabe 11/08/2024 1 [employer] (MEDICARE REPLACEMENT/AD VANTAGE - PPO) Jeannie Mccabe [id number] Jeannie Mccabe Notes Date Note Type Note Provider Name and Address Organization Details Recorded Time 08/08/2024 text/html Iris is an 83-year-old female who presents office today with son and at side after referral for management of hypercalcemia. Patient denies any history of this as well as any calcium supplementation recent fracture, chronic renal insufficiency, or vitamin D deficiency. Patient denies history of osteoporosis or kidney stones. Patient denies symptomatic palpitations, tremors, diarrhea, joint pain or swelling. Patient denies any difficulty swallowing or hoarseness in voice. She is positive for past medical history of hypothyroid, Alzheimer's, hypertension, GERD. DELROY BYRNE, SCOTT [address] [place], [address], [facility] 08/08/2024 14:16:50 11/08/2024 text/html Iris is an 84-year-old female presents office today with at side for review of lab work status post diagnosis of hyperparathyroidis m. Patient continues to deny taking any calcium supplementation, kidney stones, or osteoporosis. DELROY BYRNE, SCOTT [address] [place], [address], [facility] 11/08/2024 12:18:35 OBGyn Episode No OBEpisode recorded.
--- OUTSIDE RECORDS SUMMARY | 2024-11-29 08:58 | XMS_ITS | Continuity of Care Document ---
Author Organization [facility] Address [address] [place] [address] Assessment No assessment recorded. Plan of Treatment Reminders Order Date Submit Date Provider Last Modified By Organization Details Last Modified Time Details Appointments None recorded . Lab PTH (parathy roid hormone) , intact + calcium, serum or plasma 025 01/22/20 25 lang4 [facility], [address] [place] [address], [address], 5 10:53:19 Referral None recorded . Procedures None recorded . Surgeries None recorded . Imaging None recorded . Medication Orders None recorded . Patient TargetsNo targets recorded. Patient InstructionsNo instructions recorded. Reason for Referral None Reported. Medical Equipment None Reported. Allergies No known [...] t Available Vitals Date Recorded Body weight Body mass index (BMI) Body height Systolic blood pressure Diastolic blood pressure Provider Name and Address Organization Details Last Updated DateTime 11/08/2024 45916.74 g 31.2 kg/m2 154.94 cm 134 mm[Hg] 72 mm[Hg] [facility] 10:41:25 Social History None recorded. Functional Status None recorded. Mental Status None recorded. Family History Nothing Reported. Medical History No medical history recorded. Gynecological HistoryNo gynecological history recorded. Obstetrics History GPAL:G 0 P 0 0 0 0 Past Encounters Encounter ID Performer Location Encounter Start Date Encounter Closed Date Diagnosis/Indication Diagnosis SNOMED-CT Code Diagnosis ICD10 Code Diagnosis Note [id number] DELROY BYRNE APRN [facility] [address] [place] [address] 11/08/2024 10:32:11 11/08/2024 12:04:05 Hypercalcemia 47360656 E83.52 Labs from November 04, 2024 showPTH [...] by Organization Details LastModified Time None Recorded Payers Encounter Date Sequence Insurance Name Policy Number Policy Uribe Covered Member ID Uribe Member ID Guarantor Name 11/08/2024 1 [employer] (MEDICARE REPLACEMENT/A DVANTAGE - PPO) Jeannie Mccabe [id number] Jeannie Mccabe Notes Date Note Type Note Provider Name and Address Organization Details Recorded Time 11/08/2024 text/html Iris whitten an 84-year-old female presents office today with at side for review of lab work status post diagnosis of hyperparathyroid ism. Patient continues to deny taking any calcium supplementation, kidney stones, or osteoporosis. DELORY BYRNE APRN [address] [place], [address], [facility] 11/08/2024 12:18:35 OBGyn Episode No OBEpisode recorded.
--- OUTSIDE RECORDS SUMMARY | 2024-11-29 08:58 | XMS_ITS ---
Author Organization Unknown Allergies, Adverse Reactions and Alerts Date IsAllergic OnsetDate Allergen Reaction Type Severity John rgyCode Legacyallergictoid ReactionCode ReactionCodeSystemID 10/25 00:00 :00 1 DexAMETHa sone AMS 10/25 00:00 :00 1 Cefdinir AMS 10/19 00:00 :00 1 DexAMETHa sone AMS 10/19 00:00 :00 1 Cefdinir AMS 10/11 00:00 :00 1 DexAMETHa sone AMS 10/11 00:00 :00 1 Cefdinir AMS 10/10 00:00 :00 1 DexAMETHa sone AMS 10/10 00:00 :00 1 Cefdinir AMS 10/07 00:00 :00 1 DexAMETHa sone AMS 10/07 00:00 :00 1 Cefdinir AMS 10/01 00:00 :00 1 DexAMETHa sone AMS 10/01 00:00 :00 1 Cefdinir AMS 09/27 00:00 :00 1 DexAMETHa sone AMS 09/27 00:00 :00 1 Cefdinir AMS 09/27 00:00 :00 1 DexAMETHa sone AMS 09/27 00:00 :00 1 Cefdinir AMS
--- NOTE | 2024-11-29 09:00 | US_ITS ---
FINAL REPORT CLINICAL HISTORY: LEFT ABNORMAL THYROID US --- LT THYROID NODULE -- SHANE BERMUDEZ FINDINGS: Ultrasound guided thyroid biopsy. HISTORY: Thyroid mass. PROCEDURE: After informed consent was obtained and a time-out was performed, the patient was prepped and draped in usual sterile fashion over the anterior neck. Utilizing local anesthesia and sterile technique with a 25-gauge needle, access to the lesion was obtained. Four passes were made. The patient received no conscious sedation. The patient tolerated procedure well and left the department in good condition. IMPRESSION: Status post ultrasound guided biopsy of a thyroid nodule without immediate complication. Reviewed, Interpreted and Dictated by Lay Renteria MD Transcribed by LARA Linares Authenticated and [facility]
== END 2024-11-29 23:59 | disposition home or self-care (01) ==
LOC: RAD 08:56
PROVIDERS: PCP Physician Assistant; Visit Provider Family Medicine
DX: E04.1 Nontoxic single thyroid nodule (principal)
CPT/HCPCS: 10005; 88173

== ENCOUNTER 2024-12-29 10:18 | Emergency (ER) | payer MEDICARE, OTHER, SELFPAY ==
--- OUTSIDE RECORDS SUMMARY | 2024-10-10 10:45 | XMS_ITS ---
Author Organization [facility] Address [address] [place] [id number] Care Team Providers Care Leather Sponger Name Role Phone Heladio Rosales Primary Care Provider Allergies Allergen (clinical drug ingredient) Drug/Non Drug Allergy documented on EMR Reaction Allergy Type Onset Date Status cefdinir Cefdinir AMS Drug Allergy Active dexamethasone DexAMETHasone AMS Drug Allergy Active Results Component Value Reference Range Notes P-Basic Metabolic Panel (BMP ) Reviewed date:10/11/2024 08:37:36 AM Interpretation:Cuong 10.5 Performing Lab: Notes/Report: Test performed by [facility] [address] [place], [place] [address] [place] [address] González King MD, Academic Advisor CLIA: [id number] Sodium 142 135-145 mmol/L Potassium 4.9 3.5-5.3 mmol/L Chloride 107 97-108 mmol/L CO2 25 22-32 mmol/L Glucose 90 65-99 mg/dL BUN 15 8-23 mg/dL Creatinine 0.81 0.50-1.00 mg/dL Calcium 10.5 8.6-10.4 mg/dL eGFR by Creatinine 71 >59 mL/min/1.73m2 P-Parathyroid Hormone (PTH) Intact Reviewed date:10/11/2024 08:37:36 AM Interpretation:95.0 Performing Lab: Notes/Report: Test performed by [facility] [address] [place], [place] [address] [employer] [place] [address] González King MD, Academic Advisor CLIA: [id number] Parathyroid Hormone (PTH) Intact 95.0 15.0-65. 0 pg/mL REASON FOR VISIT Increased Hallucination, Not Sleeping Medications Medication SIG (Take, Route, Frequency, Duration) Notes Start Date End Date Status Aspirin Adult Low Dose 81 MG 1 tablet Or ally Once a day Active Bisoprolol Fumarate 5 MG 1 tab(s) orally once a day Active Levothyroxine Sodium 25 MCG 1 tab(s) ora lly once a day for 90 days Active Repatha 140 MG/ML INJECT 140MG UNDER T HE SKIN EVERY 2 WEEKS Active B-12 1000 MCG 1 tab(s) orally once a day for 30 day(s) Active risperiDONE 0.25 MG 1 tablet Orally At B ed Time for 30 day(s) 09/09/2024 Active Omeprazole 40 MG 1 cap(s) Orally Once a day, prn for 30 days Active Memantine HCl 5 MG 1 tablet Orally twic e a day for 30 days Active Vitamin D3 1.25 MG (71584 UT) 1 capsule Orally for 30 day(s) Active Vital Signs Blood pressure systolic 130 mm Hg 10/11/19 25 Blood pressure diastolic 80 mm Hg 025 Heart Rate 71 /min 10/10/2024 Height 62 in 10/10/2024 Weight 165.6 lbs 10/10/2024 BMI 30.29 kg/m2 10/10/2024 Encounters Encounter Location Date Provider Diagnosis [facility] [address] [place] [address] 36 [facility] [address] [place] [phone] 10/10/2024 Heladio Rosales Altered mental statu s, [...] 6 Weeks, Reason: Provider Name:Heladio Meier er, 01/13/2025 02:15:00 PM, [address] [facility] 36 [facility], [address], [place], [phone], Progress Notes * JAGDISH MCCABEEDOB:1940 (84 yo F)Acc No.[id number]:10/10/2024 Progress Notes Patient: HECTOR JAIN Provider: Hleadio Rosales M.D. :1940 A ge:84 Y S ex:Female Date:10/10/2024 Address:[address] [place] [address], [id number] Subjective: * Chief Complaints: * 1 . Increased Hallucination, Not Sleeping. * HPI: N eurology: The pt is here today with c/o trouble going to sleep. Pt states she does not always sleep through the night. 84 year old female presents with c/o insomnia. E ndocrinology: Was referred to [facility] and was seen in May [...] stic Procedure: B ack Pain From Fall- [facility] ER 03/21/2020, Passed Out, Recent Fall- [facility] ER 05/20-. * Family History: F ather: [...] Medications: T aking Vitamin D3 1.25 MG (58228 UT) Capsule 1 capsule Orally , Taking [...] Examination: General Appearance: N AD, weight noted. HEENT: u nremarkable. Oral cavity: n o lesions, mucosa moist and WNL, no erythema. Neck: s upple, no lymphadenopathy. Chest: n ormal shape and expansion. Heart: R SR. Lungs: c lear to auscultation. Abdomen: soft and nontender. Neurologic Exam: I ntact, gait normal. Skin: n ormal, no rash. Peripheral pulses: n ormal . Back: mild dorsal kyphosis. Extremities: trace leg edema. Assessment: * Assessment: 1. [...] HG * Follow Up: 6 Weeks * Billing Information: * Visit Code: 68633 Office Visit, Est Pt., Level 4. * Procedure Codes: G2211 Complex e/m visit add on. 3075F SYST BP GE 130 - 139MM HG. 3079F DIAST BP 80-89 MM HG. * Electronic signature of Heladio Rosales MD on 12/29/2024 at 10:40 AM EDT Sign off status: Pending * Provider: Heladio Rosales M.D. Date: 0 10/10/2024 Generated for Jannettei ng/Facoryg/eTransmitting on: 0 12/29/2024 10:40 AM EDT History and Physical Notes * HPI (History [...]
--- OUTSIDE RECORDS SUMMARY | 2024-11-25 09:15 | XMS_ITS ---
Author Organization [facility] Address [address] [place] [address] 36 [facility] [address] [place] [phone] Care Team Providers Care Editor Producer Name Role Phone Heladio Rosales Primary Care Provider [phone] REASON FOR VISIT 2 month check Encounters Encounter Location Date Provider Diagnosis [facility] [address] [facility] 36 [facility] [address] [place] [phone] 11/25/2024 Heladio Rosales Plan Of Treatment Next Appt Details Provider Name:Heladio Meier er, 01/13/2025 02:15:00 PM, 12[address] [facility] 36 [facility], [address], [place], [phone], Progress Notes * JAGDISH MCCABEEDOB:1940 (84 yo F)Acc No.[id number]:11/25/2024 Progress Notes Patient: HECTOR JAIN Provider: Heladio Rosales M.D. :1940 A ge:84 Y S ex:Female Date:11/25/2024 Address:[address] [place] [phone] Subjective: * Chief Complaints: * 1 . 2 month check. * Medical History: Objective: * Vitals: Assessment: Plan: * Treatment: * Billing Information: * Visit Code: * Procedure Codes: * Electronic signature of Heladio Rosales MD on 12/29/2024 at 10:40 AM EDT Sign off status: Pending * Provider: Heladio Rosales M.D. Date: 0 11/25/2024 Generated for Barbara trinh/Luis/Khanh on: 0 12/29/2024 10:40 AM EDT
--- OUTSIDE RECORDS SUMMARY | 2024-12-09 11:30 | XMS_ITS ---
Author Organization [facility] Address [address] [facility] [address] [place] [phone] Care Team Providers Care Mobile Phone Salesperson Name Role Phone Heladio Rosales Primary Care Provider Sony Lilly Unavailable [phone] Allergies Allergen (clinical drug ingredient) Drug/Non Drug Allergy documented on EMR Reaction Allergy Type Onset Date Status cefdinir Cefdinir AMS Drug Allergy Active dexamethasone DexAMETHasone AMS Drug Allergy Active Results Component Value Reference Range Notes P-Basic Metabolic Panel (BMP ) Reviewed date:12/13/2024 09:58:11 AM Interpretation:cl 109, gluc 127 Performing Lab: Notes/Report: Test performed by [facility] [address] [place], [place] [address] [place] , [address], [place] [address] González King MD, Junior Marketing Associate CLIA: [id number] Sodium 143 135-145 mmol/L Potassium 4.3 3.5-5.3 mmol/L Chloride 109 97-108 mmol/L CO2 22 22-32 mmol/L Glucose 127 65-99 mg/dL BUN 14 8-23 mg/dL Creatinine 0.83 0.50-1.00 mg/dL Calcium 10.0 8.6-10.4 mg/dL eGFR by Creatinine 69 >59 mL/min/1.73m2 P-Calcium, Ionized Reviewed date:12/13/2024 09:58:11 AM Interpretation:5.44 Performing Lab: Notes/Report: Test performed by [facility] [address] [place], [place] [address] [place] , [address], [place] [address] González King MD, Junior Marketing Associate [place]: [id number] Calcium, Ionized 5.44 4.60-5.30 mg/dL REASON FOR [...] e a day for 30 days Active Omeprazole 40 MG 1 cap(s) Orally Once a day, prn for 30 days Active risperiDONE 0.25 MG 1 tablet Orally At B ed Time for 30 day(s) Active B-12 1000 MCG 1 tab(s) orally once a day for 30 day(s) Active Vitamin D3 1.25 MG (04834 UT) 1 capsule Orally for 30 day(s) Active Aspirin Adult Low Dose 81 MG 1 tablet Or ally Once a day Active Bisoprolol Fumarate 5 MG 1 tab(s) orally once a day Active Problems Problem Type SNOMED Code ICD Code Onset Dates Problem Status W/U Status Risk Notes Problem 804224487 BMI 30.0-30.9,ad ult (Z68.30) Active confirmed Vital Signs Blood pressure systolic 130 mm Hg 12/10/19 25 Blood pressure diastolic 74 mm Hg 025 Heart Rate 74 /min 12/09/2024 Height 62 in 12/09/2024 Weight 169.4 lbs 12/09/2024 BMI 30.98 kg/m2 12/09/2024 Encounters Encounter Location Date Provider Diagnosis [facility] [address] [facility] [address] [place] [address], [place] [phone] 12/09/2024 Sony Lilly Hypercalcemia E83.52 ; Mixed hyperlipidemia E78.2 ; [...] test results, Reason: Provider Name:Heladio Meier er, 01/13/2025 02:15:00 PM, [address], [address], [place], [place], [phone], Progress Notes * JAGDISH MCCABEEDOB:1940 (84 yo F)Acc No.[id number]:12/09/2024 Progress Notes Patient: HECTOR JAIN Provider: Elie Lilly M.D. :1940 A ge:84 Y S ex:Female Date:12/09/2024 Address:[address] [place], [place] [phone] Pcp:Heladio Rosales Subjective: * Chief Complaints: * 1 . Discuss thyroid. * HPI: H PI: 84 year old female presents with c/o Patient is here today for?Pt is here today to discuss her calcium level. She states it has been elevated at 10.5, 10.3 and 10.8 over the past 12 months. [facility]but her next [...] stic Procedure: B ack Pain From Fall- [facility] 03/21/2020, Passed Out, Recent Fall- [facility] 05/20-. * Family History: F [...] Medications: T aking Vitamin D3 1.25 MG (73795 UT) Capsule 1 capsule Orally , Taking [...] Temp: 98.4, BP: 130/74, HR: 74, Nurse: [facility], Ht: 62, BMI:30.98. * Examination: G eneral Examination: General Appearance: N AD. Heart: R SR. Lungs: c lear to auscultation. Neurologic Exam: I ntact, gait normal. Extremities: n o leg edema. Assessment: * Assessment: 1. H ypercalcemia - E83.52 (Primary) 2 . M ixed hyperlipidemia - E78.2 3 . V entricular tachycardia - I47.20 4 . B [place] 30.0-30.9,adult - Z68.30 Plan: * Treatment: Value [...] ia phone to report test results * Billing Information: * Visit Code: 60513 Office Visit, Est Pt., Level 3. * Procedure Codes: G2211 Complex e/m visit add on. G8420 BMI<30 AND >=22 CALC & DOCU. 3075F SYST BP GE 130 - 139MM HG. 3078F DIAST BP < 80 MM HG. * Electronic signature of Natasha Lilly MD on 12/29/2024 at 10:40 AM EDT Sign off status: Pending * Provider: Elie Lilly M.D. Date: 0 12/09/2024 Generated for Barbara trinh/Luis/Magnoliaitting on: 0 12/29/2024 10:40 AM EDT History and Physical Notes * HPI (History of Present Illness) Category Sub-Category Detail Notes Category Not es HPI Patient is here today for Pt is here today to discuss her calcium level. She states it has been elevated at 10.5, 10.3 and 10.8 over the past 12 months. [facility]but her next blood draw is in 6 months and her is concerned that she may be dehydrated Examination Category Sub-Category Detail Notes Category Not es General Examination Heart: RSR Lungs: clear to auscultatio n Extremities: no leg edema General Appearance: NAD Neurologic Exam: Intact, gait normal
[2024-12-29] VITALS (7 sets, daily range): BP systolic 166–215; BP diastolic 62–84; PULSE 61–79; RESP 16; TEMP 36.6–36.7; O2SAT 81–100; BMI 31.7
[2024-12-29 10:31] LABS: Microscopic, Urine URINE MICROSCOPIC (MICROSCOPIC)
[2024-12-29 10:33] LABS: Appearance,Urine CLEAR (Clear); Bilirubin,Urine Negative (Negative); Blood, Urine Negative (Negative); Color,Urine YELLOW (Yellow); Glucose,Urine (UA) Negative (Negative); Ketones,Urine Negative (Negative); Leukocyte Esterase,Urine 1+ (Negative); Nitrate,Urine Negative (Negative); Protein,Urine Negative (Negative); Specific Gravity, Urine 1.015 (1.005-1.030); Urobilinogen,Urine 0.2 EU/dl (0.2)
--- NOTE | 2024-12-29 10:38 | PC.NURSE ---
patient provided warm blanket
--- OUTSIDE RECORDS SUMMARY | 2024-12-29 10:40 | XMS_ITS | Patient Health Record ---
Author Organization [facility] Address [address] [place] [id number] Care Team Providers Care Instructional Paraprofessional Name Role Phone Heladio Rosales Primary Care Provider Sony Lilly Unavailable [phone] Danitza Lion Unavailable [phone] Estefania Raines Unavailable [phone] Allergies Allergen (clinical drug ingredient) Drug/Non Drug Allergy documented on EMR Reaction Allergy Type Onset Date Status cefdinir Cefdinir AMS Drug Allergy Active dexamethasone DexAMETHasone AMS Drug Allergy Active Results Component Value Reference Range Notes Urinalysis - Inhouse Reviewed date:01/02/2024 02:30:44 PM Interpretation: Performing Lab: Notes/Report: Color/Clarity yellow Leuk 1+ Nitrite neg Urobili 16 Protein neg pH 6.5 Blood neg Sp. Gr. 1.020 Ketone trace Bili neg Gluc neg CBC Fingerstick (in house) Reviewed date:01/02/2024 02:30:24 PM Interpretation: Performing Lab: Notes/Report: wbc 5.7 3.5 - 10 lym 18.7 15 - 50 mid 4.8 2 - 15 gran 76.5 35 - 80 rbc 4.35 3.5 - 5.5 hgb 13.1 11.5 - 16.5 hct 40.5 35 - 55 mcv 92.9 75 - 100 mch 30.1 25 - 35 mchc 32.4 31 - 38 plat 207 100 - 400 Glycohemoglobin A1c (in hous e) Reviewed date:01/15/2024 04:42:51 PM Interpretation:5.5% Performing Lab: Notes/Report: 5.5% glycohemoglobin 5.5% 5 - 6.5 % P-Comprehensive Metabolic Pa see (CMP) Reviewed date:01/15/2024 04:44:03 PM Interpretation:Ca++10.5 Performing Lab: Notes/Report: Test performed by [facility] [address] [place] [address] , [address], [place] [address] González King MD, Manager Winter CLIA: [id number] Sodium 141 135-145 mEq/L Potassium 4.6 3.5-5.3 mEq/L Chloride 106 97-108 mEq/L CO2 26 22-32 mEq/L Glucose 93 65-99 mg/dL BUN 18 8-23 mg/dL Creatinine 0.81 0.50-1.00 mg/dL Calcium 10.5 8.6-10.4 mg/dL eGFR by Creatinine 72 >59 mL/min/1.73m2 Protein 6.5 6.0-8.3 g/dL Albumin 4.5 3.5-5.3 g/dL Alkaline Phosphatase 75 35-121 IU/L ALT (SGPT) 16 <5-47 IU/L AST (SGOT) 21 <5-40 IU/L Bilirubin, Total 0.4 <0.2-1.2 mg/dL A/G Ratio 2.3 1.1-2.5 mg/dL P-Culture, Urine Reviewed date:01/15/2024 04:43:13 PM Interpretation:No growth Performing Lab: Notes/Report: Test performed by [facility] [address] [place] [address] , [address], [place] [address] González King MD, Manager Winter CLIA: [id number] Specimen Source Urine - Void Culture, Urine See Below Final Report : No growth P-Lipid Panel Reviewed date:01/15/2024 04:43:40 PM Interpretation:LDL 108;HDL 62;TG163 Performing Lab: Notes/Report: Test performed by [facility] [address] [place] [address] Carmen Tapia, [address], [place] [id number] González King MD, Manager Winter CLIA: [id number] Cholesterol 203 <200 mg/dL Triglycerides 163 <150 mg/dL HDL Cholesterol 62 >39 mg/dL Cholesterol / HDL Ratio 3.27 0.00-4.44 Ratio Non-HDL Cholesterol 141 <130 mg/dL LDL Cholesterol (Calculation) 108 <130 mg/dL LDL Cholesterol Levels* Less than 100 mg/dL Optimal 100 to 129 mg/dL Near Optimal/ Above Optimal 130 to 159 mg/dL Borderline High 160 to 189 mg/dL High 190 mg/dL and above Very High * Categories as recommended by the 2004 ATPIII guidelines LDL/HDL Ratio 1.7 <3.3 Ratio ____ LDL Cholesterol Patient History ____ Test Date: 01/02/2024 LDL Results: 108 Units: mg/dL % Change: - ____ P-TSH Reviewed date:01/15/2024 04:44:24 PM Interpretation:2.07 Performing Lab: Notes/Report: Test performed by [facility] [address] [place] [address] [place] [address] González King MD, Manager Winter CLIA: [id number] TSH 2.07 0.43-5.25 mU/L P-Vitamin B12 Reviewed date:01/12/2024 04:39:33 PM Interpretation:1407 Performing Lab: Notes/Report: Test performed by [facility] [address] [place] [address] Moris Tapia, [place] [address] González King MD, Manager Winter CLIA: [id number] Vitamin B12 0114 679-7125 pg/mL CBC Fingerstick (in house) Reviewed date:03/21/2024 11:39:50 AM Interpretation: Performing Lab: Notes/Report: wbc 7.1 3.5 - 10 lym 14.9 15 - 50 mid 4.4 2 - 15 gran 80.7 35 - 80 rbc 4.59 3.5 - 5.5 hgb 13.6 11.5 - 16.5 hct 41.9 35 - 55 mcv 91.2 75 - 100 mch 29.6 25 - 35 mchc 32.5 31 - 38 plat 198 100 - 400 P-Basic Metabolic Panel (BMP ) Reviewed date:07/26/2024 02:36:21 PM Interpretation:Cr 1.02, Ca 10.7, gfr 54 Performing Lab: Notes/Report: Test performed by [facility] [address] [place] [address] , [place] [address] González King MD, Manager Winter CLIA: [id number] Sodium 141 135-145 mmol/L Potassium 4.7 3.5-5.3 mmol/L Chloride 105 97-108 mmol/L CO2 25 22-32 mmol/L Glucose 95 65-99 mg/dL BUN 19 8-23 mg/dL Creatinine 1.02 0.50-1.00 mg/dL Calcium 10.7 8.6-10.4 mg/dL eGFR by Creatinine 54 >59 mL/min/1.73m2 P-Calcium, Ionized Reviewed date:07/26/2024 02:36:21 PM Interpretation:5.56 Performing Lab: Notes/Report: Test performed by [facility] [address] [place] [address] , [place] [id number] González King MD, Manager Winter CLIA: [id number] Calcium, Ionized 5.56 4.60-5.30 mg/dL P-Parathyroid Hormone (PTH) Intact Reviewed date:07/26/2024 02:36:21 PM Interpretation:103 Performing Lab: Notes/Report: Test performed by [facility] [address] [place] [address] , [place] [address] González King MD, Manager Winter CLIA: [id number] Parathyroid Hormone (PTH) Intact 103.0 15.0-65.0 pg/mL Urinalysis - Inhouse Reviewed date:07/31/2024 04:23:03 PM Interpretation: Performing Lab: Notes/Report: Color/Clarity yellow Leuk 1+ Nitrite neg Urobili 16 Protein 1+ pH 5.5 Blood neg Sp. Gr. 1.025 Ketone neg Bili neg Gluc neg P-Culture, Urine Reviewed date:08/02/2024 11:04:06 AM Interpretation:suggests contamination Performing Lab: Notes/Report: Test performed by [facility] [address] [place] [address] , [address], [place] [address] González King MD, Manager Winter CLIA: [id number] Specimen Source Urine - Void Culture, Urine See Below Final Report : 10,000-15,000 CFU/ml Mixed Gram Positive and Negative Organisms Three or more organisms present likely representing contamination during collection by patient's urogenital, skin, and/or fecal nishi. Organism identification and sensitivity assessment are not recommended. Specimen recollection is recommended. H-Culture, Blood Reviewed date:10/02/2024 12:52:56 PM Interpretation:No growth Performing Lab: Notes/Report: CUBLD NO GROWTH AFTER 5 DAYS CUBLD NO GROWTH AFTER 5 DAYS H-UA Reviewed date:08/26/2024 11:08:33 PM Interpretation: Performing Lab: Notes/Report: UCOL YELLOW Yellow UAPP CLEAR Clear UPH 6.0 5.0-8.5 USG >= 1.030 1.005-1.030 UPRO Negative Negative UGLU Negative Negative UKET Negative Negative UBLD Negative Negative UNIT Negative Negative UBIL Negative Negative UURO 0.2 0.2 EU/dl ULEU 2+ Negative UMICU URINE MICROSCOPIC MICROSCOPIC URBC None 0-3 #/hpf UWBC 10-20 0-3 #/hpf USQEPI Occasional 0-5 #/hpf UBACT Trace NONE /lpf H-Urine Culture and Sensitiv ity Reviewed date:08/28/2024 03:47:55 PM Interpretation:Multiple organisms, suggests contamination Performing Lab: Notes/Report: CUU Multiple organisms, suggests contamination. Pulmonary Function Before & After Reviewed date:07/02/2024 08:28:22 AM Interpretation: Performing Lab: Notes/Report: H-CBC Reviewed date:10/01/2024 08:22:47 AM Interpretation:wbc 4.4, MO 9.8% Performing Lab: Notes/Report: WBC 4.4 4.8-10.8 K/mm3 RBC 4.42 4.20-5.40 M/mm3 HGB 12.7 12.2-16.2 g/dL HCT 39.7 37.0-47.0 % MCV 89.8 81-99 fl MCH 28.7 27.0-31.2 pg MCHC 32.0 31.8-35.4 g/dL RDW 13.4 11.5-17.5 % PLT 247 142-424 K/mm3 MPV 9.9 7.4-10.4 fl NE% 69.7 37.0-80.0 % LY% 17.3 10-50 % MO% 9.8 1.7-9.3 % EO% 1.8 0.1-12.0 % BA% 0.9 0.1-2.0 % NE# 3.1 1.8-7.8 K/mm3 LY# 0.8 0.7-4.5 K/mm3 MO# 0.4 0.1-1.0 K/mm3 EO# 0.1 0.0-0.4 K/mm3 BA# 0.0 0-0.2 K/mm3 Urinalysis - Inhouse Reviewed date:06/21/2024 03:08:39 PM Interpretation: Performing Lab: Notes/Report: Color/Clarity yellow/clear Leuk 1+ Nitrite neg Urobili 1.6 Protein 1+ pH 6.0 Blood trace-intact Sp. Gr. 1.025 Ketone trace Bili neg Gluc neg CBC Fingerstick (in house) Reviewed date:06/21/2024 03:08:45 PM Interpretation: Performing Lab: Notes/Report: wbc 6.3 3.5 - 10 lym 27.5% 15 - 50 mid 6.3% 2 - 15 gran 66.2% 35 - 80 rbc 4.72 3.5 - 5.5 hgb 14.0 11.5 - 16.5 hct 43.9 35 - 55 mcv 93.1 75 - 100 mch 29.6 25 - 35 mchc 31.8 31 - 38 plat 126 100 - 400 P-Culture, Urine Reviewed date:07/01/2024 10:54:03 AM Interpretation:Not completed Performing Lab: Notes/Report: Not completed H-CMP Reviewed date:10/01/2024 08:22:47 AM Interpretation:gfr 53, Ca 10.8 Performing Lab: Notes/Report: NA 140 136-145 mmol/L K 4.2 3.5-5.1 mmoL/L CL 106 98-107 mmol/L CO2 27 22.0-30.0 mmol/L GAP 11.2 5-15 mEq/L BUN 16 7-17 mg/dl CREATT 1.00 0.52-1.04 mg/dl CRCLE 50 50-200 mL/min GFRAA 64 >60 ML/MIN EGFR 53 >60 ml/min GLU 98 74-100 mg/dl CA 10.8 8.4-10.2 mg/dl BILIT 0.5 0.2-1.3 mg/dl AST 26 14-36 U/L ALT 19 12-78 U/L TP 7.5 6.3-8.2 g/dl ALB 4.8 3.5-5.0 g/dl GLOB 2.7 1.3-3.2 g/dL AGRATIO 1.8 1.1-1.8 ALP 82 38-126 U/L Urinalysis - Inhouse Reviewed date:08/26/2024 11:09:03 PM Interpretation: Performing Lab: Notes/Report: Color/Clarity yellow/clear Leuk 1+ Nitrite neg Urobili 1.6 Protein 1+ pH 5.5 Blood neg Sp. Gr. 1.025 Ketone 1+ Bili 1+ Gluc neg P-Culture, Urine Reviewed date:08/28/2024 09:55:50 AM Interpretation:not performed, see TE Performing Lab: Notes/Report: not performed, see TE P-Basic Metabolic Panel (BMP ) Reviewed date:10/11/2024 08:37:36 AM Interpretation:Cuong 10.5 Performing Lab: Notes/Report: Test performed by [facility] [address] [place] [address] , [address], [place] [address] González King MD, Manager Winter CLIA: [id number] Sodium 142 135-145 mmol/L Potassium 4.9 3.5-5.3 mmol/L Chloride 107 97-108 mmol/L CO2 25 22-32 mmol/L Glucose 90 65-99 mg/dL BUN 15 8-23 mg/dL Creatinine 0.81 0.50-1.00 mg/dL Calcium 10.5 8.6-10.4 mg/dL eGFR by Creatinine 71 >59 mL/min/1.73m2 P-Parathyroid Hormone (PTH) Intact Reviewed date:10/11/2024 08:37:36 AM Interpretation:95.0 Performing Lab: Notes/Report: Test performed by [facility] [address] [place] [address] , [address], [place] [address] González King MD, Manager Winter CLIA: [id number] Parathyroid Hormone (PTH) Intact 95.0 15.0-65.0 pg/mL P-Basic Metabolic Panel (BMP ) Reviewed date:12/13/2024 09:58:11 AM Interpretation:cl 109, gluc 127 Performing Lab: Notes/Report: Test performed by [facility] [address] [place] [address] , [place] [address] González King MD, Manager Winter CLIA: [id number] Sodium 143 135-145 mmol/L Potassium 4.3 3.5-5.3 mmol/L Chloride 109 97-108 mmol/L CO2 22 22-32 mmol/L Glucose 127 65-99 mg/dL BUN 14 8-23 mg/dL Creatinine 0.83 0.50-1.00 mg/dL Calcium 10.0 8.6-10.4 mg/dL eGFR by Creatinine 69 >59 mL/min/1.73m2 P-Calcium, Ionized Reviewed date:12/13/2024 09:58:11 AM Interpretation:5.44 Performing Lab: Notes/Report: Test performed by [facility] [address] [place] [address] , [address], [place] [id number] González King MD, Manager Winter CLIA: [id number] Calcium, Ionized 5.44 4.60-5.30 mg/dL Fine needle aspiration : Thy roid Reviewed date:12/06/2024 04:19:49 PM Interpretation:pathology negative for malignant cells Performing Lab: Notes/Report: pathology negative for malignant cells Urinalysis - Inhouse Reviewed date:09/30/2024 05:19:47 PM Interpretation:1+ leuk Performing Lab: Notes/Report: 1+ leuk Color/Clarity dark yellow Leuk 1+ Nitrite neg Urobili 1.6 Protein neg pH 6.0 Blood neg Sp. Gr. 1.030 Ketone neg Bili neg Gluc neg H-Urine Culture and Sensitiv ity Reviewed date:10/01/2024 08:22:47 AM Interpretation:No growth Performing Lab: Notes/Report: CUU NO GROWTH AFTER 2 DAYS P-Culture, Urine Reviewed date:10/01/2024 08:22:47 AM Interpretation:No growth Performing Lab: Notes/Report: Test performed by [facility] [address] , [address], [place] [address] González King MD, Manager Winter CLIA: [id number] Specimen Source Urine - Void Culture, Urine See Below Final Report : No growth Ultrasound: Thyroid Reviewed date:11/14/2024 01:00:09 PM Interpretation:US guided FNA recommended Performing Lab: Notes/Report: US guided FNA recommended Medications Medication SIG (Take, Route, Frequency, Duration) Notes Start Date End Date Status B-12 1000 MCG 1 tab(s) orally once a day for 30 day(s) Active Vitamin D3 1.25 MG (34333 UT) 1 capsule Orally for 30 day(s) [...] B ed Time for 30 day(s) Active Immunizations Vaccine Route Administration Date Status Comme nts COVID 19 Moderna Unknown 09/04/2020 Administered COVID 19 Moderna IM Intramuscular 10/02/2020 Administered COVID 19 Moderna Unknown 05/27/2021 Administered COVID 19 Moderna Unknown 11/04/2021 Administered DT, 7 YEARS OR OLDER Unknown 04/21/2000 Administered DT, 7 YEARS OR OLDER Unknown 04/21/2000 Administered Fluzone High Dose (65yr and older) IM Intramuscular 05/20/2019 Administered Fluzone High Dose (65yr and older) Unknown 04/21/2020 Administered Fluzone High Dose (65yr and older) IM Intramuscular 05/11/2021 Administered Fluzone High Dose (65yr and older) IM Intramuscular 05/10/2022 Administered Fluzone High Dose (65yr and older) IM Intramuscular 04/24/2023 Administered PNEUMOVAX 23 VACCINE IM Intramuscular 11/22/2017 Administe red Prevnar (PCV13) IM Intramuscular 09/01/2014 Administered Tetanus Tdap-Adacel (over 7yrs) Unknown 03/18/2013 Administered Tetanus Tdap-Adacel (over 7yrs) IM Intramuscular 11/22/2017 Administered xAdministration of injection Unknown 03/18/2013 Administered xFlu shot- 6months-36 months of gag-PLOG-SUGY-trivale nt Unknown 04/27/2010 Administered xFlu shot-36 months and older IM Intramuscular 05/16/2007 Administered 05/03/2007 pt received the flu shot from [facility] health department Problems Problem Type SNOMED Code ICD Code Onset Dates Problem Status W/U Status Risk Notes Problem 45436768 Essential (prima ry) hypertension (I10) Active confirmed Problem 204953903 Vitamin B12 deficiency (E53.8) Active confirmed Problem 18081626 Hypercalcemia (E83.52) Active confirmed Problem 28320716 Essential hypertension (I10) Active confirmed Problem Osteopenia (572229863) Osteopenia (M85.80) Active confirmed Problem Altered mental s appiah (R41.82) Active confirmed Problem 362481990 BMI 30.0-30.9,ad ult (Z68.30) Active confirmed Problem 85462712 Memory loss (R41.3) Active confirmed Problem 496232634 Mixed hyperlipid emia (E78.2) Active confirmed Problem 1513141 Vasomotor rhinit is (J30.0) Active confirmed Problem 291078853 Encounter for immunization (Z23) Active confirmed Problem 71620617 Arteriosclerotic cardiovascular disease (I25.10) Active confirmed Problem Hyperlipidemia (06283579) Hyperlipidemia, unspecified (E78.5) Active confirmed Problem 462168273 Status cardiac pacemaker (Z95.0) Active confirmed Problem 714387972 Acquired hypothyroidism (E03.9) Active confirmed Problem 58026171 Hyperlipidemia, unspecified hyperlipidemia type (E78.5) Active confirmed Problem 241037207625990 Carotid stenosis , bilateral (I65.23) Active confirmed Problem 489731375 Altered mental status, unspecified altered mental status type (R41.82) Active confirmed Problem 10510421 Hyperparathyroid ism (E21.3) Active confirmed Problem 283429121 Cardiac dysrhyth sunshine, unspecified (I49.9) Active confirmed Problem 15525699 Encephalopathy (G93.40) Active confirmed Problem 04117586 Allergic rhiniti s, unspecified allergic rhinitis trigger, unspecified rhinitis seasonality (J30.9) Active confirmed Problem 33397547869819079 Arthropathy of both knees (M17.0) Active confirmed Problem 0612353268572 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) Active confirmed Problem 87129290 Fibrocystic andrew st disease (FCBD), unspecified laterality (N60.19) Active confirmed Problem 756521569839938 Osteoarthritis o f left knee, unspecified osteoarthritis type (M17.12) Active confirmed Problem 959119889 Abnormal thyroid ultrasound (R93.89) Active confirmed Problem 606826716 Acute alteration in mental status (R41.82) Active confirmed Problem 289272428 Gastroesophageal reflux disease, unspecified whether esophagitis present (K21.9) Active confirmed Problem 35997470 V tach (I47.2) Active confirmed Problem 42806998 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 Vital Signs Heart Rate 74 /min 12/09/2024 Blood pressure diastolic 74 mm Hg 12/09/2024 Height 62 in 12/09/2024 Blood pressure systolic 130 mm Hg 12/09/2024 Weight 169.4 lbs 12/09/2024 BMI 30.98 kg/m2 12/09/2024 Encounters Encounter Location Date Provider Diagnosis [facility] [address] [place], [place] [id number] 01/02/2024 Danitza Lion Altered mental state R41.82 ; Weakness R53.1 ; Arteriosclerotic cardiovascular disease I25.10 ; Mixed hyperlipidemia E78.2 ; Essential hypertension I10 ; Acquired hypothyroidism E03.9 ; Diabetes mellitus screening Z13.1 and Memory loss R41.3 [facility] [address] [facility] [address] [place], [place] [id number] 01/10/2024 Estefania Raines Altered mental state R41.82 ; Weakness R53.1 ; Arteriosclerotic cardiovascular disease I25.10 ; Memory loss R41.3 and Vitamin B12 deficiency E53.8 [facility] [address] [place], [place] [id number] 03/07/2024 Estefania Thomascale Gastroesophageal ref lux disease, unspecified whether esophagitis present K21.9 [facility] [address] [place], [place] [id number] 03/21/2024 Estefania Thomascale Acute URI J06.9 and COVID-19 U07.1 [facility] [address] [place], [place] [id number] 06/12/2024 Estefania Thomascale Urinary tract infect ion, site not specified N39.0 ; Unspecified Escherichia coli [E. coli] as the cause of diseases classified elsewhere B96.20 and Shortness of breath on exertion R06.02 [facility] [address] [place], [place] [id number] 06/21/2024 Estefania Thomascale Acute UTI N39.0 and Chronic cough R05.3 [facility] [address] [place], [place] [id number] 07/25/2024 Estefania Thomascale Renal insufficiency N28.9 ; Acute UTI N39.0 ; Hypercalcemia E83.52 and Confusion R41.0 [facility] [address] [place] [id number] 07/31/2024 Estefania Thomascale Urinary tract infect ion N39.0 [facility] [address] [facility] [address] [place] [id number] 08/23/2024 Estefania Olu Confusion R41.0 [facility] [address] [facility] [address] [place] [id number] 09/09/2024 Heladio Rosales Acute alteration in mental status R41.82 and 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 [facility] [address] [facility] [address] [place] [id number] 10/10/2024 Heladio Rosales Altered mental statu s, unspecified altered mental status type R41.82 ; 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 and Hypercalcemia E83.52 [facility] [address] [place] [id number] 12/09/2024 Sony [place] Hypercalcemia E83.52 ; Mixed hyperlipidemia E78.2 ; Ventricular tachycardia I47.20 and BMI 30.0-30.9,adult Z68.30 [facility] [address] [place] [id number] 09/23/2024 Heladio Rosales Arteriosclerotic cardiovascular disease I25.10 ; 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 ; Essential hypertension I10 ; Acquired hypothyroidism E03.9 and Status cardiac pacemaker Z95.0 [facility] [address] [place] [id number] 09/27/2024 Estefania Crowdy Dysuria R30.0 ; Alte red mental status, unspecified altered mental status type R41.82 ; Dehydration E86.0 ; Unspecified fall, initial encounter W19.XXXA and Unspecified place in unspecified non-institutional (private) residence as the place of occurrence of the external cause Y92.009 [facility] [address] [place], [place] [id number] 01/12/2024 Estefania Crowdy [facility] [address] [place] [id number] 06/25/2024 Estefania Crowdy [facility] [address] [place] [id number] 07/26/2024 Estefania Crowdy Hypercalcemia E83.52 [facility] [address] [place] [id number] 08/20/2024 Estefania Crowdy [facility] [address] [place] [id number] 08/26/2024 Estefania Crowdy Confusion R41.0 [facility] [address] [place] [id number] 09/05/2024 Heladio Rosales [facility] [address] [place] [id number] 09/06/2024 Heladio Rosales [facility] [address] [place] [id number] 09/09/2024 Heladio Rosales [facility] [address] [place] [id number] 10/01/2024 Estefania Raines [facility] [address] [place] [id number] 10/07/2024 Heladio Rosales [facility] [address] [place] [id number] 10/11/2024 Heladio Rosales [facility] [address] [place] [id number] 10/25/2024 Heladio Rosales [facility] [address] [place] [id number] 11/14/2024 Heladio Rosales [facility] [address] [place] [id number] 12/05/2024 Heladio Rosales [facility] [address] [place] [id number] 12/13/2024 Sony Lilly Assessments Encounter Date Diagnosis (ICD Code) Assessment Notes Treatment Notes Treatment Clinical Notes Section Notes 01/02/2024 Altered mental state (ICD-10 - R41.82) possibilly could be SE of Memantine 01/02/2024 Weakness (ICD-10 - R53.1) discussed healthy eating and drinking more water and less coffee 01/10/2024 Altered mental state (ICD-10 - R41.82) possibilly could be SE of Memantine, she feels she is better but her does not, will discuss with Dr. Rosales. 01/10/2024 Weakness (ICD-10 - R53.1) Improved. 03/07/2024 Gastroesophageal reflux disease, unspecified whether esophagitis present (ICD-10 - K21.9) Patient only has this occasionally so will use prn. 03/21/2024 Acute URI (ICD-10 - J06.9) We are out of covid tests. They are going to go home and get a home test and check and will call back. The hospital is out of rapid tests as well. Will give an order for a respiratory panel in case the home test is negative. She has cough medication at home and thinks she has an inhaler as well. 03/21/2024 COVID-19 (ICD-10 - U07.1) Patient's son called back and home test was positive. Her renal function was normal at last lab check. Will go ahead and start on paxlovid. , Fluids, rest, supportive measures for fever and symptoms relief, discussed covid vitamins and isolation period. 06/12/2024 Urinary tract infection, site not specified (ICD-10 - N39.0) Urine culture was positive for E. Coli which is not covered by the zithromax they gave her in the ER. Will start on cefdinir. 06/12/2024 Unspecified Escherichia coli [E. coli] as the cause of diseases classified elsewhere (ICD-10 - B96.20) Will recheck a U/A and culture once finished with abx. 06/21/2024 Acute UTI (ICD-10 - N39.0) 06/21/2024 Chronic cough (ICD-10 - R05.3) Awaiting PFT's. 07/25/2024 Renal insufficiency (ICD-10 - N28.9) 07/25/2024 Acute UTI (ICD-10 - N39.0) Urine culture returned showing no growth. Patient states she has a few days of abx left. She is much better. Will finish abx and then repeat a U/A and culture. 07/26/2024 Hypercalcemia (ICD-10 - E83.52) 07/31/2024 Urinary tract infection (ICD-10 - N39.0) 08/23/2024 Confusion (ICD-10 - R41.0) 09/09/2024 Acute alteration in mental status (ICD-10 - R41.82) 09/09/2024 Senile dementia (ICD-10 - F03.90) 09/23/2024 Arteriosclerotic cardiovascular disease (ICD-10 - I25.10) 09/23/2024 Senile dementia (ICD-10 - F03.90) continue current therapy 09/27/2024 Dysuria (ICD-10 - R30.0) Patient's son would like a culture sent out from our office but would like one done in the lab as well. 09/27/2024 Altered mental status, unspecified altered mental status type (ICD-10 - R41.82) 10/10/2024 Altered mental status, unspecified altered mental status type (ICD-10 - R41.82) 10/10/2024 Senile dementia (ICD-10 - F03.90) 12/09/2024 Hypercalcemia (ICD-10 - E83.52) 12/09/2024 Mixed hyperlipidemia (ICD-10 - E78.2) 12/09/2024 Ventricular tachycardia (ICD-10 - I47.20) 10/10/2024 Hypercalcemia (ICD-10 - E83.52) 09/27/2024 Dehydration (ICD-10 - E86.0) Patient has not been drinking at home. Will give a liter of normal saline today. 09/23/2024 Essential hypertension (ICD-10 - I10) 08/26/2024 Confusion (ICD-10 - R41.0) 07/25/2024 Hypercalcemia (ICD-10 - E83.52) 06/12/2024 Shortness of breath on exertion (ICD-10 - R06.02) She saw cardiology today and they did not think it was caused by her heart. She would rather have PFT's before scheduling with the vmware systems administrator. 01/10/2024 Arteriosclerotic cardiovascular disease (ICD-10 - I25.10) 01/02/2024 Arteriosclerotic cardiovascular disease (ICD-10 - I25.10) 01/02/2024 Mixed hyperlipidemia (ICD-10 - E78.2) 01/10/2024 Memory loss (ICD-10 - R41.3) Will continue memantine for now and discuss with Dr. Rosales. 07/25/2024 Confusion (ICD-10 - R41.0) Resolved. 09/23/2024 Acquired hypothyroidism (ICD-10 - E03.9) 09/27/2024 Unspecified fall, initial encounter (ICD-10 - W19.XXXA) 12/09/2024 BMI 30.0-30.9,adult (ICD-10 - Z68.30) 09/27/[address] in unspecified non-institutional (private) residence as the place of occurrence of the external cause (ICD-10 - Y92.009) 01/10/2024 Vitamin B12 deficiency (ICD-10 - E53.8) All other labs were unremarkable, will get a B12 level 09/23/2024 Status cardiac pacemaker (ICD-10 - Z95.0) 01/02/2024 Essential hypertension (ICD-10 - I10) 01/02/2024 Acquired hypothyroidism (ICD-10 - E03.9) 01/02/2024 Diabetes mellitus screening (ICD-10 - Z13.1) 01/02/2024 Memory loss (ICD-10 - R41.3) 01/02/2024 Other will send urine for culture Plan Of Treatment Pending Test Test Name Order Date H-CBC 09/27/2024 H-COVIDPANEL 03/21/2024 H-CMP 09/27/2024 Next Appt Details Provider Name:Heladio Hernández Co er, 01/13/2025 02:15:00 PM, [address] [facility] [address], [address], [place], [place], [id number], Insurance Providers Payer Name Payer Address Payer Phone Subscriber Number Group Number Insured Name Patient Relationship to Insured Coverage Start Date Coverage End Date [employer] (MEDICAR E) [address] [address] [place] [address] [phone] [id number] HECTOR MEJIA Self - patient is the insured Medications Administered Medication Instructions Date of Administration Dosage Notes B-12 05/17/2016 1 mL B-12 08/14/2019 1 mL Medical (General) History Medical History History ICD Code Hypertension LT Carotid Stenosis 20-49% Heart Cath, Dr. Alvaraod, CAD, 08/17/2010 MRI/MRA, 08/2012 Surgical History Surgery Date(Month/Year) Total Hysterectomy Tonsillectomy Carpal Tunnel 03/2006 Forehead Skin Lesions Removed 08/2018 Bilateral Cataract Removal 06/2017 Pacemaker-Dr Cohen 12/2020 left knee injection, Dr. Luna 05/12/2022 left knee replacement, Dr. Luna 05/08/20 Hospitalization History Reason Date(Month/Year) Passed Out, Recent Fall- [facility] ER 05/20- Back Pain From Fall- [facility] ER 03/21/2020
--- OUTSIDE RECORDS SUMMARY | 2024-12-29 10:40 | XMS_ITS | Data Portability ---
Author Organization [facility] ANNA Alvarez MCINTYRE CLOSED Address [address] [place] [address] [address] [place] [address] Assessment No assessment recorded. Plan of Treatment Reminders Order Date Submit Date Provider Last Modified By Organization Details Last Modified Time Details Appointments NEW PATIENT 2024 10:20A M JASON ZHOU MD Not available Not available Not available Lab PTH (parathy roid hormone) , intact + calcium, serum or plasma [email or web address] [facility] [address] [facility], [address] [place] [address], [id number], 11/08/2024 10:53:19 PTH (parathy roid hormone) , intact + calcium, serum or plasma 2024 025 [facility], [address] [place] [address], [phone], 08/08/2024 14:50:22 vitamin D, 25-hydro xy, total, serum 2024 025 [facility], [address] [place] [address], [phone], 08/08/2024 14:50:23 phosphor us, serum or plasma 2024 025 [facility], [address] [place] [address], [address], 08/08/2024 14:56:34 CMP, serum or plasma 2024 025 [facility], [address] [place] [address], [address], 08/08/2024 14:56:32 magnesiu m, QN, serum or plasma 2024 025 [facility], [address] [place] [address], [address], 08/08/2024 14:56:35 TSH, serum or plasma 2024 025 [facility], [address] [place] [address], [phone], 08/08/2024 14:39:25 Referral None recorded . Procedures None recorded . Surgeries None recorded . Imaging None recorded . Medication Orders None recorded . Patient TargetsNo targets recorded. Patient InstructionsNo instructions recorded. Reason for Referral None Reported. Results Created Date Observation Date Name Description Value Unit Range Abnormal Flag Note LastModifiedBy Organization Detail LastModifiedTime 08/08/1908/08/2024 TSH TSH 1.970 u[IU] /mL 0.270- 4.200 normal Not Available [address], [address], 08/08/2024 14:39:24 08/08/1908/08/2024 PTH, INTAC T WITH CA PTH, intact [...] ===== ===== ===== ===== ==== Not Available [facility] [address] [place], [address], 08/08/2024 14:56:44 08/08/19 25 08/08/2024 PTH, INTAC T WITH CA calcium 10.7 mg/dL 8.6-10 .2 high Not Available [facility] [address] [place], [address], 08/08/2024 14:56:44 08/08/19 25 08/08/2024 VITAM IN D 25-OH vitamin D 25-oh, total 27 NG/mL >=30 NG/mL abnormal Not Available [facility] [address] [place] [address], [address], 08/08/2024 14:50:23 08/08/19 25 08/08/2024 COMP. METAB OLIC PANEL glucose 90 mg/dL 74-100 normal Not Available [facility] [address] [place] [address], [address], 08/08/2024 14:56:32 08/08/19 25 08/08/2024 COMP. METAB OLIC PANEL blood urea nitrogen 16 mg/dL 6-20 normal Not Available [facility] [address] [place] [address], [address], 08/08/2024 14:56:32 08/08/19 25 08/08/2024 COMP. METAB OLIC PANEL creatinine 0.88 mg/dL 0.50-0 .95 normal Not Available [facility] [address] [place] [address], [address], 08/08/2024 14:56:32 08/08/19 25 08/08/2024 COMP. METAB OLIC PANEL BUN/creatini ne ratio 18 (calc ) 10-20 normal Not Available [facility] [address] [place] [address], [address], 08/08/2024 14:56:32 08/08/19 25 08/08/2024 COMP. METAB OLIC PANEL sodium 144 mmol/ L 136-14 5 normal Not Available [facility] [address] [place] [address], [address], 08/08/2024 14:56:32 08/08/19 25 08/08/2024 COMP. METAB OLIC PANEL potassium 4.4 mmol/ L 3.4-5. 0 normal Not Available [facility] [address] [place] [address], [address], 08/08/2024 14:56:32 08/08/19 25 08/08/2024 COMP. METAB OLIC PANEL chloride 106 mmol/ L 98-107 normal Not Available [facility] [address] [place] [address], [address], 08/08/2024 14:56:32 08/08/19 25 08/08/2024 COMP. METAB OLIC PANEL carbon dioxide 24 mmol/ L 22-31 normal Not Available [facility] [address] [place] [address], [address], 08/08/2024 14:56:32 08/08/19 25 08/08/2024 COMP. METAB OLIC PANEL anion gap 14 (calc ) 7-25 normal Not Available [facility] [address] [place] [address], [address], 08/08/2024 14:56:32 08/08/19 25 08/08/2024 COMP. METAB OLIC PANEL calcium 10.6 mg/dL 8.6-10 .2 high Not Available [facility] [address] [place] [address], [address], 08/08/2024 14:56:32 08/08/19 25 08/08/2024 COMP. METAB OLIC PANEL total protein 7.0 g/dL 6.4-8. 3 normal Not Available [facility] [address] [place] [address], [address], 08/08/2024 14:56:32 08/08/19 25 08/08/2024 COMP. METAB OLIC PANEL albumin 4.5 g/dL 3.5-5. 2 normal Not Available [facility] [address] [place] [address], [address], 08/08/2024 14:56:32 08/08/19 25 08/08/2024 COMP. METAB OLIC PANEL globulin 2.5 1.5-4. 5 normal Not Available [facility] [address] [place] [address], [address], 08/08/2024 14:56:32 08/08/19 25 08/08/2024 COMP. METAB OLIC PANEL albumin/glob ulin ratio 1.8 (calc ) 1.1-2. 5 normal Not Available [facility] [address] [place] [address], [phone], 08/08/2024 14:56:32 08/08/19 25 08/08/2024 COMP. METAB OLIC PANEL bilirubin, total 0.4 mg/dL 0.1-1. 2 normal Not Available [facility] [address] [place] [address], [address], 08/08/2024 14:56:32 08/08/19 25 08/08/2024 COMP. METAB OLIC PANEL alkaline phosphatase 81 U/L 30-121 normal Not Available [facility] [address] [place] [address], [address], 08/08/2024 14:56:32 08/08/19 25 08/08/2024 COMP. METAB OLIC PANEL AST 17 U/L 0-32 normal Not Available [facility] [address] [place] [address], [address], 08/08/2024 14:56:32 08/08/19 25 08/08/2024 COMP. METAB OLIC PANEL ALT 13 U/L 0-33 normal Not Available [facility] [address] [place] [address], [address], 08/08/2024 14:56:32 08/08/19 25 08/08/2024 COMP. METAB OLIC PANEL GFR 65 >= 60 normal NOT E New calcu latio n for GFR (CKD- EPI 2020) is formu lated witho ut race adjus tment facto rs at the recom menda tion of the [employer] and [facility] ty of Nephr ology . This calcu latio n has not been valid ated in pregn ant women . For pedia tric patie nts refer to https ://ww w.kid obdulia.miguel rg/pr ofess ional s/KDO QI/gf r_cal culat orPed Not Available [facility] [address] [place] [address], [address], 08/08/2024 14:56:32 08/08/19 25 08/08/2024 PHOSP HORUS phosphorus 3.3 mg/dL 2.5-4. 5 normal Not Available [facility] [address] [place] [address], [address], 08/08/2024 14:56:34 08/08/19 25 08/08/2024 MAGNE SIUM magnesium 2.0 mg/dL 1.6-2. 6 normal Not Available [facility] [address] [place] [address], [address], 08/08/2024 14:56:35 11/05/19 25 11/04/2024 PTH, INTAC [...] ===== ===== ===== ===== ==== Not Available [facility] [address] [place] [address], [address], 11/04/2024 12:12:11 11/05/19 25 11/04/2024 PTH, INTAC T WITH CA calcium 10.7 mg/dL 8.6-10 .2 high Not Available [facility] [address] [place] [address], [address], 11/04/2024 12:12:11 11/05/19 25 11/04/2024 VITAM IN D 25-OH vitamin D 25-oh, total 48 NG/mL >=30 NG/mL normal Not Available [facility] [address] [place] [address], [address], 11/04/2024 12:12:12 Result Notes None recorded. Medical [...] Address Organization Details Last Updated DateTime 08/08/2024 16857.33 g 70 /min 136 mm[Hg] 84 mm[Hg] Rhea Cerda [facility] 08/08/2024 12:57:56 Date Recorded Body weight Body mass index (BMI) Body height Systolic blood pressure Diastolic blood pressure Provider Name and Address Organization Details Last Updated DateTime 11/08/2024 05812.74 g 31.2 kg/m2 154.94 cm 134 mm[Hg] 72 mm[Hg] [facility] 10:[facility] Social History None recorded. Functional Status None recorded. Mental Status None recorded. Family History Nothing Reported. Medical History No medical history recorded. Gynecological HistoryNo gynecological history recorded. Obstetrics History GPAL:G 0 P 0 0 0 0 Past Encounters Encounter ID Performer Location Encounter Start Date Encounter Closed Date Diagnosis/Indication Diagnosis SNOMED-CT Code Diagnosis ICD10 Code Diagnosis Note [id number] [facility] [address] 10/25/2016 07:58:55 10/25/2016 07:58:55 [id number] DELROY BYRNE APRN [facility]OCRINO [facility] [address] [place] [address] 08/08/2024 12:10:32 08/08/2024 13:18:43 Hypercalcemia 56070187 E83.52 Referral labs from July 26, 2024 [...] no questions or concerns at this time. [id number] DELROY BYRNE APRN [facility]CR[facility] [address] [place] [address] 11/08/2024 10:32:11 11/08/2024 12:04:05 Hypercalcemia 86121394 E83.52 Labs from November 04, 2024 showPTH [...] 11/08/2024 1 [employer] - GOLD PLUS (MEDICARE REPLACEMENT/A DVANTAGE - HMO) Jeannie Mccabe [id number] Jeannie Mccabe 11/08/2024 1 [employer] (MEDICARE REPLACEMENT/A DVANTAGE - PPO) Jeannie Mccabe [id number] Jeannie Mccabe Notes Date Note Type Note [...] of hypothyroid, Alzheimer's, hypertension, GERD. DELROY BYRNE, PEER EDUCATOR [address] [place], [address], [facility] 08/08/2024 14:16:50 11/08/2024 text/html Iris is an 84-year-old female presents office today with at side for review of lab work status post diagnosis of hyperparathyroidis m. Patient continues to deny taking any calcium supplementation, kidney stones, or osteoporosis. DELROY BYRNE, PEER EDUCATOR [address] [place], [address], [facility] 11/08/2024 12:18:35 OBGyn Episode No OBEpisode recorded.
--- OUTSIDE RECORDS SUMMARY | 2024-12-29 10:41 | XMS_ITS | Continuity of Care Document ---
Author Organization [facility]CRINOLOG[facility] Address [address] [place] [address] Assessment No assessment recorded. Plan of Treatment Reminders Order Date Submit Date Provider Last Modified By Organization Details Last Modified Time Details Appointments NEW PATIENT 2024 10:20A M JASON ZHOU MD Not available Not available Not available Lab PTH (parathy roid hormone) , intact + calcium, serum or plasma 2024 025 lang4 [facility], [address] [place] [address], [address], 11/08/2024 10:53:19 Referral None recorded . Procedures None [...] Address Organization Details Last Updated DateTime 11/08/2024 46838.74 g 31.2 kg/m2 154.94 cm 134 mm[Hg] 72 mm[Hg] [facility] 10:41:25 Social History None recorded. Functional Status None recorded. Mental Status None recorded. Family History Nothing Reported. Medical History No medical history recorded. Gynecological HistoryNo gynecological history recorded. Obstetrics History GPAL:G 0 P 0 0 0 0 Past Encounters Encounter ID Performer Location Encounter Start Date Encounter Closed Date Diagnosis/Indication Diagnosis SNOMED-CT Code Diagnosis ICD10 Code Diagnosis Note [id number] DELROY BYRNE APRN END[facility]CR[facility] [address] [place] [address] 11/08/2024 10:32:11 11/08/2024 12:04:05 Hypercalcemia 74385824 E83.52 Labs from November 04, 2024 showPTH [...] (MEDICARE REPLACEMENT/A DVANTAGE - PPO) Jeannie Mccabe [id number] Jeannie Mccabe Notes Date Note Type Note Provider Name and Address Organization Details Recorded Time 11/08/2024 text/html Iris is an 84-year-old female presents office today with at side for review of lab work status post diagnosis of hyperparathyroid ism. Patient continues to deny taking any calcium supplementation, kidney stones, or osteoporosis. DELROY BYRNE, MEDICINE MAN [address] [place], [address], [facility] 11/08/2024 12:18:35 OBGyn Episode No OBEpisode recorded.
--- NOTE | 2024-12-29 10:54 | HMH.EDGENADL ---
Discharge Plan Disposition Patient Disposition: Home, Self-Care Condition: Good Prescriptions Prescriptions: New nitrofurantoin monohyd/m-cryst [Macrobid] 100 mg capsule 100 mg PO BID 7 Days Qty: 14 0RF Rx Instructions: must administer with a meal/food No Action mecobalamin (vitamin B12) 1,000 mcg tablet,chewable 1,000 mcg PO DAILY omeprazole 40 mg capsule,delayed release(DR/EC) 40 mg PO DAILY PRN aspirin 81 mg tablet 81 mg PO DAILY risperidone 0.25 mg tablet 0.25 mg PO DAILY ergocalciferol (vitamin D2) [Vitamin D2] 1,250 mcg (50,000 unit) capsule 1,250 mcg PO WEEKLY bisoprolol fumarate 5 mg tablet 5 mg PO DAILY Qty: 30 5RF memantine 5 mg tablet 5 mg PO BID levothyroxine 25 MCG tablet 25 mcg PO DAILY evolocumab 140 mg/mL syringe 140 mg SQ DIRECTED Rx Instructions: EVERY 2 WEEKS Referrals Follow up/Referrals: Yuniel Rosales MD [Primary Care Provider, Medical] - See instructions Activity Restrictions/Add. Instructions Additional Instructions/Restrictions: You were evaluated in the emergency department today. Please follow-up closely with your primary care provider. 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 Return to the emergency department for new or worsening symptoms. Clinical Impressions Clinical Impression: Acute UTI Instructions Patient Instructions: DI for Urinary Tract Infection (UTI) Print Language Print Language: Nepali Discharge ED Provider: Chelita Falcon General Adult HPI General Chief complaint: Urogenital-Female Stated complaint: disoriented, poss. UTI Time Seen by Provider: 12/29/24 10:43 Mode of Arrival: Ambulatory Source of Information: Patient Description of Symptoms (Recalled from ER Triage Doc. by RN): patient states she began having frequent urination lastnight, family states that she was up all night talking out of her head History of Present Illness HPI narrative: This patient is an 84-year-old female with a history of recurrent UTIs, hypercalcemia likely related to parathyroid issue for which she is awaiting follow-up with ENT, hypertension, hyperlipidemia, hypothyroidism, CAD, pacemaker presenting to the emergency department for evaluation with concern for foul-smelling urine with frequent urination. This started several days ago, but last night worsened with confusion and increased urinary frequency. No fevers, vomiting, shortness of breath, cough, or other concerns noted. Family states that seems similar to when she has had prior UTIs. Related Data Home Medications ?Medication ?Instructions ?Recorded ?Confirmed evolocumab 140 mg/mL subcutaneous 140 mg SQ DIRECTED Cholesterol 03/21/20 09/10/24 syringe levothyroxine 25 mcg tablet 25 mcg PO DAILY Thyroid 03/21/20 09/10/24 mecobalamin (vitamin B12) 1,000 1,000 mcg PO DAILY Supplement 04/21/20 09/10/24 mcg chewable tablet memantine 5 mg tablet 5 mg PO BID Memory 05/08/23 09/10/24 aspirin 81 mg tablet 81 mg PO DAILY 09/10/24 09/10/24 ergocalciferol (vitamin D2) 1,250 1,250 mcg PO WEEKLY 09/10/24 09/10/24 mcg (50,000 unit) capsule (Vitamin D2) omeprazole 40 mg capsule,delayed 40 mg PO DAILY PRN 09/10/24 09/10/24 release risperidone 0.25 mg tablet 0.25 mg PO DAILY 09/10/24 09/10/24 Previous Rx's ?Medication ?Instructions ?Recorded bisoprolol fumarate 5 mg tablet 5 mg PO DAILY #30 tabs 08/13/24 nitrofurantoin 100 mg PO BID 7 days #14 caps 12/29/24 monohydrate/macrocrystals 100 mg capsule (Macrobid) Allergies Allergy/AdvReac Type Severity Reaction Status Date / Time cefdinir Allergy Confusion Verified 12/29/24 10:39 [id number] Reductase AdvReac Mild myalgia Verified 12/18/24 08:23 Inhibitor PFSH [facility] Disclaimer: The information contained in this section may have been updated after the patient was seen, as this information can be updated by other users. Medical History Memory loss Constipation Osteoarthritis of left knee History of pacemaker Hypothyroidism HLD (hyperlipidemia) HTN (hypertension) Dementia Dyspnea Acquired hammertoe of right foot History of toe fracture Sinus tachycardia SSS (sick sinus syndrome) Tachy-clemencia syndrome Overweight with body mass index (BMI) 25.0-29.9 Callus of foot Abnormal EKG Syncope Back pain Surgical History History of total left knee replacement History of cardiac cath History of hysterectomy Status post foot surgery Family History Other Family history of heart disease Social History Smoking Status: Never smoker alcohol intake: never substance use type: denies use current occupational status: employed Travel in the last 8 weeks?: None household members: spouse housing: house marital status: current occupational exposures/hazards: No caffeine: Yes Have you lived/traveled outside US in past 30 days?: No Contact w/someone who lives/traveled outside US past 30 days?: No Exposure to someone with infectious disease in past 14 days?: No Do you have a fever (greater than 100.4 F or 38 C)?: No Have you tested positive for COVID-19?: No Exposed to someone with COVID-19 in past 14 days?: No Do you have a sore throat?: No Do you have a cough?: No Do you have any weakness?: No Do you have any diarrhea?: No Are you experiencing any unusual bleeding?: No Do you have any muscle aches/pain?: No Do you have any abdominal pain?: No Are you experiencing loss of taste or smell?: No Other Medical History Have you received the Flu Vaccine for this season: No Have you received the Pneumonia Vaccine: Yes ROS Obtained: Yes All systems reviewed & no additional complaints except as documented Physical Exam General General appearance: alert and in no apparent distress Head Head exam: atraumatic and normocephalic Eye Eye exam: Present normal appearance, PERRL and EOMI ENT ENT exam: Present normal exam, normal oropharynx, mucous membranes moist and normal external ear exam Neck Neck exam: Present normal inspection, full ROM and trachea midline; Absent tenderness Chest Chest inspection: Present normal inspection and symmetric chest wall rise; Absent tenderness Respiratory Respiratory exam: Present normal lung sounds bilaterally; Absent respiratory distress, wheezes, stridor or accessory muscle use Cardiovascular Cardiovascular exam: Present regular rate and normal rhythm Abdominal Exam Abdominal exam: Present soft; Absent distention, tenderness or guarding Extremities Exam Extremities exam: Present normal inspection, full ROM and normal capillary refill; Absent tenderness or edema Back Exam Back exam: Present normal inspection and full ROM; Absent tenderness Neurological Exam Neurological exam: Present alert, oriented X3, CN II-XII intact and normal gait; Absent motor sensory deficit Psychiatric Psychiatric exam: Present normal affect and normal mood Skin Skin exam: Present warm and dry Medical Decision Making Medical Records Medical records reviewed: Yes I reviewed the patient's medical records. Screening: Per USPSTF and CDC recommendations, given the prevalence of disease in our region, it is our hospital?s policy to screen for HIV and viral Hepatitis for all patients aged 18 and over and those with ongoing risk factors. Jaspreet Inquiry Pt receiving controlled substance: No Vital Signs: 12/29/24 10:27 12/29/24 10:30 12/29/24 10:31 Temperature Temperature Source Pulse Rate 75 61 72 Pulse Rate [Right Radial] Respiratory Rate Blood Pressure 215/84 H 194/75 H 172/69 H Blood Pressure [Right Arm] Blood Pressure Mean [Right Arm] Blood Pressure Source [Right Arm] Blood Pressure Position [Right Arm] 02 Sat by Pulse Oximetry 95 81 L 99 Oxygen Delivery Method 12/29/24 10:32 12/29/24 11:31 12/29/24 12:00 Temperature 98 F Temperature Source Oral Pulse Rate 70 72 Pulse Rate [Right Radial] 79 Respiratory Rate 16 Blood Pressure 172/74 H 183/62 H Blood Pressure [Right Arm] 172/69 H Blood Pressure Mean [Right Arm] 103 Blood Pressure Source [Right Arm] Automatic Cuff Blood Pressure Position [Right Arm] Supine 02 Sat by Pulse Oximetry 94 L 97 100 Oxygen Delivery Method Room Air 12/29/24 12:37 Temperature 98.1 F Temperature Source Pulse Rate 75 Pulse Rate [Right Radial] Respiratory Rate 16 Blood Pressure 166/77 H Blood Pressure [Right Arm] Blood Pressure Mean [Right Arm] Blood Pressure Source [Right Arm] Blood Pressure Position [Right Arm] 02 Sat by Pulse Oximetry Oxygen Delivery Method Lab Data Lab results reviewed: Yes I reviewed the patient's lab results. Lab Results 12/29/24 10:23: Urine Color Yellow, Urine Appearance Clear, Urine pH 6.0, Ur Specific [place] 1.015, Urine Protein Negative, Urine Glucose (UA) Negative, Urine Ketones Negative, Urine Blood Negative, Urine Nitrate Negative, Urine Bilirubin Negative, Urine Urobilinogen 0.2, Ur Leukocyte Esterase 1+ A, Urine RBC Occasional, Urine WBC 5-10, Ur Squamous Epith Cells Occasional, Urine Bacteria Trace 12/29/24 11:01: WBC 4.9, RBC 4.22, Hgb 12.1 L, Hct 37.9, MCV 89.8, MCH 28.7, MCHC 31.9, RDW 13.7, Plt Count 240, MPV 9.8, Neut % (Auto) 67.2, Lymph % (Auto) 20.1, [place] % (Auto) 10.3 H, Eos % (Auto) 1.2, Baso % (Auto) 0.8, Neut # (Auto) 3.3, Lymph # (Auto) 1.0, [place] # (Auto) 0.5, Eos # (Auto) 0.1, Baso # (Auto) 0.0, Sodium 142, Potassium 4.2, Chloride 109 H, Carbon Dioxide 28, Anion Gap 9.2, BUN 17, Creatinine 0.80, Estimated Creat Clear 50, Estimated GFR 68, Est GFR ( Amer) 83, Glucose 95, Calcium 10.0, Total Bilirubin 0.6, AST 26, ALT 16, Alkaline Phosphatase 60, Total Protein 6.5, Albumin 4.1, Globulin 2.4, Albumin/Globulin Ratio 1.7, TSH 1.54, Thyroxine (T4) 10.4 12/29/24 11:01 12/29/24 11:01 Orders (Tests/Meds): ED MEDICATIONS Discontinued Medications Generic Name Dose Route Start Last Admin Trade Name Freq PRN Reason Stop Dose Admin Lactated Ringer's 500 mls @ 999 mls/hr 12/29/24 10:50 12/29/24 11:07 Lactated Ringer's 500ml IV 12/29/24 11:20 999 mls/hr .Q31M ONE Administration Nitrofurantoin Macrocrystals 100 mg 12/29/24 12:29 12/29/24 12:34 Nitrofurantoin 100mg Capsule PO 12/29/24 12:30 100 mg ONCE ONE Administration ORDERS Category Date Time Status Complete Blood Count Auto Diff Stat Lab 12/29/24 11:01 Completed Comprehensive Metabolic Panel Stat Lab 12/29/24 11:01 Completed T4 (Thyroxine) Stat Lab 12/29/24 11:01 Completed TSH [Thyroid Stimulating Hormone] Stat Lab 12/29/24 11:01 Completed UA [Urinalysis and Microscopic] Stat Lab 12/29/24 10:23 Completed Urine Culture Stat Micro 12/29/24 10:23 Received ECG Data Tracing #1: I reviewed this ECG and interpreted as documented below: Paced at a rate of 70 bpm. No acute STEMI. ECG initial impression date: 12/29/24 ECG initial impression time: 10:59 Medical Decision Narrative: In summary, this patient is a 84-year-old female presenting to the Emergency Department for evaluation of frequent urination, foul-smelling urine, confusion for the last several days that worsened last night. Differential diagnoses considered include but are not limited to cystitis, pyelonephritis, ureterolithiasis, electrolyte derangements, DIOGENES, thyroid abnormality. Ruling out the most morbid conditions drove assessment. It should be noted patient's history includes hypertension, hyperlipidemia, CAD, hypothyroidism, hypercalcemia, frequent UTIs which may or may not be at goal therapy. This complicates all aspects of care by increasing patient's risk for morbidity. I reviewed patient's past medical records and noted outpatient workup for thyroid abnormality, hypercalcemia, for which she is awaiting outpatient ENT follow-up. Also noted cardiology evaluations for maintenance of health. Noted prior ED evaluations for delirium in the setting of UTI. On exam, the patient is lying in bed in no acute distress and is well-appearing, nontoxic, pleasant with reassuring vitals on cardiac telemetry with exception of hypertension, which is chronic for her. Cardiopulmonary and abdominal exams are within normal limits. She has no significant swelling. Workup included CBC, CMP, TSH, T4, urinalysis, urine culture, EKG. She was given a 500 cc bolus of IV fluids. On reassessment, the patient is sitting upright in no acute distress and is at her baseline, well-appearing, afebrile. Vitals are reassuring cardiac telemetry. CBC and CMP are reassuring and nonactionable. Urinalysis is concerning for possible UTI. 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 He notes that she has not tolerated cephalosporins such as cefdinir because she gets hallucinations every time she takes it. After shared decision making, will like to try Macrobid though I usually do not preferentially use this in elderly patients. Ultimately after shared decision-making with the family, they feel comfortable taking the patient home for treatment with oral Macrobid and close follow-up with primary care. Strict return precautions were given Critical Care Critical Care Time Critical Care Time: No
--- NOTE | 2024-12-29 10:55 | ECG_ITS ---
APPROVED REPORT Exam: Resting ECG HR:70 bpm ECG Measurements Heart Rate 70 AXES AZ 218 P 88 QRSd 94 QRS 50 QT 384 T 49 QTc 404 Conclusion ELECTRONIC ATRIAL PACEMAKER No STEMI Electronically signed by : AARON RIOS, 12/29/2024 15:29:52
[2024-12-29 10:59] LABS: Bacteria,Urine Trace /lpf; RBC,Urine Occasional #/hpf (0-3); Squamous Epithelial Cell,Urine Occasional #/hpf (0-5)
[2024-12-29] MEDS: RINGERS SOLUTION,LACTATED 500 ML 999 ML IV (11:07)
[2024-12-29 11:13] LABS: Basophils % 0.8 % (0.1-2.0); Eosinophils # 0.1 Kmm3 (0.0-0.4); Eosinophils % 1.2 % (0.1-12.0); Hematocrit 37.9 % (37.0-47.0); Hemoglobin 12.1 g/dL (12.2-16.2); Immature Granulocytes # 0.02 10^3uL; Immature Granulocytes % 0.4 %; Lymphocytes % 20.1 % (10-50); Mean Corpuscular HGB Conc 31.9 g/dL (31.8-35.4); Mean Corpuscular Hemoglobin 28.7 pg (27.0-31.2); Mean Corpuscular Volume 89.8 fl (81-99); Mean Platelet Volume 9.8 fl (7.4-10.4); Monocytes # 0.5 K/mm3 (0.1-1.0); Monocytes % 10.3 % (1.7-9.3); Neutrophils # 3.3 K/mm3 (1.8-7.8); Neutrophils % 67.2 % (37.0-80.0); Nucleated Red Blood Cells # 0 10^3/uL; Nucleated Red Blood Cells % 0 %; Platelet Count 240 K/mm3 (142-424); Red Blood Count 4.22 M/mm3 (4.20-5.40); Red Cell Distribution Width 13.7 % (11.5-17.5); Red Cell Distribution Width-SD 44.9 fL; White Blood Count 4.9 K/mm3 (4.8-10.8)
[2024-12-29 11:21] LABS: Alanine Aminotransferase 16 U/L (12-78); Albumin Level 4.1 g/dl (3.5-5.0); Albumin/Globulin Ratio 1.7 (1.1-1.8); Alkaline Phosphatase 60 U/L (38-126); Anion Gap 9.2 mEq/L (5-15); Aspartate Amino Transferase 26 U/L (14-36); Bilirubin,Total 0.6 mg/dl (0.2-1.3); Blood Urea Nitrogen 17 mg/dl (7-17); Carbon Dioxide 28 mmol/L (22.0-30.0); Chloride 109 mmol/L (98-107); Creatinine Clearance Estimated 50 mL/min (50-200); Estimated Glomerular Filt Rate 68 ml/min (>60); GFR (African American) 83 ML/MIN (>60); Globulin 2.4 g/dL (1.3-3.2); Glucose 95 mg/dl (74-100); Potassium 4.2 mmoL/L (3.5-5.1); Sodium 142 mmol/L (136-145); Total Protein,Serum 6.5 g/dl (6.3-8.2)
[2024-12-29 11:38] LABS: T4 (Thyroxine) 10.4 ug/dl (5.53-11.0)
[2024-12-29 11:52] LABS: Thyroid Stimulating Hormone 1.54 uIU/mL (0.465-4.68)
[2024-12-29] MEDS: NITROFURANTOIN 100MG CAPSULE 100 MG PO (12:34)
== END 2024-12-29 12:41 | disposition home or self-care (01) ==
PROVIDERS: Emergency Provider Emergency Medicine; PCP Family Medicine
DX: N39.0 Urinary tract infection, site not specified (principal); R35.0 Frequency of micturition; R41.0 Disorientation, unspecified; I10 Essential (primary) hypertension
CPT/HCPCS: 80053; 81001; 84436; 84443; 85025; 87086; 93005; 99284; J7120

== ENCOUNTER 2025-03-17 15:36 | Outpatient (CLI) | payer MEDICARE, OTHER, SELFPAY ==
--- OUTSIDE RECORDS SUMMARY | 2025-01-08 06:15 | XMS_ITS ---
Author Organization [facility] Address [address] [facility] [place] [phone] Care Team Providers Care Senior Climate Advisor Name Role Phone Heladio Rosales Primary Care Provider [phone] Vijaya Sony Unavailable [phone] Allergies Allergen (clinical drug ingredient) Drug/Non Drug [...] 10.5 Performing Lab: Notes/Report: Test performed by [facility], [address] [facility] [place] [address] González King MD, Boiling Off Winder CLIA: [id number] Sodium 139 135-145 mmol/L Potassium 4.5 3.5-5.3 mmol/L Chloride 104 97-108 mmol/L CO2 23 22-32 mmol/L Glucose 99 65-99 mg/dL BUN 18 8-23 mg/dL Creatinine 0.81 0.50-1.00 mg/dL Calcium 10.5 8.6-10.4 mg/dL eGFR by Creatinine 71 >59 mL/min/1.73m2 P-Calcium, Ionized Reviewed date:01/09/2025 09:49:25 AM Interpretation:5.62 Performing Lab: Notes/Report: Test performed by [facility] [address] , [place] [address] González King MD, Boiling Off Winder CLIA: [id number] Calcium, Ionized 5.62 4.60-5.30 mg/dL P-Culture, Urine Reviewed date:01/13/2025 04:55:36 PM Interpretation:E. Coli Performing Lab: Notes/Report: Test performed by [facility] [address] [place] [address] , [address], [place] [address] González King MD, Boiling Off Winder CLIA: [id number] Specimen Source Urine - Void Culture, Urine [...] 2 WEEKS Active Vitamin D3 1.25 MG (04615 UT) 1 capsule Orally; Duration: 30 day(s) Active Vital Signs Weight 166.2 lbs 01/08/2025 Blood pressure systolic 134 mm Hg 01/09/20 25 Blood pressure diastolic 72 mm Hg 025 Heart Rate 70 /min 01/08/2025 Height 62 in 01/08/2025 BMI 30.4 kg/m2 01/08/2025 Encounters Encounter Location Date Provider Diagnosis [facility] [address], [place] [phone] 01/08/2025 Sony [place] Acute UTI N39.0 and Hypercalcemia E83.52 Assessments [...] Notes * JAGDISH MCCABEEDOB:1940 (84 yo F)Acc No.[id number]:01/08/2025 Progress Notes Patient: HECTOR JAIN Provider: Elie Lilly M.D. :1940 A ge:84 Y S ex:Female Date:01/08/2025 Address:[address] [place] [phone] Pcp:Heladio Rosales Subjective: * Chief Complaints: * [...] stic Procedure: B ack Pain From Fall- [facility] 03/21/2020, Passed Out, Recent Fall- [facility] 05/20-. * Family History: F [...] Medications: T aking Vitamin D3 1.25 MG (47121 UT) Capsule 1 capsule Orally , Taking [...] G 2211 Complex e/[place], [address] Urinalysis, no micro, 42744 CBC WITH AUTO DIFF, 1036F TOBACCO NON-USER, G8783 BP SCR PRFRM RCMDD DEFIND SCR INTVL, G8752 MOST RECENT SYSTOLIC BP < 140MM HG, G8754 MOST RECENT DIASTOLIC BP < 90MM HG * Follow Up: v ia phone to report progress * Images: Billing Information: * Visit Code: 17807 Office Visit, Est Pt., Level 4. * Procedure Codes: G2211 Complex e/[place]. [address] Urinalysis, no micro. 31568 CBC WITH AUTO DIFF. 1036F TOBACCO NON-USER. G8783 BP SCR PRFRM RCMDD DEFIND SCR INTVL. G8752 MOST RECENT SYSTOLIC BP < 140MM HG. G8754 MOST RECENT DIASTOLIC BP < 90MM HG. * Electronic signature of Natasha Lilly MD on 03/17/2025 at 03:40 PM EDT Sign off status: Pending * Provider: Elie Lilly M.D. Date: 0 01/08/2025 Generated for Barbara trinh/Luis/Magnoliaitting on: 0 03/17/2025 03:40 PM EDT History and Physical Notes * [...]
--- OUTSIDE RECORDS SUMMARY | 2025-01-13 10:15 | XMS_ITS ---
Author Organization [facility] Address [address] [facility] [address] [phone] Care Team Providers Care Unit Controller Name Role Phone Heladio Rosales Primary Care Provider Allergies Allergen (clinical drug ingredient) Drug/Non Drug Allergy documented on EMR Reaction Allergy Type Onset Date Status cefdinir Cefdinir AMS Drug Allergy Active dexamethasone DexAMETHasone AMS Drug Allergy Active REASON FOR VISIT 6 week check Encounters Encounter Location Date Provider Diagnosis [place] [address] [place] [phone] 01/13/2025 Heladio Rosales Plan Of Treatment No Information Progress Notes * JAGDISH MCCABEEDOB:1940 (84 yo F)Acc No.[id number]:01/13/2025 Patient: HECTOR JAIN Provider: Heladio Rosales M.D. :1940 A ge:84 Y S ex:Female Date:01/13/2025 Address:[address] [place] [phone] Subjective: * Chief Complaints: * 1 . [...] stic Procedure: B ack Pain From Fall- [facility] 03/21/2020, Passed Out, Recent Fall- [facility] 05/20-. * Family History: F [...] Electronic signature of Heladio Rosales MD on 03/17/2025 at 03:40 PM EDT Sign off status: Pending * Provider: Heladio Rosales M.D. Date: 0 01/13/2025 Generated for Barbara trinh/Luis/Magnoliaitting on: 0 03/17/2025 03:40 PM EDT
--- OUTSIDE RECORDS SUMMARY | 2025-01-17 07:30 | XMS_ITS ---
Author Organization [facility] Address [address] [place] [id number] Care Team Providers Care Tanyard Worker Name Role Phone Heladio Rosales Primary Care Provider Sony Lilly Unavailable [phone] Results Component Value Reference Range Notes Urinalysis - Inhouse Reviewed date:01/17/2025 04:48:57 PM Interpretation: Performing Lab: Notes/Report: Color/Clarity yellow Leuk trace Nitrite neg Urobili 3.2 Protein neg pH 5.5 Blood neg Sp. Gr. 1.010 Ketone neg Bili neg Gluc neg P-Culture, Urine Reviewed date:01/22/2025 01:14:38 PM Interpretation:no significant growth Performing Lab: Notes/Report: Test performed by [facility], [place] [address] [place] [address] , [address], [place] [address] González King MD, [employer] Dis[employer] CLIA: [id number] Specimen Source Urine - Void Culture, Urine See Below Final Report : No Significant Growth REASON FOR VISIT URINE SAMPLE Medications Medication SIG (Take, Route, Frequency, Duration) Notes Start Date End Date Status B-12 1000 MCG 1 tab(s) orally once a day; Duration: 30 day(s) Active Vitamin D3 1.25 MG (18746 UT) 1 capsule Orally; Duration: 30 day(s) [...] Active Encounters Encounter Location Date Provider Diagnosis [facility] [address] [place], [place] [id number] 01/17/2025 Sony Lilly UTI (lower urinary tract infection) N39.0 Assessments Encounter Date Diagnosis (ICD Code) Assessment Notes Treatment Notes Treatment Clinical Notes Section Notes 01/17/2025 UTI (lower urinary tract infection) (ICD-10 - N39.0) Plan Of Treatment No Information Progress Notes * JACKIE JAGDISHEDOB:1940 (84 yo F)Acc No.[id number]:01/17/2025 Patient: HECTOR JAIN Provider: Elie Lilly M.D. :1940 A ge:84 Y S ex:Female Date:01/17/2025 Address:[address] [place], [place] [phone] Pcp:Heladio Rosales Subjective: * Chief Complaints: * 1 . URINE SAMPLE. * Medical History: * Medications: T aking Vitamin D3 1.25 MG (84636 UT) Capsule 1 capsule Orally , Taking [...] Information: * Visit Code: * Procedure Codes: 27770 Urinalysis, no micro. * Electronic signature of Natasha Lilly MD on 03/17/2025 at 03:40 PM EDT Sign off status: Pending * Provider: Elie Lilly M.D. Date: 0 01/17/2025 Generated for Barbara trinh/Luis/eTransmitting on: 0 03/17/2025 03:40 PM EDT
--- OUTSIDE RECORDS SUMMARY | 2025-02-12 10:51 | XMS_ITS | Encounter Summary ---
Author Organization [facility] Address [address] [place] [address] Care Team Providers Care Steel Wheel Engraver Name Role Phone Pcp, No Primary Care Provider Unavailabl e Reason for Referral * Imaging (Routine) - Closed Specialty Diagnoses / Procedures Referred By Contac t Referred To Contact Radiology Diagnoses Hyperparathyroidism, unspecified (CMS/HCC) Procedures CT Soft Tissue Neck w and wo IV Contrast Dallas Espino MD [address] [place] [address] Phone: tel: fax: Referral ID Status Reason Start Date Expiration Date Visits Re quested Visits Authorized [id number] Closed 01/10/2025 07/12/2026 1 1 Reason for Visit * Imaging (Routine) - Closed Specialty Diagnoses / Procedures Referred By Contac t Referred To Contact Radiology Diagnoses Hyperparathyroidism, unspecified (CMS/HCC) Procedures CT Soft Tissue Neck w and wo IV Contrast Dallas Espino MD [address] [place] [address] Phone: tel: fax: Referral ID Status Reason Start Date Expiration Date Visits Re quested Visits Authorized [id number] Closed 01/10/2025 07/12/2026 1 1 Encounter Details Date Type Department Care Team (Latest Contact Info) Description 02/12/2025 10:51 AM EDT - 02/12/2025 11:59 PM EDT Hospital Encounter [facility] [address] [place] [address] Hyperparathyroidism , unspecified (CMS/HCC) Discharge Disposition: Home or Self Care Social History Tobacco Use Types Packs/Day Years Used Date Smoking Tobacco: Never Assessed Comments Unknown Sex and Gender Information Value Date Recorded Sex Assigned at Not on file Legal Sex Female 1:13 PM EDT Gender Identity Not on file Sexual Orientation Not on file documented as of this encounter Plan of Treatment Not on file documented as of this encounter Procedures Procedure Name Priority Date/Time Associated Diagnosis Comments CT SOFT TISSUE NECK W AND WO IV CONTRAST Routine 02/12/2025 11:27 AM EDT Hyperparathyroidism, unspecified ([facility]) documented in this encounter Results * CT Soft Tissue Neck w and wo IV Contrast (02/12/2025 11:27 AM EDT) Anatomical Region Laterality Modality Neck Computed Tomogra phy Impressions 02/12/2025 5:29 PM EDT Right paraesophageal nodule, suspicious for parathyroid adenoma. Subcentimeter nodule at the inferior aspect of the left thyroid lobe, potential parathyroid adenoma. Sancho Bernal M.D. This report has been electronically signed and verified by the Radiologist whose name is printed above. This report contains privileged and confidential information and is intended solely for the use of the individual or entity to which it is addressed. If you are not the intended recipient of this report, you are hereby notified that any copying, distribution, dissemination or action taken in relation to the contents of this report is strictly prohibited and may be unlawful. If you have received this report in error, please notify the sender immediately at [phone] and permanently delete the original report and destroy any copies or printouts. Narrative 02/12/2025 5:29 PM EDT [facility] - Phone Outpatient NAME: Jeannie Mccabe DATE OF EXAM: 02/12/2025 Patient No: [id number] Physician: Lida Date of : 1940 Past Medical/Surgical History (entered by technologist): Symptoms/Reason For Exam (entered by technologist): Hyperparathyroidism, unspecified Tech Notes (entered by technologist): with contrast iohexol (OMNIPaque) 350 MG/ML injection 100 mL; Additional History (per [facility]): Contrast Agent and Dose: with contrast iohexol (OMNIPaque) 350 MG/ML injection 100 mL Automated exposure control was used for radiation dose reduction. Total DLP 1353 mGy-cm Technique: Axial dynamic CT examination of the neck with intravenous contrast, arterial and venous phases. Multiplanar reformats were generated. Radiation dose-reduction technique(s) were employed. Comparison: None. FINDINGS: Candidate parathyroid adenomas (series 6): 7 x 13 mm right paraesophageal, prevertebral nodule, image 197 (high suspicion). 6 x 7 mm, inferior aspect left thyroid lobe, image 152. Coarse calcification in the left thyroid lobe; otherwise normal thyroid gland. Normal airway. No neck mass or suspicious cervical nodes. Moderate cervical carotid atherosclerosis bilaterally; major cervical vascular structures otherwise appear normal. Normal parotid and submandibular glands. Visualized brain and orbits demonstrate no significant abnormality. Degenerative changes of the cervical spine. Normal lung apices. Procedure Note Sancho Bernal MD - 02/12/2025 [facility] - Phone Outpatient NAME: Jeannie Mccabe DATE OF EXAM: 02/12/2025 Patient No: [id number] Physician: Lida Date of : 1940 Past Medical/Surgical History (entered by technologist): Symptoms/Reason For Exam (entered by technologist): Hyperparathyroidism,unspecified Tech Notes (entered by technologist): with contrast iohexol (OMNIPaque)350 MG/ML injection 100 mL; Additional History (per [facility]): Contrast Agent and Dose: with contrast iohexol (OMNIPaque) 350 MG/MLinjection 100 mL Automated exposure control was used for radiation dose reduction. TotalDLP 1353 mGy-cm Technique: Axial dynamic CT examination of the neck with intravenouscontrast, arterial and venous phases. Multiplanar reformats weregenerated. Radiation dose-reduction technique(s) were employed. Comparison: None. FINDINGS: Candidate parathyroid adenomas (series 6): 7 x 13 mm right paraesophageal, prevertebral nodule, image 197 (highsuspicion). 6 x 7 mm, inferior aspect left thyroid lobe, image 152. Coarse calcification in the left thyroid lobe; otherwise normal thyroidgland. Normal airway. No neck mass or suspicious cervical nodes.Moderate cervical carotid atherosclerosis bilaterally; major cervicalvascular structures otherwise appear normal. Normal parotid andsubmandibular glands. Visualized brain and orbits demonstrate nosignificant abnormality. Degenerative changes of the cervical spine.Normal lung apices. IMPRESSION: Right paraesophageal nodule, suspicious for parathyroid adenoma. Subcentimeter nodule at the inferior aspect of the left thyroid lobe,potential parathyroid adenoma. Sancho Bernal M.D. This report has been electronically signed and verified by the Radiologistwhose name is printed above. This report contains privileged and confidential information and isintended solely for the use of the individual or entity to which it isaddressed. If you are not the intended recipient of this report, you arehereby notified that any copying, distribution, dissemination or actiontaken in relation to the contents of this report is strictly prohibitedand may be unlawful. If you have received this report in error, pleasenotify the sender immediately at [phone] and permanently delete theoriginal report and destroy any copies or printouts. Dallas Espino MD IMG CT PROCEDURES Final Resul t documented in this encounter Visit Diagnoses Diagnosis Hyperparathyroidism, unspecified ([facility]) Hyperparathyroidism, unspecified documented in this encounter Administered Medications Inactive Administered Medications - up to 3 most recent administrations Medication Order MAR Action Action Date Dose Rate Site iohexol (OMNIPaque) 350 MG/ML injection 100 mL 100 mL, Intravenous, Once in imaging, 1 dose, Starting on Mon02/12/25 at 1052, Until Mon02/12/25 at 1118, Routine, Imaging Protocol Orders Given 02/12/2025 11:18 AM EDT 100 mL documented in this encounter Care Teams Steel Wheel Engraver Relationship Specialty Start Date End Date Pcp, Nicole [address] [place] [address] PCP - General Family Medicine 02/12/25 documented as of this encounter
[2025-03-17 15:40] VITALS: BP 158/62; PULSE 70; RESP 18; O2SAT 96
[2025-03-17] MEDS: 0.9 % SODIUM CHLORIDE 1000ML 1,000 ML 999 ML IV (15:40)
--- OUTSIDE RECORDS SUMMARY | 2025-03-17 15:40 | XMS_ITS | Clinical Summary ---
Author Organization [facility] Address [address] [place] [address] Care Team Providers Care Facility Manager Histology Name Role Phone Pcp, No Primary Care Provider Unavailabl e Allergies No known active allergies Encounters Date Type Department Care Team Description 02/12/2025 10:51 AM EDT - 02/12/2025 11:59 PM EDT Hospital Encounter [facility] [address] [place] [address] Hyperparathyroidism, unspecified ([facility]) Discharge Disposition: Home or Self Care 02/12/2025 Travel from Last 3 Months Social History Tobacco Use Types Packs/Day Years Used Date Smoking Tobacco: Never Assessed Comments Unknown Sex and Gender Information Value Date Recorded Sex Assigned at Not on file Legal Sex Female 1:13 PM EDT Gender Identity Not on file Sexual Orientation Not on file Plan of Treatment Health Maintenance Due Date Last Done Comments [facility]-Bone Density Scan 1940 [facility]-Depression Screening 1940 [facility]-Medicare Annual Wellness (AWV) 1940 [facility]-Infant/Child/Adol SDOH Screenings 1940 [facility]- SDOH Screenings 1958 [facility]-Adult SDOH Screenings 1958 [facility]-Zoster Vaccines (2 of 3) 05/13/2013 03/18/2013 [facility]-RSV Vaccine: 60+ Years or (1 - 1-dose 75+ series) 2015 [id number] Vaccine ( season) 2024 11/04/2021, 05/27/2021, 10/02/2020, Additional history exists [facility]-Influenza Vaccine (#1) 03/24/202505/10, 05/11/2021, 04/21/2020, Additional history exists [facility]-DTaP,Tdap,and Td Vaccines (3 - Td or Tdap) 11/23/2027 11/22/2017, 03/18/2013, 04/21/2000 [facility]-Pneumococcal Vaccine: 50+ Years Completed 11/22/2017, 09/01/2014 HPV Vaccines Aged Out No longer eligi ble based on patient's age to complete this topic [facility]-HIB Vaccines Aged Out No longer e ligible based on patient's age to complete this topic [facility]-Hepatitis A Vaccines Aged Out No longer eligible based on patient's age to complete this topic [facility]-IPV Vaccines Aged Out No longer e ligible based on patient's age to complete this topic [facility]-Rotavirus Vaccines Aged Out No lo nger eligible based on patient's age to complete this topic Procedures Procedure Name Priority Date/Time Associated Diagnosis Comments CT SOFT TISSUE NECK W AND WO IV CONTRAST Routine 02/12/2025 11:27 AM EDT Hyperparathyroidism, unspecified (CMS/HCC) from Last 3 Months Results * CT Soft Tissue Neck w [...] error, please notify the sender immediately at [phone] and permanently delete the original report and destroy any copies or printouts. Narrative 02/12/2025 5:29 PM EDT [facility] - Phone Outpatient NAME: Jeannie Mccabe DATE OF EXAM: 02/12/2025 Patient No: [id number] Physician: Lida Date of : 1940 Past [...] Procedure Note Sancho Bernal MD - 02/12/2025 [facility] Outpatient NAME: Jeannie Mccabe DATE OF EXAM: 02/12/2025 Patient No: [id number] Physician: Lida Date of : 1940 Past [...] in error, pleasenotify the sender immediately at [phone] and permanently delete theoriginal report and destroy any copies or printouts. Dallas Espino MD IM CT PROCEDURES Final Resul t from Last 3 Months Insurance [facility] [address] MEDICARE Care Teams Facility Manager Histology Relationship Specialty Start Date End Date Pcp, [place] [address] PCP - General Family Medicine 02/12/25
--- OUTSIDE RECORDS SUMMARY | 2025-03-17 15:40 | XMS_ITS | Patient Health Record ---
[facility] Address [address] [place] [id number] Care Team Providers Care Service Delivery Management Consultant Name Role Phone Heladio Rosales Primary Care Provider [phone] Vijaya Sony Unavailable [phone] Estefania Raines Unavailable [phone] Allergies Allergen (clinical drug ingredient) Drug/Non Drug Allergy documented on EMR Reaction Allergy Type Onset Date Status cefdinir Cefdinir AMS Drug Allergy Active dexamethasone DexAMETHasone AMS Drug Allergy Active Results Component Value Reference Range Notes Fine needle aspiration : Thy roid Reviewed date:12/06/2024 04:19:49 PM Interpretation:pathology negative for malignant cells Performing Lab: Notes/Report: pathology negative for malignant cells P-Culture, Urine Reviewed date:01/13/2025 04:55:36 PM Interpretation:E. Coli Performing Lab: Notes/Report: Test performed by [facility], [address] , [address], [place] [address] González King MD, Transit Coach Operator CLIA: [id number] Specimen Source Urine - Void Culture, Urine See Below See Microbiol ogy Report Escherichia coli 25,000-50,000 CFU/ml Escherichia coli Sensitivity Panel See Below ____ Organism E. coli Antibiotic INTERP ____ Amikacin S Ampicillin S Aztreonam S Cefepime S Cefoxitin S Ceftazidime S Ceftriaxone S Cefuroxime S Ciprofloxacin S Ertapenem S Gentamicin S Imipenem S Levofloxacin S Meropenem S Nitrofurantoin S Piperacillin/Tazo S Tetracycline S Tobramycin S Trimeth/Sulfa S ___ S=SUSCEPTIBLE I=INTERMEDIATE R=RESISTANT P-Calcium, Ionized Reviewed date:01/09/2025 09:49:25 AM Interpretation:5.62 Performing Lab: Notes/Report: Test performed by [email or web address] [address] [place] [address] , [place] [address] González King MD, Transit Coach Operator CLIA: [id number] Calcium, Ionized 5.62 4.60-5.30 mg/dL P-Basic Metabolic Panel (BMP ) Reviewed date:01/09/2025 09:49:25 AM Interpretation:Ca 10.5 Performing Lab: Notes/Report: Test performed by [email or web address] [address] [place] [address] , [address], [place] [address] González King MD, Transit Coach Operator CLIA: [id number] Sodium 139 135-145 mmol/L Potassium 4.5 3.5-5.3 mmol/L Chloride 104 97-108 mmol/L CO2 23 22-32 mmol/L Glucose 99 65-99 mg/dL BUN 18 8-23 mg/dL Creatinine 0.81 0.50-1.00 mg/dL Calcium 10.5 8.6-10.4 mg/dL eGFR by Creatinine 71 >59 mL/min/1.73m2 CBC Venipuncture (in house) Reviewed date:01/09/2025 09:49:25 [...] - 38 platlet 246 100 - 400 Urinalysis - Inhouse Reviewed date:01/09/2025 09:00:18 AM Interpretation: Performing Lab: Notes/Report: Color/Clarity yellow/cloud Leuk 2+ Nitrite neg Urobili 3.2 Protein neg pH 5.5 Blood truce-intact Sp. Gr. 1.015 Ketone neg Bili neg Gluc neg H-Culture, Blood Reviewed date:10/02/2024 12:52:56 PM Interpretation:No growth Performing Lab: Notes/Report: CUBLD NO GROWTH AFTER 5 DAYS CUBLD NO GROWTH AFTER 5 DAYS H-CMP Reviewed date:01/09/2025 09:07:39 AM Interpretation: Performing Lab: Notes/Report: H-CBC Reviewed date:01/09/2025 09:07:54 AM Interpretation: Performing Lab: Notes/Report: Urinalysis - Inhouse Reviewed date:01/17/2025 04:48:57 PM Interpretation: Performing Lab: Notes/Report: Color/Clarity yellow Leuk trace Nitrite neg Urobili 3.2 Protein neg pH 5.5 Blood neg Sp. Gr. 1.010 Ketone neg Bili neg Gluc neg P-Parathyroid Hormone (PTH) Intact Reviewed date:10/11/2024 08:37:36 AM Interpretation:95.0 Performing Lab: Notes/Report: Test performed by [email or web address] [address] [place] [address] [address], [address], [place] [address] González King MD, Transit Coach Operator CLIA: [id number] Parathyroid Hormone (PTH) Intact 95.0 15.0-65.0 pg/mL P-Basic Metabolic Panel (BMP ) Reviewed date:10/11/2024 08:37:36 AM Interpretation:Cuong 10.5 Performing Lab: Notes/Report: Test performed by [email or web address] [address] [place] [address] [address], [address], [place] [address] González King MD, Transit Coach Operator CLIA: [id number] Sodium 142 135-145 mmol/L Potassium 4.9 3.5-5.3 mmol/L Chloride 107 97-108 mmol/L CO2 25 22-32 mmol/L Glucose 90 65-99 mg/dL BUN 15 8-23 mg/dL Creatinine 0.81 0.50-1.00 mg/dL Calcium 10.5 8.6-10.4 mg/dL eGFR by Creatinine 71 >59 mL/min/1.73m2 Urinalysis - Inhouse Reviewed date:06/21/2024 03:08:39 PM [...] Interpretation:Not completed Performing Lab: Notes/Report: Not completed Urinalysis - Inhouse Reviewed date:08/26/2024 11:09:03 PM Interpretation: Performing Lab: Notes/Report: Color/Clarity yellow/clear Leuk 1+ Nitrite neg Urobili 1.6 Protein 1+ pH 5.5 Blood neg Sp. Gr. 1.025 Ketone 1+ Bili 1+ Gluc neg P-Culture, Urine Reviewed date:08/28/2024 09:55:50 AM Interpretation:not performed, see TE Performing Lab: Notes/Report: not performed, see TE Urinalysis - Inhouse Reviewed date:09/30/2024 05:19:47 PM [...] growth Performing Lab: Notes/Report: Test performed by [email or web address] [address] [place] [address] , [address], [place] [address] González King MD, Transit Coach Operator CLIA: [id number] Specimen Source Urine - Void Culture, Urine See Below Final Report : No growth H-UA Reviewed date:08/26/2024 11:08:33 PM Interpretation: Performing [...] Lab: Notes/Report: CUU Multiple organisms, suggests contamination. H-CBC Reviewed date:10/01/2024 08:22:47 AM Interpretation:wbc 4.4, [...] 0.1 0.0-0.4 K/mm3 BA# 0.0 0-0.2 K/mm3 H-CMP Reviewed date:10/01/2024 08:22:47 AM Interpretation:gfr 53, [...] AGRATIO 1.8 1.1-1.8 ALP 82 38-126 U/L Ultrasound: Thyroid Reviewed date:11/14/2024 01:00:09 PM Interpretation:US guided FNA recommended Performing Lab: Notes/Report: US guided FNA recommended CBC Fingerstick (in house) Reviewed date:03/21/2024 11:39:50 [...] - 38 plat 198 100 - 400 Pulmonary Function Before & After Reviewed date:07/02/2024 08:28:22 AM Interpretation: Performing Lab: Notes/Report: P-Basic Metabolic Panel (BMP ) Reviewed date:07/26/2024 02:36:21 PM Interpretation:Cr 1.02, Ca 10.7, gfr 54 Performing Lab: Notes/Report: Test performed by [email or web address] [address] [place] [address] , [address], [place] [address] González King MD, Transit Coach Operator CLIA: [id number] Sodium 141 135-145 mmol/L Potassium 4.7 3.5-5.3 mmol/L Chloride 105 97-108 mmol/L CO2 25 22-32 mmol/L Glucose 95 65-99 mg/dL BUN 19 8-23 mg/dL Creatinine 1.02 0.50-1.00 mg/dL Calcium 10.7 8.6-10.4 mg/dL eGFR by Creatinine 54 >59 mL/min/1.73m2 P-Calcium, Ionized Reviewed date:07/26/2024 02:36:21 PM Interpretation:5.56 Performing Lab: Notes/Report: Test performed by [email or web address] [address] [place] [address] , [address], [place] [address] González King MD, Transit Coach Operator CLIA: [id number] Calcium, Ionized 5.56 4.60-5.30 mg/dL P-Parathyroid Hormone (PTH) Intact Reviewed date:07/26/2024 02:36:21 PM Interpretation:103 Performing Lab: Notes/Report: Test performed by [email or web address] [address] [place] [address] , [address], [place] [id number] González King MD, Transit Coach Operator CLIA: [id number] Parathyroid Hormone (PTH) Intact 103.0 15.0-65.0 pg/mL Urinalysis - Inhouse Reviewed date:07/31/2024 04:23:03 PM Interpretation: Performing Lab: Notes/Report: Color/Clarity yellow Leuk 1+ Nitrite neg Urobili 16 Protein 1+ pH 5.5 Blood neg Sp. Gr. 1.025 Ketone neg Bili neg Gluc neg P-Culture, Urine Reviewed date:08/02/2024 11:04:06 AM Interpretation:suggests contamination Performing Lab: Notes/Report: Test performed by [facility] [address] , [address], [place] [address] González King MD, Transit Coach Operator CLIA: [id number] Specimen Source Urine - Void Culture, Urine See Below Final Report : 10,000-15,000 CFU/ml Mixed Gram Positive and Negative Organisms Three or more organisms present likely representing contamination during collection by patient's urogenital, skin, and/or fecal nishi. Organism identification and sensitivity assessment are not recommended. Specimen recollection is recommended. P-Basic Metabolic Panel (BMP ) Reviewed date:12/13/2024 09:58:11 AM Interpretation:cl 109, gluc 127 Performing Lab: Notes/Report: Test performed by [facility] [address] , [address], [place] [address] González King MD, Transit Coach Operator CLIA: [id number] Sodium 143 135-145 mmol/L Potassium 4.3 3.5-5.3 mmol/L Chloride 109 97-108 mmol/L CO2 22 22-32 mmol/L Glucose 127 65-99 mg/dL BUN 14 8-23 mg/dL Creatinine 0.83 0.50-1.00 mg/dL Calcium 10.0 8.6-10.4 mg/dL eGFR by Creatinine 69 >59 mL/min/1.73m2 P-Calcium, Ionized Reviewed date:12/13/2024 09:58:11 AM Interpretation:5.44 Performing Lab: Notes/Report: Test performed by [facility] [address] , [address], [place] [address] González King MD, Transit Coach Operator CLIA: [id number] Calcium, Ionized 5.44 4.60-5.30 mg/dL P-Culture, Urine Reviewed date:01/22/2025 01:14:38 PM Interpretation:no significant growth Performing Lab: Notes/Report: Test performed by [facility] [address] , [address], [place] [id number] González King MD, Transit Coach Operator CLIA: [id number] Specimen Source Urine - Void Culture, Urine See Below Final Report : No Significant Growth Medications Medication SIG (Take, Route, Frequency, Duration) Notes Start Date End Date Status Ciprofloxacin HCl 250 MG 1 tablet Orally every 12 hrs; Duration: 5 days 01/08/2025 Active B-12 1000 MCG 1 tab(s) orally once a day; Duration: 30 day(s) Active Vitamin D3 1.25 MG (17159 UT) 1 capsule Orally; Duration: 30 day(s) Active Aspirin Adult Low Dose 81 MG 1 tablet Or ally Once a day Active Bisoprolol Fumarate 5 MG 1 tab(s) orally once a day Active Omeprazole 40 MG 1 cap(s) Orally Once a day, prn; Duration: 30 days Active Repatha 140 MG/ML INJECT 140MG UNDER T HE SKIN EVERY 2 WEEKS Active risperiDONE 0.25 MG 1 tablet Orally At B ed Time; Duration: 30 day(s) Active Memantine HCl 5 MG 1 tablet Orally twic e a day; Duration: 30 days Active Levothyroxine Sodium 25 MCG 1 tab(s) ora lly once a day; Duration: 90 days Active Immunizations Vaccine Route Administration Date Status [...] 03/18/2013 Administered xFlu shot- 6months-36 months of ync-IKVK-UWZJ-trivale nt Unknown 04/27/2010 Administered xFlu shot-36 months and older IM Intramuscular 05/16/2007 Administered 05/03/2007 pt received the flu shot from [facility] Problems Problem Type SNOMED Code ICD Code Onset Dates Problem Status W/U Status Risk Notes Problem Essential hypertension (21958473) Essential (primary) hypertension (I10) Active confirmed Problem Vitamin B12 deficiency (214336099) Vitamin B12 deficiency (E53.8) Active confirmed Problem Hypercalcemia (51478550) Hypercalcemia (E83.52) Active confirmed Problem Essential hypertension (97403007) Essential hypertension (I10) Active confirmed Problem Osteopenia (743625669) Osteopenia (M85.80) Active confirmed Problem Altered mental statu s (496735846) Altered mental state (R41.82) Active confirmed Problem Body mass index 30+ - obesity (388284829) BMI 30.0-30.9,adult (Z68.30) Active confirmed Problem Memory loss (75196979) Memory loss (R41.3) Active confirmed Problem Mixed hyperlipidemia (804726228) Mixed hyperlipidemia (E78.2) Active confirmed Problem Vasomotor rhinitis (5687602) Vasomotor rhinitis (J30.0) Active confirmed Problem Vaccination given (531063964) Encounter for immunization (Z23) Active confirmed Problem Arteriosclerotic vascular disease (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) Arteriosclerotic cardiovascular disease (I25.10) Active confirmed Problem Hyperlipidemia (81031359) Hyperlipidemia, unspecified (E78.5) Active confirmed Problem Cardiac pacemaker in situ (825482475) Status cardiac pacemaker (Z95.0) Active confirmed Problem Acquired hypothyroidism (290999399) Acquired hypothyroidism (E03.9) Active confirmed Problem Hyperlipidaemia (67455018) Hyperlipidemia, unspecified hyperlipidemia type (E78.5) Active confirmed Problem Occlusion and stenosis of multiple and bilateral cerebral arteries (203301492) Carotid stenosis, bilateral (I65.23) Active confirmed Problem Altered mental statu s (716397209) Altered mental status, unspecified altered mental status type (R41.82) Active confirmed Problem Hyperparathyroidism (75443861) Hyperparathyroidism (E21.3) Active confirmed Problem Cardiac dysrhythmia (290236701) Cardiac dysrhythmia, unspecified (I49.9) Active confirmed Problem Encephalopathy (87460483) Encephalopathy (G93.40) Active confirmed Problem Allergic rhinitis (48157052) Allergic rhinitis, unspecified allergic rhinitis trigger, unspecified rhinitis seasonality (J30.9) Active confirmed Problem Osteoarthritis of knee (633113517) Arthropathy of both knees (M17.0) Active confirmed Problem Artificial knee join t present (390437180006) 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) Active confirmed Problem Fibrocystic breast changes (85527536) Fibrocystic breast disease (FCBD), unspecified laterality (N60.19) Active confirmed Problem Osteoarthritis of left knee joint (105175895357729) Osteoarthritis of left knee, unspecified osteoarthritis type (M17.12) Active confirmed Problem Imaging of thyroid gland abnormal (finding) (829009361) Abnormal thyroid ultrasound (R93.89) Active confirmed Problem Altered mental statu s (107935651) Acute alteration in mental status (R41.82) Active confirmed Problem Gastroesophageal reflux disease (094085875) Gastroesophageal reflux disease, unspecified whether esophagitis present (K21.9) Active confirmed Problem Paroxysmal ventricular tachycardia (85430005) V tach (I47.2) Active confirmed Problem Senile dementia (31019071) 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 coli] as the cause of diseases classified elsewhere B96.20 and Shortness of breath on exertion R06.02 [facility] [address] [facility] [address] [place], [place] [id number] 06/21/2024 Estefania Crowcale Acute UTI N39.0 and Chronic cough R05.3 [facility] [address] [place], [place] [id number] 07/25/2024 Estefania Olu Renal insufficiency N28.9 ; Acute UTI N39.0 ; Hypercalcemia E83.52 and Confusion R41.0 [facility] [address] [facility] [address] [place] [id number] 07/31/2024 Estefania Olu Urinary tract infect ion N39.0 [facility] [address] [facility] [address] [place] [id number] 08/23/2024 Estefania Olu Confusion R41.0 [facility] [address] [place], [place] [id number] 09/09/2024 Heladio Rosales Acute alteration in mental status R41.82 and 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 [facility] [address] [place], [place] [id number] 10/10/2024 Heladio Rosales Altered mental statu s, unspecified altered mental status type R41.82 ; 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 and Hypercalcemia E83.52 [facility] [address] [place], [place] [id number] 12/09/2024 Sony Belle Rive Hypercalcemia E83.52 ; Mixed hyperlipidemia E78.2 ; Ventricular tachycardia I47.20 and BMI 30.0-30.9,adult Z68.30 [facility] [address] [facility] [address] [place], [place] [id number] 01/08/2025 Sony Belle Rive Acute UTI N39.0 and Hypercalcemia E83.52 [facility] [address] [facility] [address] [place] [id number] 01/17/2025 Sony Belle Rive UTI (lower urinary t ract infection) N39.0 [facility] [address] [place], [place] [id number] 09/23/2024 Heladio Rosales Arteriosclerotic cardiovascular disease I25.10 ; 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 ; Essential hypertension I10 ; Acquired hypothyroidism E03.9 and Status cardiac pacemaker Z95.0 [facility] [address] [place], [place] [id number] 09/27/2024 Estefania Crowdy Dysuria R30.0 ; Alte red mental status, unspecified altered mental status type R41.82 ; Dehydration E86.0 ; Unspecified fall, initial encounter W19.XXXA and Unspecified place in unspecified non-institutional (private) residence as the place of occurrence of the external cause Y92.009 [facility] [address] [place] [id number] 06/25/2024 Estefania Crowdy [facility] [address] [place], [place] [id number] 07/26/2024 Estefania Crowdy Hypercalcemia E83.52 [facility] [address] [place] [id number] 08/20/2024 Estefania Crowdy [facility] [address] [place] [id number] 08/26/2024 Estefania Crowdy Confusion R41.0 [facility] [address] [place], [place] [id number] 09/05/2024 Heladio Rosales [facility] [address] [place] [id number] 09/06/2024 Heladio Rosales [facility] [address] [place] [id number] 09/09/2024 Heladio Rosales [facility] [address] [place], [place] [id number] 10/01/2024 Estefania Raines [facility] [address] [place] [id number] 10/07/2024 Heladio Rosales [facility] [address] [place] [id number] 10/11/2024 Heladio Rosales [facility] [address] [place] [id number] 10/25/2024 Heladio Rosales [facility] [address] [place] [id number] 11/14/2024 Heladio Rosales [facility] [address] [place] [id number] 12/05/2024 Heladio Rosales [facility] [address] [place] [id number] 12/13/2024 Sony Belle Rive [facility] [address] [place] [id number] 01/09/2025 Sony Belle Rive [facility] [address] [place], [place] [id number] 02/10/2025 Heladio Rosales [facility] [address] [place], [place] [id number] 03/17/2025 Heladio Rosales Assessments Encounter Date Diagnosis (ICD Code) Assessment Notes Treatment Notes Treatment Clinical Notes Section Notes 03/21/2024 Acute URI (ICD-10 - J06.9) We [...] U/A and culture once finished with abx. 07/25/2024 Renal insufficiency (ICD-10 - N28.9) 07/25/2024 [...] R41.82) 09/09/2024 Senile dementia (ICD-10 - F03.90) 06/21/2024 Acute UTI (ICD-10 - N39.0) 06/21/2024 Chronic cough (ICD-10 - R05.3) Awaiting PFT's. 09/23/2024 Arteriosclerotic cardiovascular disease (ICD-10 - I25.10) 09/23/2024 Senile dementia (ICD-10 - F03.90) continue current therapy 10/10/2024 Altered mental status, unspecified altered mental status type (ICD-10 - R41.82) 10/10/2024 Senile dementia (ICD-10 - F03.90) 12/09/2024 Hypercalcemia (ICD-10 - E83.52) 12/09/2024 Mixed hyperlipidemia (ICD-10 - E78.2) 01/17/2025 UTI (lower urinary tract infection) (ICD-10 - N39.0) 01/08/2025 Hypercalcemia (ICD-10 - E83.52) 01/08/2025 Acute UTI (ICD-10 - N39.0) 09/27/2024 Dysuria (ICD-10 - R30.0) Patient's son would like a culture sent out from our office but would like one done in the lab as well. 09/27/2024 Altered mental status, unspecified altered mental status type (ICD-10 - R41.82) 08/26/2024 Confusion (ICD-10 - R41.0) 09/27/2024 Dehydration (ICD-10 - E86.0) Patient has not been drinking at home. Will give a liter of normal saline today. 12/09/2024 Ventricular tachycardia (ICD-10 - I47.20) 10/10/2024 Hypercalcemia (ICD-10 - E83.52) 07/25/2024 Hypercalcemia (ICD-10 - E83.52) 09/23/2024 Essential hypertension (ICD-10 - I10) 06/12/2024 Shortness of breath on exertion (ICD-10 - R06.02) She saw cardiology today and they did not think it was caused by her heart. She would rather have PFT's before scheduling with the environmental services aide. 07/25/2024 Confusion (ICD-10 - R41.0) Resolved. 12/09/2024 BMI 30.0-30.9,adult (ICD-10 - Z68.30) 09/23/2024 Acquired hypothyroidism (ICD-10 - E03.9) 09/27/2024 Unspecified fall, initial encounter (ICD-10 - W19.XXXA) 09/27/[address] in unspecified non-institutional (private) residence as the place of occurrence of the external cause (ICD-10 - Y92.009) 09/23/2024 Status cardiac pacemaker (ICD-10 - Z95.0) Plan Of Treatment Pending Test Test Name Order Date H-COVIDPANEL 03/21/2024 Insurance Providers Payer Name Payer Address Payer Phone Subscriber Number Group Number Insured Name Patient Relationship to Insured Coverage Start Date Coverage End Date [employer] (MEDICAR E) [address] [address] [place] [phone] [id number] HECTOR MEJIA Self - patient is the insured Medications Administered Medication Instructions Date of Administration Dosage Notes B-12 05/17/2016 1 mL B-12 08/14/2019 1 mL Medical (General) History Medical History History ICD Code Hypertension LT Carotid Stenosis 20-49% Heart Cath, Dr. Alvarado, CAD, 08/17/2010 MRI/MRA, 08/2012 Surgical History Surgery Date(Month/Year) Total Hysterectomy Tonsillectomy Carpal Tunnel 03/2006 Forehead Skin Lesions Removed 08/2018 Bilateral Cataract Removal 06/2017 Pacemaker-Dr Cohen 12/2020 left knee injection, Dr. Luna 05/12/2022 left knee replacement, Dr. Luna 05/08/20 Hospitalization History Reason Date(Month/Year) Passed Out, Recent Fall- [facility] ER 05/20- Back Pain From Fall- [facility] ER 03/21/2020
--- OUTSIDE RECORDS SUMMARY | 2025-03-17 15:40 | XMS_ITS | Encounter Summary ---
Author Organization Healthcare Address [address] [place] [address] Care Team Providers Care [place] Worker Name Role Phone Pcp, No Primary Care Provider Unavailabl e Encounter Details Date Type Department Care Team (Latest Contact Info) Description 02/12/2025 Travel Social History Tobacco Use Types Packs/Day Years Used Date Smoking Tobacco: Never Assessed Comments Unknown Sex and Gender Information Value Date Recorded Sex Assigned at Not on file Legal Sex Female 1:13 PM EDT Gender Identity Not on file Sexual Orientation Not on file documented as of this encounter Plan of Treatment Not on file documented as of this encounter Visit Diagnoses Not on filedocumented in this encounter Care Teams [place] Worker Relationship Specialty Start Date End Date Pcp, Nicole [address] [place] [address] PCP - General Family Medicine 02/12/25 documented as of this encounter
--- OUTSIDE RECORDS SUMMARY | 2025-03-17 15:41 | XMS_ITS | Clinical Summary ---
Author Organization [facility] Address [address] [place] [address] Care Team Providers Care Digital Field Service Technician Name Role Phone Diego Rosales MD Primary Care Provider [phone] Allergies No known active allergies Medications ranolazine (RANEXA) 500 MG 12 hr tablet Take 500 mg by mouth Every 12 (Twelve) Hours. Active levothyroxine (SYNTHROID, LEVOTHROID) 25 MCG tablet Take 25 mcg by mouth Daily. Active METOPROLOL TARTRATE PO Take 25 mg by mouth Daily. Active lisinopril (PRINIVIL,ZESTRI L) 5 MG tablet Take 5 mg by mouth Daily. Active calcium carbonate (OS-JERRY) 600 MG tablet Take 600 mg by mouth Daily. Active aspirin 81 MG EC tablet Take 81 mg by mouth Daily. Active [place]-3 Fatty Acids (fish oil) 1000 MG capsule capsule Take by mouth Daily With Breakfast. Active vitamin B-12 (CYANOCOBALAMIN) 1000 MCG tablet Take 1,000 mcg by mouth Daily. Active Active Problems Problem Noted Date Diagnosed Date Syncope and collapse 06/16/2020 Family History Medical History Relation Name Comments Heart attack Brother Heart attack Father Heart disease Mother Relation Name Status Comments Brother (Age 59) Father (Age 59) Mother Social History Tobacco Use Types Packs/Day Years Used Date Smoking Tobacco: Never Smokeless Tobacco: Never Alcohol Use Standard Drinks/Week Comments Never 0 (1 standard drink = 0.6 oz pur e alcohol) AUDIT-C Answer Date Recorded Q1: How often do you have a drink containing alc ohol? Never 06/16/2020 Average Number of Drinks Not on file 020 Frequency of Binge Drinking Not on file 05/25 Abuse Screen Answer Date Recorded Unsafe at Home or Work/School Not on file Feels Threatened by Someone? Not on file 03/2023 Does Anyone Keep You from Co ntacting Others or Doint Things Outside the Home? Not on file 05/01/2023 Physical Sign of Abuse Present Not on file 1 Housing Stability Answer Date Recorded Current Living Arrangements Not on file 03/2023 Potentially Unsafe Housing Conditions Not on mira e 05/01/2023 Family and Community Support Answer Demarco e Recorded Help with Day-to-Day Activities Not on file 05/01/2023 Lonely or Isolated Not on file 05/01/2023 Employment Answer Date Recorded Do you want help finding or keeping work or a elza b? Not on file 05/01/2023 Disabilities Answer Date Recorded Concentrating, Remembering, or Making Decisions Difficulty Not on file 05/01/2023 Doing Errands Independently Difficulty Not on fi le 05/01/2023 Education Answer Date Recorded Help with school or training? Not on file Preferred Language Not on file 05/01/2023 Comments Unknown Sex and Gender Information Value Date Recorded Sex Assigned at Not on file Legal Sex Female 10:00 AM EDT Gender Identity Not on file Sexual Orientation Not on file Last Filed Vital Signs Vital Sign Reading Time Taken Comments Blood Pressure 160/68 06/16/2020 1:06 PM EST Pulse 70 06/16/2020 1:06 PM EST Temperature 36.1 C (97 F) 06/16/2020 1:06 PM EST Respiratory Rate - - Oxygen Saturation 94% 06/16/2020 1:06 PM EST Inhaled Oxygen Concentration - - Weight 69.1 kg (152 lb 6.4 oz) 06/16/2020 1:06 P M EST Height 162.6 cm (5' 4 ) 06/16/2020 1:06 PM EST Body Mass Index 26.16 06/16/2020 1:06 PM EST Plan of Treatment Health Maintenance Due Date Last Done Comments DXA SCAN 1940 ZOSTER VACCINE (2 of 3) 05/13/2013 03/18/2013 RSV Vaccine - Adults (1 - 1- dose 75+ series) 2015 Pneumococcal Vaccine 50+ (2 of 2 - PCV) 11/22/2018 11/22/2017 ANNUAL PHYSICAL 06/16/2020 COVID-19 Vaccine (1 - 2024- season) 2024 INFLUENZA VACCINE 04/23/2025 05/20/2019 TDAP/TD VACCINES (4 - Td or Tdap) 11/23/2027 11/22/2017, 03/18/2013, 04/21/2000 Insurance [facility] Care Teams Digital Field Service Technician Relationship Specialty Start Date End Date Diego Rosales MD [address] [place] [facility] [address] [place] [address] PCP - General Family Medicine 06/16/20
[2025-03-17 16:40] VITALS: BP 158/75; PULSE 72; RESP 15; TEMP 36.6; O2SAT 97
== END 2025-03-17 16:51 | disposition home or self-care (01) ==
LOC: INF 15:37
PROVIDERS: PCP Family Medicine; Visit Provider Family Medicine
DX: R53.1 Weakness (principal); R63.8 Other symptoms and signs concerning food and fluid intake
CPT/HCPCS: 96360; J7030

== ENCOUNTER 2025-04-15 15:47 | Emergency (ER) | payer MEDICARE, OTHER, SELFPAY ==
--- OUTSIDE RECORDS SUMMARY | 2024-11-25 09:15 | XMS_ITS ---
Author Organization [facility] Address [address] [facility] [address] [place] [phone] Care Team Providers Care Needle Grinder Name Role Phone Heladio Rosales Primary Care Provider REASON FOR VISIT 2 month check Encounters Encounter Location Date Provider Diagnosis [facility] 12[address] [facility] [address] [place] [phone] 11/25/2024 Heladio Rosales Plan Of Treatment No Information Progress Notes * JAGDISH MCCABEEDOB:1940 (84 yo F)Acc No.[id number]:11/25/2024 Progress Notes Patient: HECTOR JAIN Provider: Heladio Rosales M.D. :1940 A ge:84 Y S ex:Female Date:11/25/2024 Address:[address] [place], [place] [phone] Subjective: * Chief Complaints: * 1 . 2 month check. * Medical History: Objective: * Vitals: Assessment: Plan: * Treatment: * Images: Billing Information: * Visit Code: * Procedure Codes: * Electronic signature of Heladio Rosales MD on 04/15/2025 at 04:05 PM EDT Sign off status: Pending * Provider: Heladio Rosales M.D. Date: 0 11/25/2024 Generated for Printi ng/Faxing/eTransmitting on: 0 04/15/2025 04:05 PM EDT
--- OUTSIDE RECORDS SUMMARY | 2024-12-09 11:30 | XMS_ITS ---
Author Organization [facility] Address [address] [facility] [address] [place] [phone] Care Team Providers Care Knotting Machine Operator Portable Name Role Phone Heladio Rosales Primary Care Provider [phone] Sony Lilly Unavailable [phone] Allergies Allergen (clinical drug ingredient) Drug/Non Drug Allergy documented on EMR Reaction Allergy Type Onset Date Status cefdinir Cefdinir AMS Drug Allergy Active dexamethasone DexAMETHasone AMS Drug Allergy Active Results Component Value Reference Range Notes P-Basic Metabolic Panel (BMP ) Reviewed date:12/13/2024 09:58:11 AM Interpretation:cl 109, gluc 127 Performing Lab: Notes/Report: Test performed by [facility] [address] [place], [place] [address] [place] , [address], [place] [address] González King MD, Executive Candidate Developer CLIA: [id number] Sodium 143 135-145 mmol/L Potassium 4.3 3.5-5.3 mmol/L Chloride 109 97-108 mmol/L CO2 22 22-32 mmol/L Glucose 127 65-99 mg/dL BUN 14 8-23 mg/dL Creatinine 0.83 0.50-1.00 mg/dL Calcium 10.0 8.6-10.4 mg/dL eGFR by Creatinine 69 >59 mL/min/1.73m2 P-Calcium, Ionized Reviewed date:12/13/2024 09:58:11 AM Interpretation:5.44 Performing Lab: Notes/Report: Test performed by [facility] [address] [place], [place] [address] [place] , [address], [place] [address] González King MD, Executive Candidate Developer CLIA: [id number] Calcium, Ionized 5.44 4.60-5.30 mg/dL REASON FOR [...] 30 day(s) Active Vitamin D3 1.25 MG (53789 UT) 1 capsule Orally; Duration: 30 day(s) Active Aspirin Adult Low Dose 81 MG 1 tablet Or ally Once a day Active Bisoprolol Fumarate 5 MG 1 tab(s) orally once a day Active Problems Problem Type SNOMED Code ICD Code Onset Dates Problem Status W/U Status Risk Notes Problem Body mass index 30+ - obesity (575992409) BMI 30.0-30.9,a dult (Z68.30) Active confirmed Vital Signs Weight 169.4 lbs 12/09/2024 Blood pressure systolic 130 mm Hg 12/10/19 25 Blood pressure diastolic 74 mm Hg 025 Heart Rate 74 /min 12/09/2024 Height 62 in 12/09/2024 BMI 30.98 kg/m2 12/09/2024 Encounters Encounter Location Date Provider Diagnosis [facility] [address] [facility] [address] [place], [place] [phone] 12/09/2024 Sony [place] Hypercalcemia E83.52 ; Mixed hyperlipidemia E78.2 ; [...] phone to repo rt test results, Reason: Progress Notes * GLENIS MCCABEOB:1940 (84 yo F)Acc No.[id number]:12/09/2024 Progress Notes Patient: HECTOR JAIN Provider: Elie Lilly M.D. :1940 A ge:84 Y S ex:Female Date:12/09/2024 Address:[address] [place] [address], [id number] Pcp:Heladio Rosales Subjective: * Chief Complaints: * 1 . Discuss thyroid. * HPI: H PI: 84 year old female presents with c/o Patient is here today for?Pt is here today to discuss her calcium level. She states it has been elevated at 10.5, 10.3 and 10.8 over the past 12 months. [facility] they have been doing testsbut her next [...] Procedure: B ack Pain From Fall- [facility] 03/21/2020, Passed Out, Recent Fall- [facility] 05/20-. * Family History: F [...] Medications: T aking Vitamin D3 1.25 MG (02670 UT) Capsule 1 capsule Orally , Taking [...] entricular tachycardia - I47.20 4 . B [place] 30.0-30.9,adult - Z68.30 Plan: * Treatment: Value [...] * Images: Billing Information: * Visit Code: 24919 Office Visit, Est Pt., Level 3. * Procedure Codes: G2211 Complex e/m visit add on. G8420 BMI<30 AND >=22 CALC & DOCU. 3075F SYST BP GE 130 - 139MM HG. 3078F DIAST BP < 80 MM HG. * Electronic signature of Natasha Lilly MD on 04/15/2025 at 04:05 PM EDT Sign off status: Pending * Provider: Elie Lilly M.D. Date: 0 12/09/2024 Generated for Barbara trinh/Luis/Magnoliaitting on: 0 04/15/2025 04:05 PM EDT History and Physical Notes * HPI (History of Present Illness) Category Sub-Category Detail Notes Category Not es HPI Patient is here today for Pt is here today to discuss her calcium level. She states it has been elevated at 10.5, 10.3 and 10.8 over the past 12 months. [facility]but her next blood draw is in 6 months and her is concerned that she may be dehydrated Examination Category Sub-Category Detail Notes Category Not es General Examination Heart: RSR Lungs: clear to auscultatio n Extremities: no leg edema General Appearance: NAD Neurologic Exam: Intact, gait normal
--- OUTSIDE RECORDS SUMMARY | 2025-01-08 06:15 | XMS_ITS ---
Author Organization [facility] Address [address] [facility] [address] [place] [id number] Care Team Providers Care Distribution Clerk Name Role Phone Heladio Rosales Primary Care Provider Vijaya Sony Unavailable [phone] Allergies Allergen (clinical drug ingredient) Drug/Non Drug [...] 10.5 Performing Lab: Notes/Report: Test performed by [employer], [address] [facility] [place] [address] González King MD, Sweatband Shaper CLIA: [id number] Sodium 139 135-145 mmol/L Potassium 4.5 3.5-5.3 mmol/L Chloride 104 97-108 mmol/L CO2 23 22-32 mmol/L Glucose 99 65-99 mg/dL BUN 18 8-23 mg/dL Creatinine 0.81 0.50-1.00 mg/dL Calcium 10.5 8.6-10.4 mg/dL eGFR by Creatinine 71 >59 mL/min/1.73m2 P-Calcium, Ionized Reviewed date:01/09/2025 09:49:25 AM Interpretation:5.62 Performing Lab: Notes/Report: Test performed by [facility] [address] , [place] [address] González King MD, Sweatband Shaper CLIA: [id number] Calcium, Ionized 5.62 4.60-5.30 mg/dL P-Culture, Urine Reviewed date:01/13/2025 04:55:36 PM Interpretation:E. Coli Performing Lab: Notes/Report: Test performed by [facility] [address] [place] [address] , [address], [place] [address] González King MD, Sweatband Shaper CLIA: [id number] Specimen Source Urine - Void Culture, Urine [...] 2 WEEKS Active Vitamin D3 1.25 MG (71481 UT) 1 capsule Orally; Duration: 30 day(s) Active Vital Signs Weight 166.2 lbs 01/08/2025 Blood pressure systolic 134 mm Hg 01/09/20 25 Blood pressure diastolic 72 mm Hg 025 Heart Rate 70 /min 01/08/2025 Height 62 in 01/08/2025 BMI 30.4 kg/m2 01/08/2025 Encounters Encounter Location Date Provider Diagnosis [facility] [address], [place] [phone] 01/08/2025 Sony [place] Acute UTI N39.0 and Hypercalcemia E83.52 Assessments [...] via phone to repo rt progress, Reason: Progress Notes * JAGDISH MCCABEEDOB:1940 (84 yo F)Acc No.[id number]:01/08/2025 Progress Notes Patient: HECTOR JAIN Provider: Elie Lilly M.D. :1940 A ge:84 Y S ex:Female Date:01/08/2025 Address:[address] [place] [phone] Pcp:Heladio Rosales Subjective: * Chief Complaints: * [...] stic Procedure: B ack Pain From Fall- [facility] 03/21/2020, Passed Out, Recent Fall- [facility] 05/20-. * Family History: F [...] Medications: T aking Vitamin D3 1.25 MG (19920 UT) Capsule 1 capsule Orally , Taking [...] 28:19 PM EDT > pt started on CipMonique Rodríguez 01/13/2025 04:54:32 PM EDT > Pt informed [...] G 2211 Complex e/[place], [address] Urinalysis, no micro, 77380 CBC WITH AUTO DIFF, 1036F TOBACCO NON-USER, G8783 BP SCR PRFRM RCMDD DEFIND SCR INTVL, G8752 MOST RECENT SYSTOLIC BP < 140MM HG, G8754 MOST RECENT DIASTOLIC BP < 90MM HG * Follow Up: v ia phone to report progress * Images: Billing Information: * Visit Code: 36106 Office Visit, Est Pt., Level 4. * Procedure Codes: G2211 Complex e/[place]. [address] Urinalysis, no micro. 64448 CBC WITH AUTO DIFF. 1036F TOBACCO NON-USER. G8783 BP SCR PRFRM RCMDD DEFIND SCR INTVL. G8752 MOST RECENT SYSTOLIC BP < 140MM HG. G8754 MOST RECENT DIASTOLIC BP < 90MM HG. * Electronic signature of Natasha Lilly MD on 04/15/2025 at 04:05 PM EDT Sign off status: Pending * Provider: Elie Lilly M.D. Date: 0 01/08/2025 Generated for Barbara tirnh/Luis/Magnoliaitting on: 0 04/15/2025 04:05 PM EDT History [...]
--- OUTSIDE RECORDS SUMMARY | 2025-01-13 10:15 | XMS_ITS ---
Author Organization [facility] Address 1210 [facility] [address] [phone] Care Team Providers Care Loading And Unloading Supervisor Name Role Phone Heladio Rosales Primary Care Provider Allergies Allergen (clinical drug ingredient) Drug/Non Drug Allergy documented on EMR Reaction Allergy Type Onset Date Status cefdinir Cefdinir AMS Drug Allergy Active dexamethasone DexAMETHasone AMS Drug Allergy Active REASON FOR VISIT 6 week check Encounters Encounter Location Date Provider Diagnosis [place] [address] [place] [id number] 01/13/2025 Heladio Rosales Plan Of Treatment No Information Progress Notes * JAGDISH MCCABEEDOB:1940 (84 yo F)Acc No.[id number]:01/13/2025 Patient: HECTOR JAIN Provider: Heladio Rosales M.D. :1940 A ge:84 Y S ex:Female Date:01/13/2025 Address:[address] [place] [phone] Subjective: * Chief Complaints: * 1 . [...] stic Procedure: B ack Pain From Fall- [facility] 03/21/2020, Passed Out, Recent Fall- [facility] 05/20-. * Family History: F [...] Pending * Provider: Heladio Rosales M.D. Date: 01/13/2025 Generated for Barbara trinh/Lusi/Magnoliaitting on: 04/15/2025 04:05 PM EDT
--- OUTSIDE RECORDS SUMMARY | 2025-01-17 07:30 | XMS_ITS ---
Author Organization [facility] Address [address] [place] [id number] Care Team Providers Care Sausage Inspector Name Role Phone Heladio Rosales Primary Care Provider Sony Lilly Unavailable [phone] Results Component Value Reference Range Notes Urinalysis - Inhouse Reviewed date:01/17/2025 04:48:57 PM Interpretation: Performing Lab: Notes/Report: Color/Clarity yellow Leuk trace Nitrite neg Urobili 3.2 Protein neg pH 5.5 Blood neg Sp. Gr. 1.010 Ketone neg Bili neg Gluc neg P-Culture, Urine Reviewed date:01/22/2025 01:14:38 PM Interpretation:no significant growth Performing Lab: Notes/Report: Test performed by [facility], [employer] [address] [place] [address] , [address], [place] [address] González King MD, Wood Engraver CLIA: [id number] Specimen Source Urine - Void Culture, Urine See Below Final Report : No Significant Growth REASON FOR VISIT URINE SAMPLE Medications Medication SIG (Take, Route, Frequency, Duration) Notes Start Date End Date Status B-12 1000 MCG 1 tab(s) orally once a day; Duration: 30 day(s) Active Vitamin D3 1.25 MG (80808 UT) 1 capsule Orally; Duration: 30 day(s) [...] Active Encounters Encounter Location Date Provider Diagnosis [facility] [address] [place], [place] [id number] 01/17/2025 Sony Lilly UTI (lower urinary tract infection) N39.0 Assessments Encounter Date Diagnosis (ICD Code) Assessment Notes Treatment Notes Treatment Clinical Notes Section Notes 01/17/2025 UTI (lower urinary tract infection) (ICD-10 - N39.0) Plan Of Treatment No Information Progress Notes * JACKIE JAGDISHEDOB:1940 (84 yo F)Acc No.[id number]:01/17/2025 Patient: HECTOR JAIN Provider: Elie Lilly M.D. :1940 A ge:84 Y S ex:Female Date:01/17/2025 Address:[address] [place], [place] [phone] Pcp:Heladio Rosales Subjective: * Chief Complaints: * 1 . URINE SAMPLE. * Medical History: * Medications: T aking Vitamin D3 1.25 MG (02207 UT) Capsule 1 capsule Orally , Taking [...] Information: * Visit Code: * Procedure Codes: 36498 Urinalysis, no micro. * Electronic signature of Natasha Lilly MD on 04/15/2025 at 04:05 PM EDT Sign off status: Pending * Provider: Elie Lilly M.D. Date: 0 01/17/2025 Generated for Barbara trinh/Luis/Eversmitting on: 0 04/15/2025 04:05 PM EDT
[2025-04-15 15:48] VITALS: BP 206/98; PULSE 82; RESP 18; TEMP 36.6; O2SAT 97; BMI 30.7
--- NOTE | 2025-04-15 15:52 | PC.NURSE ---
DR OLIVAREZ AT BEDSIDE
--- NOTE | 2025-04-15 15:52 | HMH.EDGENADL ---
Discharge Plan Disposition Patient Disposition: Home, Self-Care Condition: Good Prescriptions Prescriptions: No Action mecobalamin (vitamin B12) 1,000 mcg tablet,chewable 1,000 mcg PO DAILY omeprazole 40 mg capsule,delayed release(DR/EC) 40 mg PO DAILY PRN (Reason: Acid Reflux) aspirin 81 mg tablet 81 mg PO DAILY risperidone 0.25 mg tablet 0.25 mg PO DAILY bisoprolol fumarate 5 mg tablet See Rx Instructions .ROUTE .COMPLEX Qty: 90 3RF Dose Instruction: TAKE 1 TABLET BY MOUTH DAILY. Rx Instructions: TAKE 1 TABLET BY MOUTH DAILY. hydralazine 10 mg tablet 10 mg PO TID PRN (Reason: hypertension BP < 140/90) Qty: 90 2RF memantine 5 mg tablet 5 mg PO BID levothyroxine 25 MCG tablet 25 mcg PO DAILY evolocumab 140 mg/mL syringe 140 mg SQ DIRECTED Rx Instructions: EVERY 2 WEEKS Activity Restrictions/Add. Instructions Additional Instructions/Restrictions: Continue to stay well-hydrated. Return to the emergency department if you have any return of your symptoms are unable to ambulate. Please check your blood pressure every day at home and keep a log. Follow-up with your director of supply chain if your blood pressure continues to be elevated or if you have symptoms such as headache, chest pain or feel lightheadeded. Clinical Impressions Clinical Impression: Weakness Print Language Print Language: Sinhala Discharge ED Provider: Ella Echeverria Adult HPI General Chief complaint: Weakness Stated complaint: Lethargic Time Seen by Provider: 04/15/25 15:51 History of Present Illness HPI narrative: Patient is an 84-year-old female with a past medical history of dementia, coronary artery disease with a pacemaker in place who presented to the emergency department from home with concerns for weakness and lethargy. Family is at bedside helping provide history. They state that patient is typically much more alert and awake and patient has appeared more tired than usual since this morning. He states that sometimes she will stay awake at night and patient was up a lot last night. He states that patient has otherwise not had any slurred speech or other neurologic symptoms. Patient is not a diabetic. States that the patient has been otherwise eating and drinking appropriately. Patient has not had any trauma or falls falls. He states that patient has otherwise not been ill has not had fevers chills cough runny nose. Patient denies any chest pain shortness of breath abdominal pain nausea vomiting or diarrhea. Patient states that she has no complaints at this time. Related Data Home Medications ?Medication ?Instructions ?Recorded ?Confirmed evolocumab 140 mg/mL subcutaneous 140 mg SQ DIRECTED Cholesterol 03/21/20 03/17/25 syringe levothyroxine 25 mcg tablet 25 mcg PO DAILY Thyroid 03/21/20 03/17/25 mecobalamin (vitamin B12) 1,000 1,000 mcg PO DAILY Supplement 04/21/20 03/17/25 mcg chewable tablet memantine 5 mg tablet 5 mg PO BID Memory 05/08/23 03/17/25 aspirin 81 mg tablet 81 mg PO DAILY 09/10/24 03/17/25 omeprazole 40 mg capsule,delayed 40 mg PO DAILY PRN Acid Reflux 09/10/24 03/17/25 release risperidone 0.25 mg tablet 0.25 mg PO DAILY 09/10/24 03/17/25 Previous Rx's ?Medication ?Instructions ?Recorded bisoprolol fumarate 5 mg tablet See Rx Instructions .Route 02/10/25 .COMPLEX #90 tabs hydralazine 10 mg tablet 10 mg PO TID PRN hypertension BP < 04/17/25 140/90 #90 tabs Allergies Allergy/AdvReac Type Severity Reaction Status Date / Time cefdinir Allergy Confusion Verified 03/17/25 16:32 Sjyekpu-GZN-YnN Reductase AdvReac Mild myalgia Verified 03/17/25 16:32 Inhibitor [facility] Disclaimer: The information contained in this section may have been updated after the patient was seen, as this information can be updated by other users. Medical History Memory loss Constipation Osteoarthritis of left knee Status post left total knee arthroplasty History of pacemaker Hypothyroidism HLD (hyperlipidemia) HTN (hypertension) Dementia Dyspnea Acquired hammertoe of right foot History of toe fracture Sinus tachycardia SSS (sick sinus syndrome) Tachy-clemencia syndrome Overweight with body mass index (BMI) 25.0-29.9 Callus of foot Abnormal EKG Syncope Back pain Surgical History History of total left knee replacement History of cardiac cath History of hysterectomy Status post foot surgery Family History Other Family history of heart disease Social History (Updated 03/17/25 @ 16:35 by Danette Davis RN) Smoking Status: Never smoker alcohol intake: never substance use type: denies use current occupational status: retired Travel in the last 8 weeks?: None household members: spouse housing: house marital status: current occupational exposures/hazards: No caffeine: Yes Have you lived/traveled outside [place] in past 30 days?: No Contact w/someone who lives/traveled outside US past 30 days?: No Exposure to someone with infectious disease in past 14 days?: No Do you have a fever (greater than 100.4 F or 38 C)?: No Have you tested positive for COVID-19?: No Exposed to someone with COVID-19 in past 14 days?: No Do you have a sore throat?: No Do you have a cough?: No Do you have any weakness?: No Do you have any diarrhea?: No Are you experiencing any unusual bleeding?: No Do you have any muscle aches/pain?: No Do you have any abdominal pain?: No Are you experiencing loss of taste or smell?: No Other Medical History Have you received the Flu Vaccine for this season: No Have you received the Pneumonia Vaccine: Yes ROS Obtained: Yes All systems reviewed & no additional complaints except as documented and Yes Systems reviewed as appropriate & no additional complaints except as documented Physical Exam General General appearance: alert and in no apparent distress Head Head exam: atraumatic, normocephalic and normal inspection Eye Eye exam: Present normal appearance, PERRL and EOMI; Absent scleral icterus ENT ENT exam: Present normal exam and normal external ear exam Neck Neck exam: Present normal inspection and full ROM Chest Chest inspection: Present normal inspection and symmetric chest wall rise Respiratory Respiratory exam: Present normal lung sounds bilaterally; Absent respiratory distress or wheezes Cardiovascular Cardiovascular exam: Present regular rate, normal rhythm and normal heart sounds Abdominal Exam Abdominal exam: Present soft and distention; Absent tenderness, guarding or rebound Extremities Exam Extremities exam: Present normal inspection and full ROM Back Exam Back exam: Present normal inspection and full ROM Neurological Exam Neurological exam: Present alert, oriented X3, CN II-XII intact, normal gait and reflexes normal; Absent motor sensory deficit Psychiatric Psychiatric exam: Present normal affect and normal mood Skin Skin exam: Present warm and dry Medical Decision Making Medical Records Medical records reviewed: Yes I reviewed the patient's medical records. Screening: Per USPSTF and CDC recommendations, given the prevalence of disease in our region, it is our hospital?s policy to screen for HIV and viral Hepatitis for all patients aged 18 and over and those with ongoing risk factors. Jaspreet Inquiry Pt receiving controlled substance: No Vital Signs: 04/15/25 15:48 04/15/25 16:02 04/15/25 17:01 Temperature 97.9 F Temperature Source Oral Pulse Rate 83 Pulse Rate [Apical] 82 Respiratory Rate 18 Blood Pressure 206/98 H 163/82 H Blood Pressure [Right Arm] 206/98 H Blood Pressure Mean 109 Blood Pressure Mean [Right Arm] 134 Blood Pressure Source Blood Pressure Source [Right Arm] Automatic Cuff Blood Pressure Position Blood Pressure Position [Right Arm] Sitting 02 Sat by Pulse Oximetry 97 97 Oxygen Delivery Method Room Air 04/15/25 17:01 04/15/25 17:40 04/15/25 18:06 Temperature 98.1 F Temperature Source Oral Pulse Rate 80 70 68 Pulse Rate [Apical] Respiratory Rate 15 Blood Pressure 163/82 H 179/98 H 154/73 H Blood Pressure [Right Arm] Blood Pressure Mean Blood Pressure Mean [Right Arm] Blood Pressure Source Automatic Cuff Blood Pressure Source [Right Arm] Blood Pressure Position Supine Blood Pressure Position [Right Arm] 02 Sat by Pulse Oximetry 97 97 Oxygen Delivery Method Room Air Lab Data Lab results reviewed: Yes I reviewed the patient's lab results. Lab Results 04/15/25 15:52: Urine Color Yellow, Urine Appearance Clear, Urine pH 6.5, Ur Specific [place] 1.015, Urine Protein Negative, Urine Glucose (UA) Negative, Urine Ketones Negative, Urine Blood Negative, Urine Nitrate Negative, Urine Bilirubin Negative, Urine Urobilinogen 0.2, Ur Leukocyte Esterase Trace, Urine RBC Occasional, Urine WBC 5-10, Ur Squamous Epith Cells 5-10, Urine Bacteria 1+, Urine Opiates Screen Negative, Urine Methadone Screen Negative, Ur Barbituates Screen Negative, Ur Phencyclidine Scrn Negative, Ur Amphetamines Screen Negative, U Benzodiazepines Scrn Negative, Urine Cocaine Screen Negative, U Marijuana (THC) Screen Negative 04/15/25 16:10: WBC 6.3, RBC 4.39, Hgb 12.7, Hct 39.8, MCV 90.7, MCH 28.9, MCHC 31.9, RDW 13.4, Plt Count 235, MPV 10.1, Neut % (Auto) 65.9, Lymph % (Auto) 22.9, [place] % (Auto) 9.2, Eos % (Auto) 1.1, Baso % (Auto) 0.6, Neut # (Auto) 4.2, Lymph # (Auto) 1.5, [place] # (Auto) 0.6, Eos # (Auto) 0.1, Baso # (Auto) 0.0, Sodium 138, Potassium 4.3, Chloride 105, Carbon Dioxide 24, Anion Gap 13.3, BUN 17, Creatinine 0.80, Estimated Creat Clear 50, Estimated GFR 68, Est GFR ( Amer) 83, Glucose 100, Calcium 10.0, Magnesium 1.9, Total Bilirubin 0.7, AST 32, ALT 15, Alkaline Phosphatase 70, Troponin I < 0.01, Total Protein 6.9, Albumin 4.3, Globulin 2.6, Albumin/Globulin Ratio 1.7, Lipase 81, Chlamy pneumoniae PCR Not detected, Adenovirus (PCR) Not detected, B. pertussis DNA (PCR) Not detected, Coronavirus OC43 (PCR) Not detected, Coronavirus HKU1 (PCR) Not detected, Coronavirus 229E (PCR) Not detected, SARS-CoV-2 (PCR) Not detected, Coronavirus NL63 (PCR) Not detected, Human Metapneumovir PCR Not detected, Influenza A (H1) PCR Not detected, Influ A (H1N1/09) PCR Not detected, Influenza A (H3) PCR Not detected, Influenza Type A (PCR) Not detected, Influenza Type B (PCR) Not detected, M. pneumoniae (PCR) Not detected, Parainfluenza 1 (PCR) Not detected, Parainfluenza 2 (PCR) Not detected, Parainfluenza 3 (PCR) Not detected, Parainfluenza 4 (PCR) Not detected, RSV (PCR) Not detected, Entero/Rhino (PCR) Not detected 04/15/25 16:10 04/15/25 16:10 Orders (Tests/Meds): ORDERS Category Date Time Status CT head/brain wo con Stat Cat Scan 04/15/25 16:02 Completed CXR --portable [XR chest portable] Stat Exams 04/15/25 16:02 Completed CBC w/Auto Diff [Complete Blood Count Auto Diff] Stat Lab 04/15/25 16:10 Completed CMP [Comprehensive Metabolic Panel] Stat Lab 04/15/25 16:10 Completed Drug Screen,Urine Stat Lab 04/15/25 15:52 Completed Full Resp Panel w/COVID ([facility]) Routine Lab 04/15/25 16:10 Completed Lipase Stat Lab 04/15/25 16:10 Completed MAG [Magnesium] Stat Lab 04/15/25 16:10 Completed Trop I [Troponin I] Stat Lab 04/15/25 16:10 Completed UA [Urinalysis and Microscopic] Stat Lab 04/15/25 15:52 Completed Medical Decision Narrative: Patient is an 84-year-old female with a past medical history of dementia, coronary artery disease and with a pacemaker who presented to the emergency department with weakness and being less awake and alert than usual. On arrival, patient was hemodynamically stable mildly hypertensive. Differential includes but not limited to: Intracranial mass, intracranial hemorrhage, intracranial ischemia, UTI, drug use, ACS/TX, arrhythmia, side effects of dementia. On exam, patient was in a regular rate and rhythm. Patient had a nonfocal neuroexam. Patient appeared mildly sleepy but was awake alert and interactive. Exam was otherwise unremarkable. Patient was labs were reviewed and interpreted by myself: CBC showed no leukocytosis, hemoglobin was stable. CMP was unremarkable. Magnesium was normal. Lipase was normal. Initial and second troponin were less than 0.01. UA showed no signs of infection. Urine drug screen was negative. Chest x-ray was reviewed and interpreted by myself and showed no acute focal consolidation, pneumothorax, pleural effusion or other acute cardiopulmonary process. CT head was reviewed and interpreted by myself and showed no acute intracranial pathology. EKG showed normal sinus rhythm without acute ST or T wave changes concerning for ischemia. Patient was mildly hypertensive on arrival patient's blood pressure improved without any interventions in the emergency department. Patient on reevaluation was much more awake alert and interactive and patient was back to her baseline. At this time, given patient's unremarkable workup I felt the patient was appropriate and stable for discharge home. Return precautions were discussed. Critical Care Critical Care Time Critical Care Time: No
--- NOTE | 2025-04-15 15:56 | ECG_ITS ---
APPROVED REPORT Exam: Resting ECG HR:70 bpm ECG Measurements Heart Rate 70 AXES ND 222 P 32 QRSd 89 QRS 35 QT 379 T 33 QTc 400 Conclusion Normal sinus rhythm without acute ST or T wave changes concerning for ischemia Electronically signed by : Ella Echeverria, 04/16/2025 00:35:59
--- NOTE | 2025-04-15 15:57 | PC.NURSE ---
BG 87
[2025-04-15 15:58] LABS: Microscopic, Urine URINE MICROSCOPIC (MICROSCOPIC)
[2025-04-15 16:00] LABS: Bilirubin,Urine Negative (Negative); Color,Urine YELLOW (Yellow); Glucose,Urine (UA) Negative (Negative); Ketones,Urine Negative (Negative); Leukocyte Esterase,Urine TRACE (Negative); PH,Urine 6.5 (5.0-8.5); Protein,Urine Negative (Negative); Specific Gravity, Urine 1.015 (1.005-1.030); Urobilinogen,Urine 0.2 EU/dl (0.2)
[2025-04-15 16:02] VITALS: BP 206/98; PULSE 83; O2SAT 97
--- NOTE | 2025-04-15 16:02 | CT_ITS ---
FINAL REPORT TECHNIQUE: Thin section axial images were obtained from skull base to vertex without contrast. Coronal reconstruction images were obtained from the axial data. Exam was performed using dose reduction techniques such as automated exposure control, adjustment of the mA and kV according to patient size, and use of iterative reconstruction technique. CLINICAL HISTORY: HTN, AMS COMPARISON: 09/08/2024 FINDINGS: There is atrophy. No mass effect or midline shift. No intracranial hemorrhage. No hydrocephalus. Periventricular low density is likely related to changes of chronic small vessel ischemia. The basilar cisterns are preserved. The posterior fossa is without acute abnormality. The soft tissues are without acute abnormality. No acute osseous abnormality is identified. IMPRESSION: No acute intracranial abnormality. Atrophy and changes suggesting chronic small vessel ischemia. Reviewed, Interpreted and Dictated by Lay Renteria MD Transcribed by Razia Hughes Authenticated and [facility][1]
--- NOTE | 2025-04-15 16:02 | XR_ITS ---
FINAL REPORT CLINICAL HISTORY: AMS COMPARISON: 09/08/2024 FINDINGS: A portable view of the chest was obtained. Heart size is within normal limits. There is no change in the left-sided pacer.. The lungs are clear. There is no pleural effusion or pneumothorax. IMPRESSION: No acute process on this portable exam. Reviewed, Interpreted and Dictated by Lay Renteria MD Transcribed by Razia Hughes Authenticated and [facility]
--- OUTSIDE RECORDS SUMMARY | 2025-04-15 16:05 | XMS_ITS | Patient Health Record ---
Author Organization [facility] Address [address] [place] [id number] Care Team Providers Care Experimental Box Tester Name Role Phone Heladio Rosales Primary Care Provider Vijaya Sony Unavailable [phone] Estefania Raines Unavailable [phone] Allergies Allergen (clinical drug ingredient) Drug/Non Drug Allergy documented on EMR Reaction Allergy Type Onset Date Status cefdinir Cefdinir AMS Drug Allergy Active dexamethasone DexAMETHasone AMS Drug Allergy Active Results Component Value Reference Range Notes H-UA Reviewed date:08/26/2024 11:08:33 PM Interpretation: Performing [...] AGRATIO 1.8 1.1-1.8 ALP 82 38-126 U/L Fine needle aspiration : Thy roid Reviewed date:12/06/2024 04:19:49 PM Interpretation:pathology negative for malignant cells Performing Lab: Notes/Report: pathology negative for malignant cells Ultrasound: Thyroid Reviewed date:11/14/2024 01:00:09 PM Interpretation:US guided FNA recommended Performing Lab: Notes/Report: US guided FNA recommended P-Culture, Urine Reviewed date:10/01/2024 08:22:47 AM Interpretation:No growth Performing Lab: Notes/Report: Test performed by [facility] [address] [place], [place] [address]Kato Mclean , [address], [place] [address] González King MD, Blast Hole Driller CLIA: [id number] Specimen Source Urine - Void Culture, Urine See Below Final Report : No growth H-Urine Culture and Sensitiv ity Reviewed date:10/01/2024 08:22:47 AM Interpretation:No growth Performing Lab: Notes/Report: CUU NO GROWTH AFTER 2 DAYS H-Culture, Blood Reviewed date:10/02/2024 12:52:56 PM Interpretation:No growth Performing Lab: Notes/Report: CUBLD NO GROWTH AFTER 5 DAYS CUBLD NO GROWTH AFTER 5 DAYS H-CMP Reviewed date:01/09/2025 09:07:39 AM Interpretation: Performing Lab: Notes/Report: H-CBC Reviewed date:01/09/2025 09:07:54 AM Interpretation: Performing Lab: Notes/Report: Urinalysis - Inhouse Reviewed date:09/30/2024 05:19:47 PM Interpretation:1+ leuk Performing Lab: Notes/Report: 1+ leuk Color/Clarity dark yellow Leuk 1+ Nitrite neg Urobili 1.6 Protein neg pH 6.0 Blood neg Sp. Gr. 1.030 Ketone neg Bili neg Gluc neg P-Culture, Urine Reviewed date:01/13/2025 04:55:36 PM Interpretation:E. Coli Performing Lab: Notes/Report: Test performed by [facility] [address] [place], [place] [address]Kato Carmen Tapia, [address], [place] [address] González King MD, Blast Hole Driller CLIA: [id number] Specimen Source Urine - Void Culture, Urine [...] Interpretation:5.62 Performing Lab: Notes/Report: Test performed by [facility] [address] [place] [address] [place] [address] González King MD, Blast Hole Driller CLIA: [id number] Calcium, Ionized 5.62 4.60-5.30 mg/dL P-Basic Metabolic Panel (BMP ) Reviewed date:01/09/2025 09:49:25 AM Interpretation:Ca 10.5 Performing Lab: Notes/Report: Test performed by [facility] [address] [place], [place] [address]Kato Mclean , [place] [address] González King MD, Blast Hole Driller CLIA: [id number] Sodium 139 135-145 mmol/L Potassium 4.5 3.5-5.3 [...] 1.015 Ketone neg Bili neg Gluc neg P-Culture, Urine Reviewed date:08/28/2024 09:55:50 AM Interpretation:not performed, see TE Performing Lab: Notes/Report: not performed, see TE Urinalysis - Inhouse Reviewed date:08/26/2024 11:09:03 PM Interpretation: Performing Lab: Notes/Report: Color/Clarity yellow/clear Leuk 1+ Nitrite neg Urobili 1.6 Protein 1+ pH 5.5 Blood neg Sp. Gr. 1.025 Ketone 1+ Bili 1+ Gluc neg P-Culture, Urine Reviewed date:08/02/2024 11:04:06 AM Interpretation:suggests contamination Performing Lab: Notes/Report: Test performed by [employer] [employer] [address] [place] [address] , [address], [place] [address] González King MD, Blast Hole Driller CLIA: [id number] Specimen Source Urine - Void Culture, Urine See Below Final Report : 10,000-15,000 CFU/ml Mixed Gram Positive and Negative Organisms Three or more organisms present likely representing contamination during collection by patient's urogenital, skin, and/or fecal nishi. Organism identification and sensitivity assessment are not recommended. Specimen recollection is recommended. Urinalysis - Inhouse Reviewed date:07/31/2024 04:23:03 PM Interpretation: Performing Lab: Notes/Report: Color/Clarity yellow Leuk 1+ Nitrite neg Urobili 16 Protein 1+ pH 5.5 Blood neg Sp. Gr. 1.025 Ketone neg Bili neg Gluc neg P-Parathyroid Hormone (PTH) Intact Reviewed date:07/26/2024 02:36:21 PM Interpretation:103 Performing Lab: Notes/Report: Test performed by [facility] [address] [place] [address] , [address], [place] [address] González King MD, Blast Hole Driller CLIA: [id number] Parathyroid Hormone (PTH) Intact 103.0 15.0-65.0 pg/mL P-Calcium, Ionized Reviewed date:07/26/2024 02:36:21 PM Interpretation:5.56 Performing Lab: Notes/Report: Test performed by [facility] [address] [place] [address] , [address], [place] [address] González King MD, Blast Hole Driller CLIA: [id number] Calcium, Ionized 5.56 4.60-5.30 mg/dL P-Basic Metabolic Panel (BMP ) Reviewed date:07/26/2024 02:36:21 PM Interpretation:Cr 1.02, Ca 10.7, gfr 54 Performing Lab: Notes/Report: Test performed by [facility] [address] [place] [address] Carmen Tapia, [address], [place] [address] González King MD, Blast Hole Driller CLIA: [id number] Sodium 141 135-145 mmol/L Potassium 4.7 3.5-5.3 mmol/L Chloride 105 97-108 mmol/L CO2 25 22-32 mmol/L Glucose 95 65-99 mg/dL BUN 19 8-23 mg/dL Creatinine 1.02 0.50-1.00 mg/dL Calcium 10.7 8.6-10.4 mg/dL eGFR by Creatinine 54 >59 mL/min/1.73m2 P-Culture, Urine Reviewed date:01/22/2025 01:14:38 PM Interpretation:no significant growth Performing Lab: Notes/Report: Test performed by [facility] [address] [place] [address] , [place] [address] González King MD, Blast Hole Driller CLIA: [id number] Specimen Source Urine - Void Culture, Urine See Below Final Report : No Significant Growth Urinalysis - Inhouse Reviewed date:01/17/2025 04:48:57 PM Interpretation: Performing Lab: Notes/Report: Color/Clarity yellow Leuk trace Nitrite neg Urobili 3.2 Protein neg pH 5.5 Blood neg Sp. Gr. 1.010 Ketone neg Bili neg Gluc neg P-Parathyroid Hormone (PTH) Intact Reviewed date:10/11/2024 08:37:36 AM Interpretation:95.0 Performing Lab: Notes/Report: Test performed by [facility] [address] [place] [address] , [place] [address] González King MD, Blast Hole Driller CLIA: [id number] Parathyroid Hormone (PTH) Intact 95.0 15.0-65.0 pg/mL P-Basic Metabolic Panel (BMP ) Reviewed date:10/11/2024 08:37:36 AM Interpretation:Cuong 10.5 Performing Lab: Notes/Report: Test performed by [facility] [address] [place] [address] , [place] [address] González King MD, Blast Hole Driller CLIA: [id number] Sodium 142 135-145 mmol/L Potassium 4.9 3.5-5.3 mmol/L Chloride 107 97-108 mmol/L CO2 25 22-32 mmol/L Glucose 90 65-99 mg/dL BUN 15 8-23 mg/dL Creatinine 0.81 0.50-1.00 mg/dL Calcium 10.5 8.6-10.4 mg/dL eGFR by Creatinine 71 >59 mL/min/1.73m2 Pulmonary Function Before & After Reviewed date:07/02/2024 08:28:22 AM Interpretation: Performing Lab: Notes/Report: Urinalysis - Inhouse Reviewed date:06/21/2024 03:08:39 PM [...] Interpretation:Not completed Performing Lab: Notes/Report: Not completed P-Basic Metabolic Panel (BMP ) Reviewed date:12/13/2024 09:58:11 AM Interpretation:cl 109, gluc 127 Performing Lab: Notes/Report: Test performed by [facility] [address] [place] [address] , [address], [place] [address] González King MD, Blast Hole Driller CLIA: [id number] Sodium 143 135-145 mmol/L Potassium 4.3 3.5-5.3 mmol/L Chloride 109 97-108 mmol/L CO2 22 22-32 mmol/L Glucose 127 65-99 mg/dL BUN 14 8-23 mg/dL Creatinine 0.83 0.50-1.00 mg/dL Calcium 10.0 8.6-10.4 mg/dL eGFR by Creatinine 69 >59 mL/min/1.73m2 P-Calcium, Ionized Reviewed date:12/13/2024 09:58:11 AM Interpretation:5.44 Performing Lab: Notes/Report: Test performed by [facility] [address] [place] [address] , [address], [place] [address] González King MD, Blast Hole Driller CLIA: [id number] Calcium, Ionized 5.44 4.60-5.30 mg/dL Medications Medication SIG (Take, Route, Frequency, Duration) Notes Start Date End Date Status Ciprofloxacin HCl 250 MG 1 tablet Orally every 12 hrs; Duration: 5 days 01/08/2025 Active B-12 1000 MCG 1 tab(s) orally once a day; Duration: 30 day(s) Active Vitamin D3 1.25 MG (74347 UT) 1 capsule Orally; Duration: 30 day(s) [...] B ed Time; Duration: 30 day(s) Active Levothyroxine Sodium 25 MCG 1 tab(s) [...] 03/18/2013 Administered xFlu shot- 6months-36 months of tte-FXZF-NRZG-trivale nt Unknown 04/27/2010 Administered xFlu shot-36 months and older IM Intramuscular 05/16/2007 Administered 05/03/2007 pt received the flu shot from [facility] Problems Problem Type SNOMED Code ICD Code Onset Dates Problem Status W/U Status Risk Notes Problem Essential hypertension (90816170) Essential (primary) hypertension (I10) Active confirmed Problem Vitamin B12 deficiency (152502922) Vitamin B12 deficiency (E53.8) Active confirmed Problem Hypercalcemia (70094137) Hypercalcemia (E83.52) Active confirmed Problem Essential hypertension (32818900) Essential hypertension (I10) Active confirmed Problem Osteopenia (247131872) Osteopenia (M85.80) Active confirmed Problem Altered mental statu s (070014902) Altered mental state (R41.82) Active confirmed Problem Body mass index 30+ - obesity (917177270) BMI 30.0-30.9,adult (Z68.30) Active confirmed Problem Memory loss (56933321) Memory loss (R41.3) Active confirmed Problem Mixed hyperlipidemia (095165897) Mixed hyperlipidemia (E78.2) Active confirmed Problem Vasomotor rhinitis (2175207) Vasomotor rhinitis (J30.0) Active confirmed Problem Vaccination given (813517023) Encounter for immunization (Z23) Active confirmed Problem Arteriosclerotic vascular disease (15568772) Arteriosclerotic cardiovascular disease (I25.10) Active confirmed Problem Hyperlipidemia (50367242) Hyperlipidemia, unspecified (E78.5) Active confirmed Problem Cardiac pacemaker in situ (929675199) Status cardiac pacemaker (Z95.0) Active confirmed Problem Acquired hypothyroidism (402785055) Acquired hypothyroidism (E03.9) Active confirmed Problem Hyperlipidaemia (92103022) Hyperlipidemia, unspecified hyperlipidemia type (E78.5) Active confirmed Problem Occlusion and stenosis of multiple and bilateral cerebral arteries (187831511) Carotid stenosis, bilateral (I65.23) Active confirmed Problem Altered mental statu s (371438575) Altered mental status, unspecified altered mental status type (R41.82) Active confirmed Problem Hyperparathyroidism (92311979) Hyperparathyroidism (E21.3) Active confirmed Problem Cardiac dysrhythmia (659908970) Cardiac dysrhythmia, unspecified (I49.9) Active confirmed Problem Encephalopathy (91731700) Encephalopathy (G93.40) Active confirmed Problem Allergic rhinitis (33996053) Allergic rhinitis, unspecified allergic rhinitis trigger, unspecified rhinitis seasonality (J30.9) Active confirmed Problem Osteoarthritis of knee (895095308) Arthropathy of both knees (M17.0) Active confirmed Problem Artificial knee join t present (269158691764) 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) Active confirmed Problem Fibrocystic breast changes (33558898) Fibrocystic breast disease (FCBD), unspecified laterality (N60.19) Active confirmed Problem Osteoarthritis of left knee joint (493368908813123) Osteoarthritis of left knee, unspecified osteoarthritis type (M17.12) Active confirmed Problem Imaging of thyroid gland abnormal (finding) (674401272) Abnormal thyroid ultrasound (R93.89) Active confirmed Problem Altered mental statu s (759896170) Acute alteration in mental status (R41.82) Active confirmed Problem Gastroesophageal reflux disease (371544889) Gastroesophageal reflux disease, unspecified whether esophagitis present (K21.9) Active confirmed Problem Paroxysmal ventricular tachycardia (77050044) V tach (I47.2) Active confirmed Problem Senile dementia (52037492) 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 coli] as the cause of diseases classified elsewhere B96.20 and Shortness of breath on exertion R06.02 [facility] [address] [id number] 06/21/2024 Estefania Olu Acute UTI N39.0 and Chronic cough R05.3 [facility] [address] [facility] [address] [id number] 07/25/2024 Estefaniayesenia Raines Renal insufficiency N28.9 ; Acute UTI N39.0 ; Hypercalcemia E83.52 and Confusion R41.0 [facility] [address] [facility] [address] [place] [id number] 07/31/2024 Estefaniayesenia Raines Urinary tract infect ion N39.0 [facility] [address] [place], [place] [id number] 08/23/2024 Estefania Crowdy Confusion R41.0 [facility] [address] [place], [place] [id number] 09/09/2024 Heladio Rosales Acute alteration in mental status R41.82 and 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 [facility] [address] [place], [place] [id number] 10/10/2024 Heladio Rosales Altered mental statu s, unspecified altered mental status type R41.82 ; 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 and Hypercalcemia E83.52 [facility] [address] [place], [place] [id number] 12/09/2024 Sony Gheens Hypercalcemia E83.52 ; Mixed hyperlipidemia E78.2 ; Ventricular tachycardia I47.20 and BMI 30.0-30.9,adult Z68.30 [facility] [address] [place], [place] [id number] 01/08/2025 Sony Gheens Acute UTI N39.0 and Hypercalcemia E83.52 [facility] [address] [place], [place] [id number] 01/17/2025 Sony Gheens UTI (lower urinary t ract infection) N39.0 [facility] [address] [place], [place] [id number] 09/23/2024 Heladio Rosales Arteriosclerotic cardiovascular disease I25.10 ; 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 ; Essential hypertension I10 ; Acquired hypothyroidism E03.9 and Status cardiac pacemaker Z95.0 [facility] [address] [place], [place] [id number] 09/27/2024 Estefania Crowdy Dysuria R30.0 ; Alte red mental status, unspecified altered mental status type R41.82 ; Dehydration E86.0 ; Unspecified fall, initial encounter W19.XXXA and Unspecified place in unspecified non-institutional (private) residence as the place of occurrence of the external cause Y92.009 [facility] [address] [place], [place] [id number] 06/25/2024 Estefania Crowcale [facility] [address] [place], [place] [id number] 07/26/2024 Estefania Raines Hypercalcemia E83.52 [facility] [address] [place], [place] [id number] 08/20/2024 Estefania Crowcale [facility] [address] [place], [place] [id number] 08/26/2024 Estefania Crowcale Confusion R41.0 [facility] [address] [place], [place] [id number] 09/05/2024 J Edgar Rosales [facility] [address] [place], [place] [id number] 09/06/2024 J Edgar Rosales [facility] [address] [place], [place] [id number] 09/09/2024 J Edgar Rosales [facility] [address] [place], [place] [id number] 10/01/2024 Estefania Olu [facility] [address] [place], [place] [id number] 10/07/2024 J Edgar Rosales [facility] [address] [place], [place] [id number] 10/11/2024 J Edgar Rosales [facility] [address] [place], [place] [id number] 10/25/2024 J Edgar Bobby [facility] [address] [place], [place] [id number] 11/14/2024 J Edgar Bobby [facility] [address] [place], [place] [id number] 12/05/2024 J Edgar Bobby [facility] [address] [place], [place] [id number] 12/13/2024 Sony Gheens [facility] [address] [place], [place] [id number] 01/09/2025 Sony Lilly [facility] [address] [place] [id number] 02/10/2025 Heladio Rosales [facility] [address] [place] [id number] 03/17/2025 Heladio Rosales Assessments Encounter Date Diagnosis (ICD Code) Assessment Notes Treatment Notes Treatment Clinical Notes Section Notes 06/12/2024 Urinary tract infection, site not specified [...] E83.52) 12/09/2024 Mixed hyperlipidemia (ICD-10 - E78.2) 01/08/2025 Hypercalcemia (ICD-10 - E83.52) 01/08/2025 Acute UTI (ICD-10 - N39.0) 01/17/2025 UTI (lower urinary tract infection) (ICD-10 - N39.0) 12/09/2024 Ventricular tachycardia (ICD-10 - I47.20) 10/10/2024 [...] rather have PFT's before scheduling with the front desk admin. 07/25/2024 Confusion (ICD-10 - R41.0) Resolved. 09/23/2024 [...] Date [employer] (MEDICAR E) [address] [address] [place] [address] [id number] HECTOR MCCABE Self - patient is the insured Medications [...] History Reason Date(Month/Year) Passed Out, Recent Fall- [facility] ER 05/20- Back Pain From Fall- [facility] ER 03/21/2020
--- OUTSIDE RECORDS SUMMARY | 2025-04-15 16:05 | XMS_ITS | Clinical Summary ---
Author Organization Healthcare Address [address] [place] [address] Care Team Providers Care Preschool Special Education Teacher Name Role Phone Pcp, No Primary Care Provider Unavailabl e Allergies No known active allergies Encounters Date Type Department Care Team Description 02/12/2025 10:51 AM EDT - 02/12/2025 11:59 PM EDT Hospital Encounter [facility] [address] [place] [address] Hyperparathyroidism, unspecified (CMS/[facility]) Discharge Disposition: Home or Self Care 02/12/2025 [...] or (1 - 1-dose 75+ series) 2015 [id number]-ECCRR-37 Vaccine ( - 2024- season) 2025 11/04/2021, 05/27/2021, 10/02/2020, Additional history exists [facility]-Influenza [...] error, please notify the sender immediately at [phone] and permanently delete the original report and destroy any copies or printouts. Narrative 02/12/2025 5:29 PM EDT [facility] - Phone Outpatient NAME: Jeannie Mccabe DATE OF EXAM: 02/12/2025 Patient No: [id number] Physician: Lida Date of : 1940 Past [...] Bernal MD - 02/12/2025 [facility] - Xme[facility] Outpatient NAME: Jeannie Mccabe DATE OF EXAM: 02/12/2025 Patient No: [id number] Physician: Lida Date of : 1940 Past [...] in error, pleasenotify the sender immediately at [phone] and permanently delete theoriginal report and destroy any copies or printouts. Dallas Espino MD IM CT PROCEDURES Final Resul t from Last 3 Months Insurance [facility] [address] MEDICARE Care Teams Preschool Special Education Teacher Relationship Specialty Start Date End Date Pcp, [place] [address] PCP - General Family Medicine 02/12/25
--- OUTSIDE RECORDS SUMMARY | 2025-04-15 16:06 | XMS_ITS | Clinical Summary ---
Author Organization [facility] Address [address] [place] [address] Care Team Providers Care Electrical Cad Designer Name Role Phone Diego Rosales MD Primary Care Provider [phone] Allergies No known active allergies Medications ranolazine [...] Take 81 mg by mouth Daily. Active Lavon-3 Fatty Acids (fish oil) 1000 MG capsule [...] - PCV) 11/22/2018 11/22/2017 ANNUAL PHYSICAL 06/16/2020 INFLUENZA VACCINE 02/21/2025 05/20/2019 COVID-19 Vaccine ( season) 2025 TDAP/TD VACCINES (4 - Td or Tdap) 11/23/2027 11/22/2017, 03/18/2013, 04/21/2000 Insurance [facility] MEDICARE ADVANTAGE Care Teams Electrical Cad Designer Relationship Specialty Start Date End Date Diego Rosales MD [address] [place] [facility] [address] [place] [address] PCP - General Family Medicine 06/16/20
[2025-04-15 16:20] LABS: Adenovirus,PCR Not Detected (NotDetected); Chlamydophila Pneumoniae, PCR Not Detected (NotDetected); Coronavirus 19, PCR Not Detected (NotDetected); Coronovirus HKU1,PCR Not Detected (NotDetected); Influenza A, PCR Not Detected (NotDetected); Influenza AH1, 2009 Not Detected (NotDetected); Influenza AH1, PCR Not Detected (NotDetected); Influenza AH3,PCR Not Detected (NotDetected); Influenza B, PCR Not Detected (NotDetected); Mycoplasma Pneumoniae, PCR Not Detected (NotDetected); Parainfluenza 1, PCR Not Detected (NotDetected); Parainfluenza 2, PCR Not Detected (NotDetected); Parainfluenza 3, PCR Not Detected (NotDetected); Parainfluenza 4, PCR Not Detected (NotDetected)
[2025-04-15 16:21] LABS: Hematocrit 39.8 % (37.0-47.0); Hemoglobin 12.7 g/dL (12.2-16.2); Immature Granulocytes % 0.3 %; Mean Corpuscular HGB Conc 31.9 g/dL (31.8-35.4); Mean Corpuscular Hemoglobin 28.9 pg (27.0-31.2); Mean Corpuscular Volume 90.7 fl (81-99); Nucleated Red Blood Cells % 0 %; Platelet Count 235 K/mm3 (142-424); Red Blood Count 4.39 M/mm3 (4.20-5.40); Red Cell Distribution Width-SD 44.5 fL; White Blood Count 6.3 K/mm3 (4.8-10.8)
[2025-04-15 16:36] LABS: Bacteria,Urine 1+ /lpf; RBC,Urine Occasional #/hpf (0-3)
[2025-04-15 16:52] LABS: Albumin Level 4.3 g/dl (3.5-5.0); Chloride 105 mmol/L (98-107); Potassium 4.3 mmoL/L (3.5-5.1); Sodium 138 mmol/L (136-145)
[2025-04-15 16:53] LABS: Amphetamine/Metha Screen,Urine Negative ng/ml (<1000)
[2025-04-15 16:54] LABS: Barbiturates Screen,Urine Negative ng/ml (<200)
[2025-04-15 16:55] LABS: Alanine Aminotransferase 15 U/L (12-78); Albumin/Globulin Ratio 1.7 (1.1-1.8); Alkaline Phosphatase 70 U/L (38-126); Anion Gap 13.3 mEq/L (5-15); Aspartate Amino Transferase 32 U/L (14-36); Bilirubin,Total 0.7 mg/dl (0.2-1.3); Blood Urea Nitrogen 17 mg/dl (7-17); Calcium 10.0 mg/dl (8.4-10.2); Carbon Dioxide 24 mmol/L (22.0-30.0); Creatinine Clearance Estimated 50 mL/min (50-200); Creatinine,Serum 0.80 mg/dl (0.52-1.04); Estimated Glomerular Filt Rate 68 ml/min (>60); GFR (African American) 83 ML/MIN (>60); Globulin 2.6 g/dL (1.3-3.2); Glucose 100 mg/dl (74-100); Lipase 81 U/L (23-300); Total Protein,Serum 6.9 g/dl (6.3-8.2)
[2025-04-15 16:55] LABS: Benzodiazepines Screen,Urine Negative ng/ml (<200)
[2025-04-15 16:56] LABS: Magnesium 1.9 mg/dl (1.6-2.3)
[2025-04-15 16:57] LABS: Methadone Screen,Urine Negative ng/ml (<300)
[2025-04-15 16:58] LABS: Opiate Screen,Urine Negative ng/ml (<300)
[2025-04-15 16:59] LABS: Phencyclidine Screen,Urine Negative ng/ml (<25)
[2025-04-15 17:01] VITALS: BP 163/82; PULSE 80; O2SAT 97
[2025-04-15 17:10] LABS: Troponin I < 0.01 ng/ml (0.00-0.034)
[2025-04-15 17:40] VITALS: BP 179/98; PULSE 70; O2SAT 97
[2025-04-15 18:06] VITALS: BP 154/73; PULSE 68; RESP 15; TEMP 36.7; O2SAT 96
== END 2025-04-15 18:07 | disposition home or self-care (01) ==
PROVIDERS: Emergency Provider Student in an Organized Health Care Education/Training Program
DX: R53.1 Weakness (principal); R53.83 Other fatigue; I10 Essential (primary) hypertension; E78.5 Hyperlipidemia, unspecified; Z86.79 Personal history of other diseases of the circulatory system; Z95.0 Presence of cardiac pacemaker
CPT/HCPCS: 0223U; 70450; 71045; 80053; 80307; 81001; 83690; 83735; 84484; 85025; 93005; 99284; 99285

== ENCOUNTER 2025-06-11 14:01 | Emergency (ER) | payer MEDICARE, OTHER, SELFPAY ==
--- OUTSIDE RECORDS SUMMARY | 2024-10-10 09:45 | XMS_ITS ---
Author Organization [facility] Address [address] [place] [id number] Care Team Providers Care Senior Engineering Associate Name Role Phone Heladio Rosales Primary Care Provider [phone] Allergies Allergen (clinical drug ingredient) Drug/Non Drug Allergy documented on EMR Reaction Allergy Type Onset Date Status cefdinir Cefdinir AMS Drug Allergy Active dexamethasone DexAMETHasone AMS Drug Allergy Active Results Component Value Reference Range Notes P-Basic Metabolic Panel (BMP ) Reviewed date:10/11/2024 08:37:36 AM Interpretation:Cuong 10.5 Performing Lab: Notes/Report: Test performed by [facility] [address] [place], [place] [address] [place] [address] [address] González King MD, Pulverizing And Sifting Operator CLIA: [id number] Sodium 142 135-145 mmol/L Potassium 4.9 3.5-5.3 mmol/L Chloride 107 97-108 mmol/L CO2 25 22-32 mmol/L Glucose 90 65-99 mg/dL BUN 15 8-23 mg/dL Creatinine 0.81 0.50-1.00 mg/dL Calcium 10.5 8.6-10.4 mg/dL eGFR by Creatinine 71 >59 mL/min/1.73m2 P-Parathyroid Hormone (PTH) Intact Reviewed date:10/11/2024 08:37:36 AM Interpretation:95.0 Performing Lab: Notes/Report: Test performed by [facility] [address] [place], [place] [address] [place] [address] González King MD, Pulverizing And Sifting Operator CLIA: [id number] Parathyroid Hormone (PTH) Intact 95.0 15.0-65. 0 pg/mL REASON FOR VISIT Increased Hallucination, Not Sleeping Medications Medication SIG (Take, Route, Frequency, Duration) Notes Start Date End Date Status Aspirin Adult Low Dose 81 MG 1 tablet Or ally Once a day Active Bisoprolol Fumarate 5 MG 1 tab(s) orally once a day Active Levothyroxine Sodium 25 MCG 1 tab(s) ora lly once a day; Duration: 90 days Active Repatha 140 MG/ML INJECT 140MG UNDER T HE SKIN EVERY 2 WEEKS Active B-12 1000 MCG 1 tab(s) orally once a day; Duration: 30 day(s) Active risperiDONE 0.25 MG 1 tablet Orally At B ed Time; Duration: 30 day(s) 09/09/2024 Active Omeprazole 40 MG 1 cap(s) Orally Once a day, prn; Duration: 30 days Active Memantine HCl 5 MG 1 tablet Orally twic e a day; Duration: 30 days Active Vitamin D3 1.25 MG (41943 UT) 1 capsule Orally; Duration: 30 day(s) Active Vital Signs Weight 165.6 lbs 10/10/2024 Blood pressure systolic 130 mm Hg 10/11/19 25 Blood pressure diastolic 80 mm Hg 025 Heart Rate 71 /min 10/10/2024 Height 62 in 10/10/2024 BMI 30.29 kg/m2 10/10/2024 Encounters Encounter Location Date Provider Diagnosis [facility] [address] [facility] [address] [facility] [address] [place] [id number] 10/10/2024 Heladio Rosales Altered mental statu s, unspecified altered mental status type R41.82 ; 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 and Hypercalcemia E83.52 Assessments Encounter Date Diagnosis (ICD Code) Assessment Notes Treatment Notes Treatment Clinical Notes Section Notes 10/10/2024 Altered mental status, unspecified altered mental status type (ICD-10 - R41.82) 10/10/2024 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 :1940 A ge:84 Y S ex:Female Date:10/10/2024 Address:[address] [place] [address], [id number] Subjective: * Chief Complaints: * 1 . Increased Hallucination, Not Sleeping. * HPI: N eurology: The pt is here today with c/o trouble going to sleep. Pt states she does not always sleep through the night. 84 year old female presents with c/o insomnia. E ndocrinology: Was referred to [facility] End[facility] and was seen in May or June. WE HAVE NO INFORMATION. MEDICATION WAS PRESCRIBED ONCE A WEEK. RX AT [facility]. * ROS: D ERMATOLOGY: no R neo. n o H cristopher. G ASTROENTEROLOGY: no N ausea. n o V omiting. n o D iarrhea.? U ROLOGY: no D ifficulty urinating. n o B lood in urine. * Medical History: H ypertension, LT Carotid Stenosis 20-49%, Heart Cath, Dr. Alvarado, CAD, 08/17/2010, MRI/MRA, 08/2012. * Surgical History: T otal Hysterectomy , Tonsillectomy , Carpal Tunnel 03/2006, Forehead Skin Lesions Removed 08/2018, Bilateral Cataract Removal 06/2017, Pacemaker-Dr Cohen 12/2020, left knee injection, Dr. Luna 05/12/2022, left knee replacement, Dr. Luna 05/08/2023. * Hospitalization/Major Diagno stic Procedure: B ack Pain From Fall- [facility] 03/21/2020, Passed Out, Recent Fall- [facility] 05/20-. * Family History: F ather: . M other: 88 yrs. S iblings: Her 59 y.o. brother of a heart attack in March 2005. 5 sister(s) . 1 son(s) - healthy. . brother 59, heart attack. * Social History: C URRENT TOBACCO USE S moking Status: Patient does NOT smoke. C affeine: yes, frequency:. Home smoke detector use: no. Marital Status: . Past smoking status: no, Smoking status: Does not smoke. Alcohol: no. * Medications: T aking Vitamin D3 1.25 MG (13635 UT) Capsule 1 capsule Orally , Taking B-12 1000 MCG Tablet 1 tab(s) orally once a day , Taking Bisoprolol Fumarate 5 MG Tablet 1 tab(s) orally once a day , Taking Aspirin Adult Low Dose 81 MG Tablet Delayed Release 1 tablet Orally Once a day , Taking Repatha 140 MG/ML Solution Prefilled Syringe INJECT 140MG UNDER THE SKIN EVERY 2 WEEKS , Taking Levothyroxine Sodium 25 MCG Tablet 1 tab(s) orally once a day , Taking Omeprazole 40 MG Capsule Delayed Release 1 cap(s) Orally Once a day, prn , Taking risperiDONE 0.25 MG Tablet 1 tablet Orally At Bed Time , Taking Memantine HCl 5 MG Tablet 1 tablet Orally twice a day , Medication List reviewed and reconciled with the patient * Allergies: C efdinir: AMS, DexAMETHasone: AMS. Objective: * Vitals: W t:165.6, Temp:98.2, BP:130/80, HR:71, Nurse:ANÍBAL, Ht: 62, BMI:30.29. * Examination: G eneral Examination: General Appearance: N AD, weight noted. H EENT: u nremarkable. O ral cavity: n o lesions, mucosa moist and WNL, no erythema. N aiden: s upple, no lymphadenopathy. C hest: n ormal shape and expansion. H eart: R SR. L ungs: c lear to auscultation. A bdomen: soft and nontender. N eurologic Exam: I ntact, gait normal. S kin: n ormal, no rash. P eripheral pulses: n ormal . B ack: mild dorsal kyphosis. E xtremities: trace leg edema. Assessment: * Assessment: 1. S enile dementia - F03.90 (Primary) 2 . A ltered mental status, unspecified altered mental status type - R41.82 3 . H ypercalcemia - E83.52 ? Plan: * Treatment: Value Reference Range B UN 15 8-23 - mg/dL * C alcium 10.5 H 8.6-10.4 - mg/dL * C hloride 107 97-108 - mmol/L * C O2 25 22-32 - mmol/L * C reatinine 0.81 0.50-1.00 - mg/dL * G lucose 90 65-99 - mg/dL * P otassium 4.9 3.5-5.3 - mmol/L * S odium 142 135-145 - mmol/L * e GFR by Creatinine 71 >59 - mL/min/1.73m2 * Monae Carmona 10/11/2024 08: 37:22 AM > see phone encounter ?LAB: P-Parathyroid Hormone (PTH) Intact (Collection Date & Time - 10/10/2024 02:39 PM)?95.0* Value Reference Range P arathyroid Hormone (PTH) Intact 95.0 H 15.0-65. 0 - pg/mL * Monae Carmona 10/11/2024 08: 37:22 AM > see phone encounter * Procedure Codes: G 2211 Complex e/m visit add on, 3075F SYST BP GE 130 - 139MM HG, 3079F DIAST BP 80-89 MM HG * Follow Up: 6 Weeks * Images: Billing Information: * Visit Code: 72355 Office Visit, Est Pt., Level 4. * Procedure Codes: G2211 Complex e/m visit add on. 3075F SYST BP GE 130 - 139MM HG. 3079F DIAST BP 80-89 MM HG. * Electronic signature of Heladio Rosales MD on 06/11/2025 at 03:37 PM EST Sign off status: Pending * Provider: Heladio Rosales M.D. Date: 0 10/10/2024 Generated for Barbara trinh/Luis/eTalexander on: 08/11/2024 03:37 PM EST History and Physical Notes * HPI (History of Present Illness) Category Sub-Category Detail Notes Category Not es Neurology insomnia Examination Category Sub-Category Detail Notes Category Not es General Examination HEENT: unremarkable Heart: RSR Lungs: clear to auscultatio n Abdomen: soft and nontender Extremities: trace leg edema General Appearance: NAD, weight noted Skin: normal, no rash Neurologic Exam: Intact, gait normal Neck: supple, no lymphaden opathy Oral cavity: no lesions, mucosa m oist and WNL, no erythema Peripheral pulses: normal Back: mild dorsal kyphosis Chest: normal shape and exp ansion
--- OUTSIDE RECORDS SUMMARY | 2024-11-25 08:15 | XMS_ITS ---
Author Organization [facility] Address [address] [facility] 36 [facility] [address] [place] [id number] Care Team Providers Care Tax Services Specialist Name Role Phone Heladio Rosales Primary Care Provider [phone] REASON FOR VISIT 2 month check Encounters Encounter Location Date Provider Diagnosis [facility] [address] [facility] 36 [facility] [address] [place] [phone] 11/25/2024 Heladio Rosales Plan Of Treatment Next Appt Details Provider Name:Heladio Meier er, 08/08/2025 10:30:00 AM, [address] [facility] 36 [facility], [address], [place], [phone], Progress Notes * JAGDISH MCCABEEDOB:1940 (84 yo F)Acc No.[id number]:11/25/2024 Progress Notes Patient: HECTOR JAIN Provider: Heladio Rosales M.D. :1940 A ge:84 Y S ex:Female Date:11/25/2024 Address:[address] [place] [phone] Subjective: * Chief Complaints: * 1 . 2 month check. * Medical History: Objective: * Vitals: Assessment: Plan: * Treatment: * Images: Billing Information: * Visit Code: * Procedure Codes: * Electronic signature of Heladio Rosales MD on 06/11/2025 at 03:37 PM EST Sign off status: Pending * Provider: Heladio Rosales M.D. Date: 0 11/25/2024 Generated for Barbara trinh/Luis/Khanh on: 1 08/11/2024 03:37 PM EST
--- OUTSIDE RECORDS SUMMARY | 2024-12-09 10:30 | XMS_ITS ---
Author Organization [facility] Address [address] [facility] [address] [place] [phone] Care Team Providers Care Material Manager Name Role Phone Heladio Rosales Primary Care Provider [phone] Sony Lilly Unavailable [phone] Allergies Allergen (clinical drug ingredient) Drug/Non Drug Allergy documented on EMR Reaction Allergy Type Onset Date Status cefdinir Cefdinir AMS Drug Allergy Active dexamethasone DexAMETHasone AMS Drug Allergy Active Results Component Value Reference Range Notes P-Basic Metabolic Panel (BMP ) Reviewed date:12/13/2024 09:58:11 AM Interpretation:cl 109, gluc 127 Performing Lab: Notes/Report: Test performed by [facility] [address] [place], [place] [address] [facility] [place] , [address], [place] [address] González King MD, Grapple Crew Leader CLIA: [id number] Sodium 143 135-145 mmol/L Potassium 4.3 3.5-5.3 mmol/L Chloride 109 97-108 mmol/L CO2 22 22-32 mmol/L Glucose 127 65-99 mg/dL BUN 14 8-23 mg/dL Creatinine 0.83 0.50-1.00 mg/dL Calcium 10.0 8.6-10.4 mg/dL eGFR by Creatinine 69 >59 mL/min/1.73m2 P-Calcium, Ionized Reviewed date:12/13/2024 09:58:11 AM Interpretation:5.44 Performing Lab: Notes/Report: Test performed by [facility] [address] [place], [place] [address] [place] , [address], [place] [address] González King MD, Grapple Crew Leader CLIA: [id number] Calcium, Ionized 5.44 4.60-5.30 mg/dL REASON FOR [...] 30 day(s) Active Vitamin D3 1.25 MG (98024 UT) 1 capsule Orally; Duration: 30 day(s) Active Aspirin Adult Low Dose 81 MG 1 tablet Or ally Once a day Active Bisoprolol Fumarate 5 MG 1 tab(s) orally once a day Active Problems Problem Type SNOMED Code ICD Code Onset Dates Problem Status W/U Status Risk Notes Problem Body mass index 30+ - obesity (995154940) BMI 30.0-30.9,a dult (Z68.30) Active confirmed Vital Signs Weight 169.4 lbs 12/09/2024 Blood pressure systolic 130 mm Hg 12/10/19 25 Blood pressure diastolic 74 mm Hg 025 Heart Rate 74 /min 12/09/2024 Height 62 in 12/09/2024 BMI 30.98 kg/m2 12/09/2024 Encounters Encounter Location Date Provider Diagnosis [facility] [address] [facility] [address] [place], [place] [id number] 12/09/2024 Sony [place] Hypercalcemia E83.52 ; Mixed hyperlipidemia E78.2 ; [...] to repo rt test results, Reason: Provider Name:Heladio Meier er, 08/08/2025 10:30:00 AM, [address], [address], [place], [place], [id number], Progress Notes * JAGDISH MCCABEEDOB:1940 (84 yo F)Acc No.[id number]:12/09/2024 Progress Notes Patient: HECTOR JAIN Provider: Elie Lilly M.D. :1940 A ge:84 Y S ex:Female Date:12/09/2024 Address:[address] [place], [place] [phone] Pcp:Heladio Rosales Subjective: * Chief Complaints: * 1 . Discuss thyroid. * HPI: H PI: 84 year old female presents with c/o Patient is here today for?Pt is here today to discuss her calcium level. She states it has been elevated at 10.5, 10.3 and 10.8 over the past 12 months. [facility] they have been doing testsbut her [...] stic Procedure: B ack Pain From Fall- [facility] 03/21/2020, Passed Out, Recent Fall- [facility] 05/20-. * Family History: F ather: [...] Medications: T aking Vitamin D3 1.25 MG (23773 UT) Capsule 1 capsule Orally , Taking [...] entricular tachycardia - I47.20 4 . B [place] 30.0-30.9,adult - Z68.30 Plan: * Treatment: Value [...] * Images: Billing Information: * Visit Code: 65199 Office Visit, Est Pt., Level 3. * Procedure Codes: G2211 Complex e/m visit add on. G8420 BMI<30 AND >=22 CALC & DOCU. 3075F SYST BP GE 130 - 139MM HG. 3078F DIAST BP < 80 MM HG. * Electronic signature of Natasha Lilly MD on 06/11/2025 at 03:36 PM EST Sign off status: Pending * Provider: Elie Lilly M.D. Date: 0 12/09/2024 Generated for Jannettei ng/Emilyg/eTransmitting on: 08/11/2024 03:36 PM EST History and Physical Notes * HPI (History of Present Illness) Category Sub-Category Detail Notes Category Not es HPI Patient is here today for Pt is here today to discuss her calcium level. She states it has been elevated at 10.5, 10.3 and 10.8 over the past 12 months. [facility] testsbut her next blood draw is in 6 months and her is concerned that she may be dehydrated Examination Category Sub-Category Detail Notes Category Not es General Examination Heart: RSR Lungs: clear to auscultatio n Extremities: no leg edema General Appearance: NAD Neurologic Exam: Intact, gait normal
--- OUTSIDE RECORDS SUMMARY | 2025-01-08 05:15 | XMS_ITS ---
Author Organization [facility] Address [address] [facility] [address] [place] [id number] Care Team Providers Care Station Agent Name Role Phone Heladio Rosales Primary Care Provider [phone] Vijaya Sony Unavailable [phone] Allergies Allergen (clinical drug ingredient) Drug/Non Drug Allergy documented on EMR Reaction Allergy Type Onset Date Status cefdinir Cefdinir AMS Drug Allergy Active dexamethasone DexAMETHasone AMS Drug Allergy Active Results Component Value Reference Range Notes Urinalysis - Inhouse Reviewed date:01/09/2025 09:00:18 AM Interpretation: Performing Lab: Notes/Report: Color/Clarity yellow/cloud Leuk 2+ Nitrite neg Urobili 3.2 Protein neg pH 5.5 Blood truce-intact Sp. Gr. 1.015 Ketone neg Bili neg Gluc neg CBC Venipuncture (in house) Reviewed date:01/09/2025 09:49:25 AM Interpretation:Normal Performing Lab: Notes/Report: Normal wbc 5.9 3.5 - 10 lymph 19.4 15 - 50 mid 5.5 2 - 15 gran 75.1 35 - 80 rbc 4.42 3.5 - 5.5 hgb 12.5 11.5 - 16.5 hct 38.7 35 - 55 mcv 87.5 75 - 100 mch 28.4 25 - 35 mchc 32.4 31 - 38 platlet 246 100 - 400 P-Basic Metabolic Panel (BMP ) Reviewed date:01/09/2025 09:49:25 AM Interpretation:Ca 10.5 Performing Lab: Notes/Report: Test performed by [employer], [address] [facility] [place] [address] González King MD, Mental Hygienist CLIA: [id number] Sodium 139 135-145 mmol/L Potassium 4.5 3.5-5.3 mmol/L Chloride 104 97-108 mmol/L CO2 23 22-32 mmol/L Glucose 99 65-99 mg/dL BUN 18 8-23 mg/dL Creatinine 0.81 0.50-1.00 mg/dL Calcium 10.5 8.6-10.4 mg/dL eGFR by Creatinine 71 >59 mL/min/1.73m2 P-Calcium, Ionized Reviewed date:01/09/2025 09:49:25 AM Interpretation:5.62 Performing Lab: Notes/Report: Test performed by [facility] [address] , [place] [address] González King MD, Mental Hygienist CLIA: [id number] Calcium, Ionized 5.62 4.60-5.30 mg/dL P-Culture, Urine Reviewed date:01/13/2025 04:55:36 PM Interpretation:E. Coli Performing Lab: Notes/Report: Test performed by [facility] [address] [place] [address] , [address], [place] [address] González King MD, Mental Hygienist CLIA: [id number] Specimen Source Urine - Void Culture, Urine See Below See Microbiol ogy Report Escherichia coli 25,000-50,000 CFU/ml Escherichia coli Sensitivity Panel See Below Organism E. coli Antibiotic INTERP Amikacin S Ampicillin S Aztreonam S Cefepime S Cefoxitin S Ceftazidime S Ceftriaxone S Cefuroxime S Ciprofloxacin S Ertapenem S Gentamicin S Imipenem S Levofloxacin S Meropenem S Nitrofurantoin S Piperacillin/Tazo S Tetracycline S Tobramycin S Trimeth/Sulfa S S=SUSCEPTIBLE I=INTERMEDIATE R=RESISTANT REASON FOR VISIT confusion, possible uti Medications Medication SIG (Take, Route, Frequency, Duration) Notes Start Date End Date Status Omeprazole 40 MG 1 cap(s) Orally Once a day, prn; Duration: 30 days Active Memantine HCl 5 MG 1 tablet Orally twic e a day; Duration: 30 days Active risperiDONE 0.25 MG 1 tablet Orally At B ed Time; Duration: 30 day(s) Active Ciprofloxacin HCl 250 MG 1 tablet Orally every 12 hrs; Duration: 5 days 01/08/2025 Active Levothyroxine Sodium 25 MCG 1 tab(s) ora lly once a day; Duration: 90 days Active B-12 1000 MCG 1 tab(s) orally once a day; Duration: 30 day(s) Active Bisoprolol Fumarate 5 MG 1 tab(s) orally once a day Active Aspirin Adult Low Dose 81 MG 1 tablet Or ally Once a day Active Repatha 140 MG/ML INJECT 140MG UNDER T HE SKIN EVERY 2 WEEKS Active Vitamin D3 1.25 MG (63898 UT) 1 capsule Orally; Duration: 30 day(s) Active Vital Signs Weight 166.2 lbs 01/08/2025 Blood pressure systolic 134 mm Hg 01/09/20 25 Blood pressure diastolic 72 mm Hg 025 Heart Rate 70 /min 01/08/2025 Height 62 in 01/08/2025 BMI 30.4 kg/m2 01/08/2025 Encounters Encounter Location Date Provider Diagnosis [facility] [address], [place] [id number] 01/08/2025 [place] Acute UTI N39.0 and Hypercalcemia E83.52 Assessments Encounter Date Diagnosis (ICD Code) Assessment Notes Treatment Notes Treatment Clinical Notes Section Notes 01/08/2025 Acute UTI (ICD-10 - N39.0) 01/08/2025 Hypercalcemia (ICD-10 - E83.52) Plan Of Treatment Medication Medication Name Sig Start Date Stop Date Notes Ciprofloxacin HCl 250 MG 1 tablet Orally every 12 hrs; Duration: 5 days 01/08/2025 Next Appt Details Follow Up: via phone to repo rt progress, Reason: Provider Name:Heladio Meier er, 08/08/2025 10:30:00 AM, [address], [address], [place], [place], [id number], Progress Notes * JAGDISH MCCABEEDOB:1940 (84 yo F)Acc No.[id number]:01/08/2025 Progress Notes Patient: HECTOR JAIN Provider: Elie Lilly M.D. :1940 A ge:84 Y S ex:Female Date:01/08/2025 Address:[address] [place], [place] [id number] Pcp:Heladio Rosales Subjective: * Chief Complaints: * 1 . Confusion, possible uti. * HPI: H PI: 84 year old female presents with c/o Here for follow up on:?on ER visit due to confusion. She was found to have a UTI and was treated with Macrobid. Culture showed multiple organisms, contamination suggested. Patient got a little better but is more confused now. and son accompany patient today. * ROS: C ARDIOLOGY: no C hest pain. n o S hortness of breath. ? D ERMATOLOGY: no R neo. n o H cristopher. G ASTROENTEROLOGY: no N ausea. n o V omiting. n o D iarrhea.? * Medical History: H ypertension, LT Carotid Stenosis 20-49%, Heart Cath, Dr. Alvarado, CAD, 08/17/2010, MRI/MRA, 08/2012. * Surgical History: T otal Hysterectomy , Tonsillectomy , Carpal Tunnel 03/2006, Forehead Skin Lesions Removed 08/2018, Bilateral Cataract Removal 06/2017, Pacemaker-Dr Cohen 12/2020, left knee injection, Dr. Luna 05/12/2022, left knee replacement, Dr. Luna 05/08/2023. * Hospitalization/Major Diagno stic Procedure: B ack Pain From Fall- [facility] ER 03/21/2020, Passed Out, Recent Fall- [facility] ER 05/20-. * Family History: F [...] Medications: T aking Vitamin D3 1.25 MG (42862 UT) Capsule 1 capsule Orally , Taking [...] THE SKIN EVERY 2 WEEKS , Taking Omeprazole 40 MG Capsule Delayed Release 1 cap(s) Orally Once a day, prn , Taking Memantine HCl 5 MG Tablet 1 tablet Orally twice a day , Taking risperiDONE 0.25 MG Tablet 1 tablet Orally At Bed Time , Taking Levothyroxine Sodium 25 MCG Tablet 1 tab(s) orally once a day , Medication List reviewed and reconciled with the patient * Allergies: C efdinir: AMS, DexAMETHasone: AMS. Objective: * Vitals: W t: 166.2, Temp: 97.9, BP: 134/72, HR: 70, Nurse: ANÍBAL/STEPHANIE, Ht: 62, BMI:30.4. * Examination: G eneral Examination: General Appearance: N AD. H eart: R SR. L ungs:?clear to auscultation. B ack: n o CVA tenderness. Assessment: * Assessment: 1. A cute UTI - N39.0 (Primary) 2 . H ypercalcemia - E83.52 ? Plan: * Treatment: Value Reference Range C ulture, Urine See Below - * S pecimen Source Urine - Void - * S ensitivity Panel See Below - * E scherichia coli 25,000-50,000 CFU/ml Escherichia coli - * Monae Carmona 01/13/2025 02: 28:19 PM EDT > pt started on CiproMonique Mccabe 01/13/2025 04:54:32 PM EDT > Pt informed ?LAB: Urinalysis - Inhouse (Collection Date & Time - 01/08/2025)* Value Reference Range C olor/Clarity yellow/cloud * L euk 2+ * N itrite neg * U robili 3.2 * P rotein neg * p H 5.5 * B lood truce-intact * S p. Gr. 1.015 * K etone neg * B modest[place] neg * G diana neg * Shahana Recio 01/08/2025 11 :02:39 AM EDT > Provider reviewed results while patient in office. ?LAB: CBC Venipuncture (in house) (Collection Date & Time - 01/08/2025)? Normal* Value Reference Range w bc 5.9 3.5 - 10 * l ymph 19.4 15 - 50 * m id 5.5 2 - 15 * g ran 75.1 35 - 80 * r bc 4.42 3.5 - 5.5 * h gb 12.5 11.5 - 16.5 * h ct 38.7 35 - 55 * m cv 87.5 75 - 100 * m ch 28.4 25 - 35 * m chc 32.4 31 - 38 * p latlet 246 100 - 400 * Shahana Recio 01/08/2025 04 :20:53 PM EDT > Provider reviewed results while patient in office. Gina Montgomery 01/09/2025 09:49:16 AM EDT > See phone encounter 2.?Hypercalcemia?LAB: P-Basic Metabolic Panel (BMP) (Collection Date & Time - 01/08/2025 10:10 AM)?Ca 10.5* Value Reference Range B UN 18 8-23 - mg/dL * C alcium 10.5 H 8.6-10.4 - mg/dL * C hloride 104 97-108 - mmol/L * C O2 23 22-32 - mmol/L * C reatinine 0.81 0.50-1.00 - mg/dL * G lucose 99 65-99 - mg/dL * P otassium 4.5 3.5-5.3 - mmol/L * S odium 139 135-145 - mmol/L * e GFR by Creatinine 71 >59 - mL/min/1.73m2 * Gina Montgomery 01/09/2025 09:4 9:16 AM EDT > See phone encounter ?LAB: P-Calcium, Ionized (Collection Date & Time - 01/08/2025 10:10 AM)?5.62 * Value Reference Range C alcium, Ionized 5.62 H 4.60-5.30 - mg/dL * Arjun Montgomeryia 01/09/2025 09:4 9:16 AM EDT > See phone encounter * Procedure Codes: G 2211 Complex e/[place], [address] Urinalysis, no micro, 05444 CBC WITH AUTO DIFF, 1036F TOBACCO NON-USER, G8783 BP SCR PRFRM RCMDD DEFIND SCR INTVL, G8752 MOST RECENT SYSTOLIC BP < 140MM HG, G8754 MOST RECENT DIASTOLIC BP < 90MM HG * Follow Up: v ia phone to report progress * Images: Billing Information: * Visit Code: 39990 Office Visit, Est Pt., Level 4. * Procedure Codes: G2211 Complex e/[place]. [address] Urinalysis, no micro. 00291 CBC WITH AUTO DIFF. 1036F TOBACCO NON-USER. G8783 BP SCR PRFRM RCMDD DEFIND SCR INTVL. G8752 MOST RECENT SYSTOLIC BP < 140MM HG. G8754 MOST RECENT DIASTOLIC BP < 90MM HG. * Electronic signature of Natasha Lilly MD on 06/11/2025 at 03:37 PM EST Sign off status: Pending * Provider: Elie Lilly M.D. Date: 0 01/08/2025 Generated for Printi ng/Faxing/eTransmitting on: 1 08/11/2024 03:37 PM EST History and Physical Notes * HPI (History of Present Illness) Category Sub-Category Detail Notes Category Not es HPI Here for follow up on: on ER vis it due to confusion. She was found to have a UTI and was treated with Macrobid. Culture showed multiple organisms, contamination suggested. Patient got a little better but is more confused now. and son accompany patient today Examination Category Sub-Category Detail Notes Category Not es General Examination Heart: RSR Lungs: clear to auscultatio n General Appearance: NAD Back: no CVA tenderness
--- OUTSIDE RECORDS SUMMARY | 2025-01-13 09:15 | XMS_ITS ---
Author Organization [facility] Address 1210 [facility] 36 [facility] [address] [place] [phone] Care Team Providers Care Weather Observer Name Role Phone Heladio Rosales Primary Care Provider Allergies Allergen (clinical drug ingredient) Drug/Non Drug Allergy documented on EMR Reaction Allergy Type Onset Date Status cefdinir Cefdinir AMS Drug Allergy Active dexamethasone DexAMETHasone AMS Drug Allergy Active REASON FOR VISIT 6 week check Encounters Encounter Location Date Provider Diagnosis [facility] 12[address] [facility] 36 [facility] [address] [place] [phone] 01/13/2025 Heladio Rosales Plan Of Treatment Next Appt Details Provider Name:Heladio Meier er, 08/08/2025 10:30:00 AM, 12[address] [facility] 36 [facility], [address], [place], [phone], Progress Notes * JAGDISH MCCABEEDOB:1940 (84 yo F)Acc No.[id number]:01/13/2025 Patient: HECTOR JAIN Provider: Heladio Rosales M.D. :1940 A ge:84 Y S ex:Female Date:01/13/2025 Address:[address] [place] [phone] Subjective: * Chief Complaints: * 1 . [...] stic Procedure: B ack Pain From Fall- [facility] 03/21/2020, Passed Out, Recent Fall- [facility] 05/20-. * Family History: F [...] M.D. Date: 0 01/13/2025 Generated for Barbara trinh/Luis/Khanh on: 08/11/2024 03:37 PM EST
--- OUTSIDE RECORDS SUMMARY | 2025-01-17 06:30 | XMS_ITS ---
Author Organization [facility] Address [address] [place] [phone] Care Team Providers Care Fork Operator Name Role Phone Heladio Rosales Primary Care Provider [phone] Sony Lilly Unavailable [phone] Results Component Value Reference Range Notes Urinalysis - Inhouse Reviewed date:01/17/2025 04:48:57 PM Interpretation: Performing Lab: Notes/Report: Color/Clarity yellow Leuk trace Nitrite neg Urobili 3.2 Protein neg pH 5.5 Blood neg Sp. Gr. 1.010 Ketone neg Bili neg Gluc neg P-Culture, Urine Reviewed date:01/22/2025 01:14:38 PM Interpretation:no significant growth Performing Lab: Notes/Report: Test performed by [facility], [employer] [address] [place] [address] , [address], [place] [address] González King MD, Factory Representative CLIA: [id number] Specimen Source Urine - Void Culture, Urine See Below Final Report : No Significant Growth REASON FOR VISIT URINE SAMPLE Medications Medication SIG (Take, Route, Frequency, Duration) Notes Start Date End Date Status B-12 1000 MCG 1 tab(s) orally once a day; Duration: 30 day(s) Active Vitamin D3 1.25 MG (67327 UT) 1 capsule Orally; Duration: 30 day(s) Active Aspirin Adult Low Dose 81 MG 1 tablet Or ally Once a day Active Bisoprolol Fumarate 5 MG 1 tab(s) orally once a day Active Repatha 140 MG/ML INJECT 140MG UNDER T HE SKIN EVERY 2 WEEKS Active Ciprofloxacin HCl 250 MG 1 tablet Orally every 12 hrs; Duration: 5 days 01/08/2025 Active Omeprazole 40 MG 1 cap(s) Orally Once a day, prn; Duration: 30 days Active risperiDONE 0.25 MG 1 tablet Orally At B ed Time; Duration: 30 day(s) Active Memantine HCl 5 MG 1 tablet Orally twic e a day; Duration: 30 days Active Levothyroxine Sodium 25 MCG 1 tab(s) ora lly once a day; Duration: 90 days Active Encounters Encounter Location Date Provider Diagnosis [facility] 1210 [facility] 36 [facility] [address] [place] [phone] 01/17/2025 Sony [place] UTI (lower urinary tract infection) N39.0 Assessments Encounter Date Diagnosis (ICD Code) Assessment Notes Treatment Notes Treatment Clinical Notes Section Notes 01/17/2025 UTI (lower urinary tract infection) (ICD-10 - N39.0) Plan Of Treatment Next Appt Details Provider Name:Heladio Meier er, 08/08/2025 10:30:00 AM, 1210 [facility] 36 [facility], [address], [place], [place], [phone], Progress Notes * JAGDISH MCCABELAURITAOB:1940 (84 yo F)Acc No.[id number]:01/17/2025 Patient: HECTOR JAIN Provider: Elie Lilly M.D. :1940 A ge:84 Y S ex:Female Date:01/17/2025 Address:[address] [place], [place] [phone] Pcp:Heladio Rosales Subjective: * Chief Complaints: * 1 . URINE SAMPLE. * Medical History: * Medications: T aking Vitamin D3 1.25 MG (64014 UT) Capsule 1 capsule Orally , Taking [...] tab(s) orally once a day , Taking Ciprofloxacin HCl 250 MG Tablet 1 tablet Orally every 12 hrs , Medication List reviewed and reconciled with the patient Objective: * Vitals: Assessment: * Assessment: 1. U TI (lower urinary tract infection) - N39.0 (Primary) Plan: * Treatment: Value Reference Range C ulture, Urine See Below - * S pecimen Source Urine - Void - * Monique Mccabe 01/22/2025 01:13:0 7 PM EDT > Pt informed ?LAB: Urinalysis - Inhouse (Collection Date & Time - 01/17/2025)* Value Reference Range C olor/Clarity yellow * L euk trace * N itrite neg * U robili 3.2 * P rotein neg * p H 5.5 * B lood neg * S p. Gr. 1.010 * K etone neg * B modesta neg * G diana neg * Monae Carmona 01/17/2025 12: 05:41 PM EDT >Monae Carmona 01/17/2025 12:37:40 PM EDT > per Dr. Lilly, culture needed * Procedure Codes: 8 1002 Urinalysis, no micro * Images: Billing Information: * Visit Code: * Procedure Codes: 67093 Urinalysis, no micro. * Electronic signature of Natasha Lilly MD on 06/11/2025 at 03:36 PM EST Sign off status: Pending * Provider: Elie Lilly M.D. Date: 0 01/17/2025 Generated for Barbara trinh/Luis/Khanh on: 08/11/2024 03:36 PM EST
--- OUTSIDE RECORDS SUMMARY | 2025-05-06 06:55 | XMS_ITS ---
Author Organization [facility] Address [address] [facility] [address] [place] [phone] Care Team Providers Care Senior Director Insight Name Role Phone Heladio oRsales Primary Care Provider Zita Whitaker [phone] Allergies Allergen (clinical drug ingredient) Drug/Non Drug Allergy documented on EMR Reaction Allergy Type Onset Date Status cefdinir Cefdinir AMS Drug Allergy Active dexamethasone DexAMETHasone AMS Drug Allergy Active REASON FOR VISIT b/p is high Medications Medication SIG (Take, Route, Frequency, Duration) Notes Start Date End Date Status hydrALAZINE HCl 10 MG 1 tab Orally 3 artur es a day prn elevated BP Active Memantine HCl 5 MG 1 tablet Orally twic e a day; Duration: 30 days Active risperiDONE 0.25 MG 1 tablet Orally At B ed Time; Duration: 30 day(s) Active Levothyroxine Sodium 25 MCG 1 tab(s) ora lly once a day; Duration: 90 days Active Omeprazole 40 MG 1 cap(s) Orally Once a day, prn; Duration: 30 days Active Vitamin D3 1.25 MG (00994 UT) 1 capsule Orally; Duration: 30 day(s) Active B-12 1000 MCG 1 tab(s) orally once a day; Duration: 30 day(s) Active Aspirin Adult Low Dose 81 MG 1 tablet Or ally Once a day Active Repatha 140 MG/ML INJECT 140MG UNDER T HE SKIN EVERY 2 WEEKS Active Bisoprolol Fumarate 10 MG 1 tab(s) orall y once a day Active Vital Signs Weight 169.6 lbs 05/06/2025 Blood pressure systolic 142 mm Hg 10/14/20 25 Blood pressure diastolic 60 mm Hg 025 Heart Rate 70 /min 05/06/2025 Height 62 in 05/06/2025 BMI 31.02 kg/m2 05/06/2025 Encounters Encounter Location Date Provider Diagnosis [place] [address] [facility] [address] [facility] [address] [place] [phone] 05/06/2025 Zita Whitaker Essential hypertensi on I10 Assessments Encounter Date Diagnosis (ICD Code) Assessment Notes Treatment Notes Treatment Clinical Notes Section Notes 05/06/2025 Essential hypertension (ICD-10 - I10) Continue to record blood pressure readings at home and follow-up in 1 month for recheck. Plan Of Treatment Medication Medication Name Sig Start Date Stop Date Notes hydrALAZINE HCl 10 MG 1 tab Orally 3 artur es a day prn elevated BP Bisoprolol Fumarate 10 MG 1 tab(s) orally once a day Treatment Notes Assessment Notes Essential hypertension Continue to recor d blood pressure readings at home and follow-up in 1 month for recheck. Next Appt Details Follow Up: 4 Weeks,sooner pr n, Reason: Provider Name:Heladio Meier er, 08/08/2025 10:30:00 AM, [address] [facility] 36 [facility], [address], [place], [place], [phone], Progress Notes * JAGDISH MCCABELAURITAOB:1940 (84 yo F)Acc No.[id number]:05/06/2025 Progress Notes Patient: HECTOR JAIN Provider: Zita Whitaker M.D. :1940 A ge:84 Y S ex:Female Date:05/06/2025 Address:[address] [place] [phone] Pcp:Heladio Rosales Subjective: * Chief Complaints: * 1 . B/p is high. * HPI: C ardiology: She checkup on her blood pressure. She has had some recent spikes in her blood pressure associated with increased confusion. She was seen in the emergency room recently and prescribed hydralazine 10 mg 3 times daily as needed for elevated blood pressure readings. She comes in today accompanied by her and son with a diary of recent readings. Her reports she has required at least 1 dose of hydralazine almost every day. * ROS: D ERMATOLOGY: no R neo. [...] stic Procedure: B ack Pain From Fall- [facility] ER 03/21/2020, Passed Out, Recent Fall- [facility] ER 05/20-. * Family History: [...] smoke. Alcohol: no. * Medications: T aking hydrALAZINE HCl 10 MG Tablet 1 tab Orally 3 times a day prn elevated BP , Taking Vitamin D3 1.25 MG (85950 UT) Capsule 1 capsule Orally , Taking [...] DexAMETHasone: AMS. Objective: * Vitals: W t: 169.6, Temp: 98.3, BP: 142/60, HR: 70, O2 Sat: 95% on RA, Nurse: pe, Ht: 62, BMI:31.02. * Examination: G eneral Examination: General Appearance: N AD. H eart: R SR. L ungs:?clear to auscultation. E xtremities: n o leg edema. Assessment: * Assessment: 1. E ssential hypertension - I10 (Primary) Plan: * Treatment: * Procedure Codes: G 2211 Complex e/m visit add on, 1036F TOBACCO NON-USER, 3077F SYST BP = 140 MM HG6 IT, 3078F DIAST BP < 80 MM HG * Follow Up: 4 Weeks,sooner prn * Images: Billing Information: * Visit Code: 93205 Office Visit, Est Pt., Level 3. * Procedure Codes: G2211 Complex e/m visit add on. 1036F TOBACCO NON-USER. 3077F SYST BP = 140 MM HG6 IT. 3078F DIAST BP < 80 MM HG. * Electronic signature of Zita Whitaker MD on 06/11/2025 at 03:35 PM EST Sign off status: Pending * Provider: Zita Whitaker M.D. Date: Generated for Barbara trinh/Luis/Khanh on: 08/11/2024 03:35 PM EST History and Physical Notes * Examination Category Sub-Category Detail Notes Category Not es General Examination Heart: RSR Lungs: clear to auscultatio n Extremities: no leg edema General Appearance: NAD
--- OUTSIDE RECORDS SUMMARY | 2025-05-09 07:00 | XMS_ITS ---
Author Organization [facility] Address [address] [facility] [address] [place] [phone] Care Team Providers Care Social Work Job Titles Name Role Phone Heladio Rosales Primary Care [...] 30 day(s) Active Vitamin D3 1.25 MG (12774 UT) 1 capsule Orally; Duration: 30 day(s) [...] Provider Diagnosis [place] [address] [facility] [address] [place] [phone] 05/09/2025 Heladio Rosales Encounter for immunization Z23 Assessments Encounter Date Diagnosis (ICD Code) Assessment Notes Treatment Notes Treatment Clinical Notes Section Notes 05/09/2025 Encounter for immunization (ICD-10 - Z23) Plan Of Treatment Next Appt Details Provider Name:Heladio Meier er, 08/08/2025 10:30:00 AM, [address], [address], [place], [place], [phone], Progress Notes * GLENIS MCCABEOB:1940 (84 yo F)Acc No.[id number]:05/09/2025 Patient: HECTOR JAIN Provider: Heladio Rosales M.D. :1940 A ge:84 Y S ex:Female Date:05/09/2025 Address:[address] [place], [place] [phone] Subjective: * Chief Complaints: * 1 . Flu shot. * Medical History: * Medications: T aking Bisoprolol Fumarate 10 MG Tablet 1 tab(s) orally once a day , Taking Vitamin D3 1.25 MG (08555 UT) Capsule 1 capsule Orally , Taking [...] of Heladio Rosales MD on 06/11/2025 at 03:36 PM EST Sign off status: Pending * Provider: Heladio Rosales M.D. Date: Generated for Barbara trinh/Luis/Khanh on: 08/11/2024 03:36 PM EST
--- OUTSIDE RECORDS SUMMARY | 2025-06-06 06:30 | XMS_ITS ---
Author Organization [facility] Address [address] [facility] [address] [place] [phone] Care Team Providers Care Marbleizing Machine Tender Name Role Phone Heladio Rosales Primary Care Provider Allergies Allergen (clinical drug ingredient) Drug/Non Drug Allergy documented on EMR Reaction Allergy Type Onset Date Status cefdinir Cefdinir AMS Drug Allergy Active dexamethasone DexAMETHasone AMS Drug Allergy Active Results Component Value Reference Range Notes Urinalysis - Inhouse (Not ye t reviewed by provider) Interpretation: Normal Performing Lab: Notes/Report: Normal Color/Clarity yellow/clear Leuk Neg Nitrite Neg Urobili 3.2 Protein Trace pH 6.0 Blood Neg Sp. Gr. >1.030 Ketone Neg Bili Neg Gluc Trace P-Comprehensive Metabolic Pa see (CMP) (Not yet reviewed by provider) Interpretation: Normal Performing Lab: Notes/Report: Test performed by [facility] [address] [facility] , [address], [place] [address] González King MD, Event Staff CLIA: [id number] Sodium 142 135-145 mmol/L Potassium 4.7 3.5-5.3 mmol/L Chloride 106 97-108 mmol/L CO2 27 20-32 mmol/L Glucose 90 65-99 mg/dL BUN 19 8-23 mg/dL Creatinine 0.89 0.50-1.00 mg/dL Calcium 9.4 8.6-10.4 mg/dL eGFR by Creatinine 64 >59 mL/min/1.73m2 Protein 6.4 6.0-8.3 g/dL Albumin 4.4 3.5-5.3 g/dL Alkaline Phosphatase 81 35-121 IU/L ALT (SGPT) 11 <5-47 IU/L AST (SGOT) 16 <5-40 IU/L Bilirubin, Total 0.3 <0.2-1.2 mg/dL A/G Ratio 2.2 1.1-2.5 REASON FOR VISIT gen cpx, Needs labs & bone density screening Medications Medication SIG (Take, Route, Frequency, Duration) Notes Start Date End Date Status hydrALAZINE HCl 10 MG 1 tab Orally 3 artur es a day prn elevated BP Not-Taking Levothyroxine Sodium 25 MCG 1 tab(s) orally once a day; Duration: 90 days Active Memantine HCl 5 MG 1 tablet Orally twic e a day; Duration: 30 days Active Omeprazole 40 MG 1 cap(s) Orally Once a day, prn; Duration: 30 days Active risperiDONE 0.25 MG 1 tablet Orally At B ed Time; Duration: 30 day(s) Active Bisoprolol Fumarate 10 MG 1 tab(s) orall y once a day Active B-12 1000 MCG 1 tab(s) orally once a day; Duration: 30 day(s) Active Vitamin D3 1.25 MG (10339 UT) 1 capsule Orally; Duration: 30 day(s) Active Repatha 140 MG/ML INJECT 140MG UNDER T HE SKIN EVERY 2 WEEKS Active Aspirin Adult Low Dose 81 MG 1 tablet Orally Once a day Active Problems Problem Type SNOMED Code ICD Code Onset Dates Problem Status W/U Status Risk Notes Problem Acquired absence (90752855) 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 Vital Signs Weight 171.0 lbs 06/06/2025 Blood pressure systolic 132 mm Hg 06/06/20 25 Blood pressure diastolic 70 mm Hg 025 Heart Rate 73 /min 06/06/2025 Height 62 in 06/06/2025 BMI 31.27 kg/m2 06/06/2025 Encounters Encounter Location Date Provider Diagnosis [facility] [address] [place], [place] [phone] 06/06/2025 Heladio Rosales Hyperparathyroidism E21.3 ; 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 ; Other specified postprocedural states Z98.890 ; 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 and Dysuria R30.0 Assessments Encounter Date Diagnosis (ICD Code) Assessment Notes Treatment Notes Treatment Clinical Notes Section Notes 06/06/2025 Hyperparathyroidism (ICD-10 - E21.3) 06/06/2025 Senile dementia (ICD -10 - F03.90) 06/06/2025 Other specified postprocedural states (ICD-10 - Z98.890) 06/06/2025 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 :1940 A ge:84 Y S ex:Female Date:06/06/2025 Address:[address] [place], [place] [phone] Subjective: * Chief Complaints: * 1 . Gen cpx. 2. Needs labs & bone density screening. * HPI: H PI: 84 year old female presents with c/o Patient is here today for?a scheduled check up. C ardiology: c/o Blood Pressure Elevated P t is here for a 1 month follow up on BP running high. Pt states her BP is doing well at this time. HAS NOT REQUIRED HYDRALAZINE SINCE STARTING BISOPROLOL.. E ndocrinology: PARATHYROIDECTOMY 05/13/25 Dr. Espino. See report. * ROS: D ERMATOLOGY: no R neo. [...] stic Procedure: B ack Pain From Fall- [facility] ER 03/21/2020, Passed Out, Recent Fall- [facility] ER 05/20-. * Family History: F [...] smoke. Alcohol: no. * Medications: T aking Bisoprolol Fumarate 10 MG Tablet 1 tab(s) orally once a day , Taking Vitamin D3 1.25 MG (94911 UT) Capsule 1 capsule Orally , Taking [...] 1 tab(s) orally once a day , Not-Taking hydrALAZINE HCl 10 MG Tablet 1 tab Orally 3 times a day prn elevated BP , Medication List reviewed and reconciled with the patient * Allergies: C efdinir: AMS, DexAMETHasone: AMS. Objective: * Vitals: W t: 171.0, Temp: 97.8, BP: 132/70, HR: 73, Nurse: SF, Ht: 62, BMI:31.27. * Examination: G eneral Examination: General Appearance: N AD, weight noted. H EENT: u nremarkable. O ral cavity: n o lesions, mucosa moist and WNL, no erythema. N aiden: s car healing well. C hest: n ormal shape and expansion. H eart: R SR. L ungs: clear to auscultation. A bdomen: soft and nontender. N eurologic Exam: I ntact, gait normal. S kin: n ormal, no rash. P eripheral pulses: n ormal . B ack: mild dorsal kyphosis. E xtremities: trace leg edema. Assessment: * Assessment: 1. H yperparathyroidism - E21.3 (Primary) 2 . S enile dementia - F03.90? 3. O ther specified postprocedural states - Z98.890 4 . 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 D ysuria - R30.0 Plan: * Treatment: Value Reference Range A /G Ratio 2.2 1.1-2.5 - * A lbumin 4.4 3.5-5.3 - g/dL * A lkaline Phosphatase 81 35-121 - IU/L * A LT (SGPT) 11 <5-47 - IU/L * A ST (SGOT) 16 <5-40 - IU/L * B ilirubin, Total 0.3 <0.2-1.2 - mg/dL * B UN 19 8-23 - mg/dL * C alcium 9.4 8.6-10.4 - mg/dL * C hloride 106 97-108 - mmol/L * C O2 27 20-32 - mmol/L * C reatinine 0.89 0.50-1.00 - mg/dL * G lucose 90 65-99 - mg/dL * P otassium 4.7 3.5-5.3 - mmol/L * S odium 142 135-145 - mmol/L * P rotein 6.4 6.0-8.3 - g/dL * e GFR by Creatinine 64 >59 - mL/min/1.73m2 2.?Dysuria?LAB: Urinalysis - Inhouse (Collection Date & Time - 06/06/2025)?Normal* Value Reference Range C olor/Clarity yellow/clear * L euk Neg * N itrite Neg * U robili 3.2 * P rotein Trace * p H 6.0 * B lood Neg * S p. Gr. >1.030 * K etone Neg * B modesta Neg * G diana Trace * Shahana Recio L 06/06/2025 0 1:26:00 PM EST > * Procedure Codes: 8 1002 Urinalysis, no micro, [address] VENIPUNCT, ROUTINE* * Follow Up: 2 Months * Images: Billing Information: * Visit Code: 78583 Office Visit, Est Pt., Level 4. * Procedure Codes: 64721 Urinalysis, no micro. 86589 VENIPUNCT, ROUTINE*. * Electronic signature of Heladio Rosales MD on 06/11/2025 at 03:36 PM EST Sign off status: Pending * Provider: Heladio Rosales M.D. Date: 08/06/2024 Generated for Barbara trinh/Luis/Khanh on: 08/11/2024 03:36 PM EST History and Physical Notes * HPI (History of Present Illness) Category Sub-Category Detail Notes Category Not es Cardiology Blood Pressure Elevated Pt is he re for a 1 month follow up on BP running high. Pt states her BP is doing well at this time. HAS NOT REQUIRED HYDRALAZINE SINCE STARTING BISOPROLOL. HPI Patient is here today for a scheduled lupillo ck up Examination Category Sub-Category Detail Notes Category Not es General Examination HEENT: unremarkable Heart: RSR Lungs: clear to auscultatio n Abdomen: soft and nontender Extremities: trace leg edema General Appearance: NAD, weight noted Skin: normal, no rash Neurologic Exam: Intact, gait normal Neck: scar healing well Oral cavity: no lesions, mucosa m oist and WNL, no erythema Peripheral pulses: normal Back: mild dorsal kyphosis Chest: normal shape and exp ansion
[2025-06-11 14:06] VITALS: BP 175/75; PULSE 73; RESP 18; TEMP 36.6; O2SAT 97; BMI 28.7
[2025-06-11 14:13] VITALS: BP 170/70; PULSE 80; RESP 20; O2SAT 98
[2025-06-11 14:25] LABS: Bilirubin,Urine Negative (Negative); Color,Urine YELLOW (Yellow); Glucose,Urine (UA) Negative (Negative); Ketones,Urine Negative (Negative); Leukocyte Esterase,Urine 2+ (Negative); Microscopic, Urine URINE MICROSCOPIC (MICROSCOPIC); PH,Urine 6.0 (5.0-8.5); Protein,Urine Negative (Negative); Specific Gravity, Urine 1.010 (1.005-1.030); Urobilinogen,Urine 0.2 EU/dl (0.2)
[2025-06-11 14:50] LABS: Bacteria,Urine Trace /lpf; Renal Epithelial Cells,Urine Occasional #/lpf (0); Squamous Epithelial Cell,Urine Occasional #/hpf (0-5)
[2025-06-11 14:59] LABS: Hematocrit 39.2 % (37.0-47.0); Hemoglobin 12.6 g/dL (12.2-16.2); Immature Granulocytes % 0.4 %; Mean Corpuscular HGB Conc 32.1 g/dL (31.8-35.4); Mean Corpuscular Hemoglobin 29.0 pg (27.0-31.2); Mean Corpuscular Volume 90.3 fl (81-99); Nucleated Red Blood Cells % 0 %; Platelet Count 244 K/mm3 (142-424); Red Blood Count 4.34 M/mm3 (4.20-5.40); Red Cell Distribution Width-SD 43.5 fL; White Blood Count 6.9 K/mm3 (4.8-10.8)
[2025-06-11 15:10] LABS: Alanine Aminotransferase 17 U/L (12-78); Albumin Level 4.5 g/dl (3.5-5.0); Albumin/Globulin Ratio 1.7 (1.1-1.8); Alkaline Phosphatase 85 U/L (38-126); Anion Gap 11.2 mEq/L (5-15); Aspartate Amino Transferase 26 U/L (14-36); Bilirubin,Total 0.6 mg/dl (0.2-1.3); Blood Urea Nitrogen 15 mg/dl (7-17); Calcium 9.5 mg/dl (8.4-10.2); Carbon Dioxide 24 mmol/L (22.0-30.0); Chloride 104 mmol/L (98-107); Creatinine Clearance Estimated 47 mL/min (50-200); Creatinine,Serum 0.80 mg/dl (0.52-1.04); Estimated Glomerular Filt Rate 68 ml/min (>60); GFR (African American) 83 ML/MIN (>60); Globulin 2.6 g/dL (1.3-3.2); Glucose 96 mg/dl (74-100); Potassium 4.2 mmoL/L (3.5-5.1); Sodium 135 mmol/L (136-145); Total Protein,Serum 7.1 g/dl (6.3-8.2)
--- NOTE | 2025-06-11 15:32 | PC.NURSE ---
Pt brought back into triage to be checked on and to update vitals. NIH is 0. Denies any additional needs at this time, pt placed back in lobby.
--- OUTSIDE RECORDS SUMMARY | 2025-06-11 15:36 | XMS_ITS | Patient Health Record ---
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 Name Role Phone Heladio Rosales Primary Care Provider Zita Whitaker Unavailable [phone] Sony Lilly Unavailable [phone] Estefania Raines Unavailable [phone] Allergies Allergen (clinical drug ingredient) Drug/Non Drug [...] AGRATIO 1.8 1.1-1.8 ALP 82 38-126 U/L P-Culture, Urine Reviewed date:10/01/2024 08:22:47 AM Interpretation:No growth Performing Lab: Notes/Report: Test performed by [facility] [address] [place], [place] [address] [place] , [address], [place] [address] González King MD, Sawmill Moulder Operator CLIA: [id number] Specimen Source Urine - Void Culture, Urine [...] contamination Performing Lab: Notes/Report: Test performed by [facility] [address] [place] [address] , [address], [place] [address] González King MD, Sawmill Moulder Operator CLIA: [id number] Specimen Source Urine - Void Culture, Urine [...] Interpretation:103 Performing Lab: Notes/Report: Test performed by [facility] [address] [place] [address] , [place] [address] González King MD, Sawmill Moulder Operator CLIA: [id number] Parathyroid Hormone (PTH) Intact 103.0 15.0-65.0 pg/mL P-Calcium, Ionized Reviewed date:07/26/2024 02:36:21 PM Interpretation:5.56 Performing Lab: Notes/Report: Test performed by [facility] [address] [place] [address] , [address], [place] [address] González King MD, Sawmill Moulder Operator CLIA: [id number] Calcium, Ionized 5.56 4.60-5.30 mg/dL P-Basic Metabolic Panel (BMP ) Reviewed date:07/26/2024 02:36:21 PM Interpretation:Cr 1.02, Ca 10.7, gfr 54 Performing Lab: Notes/Report: Test performed by [facility] [address] [place] [address] , [address], [place] [address] González King MD, Sawmill Moulder Operator CLIA: [id number] Sodium 141 135-145 mmol/L Potassium 4.7 3.5-5.3 mmol/L Chloride 105 97-108 mmol/L CO2 25 22-32 mmol/L Glucose 95 65-99 mg/dL BUN 19 8-23 mg/dL Creatinine 1.02 0.50-1.00 mg/dL Calcium 10.7 8.6-10.4 mg/dL eGFR by Creatinine 54 >59 mL/min/1.73m2 Urinalysis - Inhouse Reviewed date:01/17/2025 04:48:57 PM Interpretation: Performing Lab: Notes/Report: Color/Clarity yellow Leuk trace Nitrite neg Urobili 3.2 Protein neg pH 5.5 Blood neg Sp. Gr. 1.010 Ketone neg Bili neg Gluc neg P-Culture, Urine Reviewed date:01/22/2025 01:14:38 PM Interpretation:no significant growth Performing Lab: Notes/Report: Test performed by [facility] [address] [place] [address] , [address], [place] [address] González King MD, Sawmill Moulder Operator CLIA: [id number] Specimen Source Urine - Void Culture, Urine See Below Final Report : No Significant Growth P-Basic Metabolic Panel (BMP ) Reviewed date:10/11/2024 08:37:36 AM Interpretation:Cuong 10.5 Performing Lab: Notes/Report: Test performed by [facility] [address] [place] [address] , [address], [place] [address] González King MD, Sawmill Moulder Operator CLIA: [id number] Sodium 142 135-145 mmol/L Potassium 4.9 3.5-5.3 mmol/L Chloride 107 97-108 mmol/L CO2 25 22-32 mmol/L Glucose 90 65-99 mg/dL BUN 15 8-23 mg/dL Creatinine 0.81 0.50-1.00 mg/dL Calcium 10.5 8.6-10.4 mg/dL eGFR by Creatinine 71 >59 mL/min/1.73m2 P-Parathyroid Hormone (PTH) Intact Reviewed date:10/11/2024 08:37:36 AM Interpretation:95.0 Performing Lab: Notes/Report: Test performed by [facility] [address] [place] [address] , [address], [place] [address] González King MD, Sawmill Moulder Operator CLIA: [id number] Parathyroid Hormone (PTH) Intact 95.0 15.0-65.0 pg/mL Urinalysis - Inhouse Reviewed date:06/21/2024 03:08:39 PM [...] Lab: Notes/Report: Not completed Urinalysis - Inhouse (Not ye t reviewed by provider) Interpretation: Normal Performing Lab: Notes/Report: Normal Color/Clarity yellow/clear Leuk Neg Nitrite Neg Urobili 3.2 Protein Trace pH 6.0 Blood Neg Sp. Gr. >1.030 Ketone Neg Bili Neg Gluc Trace P-Comprehensive Metabolic Pa see (CMP) (Not yet reviewed by provider) Interpretation: Normal Performing Lab: Notes/Report: CLIA: [id number] González King MD, Sawmill Moulder Operator [facility] , [address] , [place] [address] Test performed by [employer] Sodium 142 135-145 mmol/L Potassium 4.7 3.5-5.3 [...] 0.3 <0.2-1.2 mg/dL A/G Ratio 2.2 1.1-2.5 Fine needle aspiration : Thy roid Reviewed date:12/06/2024 04:19:49 PM Interpretation:pathology negative for malignant cells Performing Lab: Notes/Report: pathology negative for malignant cells Pulmonary Function Before & After Reviewed date:07/02/2024 08:28:22 AM Interpretation: Performing Lab: Notes/Report: P-Basic Metabolic Panel (BMP ) Reviewed date:12/13/2024 09:58:11 AM Interpretation:cl 109, gluc 127 Performing Lab: Notes/Report: CLIA: [id number] González King MD, Sawmill Moulder Operator [address] [place] [address] , [place] [address] Test performed by [facility] Sodium 143 135-145 mmol/L Potassium 4.3 3.5-5.3 mmol/L Chloride 109 97-108 mmol/L CO2 22 22-32 mmol/L Glucose 127 65-99 mg/dL BUN 14 8-23 mg/dL Creatinine 0.83 0.50-1.00 mg/dL Calcium 10.0 8.6-10.4 mg/dL eGFR by Creatinine 69 >59 mL/min/1.73m2 P-Calcium, Ionized Reviewed date:12/13/2024 09:58:11 AM Interpretation:5.44 Performing Lab: Notes/Report: Test performed by [facility] [address] [place] [address] , [place] [address] González King MD, Sawmill Moulder Operator CLIA: [id number] Calcium, Ionized 5.44 4.60-5.30 mg/dL Urinalysis - Inhouse Reviewed date:01/09/2025 09:00:18 AM [...] 09:49:25 AM Interpretation:Ca 10.5 Performing Lab: Notes/Report: CLIA: [id number] González King MD, Sawmill Moulder Operator [address] [place] [address] , [place] [address] Test performed by [facility] Sodium 139 135-145 mmol/L Potassium 4.5 3.5-5.3 mmol/L Chloride 104 97-108 mmol/L CO2 23 22-32 mmol/L Glucose 99 65-99 mg/dL BUN 18 8-23 mg/dL Creatinine 0.81 0.50-1.00 mg/dL Calcium 10.5 8.6-10.4 mg/dL eGFR by Creatinine 71 >59 mL/min/1.73m2 P-Calcium, Ionized Reviewed date:01/09/2025 09:49:25 AM Interpretation:5.62 Performing Lab: Notes/Report: Test performed by [facility] [address] [place] [address] , [place] [address] González King MD, Sawmill Moulder Operator CLIA: [id number] Calcium, Ionized 5.62 4.60-5.30 mg/dL P-Culture, Urine Reviewed date:01/13/2025 04:55:36 PM Interpretation:E. Coli Performing Lab: Notes/Report: CLIA: [id number] González King MD, Sawmill Moulder Operator [address] [place] [address] , [place] [address] Test performed by [facility] Specimen Source Urine - Void Culture, Urine [...] S Trimeth/Sulfa S ___ S=SUSCEPTIBLE I=INTERMEDIATE R=RESISTANT Ultrasound : Thyroid Reviewed date:11/14/2024 01:00:09 PM Interpretation:US guided FNA recommended Performing Lab: Notes/Report: US guided FNA recommended Medications Medication SIG (Take, Route, Frequency, Duration) Notes Start Date End Date Status hydrALAZINE HCl 10 MG 1 tab Orally 3 artur es a day prn elevated BP Not-Taking Levothyroxine Sodium 25 MCG 1 tab(s) orally once a day; Duration: 90 days Active Bisoprolol Fumarate 10 MG 1 tab(s) orall y once a day Active B-12 1000 MCG 1 tab(s) orally once a day; Duration: 30 day(s) Active Vitamin D3 1.25 MG (26438 UT) 1 capsule Orally; Duration: 30 day(s) Active Repatha 140 MG/ML INJECT 140MG UNDER T HE SKIN EVERY 2 WEEKS Active Aspirin Adult Low Dose 81 MG 1 tablet Orally Once a day Active Memantine HCl 5 MG 1 tablet Orally twic e a day; Duration: 30 days Active Omeprazole 40 MG 1 cap(s) Orally Once a day, prn; Duration: 30 days Active risperiDONE 0.25 MG 1 tablet Orally At B ed Time; Duration: 30 day(s) Active Immunizations Vaccine Route Administration Date Status [facility] xFlu shot-36 months and older IM Intramuscular 05/16/2007 Administered 05/03/2007 pt received the flu shot from [facility] xFlu shot- 6months-36 months of liy-LOHT-OFTO-trivale nt Unknown 04/27/2010 Administered xAdministration of injection Unknown 03/18/2013 Administered Tetanus Tdap-Adacel (over 7yrs) Unknown 03/18/2013 Administered Tetanus Tdap-Adacel (over 7yrs) IM Intramuscular 11/22/2017 Administered Prevnar (PCV13) IM Intramuscular 09/01/2014 Administered PNEUMOVAX 23 VACCINE IM Intramuscular 11/22/2017 Administe red Fluzone High Dose (65yr and older) IM Intramuscular 05/20/2019 Administered Fluzone High Dose (65yr and older) Unknown 04/21/2020 Administered Fluzone High Dose (65yr and older) IM Intramuscular 05/11/2021 Administered Fluzone High Dose (65yr and older) IM Intramuscular 05/10/2022 Administered Fluzone High Dose (65yr and older) IM Intramuscular 04/24/2023 Administered Fluzone High Dose (65yr and older) IM Intramuscular 05/09/2025 Administered DT, 7 YEARS OR OLDER Unknown 04/21/2000 Administered DT, 7 YEARS OR OLDER Unknown 04/21/2000 Administered COVID 19 Moderna Unknown 09/04/2020 Administered COVID 19 Moderna IM Intramuscular 10/02/2020 Administered COVID 19 Moderna Unknown 05/27/2021 Administered COVID 19 Moderna Unknown 11/04/2021 Administered Problems Problem Type SNOMED Code ICD Code Onset Dates Problem Status W/U Status Risk Notes Problem Essential hypertension (28405875) Essential (primary) hypertension (I10) Active confirmed Problem Vitamin B12 deficiency (399640110) Vitamin B12 deficiency (E53.8) Active confirmed Problem Hypercalcemia (40949220) Hypercalcemia (E83.52) Active confirmed Problem Essential hypertension (35466368) Essential hypertension (I10) Active confirmed Problem Osteopenia (419657518) Osteopenia (M85.80) Active confirmed Problem Altered mental statu s (735759648) Altered mental state (R41.82) Active confirmed Problem Body mass index 30+ - obesity (828151473) BMI 30.0-30.9,adult (Z68.30) Active confirmed Problem Memory loss (58105462) Memory loss (R41.3) Active confirmed Problem Mixed hyperlipidemia (479125721) Mixed hyperlipidemia (E78.2) Active confirmed Problem Vasomotor rhinitis (6763853) Vasomotor rhinitis (J30.0) Active confirmed Problem Vaccination given (688045127) Encounter for immunization (Z23) Active confirmed Problem Acquired absence (39012371) 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 Problem Arteriosclerotic vascular disease (64111696) Arteriosclerotic cardiovascular disease (I25.10) Active confirmed Problem Hyperlipidemia (15731780) Hyperlipidemia, unspecified (E78.5) Active confirmed Problem Cardiac pacemaker in situ (677206059) Status cardiac pacemaker (Z95.0) Active confirmed Problem Acquired hypothyroidism (335231171) Acquired hypothyroidism (E03.9) Active confirmed Problem Hyperlipidaemia (35637075) Hyperlipidemia, unspecified hyperlipidemia type (E78.5) Active confirmed Problem Occlusion and stenosis of multiple and bilateral cerebral arteries (829540863) Carotid stenosis, bilateral (I65.23) Active confirmed Problem Altered mental statu s (047303752) Altered mental status, unspecified altered mental status type (R41.82) Active confirmed Problem Hyperparathyroidism (88332707) Hyperparathyroidism (E21.3) Active confirmed Problem Cardiac dysrhythmia (947385908) Cardiac dysrhythmia, unspecified (I49.9) Active confirmed Problem Encephalopathy (63545503) Encephalopathy (G93.40) Active confirmed Problem Allergic rhinitis (77116165) Allergic rhinitis, unspecified allergic rhinitis trigger, unspecified rhinitis seasonality (J30.9) Active confirmed Problem Osteoarthritis of knee (262432348) Arthropathy of both knees (M17.0) Active confirmed Problem Artificial knee join t present (628781953175) 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) Active confirmed Problem Fibrocystic breast changes (31345810) Fibrocystic breast disease (FCBD), unspecified laterality (N60.19) Active confirmed Problem Osteoarthritis of left knee joint (983741333875501) Osteoarthritis of left knee, unspecified osteoarthritis type (M17.12) Active confirmed Problem Imaging of thyroid gland abnormal (finding) (003361320) Abnormal thyroid ultrasound (R93.89) Active confirmed Problem Altered mental statu s (395282947) Acute alteration in mental status (R41.82) Active confirmed Problem Gastroesophageal reflux disease (501086023) Gastroesophageal reflux disease, unspecified whether esophagitis present (K21.9) Active confirmed Problem Paroxysmal ventricular tachycardia (57272535) V tach (I47.2) Active confirmed Problem Senile dementia (10822147) 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 [address] [id number] 06/12/2024 Estefania Olu Urinary tract infect ion, site not specified N39.0 ; Unspecified Escherichia coli [E. coli] as the cause of diseases classified elsewhere B96.20 and Shortness of breath on exertion R06.02 [facility] [address] [id number] 06/21/2024 Estefania Olu Acute UTI N39.0 and Chronic cough R05.3 [facility] 1210 [facility] [address] [place] [id number] 07/25/2024 Estefania Olu Renal insufficiency N28.9 ; Acute UTI N39.0 ; Hypercalcemia E83.[address] [facility] [address] [place] [id number] 07/31/2024 Estefania Olu Urinary tract infect ion N39.0 [facility] [address] [place] [id number] 08/23/2024 Estefania Williamdy Confusion R41.0 [facility] [address] [place] [id number] 09/09/2024 Heladio Rosales Acute alteration in mental status R41.82 and 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 [facility] [place] [address] [place] [id number] 10/10/2024 Heladio Rosales Altered mental statu s, unspecified altered mental status type R41.82 ; 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 and Hypercalcemia E83.52 [facility] [place] [address] [place] [id number] 12/09/2024 Sony Shelton Hypercalcemia E83.52 ; Mixed hyperlipidemia E78.2 ; Ventricular tachycardia I47.20 and BMI 30.0-30.9,adult Z68.30 [facility] [place] [address] [place] [id number] 01/08/2025 Sony Shelton Acute UTI N39.0 and Hypercalcemia E83.52 [facility] [place] [address] [facility] [address] [id number] 01/17/2025 Sony Shelton UTI (lower urinary t ract infection) N39.0 [facility] [place] [address] [facility] [address] [place] [id number] 05/06/2025 Zita Whitaker Essential hypertensi on I10 [facility] 1210 [facility] [address] [id number] 05/09/2025 Heladio Rosales Encounter for immuni zation Z23 [facility] [address] [place] [id number] 06/06/2025 Heladio Rosales Hyperparathyroidism E21.3 ; 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 ; Other specified postprocedural states Z98.890 ; 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 and Dysuria R30.0 [facility] [place] [address] [place] [id number] 09/23/2024 Heladio Rosales Arteriosclerotic cardiovascular disease I25.10 ; 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 ; Essential hypertension I10 ; Acquired hypothyroidism E03.9 and Status cardiac pacemaker Z95.0 [facility] [address] [place] [id number] 09/27/2024 Estefania Crowdy Dysuria R30.0 ; Alte red mental status, unspecified altered mental status type R41.82 ; Dehydration E86.0 ; Unspecified fall, initial encounter W19.XXXA and Unspecified place in unspecified non-institutional (private) residence as the place of occurrence of the external cause Y92.009 [facility] [address] [place], [place] [id number] 06/25/2024 Estefania Raines [facility] [address] [place] [id number] 07/26/2024 Estefania Raines Hypercalcemia E83.52 [facility] [address] [place] [id number] 08/20/2024 Estefania Thomascale [facility] [address] [place] [id number] 08/26/2024 Estefania Olu Confusion R41.0 [facility] [address] [place] [id number] 09/05/2024 J Edgar Rosales [facility] [address] [place] [id number] 09/06/2024 J Edgar Rosales [facility] [address] [place] [id number] 09/09/2024 J Edgar Rosales [facility] [address] [place] [id number] 10/01/2024 Estefania Crowcale [facility] [address] [place] [id number] 10/07/2024 J Edgar Rosales [facility] [address] [place] [id number] 10/11/2024 J Edgar Rosales [facility] [address] [place] [id number] 10/25/2024 J Edgar Rosales [facility] [address] [place] [id number] 11/14/2024 J Edgar Rosales [facility] [address] [place] [id number] 12/05/2024 J Edgar Rosales [facility] [address] [place] [id number] 12/13/2024 Sony Shelton [facility] [address] [place] [id number] 01/09/2025 Sony Mung[place]erry [facility] [address] [place] [id number] 02/10/2025 Heladio Rosales [facility] [address] [place], [place] [id number] 03/17/2025 Heladio Rosales Assessments Encounter Date Diagnosis (ICD Code) Assessment Notes Treatment Notes Treatment Clinical Notes Section Notes 06/12/2024 Urinary tract infection, site not specified (ICD-10 - N39.0) Urine culture was positive for E. Coli which is not covered by the zithromax they gave her in the ER. Will start on cefdinir. 06/12/2024 Unspecified Escheric hia coli [E. coli] as the cause of diseases classified elsewhere (ICD-10 - B96.20) Will recheck a U/A and culture once finished with abx. 06/21/2024 Acute UTI (ICD-10 - N39.0) 06/21/2024 Chronic cough (ICD-1 0 - R05.3) Awaiting PFT's. 07/25/2024 Renal insufficiency (ICD-10 - N28.9) 07/25/2024 Acute UTI (ICD-10 - N39.0) Urine culture returned showing no growth. Patient states she has a few days of abx left. She is much better. Will finish abx and then repeat a U/A and culture. 07/26/2024 Hypercalcemia (ICD-1 0 - E83.52) 07/31/2024 Urinary tract infect ion (ICD-10 - N39.0) 08/23/2024 Confusion (ICD-10 - R41.0) 09/09/2024 Acute alteration in mental status (ICD-10 - R41.82) 09/09/2024 Senile dementia (ICD -10 - F03.90) 09/23/2024 Arteriosclerotic cardiovascular disease (ICD-10 - I25.10) 09/23/2024 Senile dementia (ICD -10 - F03.90) continue current therapy 09/27/2024 Dysuria (ICD-10 - R30.0) Patient's son would like a culture sent out from our office but would like one done in the lab as well. 09/27/2024 Altered mental statu s, unspecified altered mental status type (ICD-10 - R41.82) 10/10/2024 Altered mental statu s, unspecified altered mental status type (ICD-10 - R41.82) 10/10/2024 Senile dementia (ICD -10 - F03.90) 12/09/2024 Hypercalcemia (ICD-1 0 - E83.52) 01/08/2025 Hypercalcemia (ICD-1 0 - E83.52) 01/08/2025 Acute UTI (ICD-10 - N39.0) 01/17/2025 UTI (lower urinary tract infection) (ICD-10 - N39.0) 05/06/2025 Essential hypertensi on (ICD-10 - I10) Continue to record blood pressure readings at home and follow-up in 1 month for recheck. 05/09/2025 Encounter for immunization (ICD-10 - Z23) 12/09/2024 Mixed hyperlipidemia (ICD-10 - E78.2) 06/06/2025 Hyperparathyroidism (ICD-10 - E21.3) 06/06/2025 Senile dementia (ICD -10 - F03.90) 06/06/2025 Other specified postprocedural states (ICD-10 - Z98.890) 12/09/2024 Ventricular tachycar dorina (ICD-10 - I47.20) 10/10/2024 Hypercalcemia (ICD-1 0 - E83.52) 09/27/2024 Dehydration (ICD-10 - E86.0) Patient has not been drinking at home. Will give a liter of normal saline today. 09/23/2024 Essential hypertensi on (ICD-10 - I10) 08/26/2024 Confusion (ICD-10 - R41.0) 07/25/2024 Hypercalcemia (ICD-1 0 - E83.52) 06/12/2024 Shortness of breath on exertion (ICD-10 - R06.02) She saw cardiology today and they did not think it was caused by her heart. She would rather have PFT's before scheduling with the superintendent pressure . 07/25/2024 Confusion (ICD-10 - R41.0) Resolved. 09/23/2024 Acquired hypothyroid ism (ICD-10 - E03.9) 09/27/2024 Unspecified fall, initial encounter (ICD-10 - W19.XXXA) 12/09/2024 BMI 30.0-30.9,adult (ICD-10 - Z68.30) 06/06/2025 Acquired absence of other organs (ICD-10 - Z90.89) 09/27/[address] in unspecified non-institutional (private) residence as the place of occurrence of the external cause (ICD-10 - Y92.009) 06/06/2025 Dysuria (ICD-10 - R30.0) 09/23/2024 Status cardiac pacemaker (ICD-10 - Z95.0) Plan Of Treatment Pending Test Test Name Order Date Urinalysis - Inhouse 06/06/2025 H-COVIDPANEL 03/21/2024 P-Comprehensive Metabolic Panel (CMP) Next Appt Details Provider Name:Heladio Hernández Renea er, 08/08/2025 10:30:00 AM, [address], [place], [place], [id number], Insurance Providers Payer Name Payer Address Payer Phone Subscriber Number Group Number Insured Name Patient Relationship to Insured Coverage Start Date Coverage End Date [employer] (MEDICAR E) [address] [address] [place] [address] [id number] HECTOR MCCABE Self - patient is the [...] 05/12/2022 left knee replacement, Dr. Luna 05/08/20 23 Hospitalization History Reason Date(Month/Year) Passed Out, Recent Fall- [facility] ER 05/20- Back Pain From Fall- [facility] ER 03/21/2020
--- OUTSIDE RECORDS SUMMARY | 2025-06-11 15:36 | XMS_ITS | Clinical Summary ---
Author Organization Healthcare Address [address] [place] [address] Care Team Providers Care Weed Cutter Name Role Phone Pcp, No Primary Care Provider Unavailabl e Allergies No known active allergies Social History Tobacco Use Types Packs/Day Years [...] or (1 - 1-dose 75+ series) 2015 [id number] Vaccine ( - season) 2025 11/04/2021, 05/27/2021, 10/02/2020, Additional history [...] on patient's age to complete this topic Insurance [employer] MEDICARE Care Teams Weed Cutter Relationship Specialty Start Date [place] [address] PCP - General Family Medicine 02/12/25
--- OUTSIDE RECORDS SUMMARY | 2025-06-11 15:36 | XMS_ITS | Continuity of Care Document ---
Author Organization [facility], SURGERY SCHEDULE Address [address] [place] [address] Care Team Providers Care Superintendent Landfill Operations Name Role Phone CORA TSANG Water Quality Control Engineer Assessment Encounter Date Assessment Date Assessment LastModified by Organization Details LastModified Time 05/13/2025 05/13/2025 SURGERY DATE: 05/13/2025 PREOPERATIVE DIAGNOSIS: Hyperparathyroidi sm. POSTOPERATIVE DIAGNOSIS: Hyperparathyroidi sm. PROCEDURE: Parathyroidectomy . COMPLICATIONS: None. ESTIMATED BLOOD LOSS: 15 mL. FINDINGS: Right inferior parathyroid adenoma status post removal with intraoperative PTH dropping from a 107 down to 23. SURGEON: Jason Zhou MD OPERATIVE NOTE: The patient was brought to the OR and laid in supine position. General anesthesia with NIMs nerve monitoring endotracheal tube was set up and confirmed to be working appropriately. A transverse neck incision was injected with lidocaine with epinephrine 1:100,000. The patient s preoperative parathyroid hormone level was 107. Her localizing 4D CT indicated most likely a right inferior adenoma. I dissected through the skin, subcutaneous tissue, and the platysma. I identified the strap muscles and divided them at the midline raphe. I then identified the thyroid and elevated the strap muscles off the lateral aspect to the right side of the thyroid. The patient had an ectatic carotid artery that looped up right next to the thyroid. Meticulous dissection was performed to separate the thyroid from the sheath of this portion of the carotid artery and come down in between the two into the central neck space. The recurrent laryngeal nerve was identified and preserved. I then began exploring for the enlarged parathyroid. I first encountered approximately 5 mm brown-colored mass in the central neck. It was removed and sent for frozen analysis, which came back consistent with a lymph node. The remainder of it was sent for permanent pathology. I then dissected further underneath the recurrent laryngeal nerve and I identified approximately 1 to 1.5 cm visibly enlarged parathyroid gland. It was removed and placed on the back table for permanent. Fifteen minutes later, a rapid PTH was drawn, which ultimately came back at 23. As such no further exploration was performed. The patient s neck was irrigated out. Hemostasis was achieved with bipolar cautery. Recurrent laryngeal nerve stimulated appropriately at the end of the case. The strap muscles were reapproximated. Her platysma was reapproximated with Vicryl. Running subcutaneous monocryl was then used to close the skin. All counts were confirmed correct. She was then returned back over to anesthesia to be awoken and extubated. [email or web address] Not available 05/15/2025 08:20:08 Plan of Treatment Reminders Order Date Submit Date Provider Last Modified By Organization Details Last Modified Time Details Appointments None recorded. Lab None recorded. Referral None recorded. Procedures None recorded. Surgeries None recorded. Imaging None recorded. Medication Orders ondansetron 4 mg disintegrat ing tablet 2024 025 [id number], [address] [place], [address], 13:47:13 hydrocodone 5 mg-acetamin ophen 325 mg tablet 2024 025 [id number], [address] [place], [address], 05:01:56 Patient TargetsNo targets recorded. Patient InstructionsNo instructions recorded. Reason for Referral None Reported. Results Created Date Observation Date Name Description Value Unit Range Abnormal Flag Note LastModifiedBy Organization Detail LastModifiedTime 05/13/2005/13/2025 PTH, RAPID PTH, rapid 107.0 pg/mL 17.9-5 8.6 high Not Available [facility] [address] [place] [address], [id number], 05/13/2025 09:56:52 05/13/20 25 05/13/2025 PTH, RAPID PTH, rapid 23.0 pg/mL 17.9-5 8.6 normal Not Available [facility] [address] [place] [address], [place], [phone], 05/13/2025 13:29:14 05/13/20 25 05/13/2025 SURGI SANDRA surgical SEE BELOW normal Surgi sandra Patho logy Repor t NAME: OMAR MCCABE PATH: [id number] DATE of : 08/10 7 Copy to: Diagn osis: A) Quest ion parat hyroi d: Benig n lymph node tissu e. B) Right parat hyroi d: - Enlar ged benig n hyper cellu lar parat hyroi d consi stent with adeno ma. C) Level six lymph node: Benig n lymph node tissu e. SOURC E OF SPECI MEN: TISSU E, QUEST ION PARAT HYROI D/FRO TERRY PARAT HYROI D, RIGHT LYMPH NODE, LEVEL 6 LYMPH NODE CLINI SANDRA INFOR MATIO N: HYPER PARAT HYROI DISM Gross Descr iptio n: A) Patie nt's name and date of verif ied. Recei candido fresh label ed with the patie nt's name and desig nated ques tion parat hyroi d is a 0.3 x 0.2 x 0.1 cm bernstein-r ed, grayi sh soft tissu e. The speci men is entir dequan submi tted for froze n secti on in block AFSA. B) Patie nt's name and date of verif ied. Recei candido in forma germán label ed with the patie nt's name and desig nated righ t parat hyroi d is a 0.460 g, 1.4 x 1.3 x 0.4 cm rough ly ovoid , bernstein-r ed soft tissu e fragm ent. The speci men is seria lly secti oned to revea l bernstein-p ink, soft, glist ening cut surfa kandis. Entir dequan submi tted in one casse tte label ed B1. C) Patie nt's name and date of verif ied. Recei candido in forma germán label ed with the patie nt's name and desig nated leve l six lymph node is a 0.6 x 0.4 x 0.2 cm bernstein-r ed, grayi sh, irreg ular soft tissu e fragm ent. The speci men is bisec ezequiel and entir dequan submi tted in one casse tte label ed C1. SB 05/13 03:39 PM Intra opera tive Consu ltati on: A) AFSA Dx: Benig n lymph node tissu e. (DH). Resul ts given direc tly to Dr. Teresa soliman. Micro scopi c Descr iptio n: A micro scopi c exami natio n has been perfo rmed and the resul t(s) are as noted above . JASON KRAUS MD Tiffany d Out Date: 05/14 13:09 Page 1 of 1 Not Available [facility] [address] [place] [address], [phone], 05/14/2025 13:10:15 Result Notes None recorded. Medical Equipment None Reported. Allergies No known drug allergies Medications Name Sig Start Date Stop Date Status Note LastModified by Organization Details LastModified Time aspirin 325 mg tablet Daily 08/08 completed Duration : 30 days;Jack quency: daily;Me dication Descript ion: aspirin; Dosage:1 ; Route:or al; refills: 0; Quantity :30 tablet Not Available Not Available Not Available hydrocodo ne 5 mg-acetam inophen 325 mg tablet Take 1 tablet every 6 hours by oral route for 7 days. 05/27 completed Not Available Not Available Not Available omeprazol [...] tablet Not Available Not Available Not Available Vitamin D2 1,250 mcg (50,000 unit) capsule Take 1 capsule by mouth every week for 90 days. active Not Available Not Available No t Available ondansetr on 4 mg disintegr ating tablet Place 1 tablet(s ) by translin gual route every 8 hours as needed for nausea. 2024 active Not Available Not Available Not Avai lable Zetia 10 mg tablet Daily 08/08 completed [...] Not Available Not Available Not Available Vitamin D3 active Not Available Not Available Not Available Caltrate- [...] Available Not Available No t Available Vitals None Recorded Social History None recorded. Functional Status None recorded. Mental Status None recorded. Family History Nothing Reported. Medical History No medical history recorded. Gynecological HistoryNo gynecological history recorded. Obstetrics History GPAL:G 0 P 0 0 0 0 Immunizations Vaccine Type Date Status Note Provider Nam e and Address Organization Details Recorded Time Td (adult), 2 Lf tetanus toxoid, preservative free, adsorbed 0 completed Not Available [facility] 02/27/2025 09:42:38 Influenza, split virus, trivalent, PF 0 completed Not Available [facility] 02/27/2025 09:42:38 Tdap 3 completed Not Available [facility] 02/27/2025 09:42:38 zoster live 3 completed Not Available [facility] 02/27/2025 09:42:38 pneumococcal polysaccharide PPV23 8 [facility] 09:38:05 Tdap 8 completed Effie Lipscomb [facility] 02/28/2025 09:38:05 Influenza, high-dose, trivalent, PF 9 completed [facility]25 09:38:05 Influenza, high-dose, quadrivalent, PF 0 completed Effie Lipscomb [facility] 02/28/2025 09:38:05 COVID-19, mRNA, LNP-S, PF, 100 mcg/0.5mL dose or 50 mcg/0.25mL dose 1 completed Effie Lipscomb [facility] 02/28/2025 09:38:05 COVID-19, mRNA, LNP-S, PF, 100 mcg/0.5mL dose or 50 mcg/0.25mL dose 1 completed [facility]25 09:38:05 Influenza, high-dose, quadrivalent, PF 1 completed [facility]25 09:38:05 COVID-19, mRNA, LNP-S, PF, 100 mcg/0.5mL dose or 50 mcg/0.25mL dose 1 completed [facility] 02/28/2025 09:38:05 COVID-19, mRNA, LNP-S, PF, 100 mcg/0.5mL dose or 50 mcg/0.25mL dose 2 completed Effie simons [facility] 02/28/2025 09:38:05 Influenza, high-dose, quadrivalent, PF 2 completed Effie Lipscomb [facility] 02/28/2025 09:38:05 Past Encounters Encounter ID Performer Location Encounter Start Date Encounter Closed Date Diagnosis/Indication Diagnosis SNOMED-CT Code Diagnosis ICD10 Code Diagnosis IMO Codes Diagnosis Note [id number] JASON ZHOU MD SURGERY SCHEDULE [address] [place] [address] 05/13/2025 09:42:34 05/13/2025 09:43:16 Localized swelling, mass and lump, neck 776698643 R22.1 Health Concerns Section Related Observation LastModified by Organization Detai ls LastModified Time None Recorded Concern Status LastModified by Organization Details LastModified Time None Recorded Payers Encounter Date Sequence Insurance Name Policy Number Policy Uribe Covered Member ID Uribe Member ID Guarantor Name 05/13/2025 1 [employer] (MEDICARE REPLACEMENT/A DVANTAGE - PPO) Jeannie Mccabe [id number] Jeannie Mccabe OBGyn Episode No OBEpisode recorded.
--- OUTSIDE RECORDS SUMMARY | 2025-06-11 15:38 | XMS_ITS | Clinical Summary ---
Author Organization [facility] Address [address] [place] [address] Care Team Providers Care Pulpit Operator Name Role Phone Diego Rosales MD Primary Care Provider [phone] Allergies No known active allergies Medications ranolazine [...] Take 81 mg by mouth Daily. Active [place]-3 Fatty Acids (fish oil) 1000 MG capsule [...] or Tdap) 11/23/2027 11/22/2017, 03/18/2013, 04/21/2000 Insurance [facility] MEDICARE ADVANTAGE Care Teams Pulpit Operator Relationship Specialty Start Date End Date Diego Rosales MD [address] [facility] [address] [place] [address] PCP - General Family Medicine 06/16/20
--- NOTE | 2025-06-11 16:02 | PC.NURSE ---
Dr eHrnandez in triage with the patient assessing her at this time. Patients vitals updated at this time.
[2025-06-11] MEDS: SULFA/TRIMETHOPRIM 1 TABLET 1 EACH PO (16:11)
--- NOTE | 2025-06-11 16:14 | HMH.EDGENADL ---
Discharge Plan Disposition Patient Disposition: Home, Self-Care Prescriptions Prescriptions: New sulfamethoxazole-trimethoprim [Bactrim DS] 800-160 mg tablet 1 tab PO BID 5 Days Qty: 10 0RF No Action mecobalamin (vitamin B12) 1,000 mcg tablet,chewable 1,000 mcg PO DAILY omeprazole 40 mg capsule,delayed release(DR/EC) 40 mg PO DAILY PRN (Reason: Acid Reflux) aspirin 81 mg tablet 81 mg PO DAILY risperidone 0.25 mg tablet 0.25 mg PO DAILY bisoprolol fumarate 10 mg tablet PO hydralazine 10 mg tablet 10 mg PO TID PRN (Reason: hypertension BP < 140/90) Qty: 90 2RF memantine 5 mg tablet 5 mg PO BID levothyroxine 25 MCG tablet 25 mcg PO DAILY evolocumab 140 mg/mL syringe 140 mg SQ DIRECTED Rx Instructions: EVERY 2 WEEKS Referrals Follow up/Referrals: Yuniel Rosales MD [Primary Care Provider, Medical] - See instructions Activity Restrictions/Add. Instructions Additional Instructions/Restrictions: Your waxing and waning delirium is likely secondary to your urinary tract infection as discussed the medication that we used has some resistance associated with it so she is not better in 48 to 72 hours please return to the emergency department also a culture will be sent and we will give you a call if there is obvious resistance. Return to the ER with any other concerns as well. Clinical Impressions Clinical Impression: UTI (urinary tract infection), Acute delirium Instructions Patient Instructions: DI for Urinary Tract Infection (UTI), DI for Urinary Tract Infection in Children Print Language Print Language: [place] Discharge ED Provider: Romulo Silva Adult HPI General Chief complaint: Urogenital-Female Stated complaint: AMS, Poss UTI, dehydration Time Seen by Provider: 06/11/25 16:02 Mode of Arrival: Ambulatory Source of Information: Patient and Relative Description of Symptoms (Recalled from ER Triage Doc. by RN): Pt presents with UTI symptoms. Family states she has an altered mental status for 3 days now. Pt was seen in PCP office last , symptoms have progressively gotten worse since. Pt is dehydrated, just not acting herself, family states she has been agressive . Pt does have h/o hyperkalemia. History of Present Illness HPI narrative: Patient is a very pleasant 84-year-old female with some chronic dementia who presents today with her after some slight delirium over the last 24 hours yesterday evening and this morning which her states typically is secondary to urinary tract infection and improves with antibiotics. She is without any current complaints at the moment. Related Data Home Medications ?Medication ?Instructions ?Recorded ?Confirmed evolocumab 140 mg/mL subcutaneous 140 mg SQ DIRECTED Cholesterol 03/21/20 05/20/25 syringe levothyroxine 25 mcg tablet 25 mcg PO DAILY Thyroid 03/21/20 05/20/25 mecobalamin (vitamin B12) 1,000 1,000 mcg PO DAILY Supplement 04/21/20 05/20/25 mcg chewable tablet memantine 5 mg tablet 5 mg PO BID Memory 05/08/23 05/20/25 aspirin 81 mg tablet 81 mg PO DAILY 09/10/24 05/20/25 omeprazole 40 mg capsule,delayed 40 mg PO DAILY PRN Acid Reflux 09/10/24 05/20/25 release risperidone 0.25 mg tablet 0.25 mg PO DAILY 09/10/24 05/20/25 bisoprolol fumarate 10 mg tablet mg PO 05/20/25 05/20/25 Previous Rx's ?Medication ?Instructions ?Recorded hydralazine 10 mg tablet 10 mg PO TID PRN hypertension BP < 04/17/25 140/90 #90 tabs sulfamethoxazole 800 1 tab PO BID 5 days #10 tabs 06/11/25 mg-trimethoprim 160 mg tablet (Bactrim DS) Allergies Allergy/AdvReac Type Severity Reaction Status Date / Time cefdinir Allergy Confusion Verified 05/20/25 13:51 [id number]-[id number] Reductase AdvReac Mild myalgia Verified 05/20/25 13:51 Inhibitor PFSH [facility] Disclaimer: The information contained in this section may have been updated after the patient was seen, as this information can be updated by other users. Medical History Memory loss Constipation Osteoarthritis of left knee Status post left total knee arthroplasty History of pacemaker Hypothyroidism HLD (hyperlipidemia) HTN (hypertension) Dementia Dyspnea Acquired hammertoe of right foot History of toe fracture Sinus tachycardia SSS (sick sinus syndrome) Tachy-clemencia syndrome Overweight with body mass index (BMI) 25.0-29.9 Callus of foot Abnormal EKG Syncope Back pain Surgical History (Updated 05/20/25 @ 14:05 by PRESTON Silva) Status post parathyroidectomy S/P parathyroidectomy History of total left knee replacement History of cardiac cath History of hysterectomy Status post foot surgery Family History Other Family history of heart disease Social History Smoking Status: Never smoker alcohol intake: never substance use type: denies use current occupational status: retired Travel in the last 8 weeks?: None household members: spouse housing: house marital status: current occupational exposures/hazards: No caffeine: Yes Have you lived/traveled outside [place] in past 30 days?: No Contact w/someone who lives/traveled outside US past 30 days?: No Exposure to someone with infectious disease in past 14 days?: No Do you have a fever (greater than 100.4 F or 38 C)?: No Have you tested positive for COVID-19?: No Exposed to someone with COVID-19 in past 14 days?: No Do you have a sore throat?: No Do you have a cough?: No Do you have any weakness?: No Do you have any diarrhea?: No Are you experiencing any unusual bleeding?: No Do you have any muscle aches/pain?: No Do you have any abdominal pain?: No Are you experiencing loss of taste or smell?: No Other Medical History Have you received the Flu Vaccine for this season: No Have you received the Pneumonia Vaccine: Yes ROS Obtained: Yes All systems reviewed & no additional complaints except as documented Physical Exam General General appearance: alert and in no apparent distress Respiratory Respiratory exam: Present normal lung sounds bilaterally; Absent respiratory distress Cardiovascular Cardiovascular exam: Present regular rate and normal rhythm Abdominal Exam Abdominal exam: Present soft; Absent distention or tenderness Neurological Exam Neurological exam: Present alert, CN II-XII intact, normal gait and other (Nonfocal very pleasant); Absent oriented X3 (She is oriented to person and place but not time which is at her baseline) or motor sensory deficit Medical Decision Making Medical Records Screening: Per USPSTF and CDC recommendations, given the prevalence of disease in our region, it is our hospital?s policy to screen for HIV and viral Hepatitis for all patients aged 18 and over and those with ongoing risk factors. Jaspreet Inquiry Pt receiving controlled substance: No Vital Signs: 06/11/25 14:06 06/11/25 14:13 Temperature 97.8 F Temperature Source Oral Pulse Rate 80 Pulse Rate [Right] 73 Respiratory Rate 18 20 Blood Pressure 170/70 H Blood Pressure [Right Arm] 175/75 H Blood Pressure Mean [Right Arm] 108 Blood Pressure Source Automatic Cuff Blood Pressure Source [Right Arm] Automatic Cuff Blood Pressure Position Sitting Blood Pressure Position [Right Arm] Sitting 02 Sat by Pulse Oximetry 97 98 Oxygen Delivery Method Room Air Room Air Lab Data Lab results reviewed: Yes I reviewed the patient's lab results. Lab Results 06/11/25 14:15: Urine Color Yellow, Urine Appearance Clear, Urine pH 6.0, Ur Specific [place] 1.010, Urine Protein Negative, Urine Glucose (UA) Negative, Urine Ketones Negative, Urine Blood Trace-i, Urine Nitrate Negative, Urine Bilirubin Negative, Urine Urobilinogen 0.2, Ur Leukocyte Esterase 2+ A, Urine RBC None, Urine WBC 3-5, Ur Squamous Epith Cells Occasional, Ur Renal Epithelial Cell Occasional, Urine Bacteria Trace 06/11/25 14:45: WBC 6.9, RBC 4.34, Hgb 12.6, Hct 39.2, MCV 90.3, MCH 29.0, MCHC 32.1, RDW 13.2, Plt Count 244, MPV 10.2, Neut % (Auto) 73.4, Lymph % (Auto) 15.8, [place] % (Auto) 9.1, Eos % (Auto) 0.7, Baso % (Auto) 0.6, Neut # (Auto) 5.1, Lymph # (Auto) 1.1, [place] # (Auto) 0.6, Eos # (Auto) 0.1, Baso # (Auto) 0.0, Sodium 135 L, Potassium 4.2, Chloride 104, Carbon Dioxide 24, Anion Gap 11.2, BUN 15, Creatinine 0.80, Estimated Creat Clear 47, Estimated GFR 68, Est GFR ( Amer) 83, Glucose 96, Calcium 9.5, Total Bilirubin 0.6, AST 26, ALT 17, Alkaline Phosphatase 85, Total Protein 7.1, Albumin 4.5, Globulin 2.6, Albumin/Globulin Ratio 1.7 06/11/25 14:45 06/11/25 14:45 Orders (Tests/Meds): ED MEDICATIONS Generic Name Dose Route Start Last Admin Trade Name Tomas PRN Reason Stop Dose Admin Trimethoprim/Sulfamethoxazole 1 each 06/11/25 16:08 06/11/25 16:11 Sulfa/Trimethoprim 1 Tablet PO 06/11/25 16:09 1 each ONCE ONE Administration ORDERS Category Date Time Status Complete Blood Count Auto Diff Stat Lab 06/11/25 14:45 Completed Comprehensive Metabolic Panel Stat Lab 06/11/25 14:45 Completed Urinalysis and Microscopic Stat Lab 06/11/25 14:15 Completed Urine Culture Stat Micro 06/11/25 14:15 Received Medical Decision Narrative: 84-year-old currently asymptomatic female with a history of mild dementia accompanied by her who presents today with some delirium that seems to have abated at the moment. She does have a urinary tract infection as indicated on urinalysis that was performed in triage when we were very busy. Metabolically everything was unremarkable no other laboratory abnormalities to explain her symptoms. She has no history of any head injury or any focal neurologic deficits no CT imaging of the brain is indicated. She has no respiratory symptoms to suggest that she may have pneumonia. She has an antibiotic allergy to cefdinir and I do not want to give a fluoroquinolone to the patients of this age with the side effect profile therefore Bactrim was given empirically in the emergency department first dosed and then a prescription was sent to her pharmacy they have been informed that there may be some resistance associated with this and return to the emergency department with any persistence of symptoms over the next 48 to 72 hours or other concerns. Critical Care Critical Care Time Critical Care Time: No
[2025-06-11 16:25] VITALS: BP 170/70; PULSE 80; RESP 18; TEMP 36.9; O2SAT 100
== END 2025-06-11 16:25 | disposition home or self-care (01) ==
PROVIDERS: Emergency Provider Student in an Organized Health Care Education/Training Program; PCP Family Medicine
DX: N39.0 Urinary tract infection, site not specified (principal); R41.0 Disorientation, unspecified
CPT/HCPCS: 80053; 81001; 85025; 87086; 99283

== ENCOUNTER 2025-06-17 14:46 | Outpatient (CLI) | payer MEDICARE, OTHER, SELFPAY ==
--- OUTSIDE RECORDS SUMMARY | 2024-10-10 09:45 | XMS_ITS ---
Author Organization [facility] Address [address] [place] [phone] Care Team Providers Care Radiologist Chief Of Breast Imaging Name Role Phone Heladio Rosales Primary Care Provider [phone] Allergies Allergen (clinical drug ingredient) Drug/Non Drug Allergy documented on EMR Reaction Allergy Type Onset Date Status cefdinir Cefdinir AMS Drug Allergy Active dexamethasone DexAMETHasone AMS Drug Allergy Active Results Component Value Reference Range Notes P-Basic Metabolic Panel (BMP ) Reviewed date:10/11/2024 08:37:36 AM Interpretation:Cuong 10.5 Performing Lab: Notes/Report: Test performed by [facility] [address] [place], [place] [address] [place] [address] González King MD, Director Blood Bank CLIA: [id number] Sodium 142 135-145 mmol/L Potassium 4.9 3.5-5.3 mmol/L Chloride 107 97-108 mmol/L CO2 25 22-32 mmol/L Glucose 90 65-99 mg/dL BUN 15 8-23 mg/dL Creatinine 0.81 0.50-1.00 mg/dL Calcium 10.5 8.6-10.4 mg/dL eGFR by Creatinine 71 >59 mL/min/1.73m2 P-Parathyroid Hormone (PTH) Intact Reviewed date:10/11/2024 08:37:36 AM Interpretation:95.0 Performing Lab: Notes/Report: Test performed by [address] [facility] [address] [place], [place] [address] [place] [address] González King MD, Director Blood Bank CLIA: [id number] Parathyroid Hormone (PTH) Intact 95.0 15.0-65. 0 [...] 30 days Active Vitamin D3 1.25 MG (84160 UT) 1 capsule Orally; Duration: 30 day(s) Active Vital Signs Blood pressure systolic 130 mm Hg 10/11/19 25 Blood pressure diastolic 80 mm Hg 025 Heart Rate 71 /min 10/10/2024 Height 62 in 10/10/2024 Weight 165.6 lbs 10/10/2024 BMI 30.29 kg/m2 10/10/2024 Encounters Encounter Location Date Provider Diagnosis [facility] [address] [facility] 36 [facility] [address] [place], [place] [id number] 10/10/2024 Heladio Rosales Altered mental statu s, [...] Details Follow Up: 6 Weeks, Reason: Provider Name:Zita Tony, 06/17/2025 02:30:00 PM, [address], [address], [place], [phone], Provider Name:Heladio Edgar Renea er, 08/08/2025 10:30:00 AM, [address], [address], [place], [phone], Progress Notes * Michelle MCCABEOB:1940 (84 yo F)Acc No.[id number]:10/10/2024 Progress Notes Patient: Jeannie JIAN Provider: Heladio Rosales M.D. :1940 A ge:84 Y S ex:Female Date:10/10/2024 Address:[address] [place], [place] [id number] Subjective: * Chief Complaints: * 1 . Increased Hallucination, Not Sleeping. * HPI: N eurology: The pt is here today with c/o trouble going to sleep. Pt states she does not always sleep through the night. 84 year old female presents with c/o insomnia. E ndocrinology: Was referred to [facility] End[facility]ology and was seen in May or [...] stic Procedure: B ack Pain From Fall- [facility] 03/21/2020, Passed Out, Recent Fall- [facility] ER 05/20-. * Family History: F ather: [...] Medications: T aking Vitamin D3 1.25 MG (42123 UT) Capsule 1 capsule Orally , Taking [...] * Images: Billing Information: * Visit Code: 46714 Office Visit, Est Pt., Level 4. * Procedure Codes: G2211 Complex e/m visit add on. 3075F SYST BP GE 130 - 139MM HG. 3079F DIAST BP 80-89 MM HG. * Electronic signature of Heladio Rosales MD on 06/17/2025 at 02:51 PM EST Sign off status: Pending * Provider: Heladio Rosales M.D. Date: 0 10/10/2024 Generated for Printi ng/Facoryg/eTransmitting on: 1 08/17/2024 02:51 PM EST History and Physical Notes * [...]
--- OUTSIDE RECORDS SUMMARY | 2024-11-25 08:15 | XMS_ITS ---
Author Organization [facility] [facility] Address [address] [facility] 36 [facility] [address] [place] [phone] Care Team Providers Care Financial Reporting Consultant Name Role Phone Heladio Rosales Primary Care Provider [phone] REASON FOR VISIT 2 month check Encounters Encounter Location Date Provider Diagnosis [facility] [address] [place], [place] [phone] 11/25/2024 Heladio Rosaels Plan Of Treatment Next Appt Details Provider Name:Zita Sumit Ramey et, 06/17/2025 02:30:00 PM, [address], [address], [place], [place], [phone], Provider Name:Heladio Meier er, 08/08/2025 10:30:00 AM, [address], [address], [place], [place], [phone], Progress Notes * Leonor MCCABEeDOB:1940 (84 yo F)Acc No.[id number]:11/25/2024 Progress Notes Patient: Jeannie JAIN Provider: Heladio Rosales M.D. :1940 A ge:84 Y S ex:Female Date:11/25/2024 Address:[address] [place] [phone] Subjective: * Chief Complaints: * 1 . 2 month check. * Medical History: Objective: * Vitals: Assessment: Plan: * Treatment: * Images: Billing Information: * Visit Code: * Procedure Codes: * Electronic signature of Heladio Rosales MD on 06/17/2025 at 02:51 PM EST Sign off status: Pending * Provider: Heladio Rosales M.D. Date: 0 11/25/2024 Generated for Barbara trinh/Luis/Khanh on: 08/17/2024 02:51 PM EST
--- OUTSIDE RECORDS SUMMARY | 2024-12-09 10:30 | XMS_ITS ---
Author Organization [facility] Address [address] [facility] [address] [place] [id number] Care Team Providers Care Risk Engineer Name Role Phone Heladio Rosales Primary Care Provider Sony Lilly Unavailable [phone] Allergies Allergen (clinical drug ingredient) Drug/Non Drug Allergy documented on EMR Reaction Allergy Type Onset Date Status cefdinir Cefdinir AMS Drug Allergy Active dexamethasone DexAMETHasone AMS Drug Allergy Active Results Component Value Reference Range Notes P-Basic Metabolic Panel (BMP ) Reviewed date:12/13/2024 09:58:11 AM Interpretation:cl 109, gluc 127 Performing Lab: Notes/Report: Test performed by [facility] [address] [place], [place] [address] [place] , [address], [place] [address] González King MD, Pile Driving Technician CLIA: [id number] Sodium 143 135-145 mmol/L Potassium 4.3 3.5-5.3 mmol/L Chloride 109 97-108 mmol/L CO2 22 22-32 mmol/L Glucose 127 65-99 mg/dL BUN 14 8-23 mg/dL Creatinine 0.83 0.50-1.00 mg/dL Calcium 10.0 8.6-10.4 mg/dL eGFR by Creatinine 69 >59 mL/min/1.73m2 P-Calcium, Ionized Reviewed date:12/13/2024 09:58:11 AM Interpretation:5.44 Performing Lab: Notes/Report: Test performed by [facility] [address] [place], [place] [address] [place] , [address], [place] [address] González King MD, Pile Driving Technician CLIA: [id number] Calcium, Ionized 5.44 4.60-5.30 mg/dL REASON FOR VISIT discuss thyroid Medications Medication SIG (Take, Route, Frequency, Duration) Notes Start Date End Date Status Levothyroxine Sodium 25 MCG 1 tab(s) ora lly once a day; Duration: 90 days Active Repatha 140 MG/ML INJECT 140MG UNDER T HE SKIN EVERY 2 WEEKS Active Memantine HCl 5 MG 1 tablet Orally twic e a day; Duration: 30 days Active Omeprazole 40 MG 1 cap(s) Orally Once a day, prn; Duration: 30 days Active risperiDONE 0.25 MG 1 tablet Orally At B ed Time; Duration: 30 day(s) Active B-12 1000 MCG 1 tab(s) orally once a day; Duration: 30 day(s) Active Vitamin D3 1.25 MG (19232 UT) 1 capsule Orally; Duration: 30 day(s) Active Aspirin Adult Low Dose 81 MG 1 tablet Or ally Once a day Active Bisoprolol Fumarate 5 MG 1 tab(s) orally once a day Active Problems Problem Type SNOMED Code ICD Code Onset Dates Problem Status W/U Status Risk Notes Problem Body mass index 30+ - obesity (320015200) BMI 30.0-30.9,a dult (Z68.30) Active confirmed Vital Signs Blood pressure systolic 130 mm Hg 12/10/19 25 Blood pressure diastolic 74 mm Hg 025 Heart Rate 74 /min 12/09/2024 Height 62 in 12/09/2024 Weight 169.4 lbs 12/09/2024 BMI 30.98 kg/m2 12/09/2024 Encounters Encounter Location Date Provider Diagnosis [facility] [address] [facility] [address] [place], [place] [id number] 12/09/2024 Sony [place] Hypercalcemia E83.52 ; Mixed hyperlipidemia E78.2 ; Ventricular tachycardia I47.20 and BMI 30.0-30.9,adult Z68.30 Assessments Encounter Date Diagnosis (ICD Code) Assessment Notes Treatment Notes Treatment Clinical Notes Section Notes 12/09/2024 Hypercalcemia (ICD-10 - E83.52) 12/09/2024 Mixed hyperlipidemia (ICD-10 - E78.2) 12/09/2024 Ventricular tachycardia (ICD-10 - I47.20) 12/09/2024 BMI 30.0-30.9,adult (ICD-10 - Z68.30) Plan Of Treatment Next Appt Details Follow Up: via phone to repo rt test results, Reason: Provider Name:Zita Ramey et, 06/17/2025 02:30:00 PM, [address], [address], [place], [place], [id number], Provider Name:Heladio Meier er, 08/08/2025 10:30:00 AM, [address], [address], [place], [place], [id number], Progress Notes * Leonor MCCABEIgnacioOB:1940 (84 yo F)Acc No.[id number]:12/09/2024 Progress Notes Patient: Jeannie JAIN Provider: Elie Lilly M.D. :1940 A ge:84 Y S ex:Female Date:12/09/2024 Address:[address] [place] [id number] Pcp:Heladio Rosales Subjective: * Chief Complaints: * 1 . Discuss thyroid. * HPI: H PI: 84 year old female presents with c/o Patient is here today for?Pt is here today to discuss her calcium level. She states it has been elevated at 10.5, 10.3 and 10.8 over the past 12 months. [facility]but her next blood draw is in 6 months and her is concerned that she may be dehydrated. * ROS: D ERMATOLOGY: no R neo. [...] stic Procedure: B ack Pain From Fall- [facility] 03/21/2020, Passed Out, Recent Fall- [facility] 05/20-. * Family History: F [...] Medications: T aking Vitamin D3 1.25 MG (80887 UT) Capsule 1 capsule Orally , Taking [...] Orally Once a day, prn , Taking Memantine HCl 5 MG Tablet 1 tablet Orally twice a day , Taking risperiDONE 0.25 MG Tablet 1 tablet Orally At Bed Time , Medication List reviewed and reconciled with the patient * Allergies: C efdinir: AMS, DexAMETHasone: AMS. Objective: * Vitals: W t: 169.4, Temp: 98.4, BP: 130/74, HR: 74, Nurse: greyson, Ht: 62, BMI:30.98. * Examination: G eneral Examination: General Appearance: N AD. H eart: R SR. L ungs:?clear to auscultation. N eurologic Exam: I ntact, gait normal. E xtremities: n o leg edema. Assessment: * Assessment: 1. H ypercalcemia - E83.52 (Primary) 2 . M ixed hyperlipidemia - E78.2 3 . V entricular tachycardia - I47.20 4 . B [place] 30.0-30.9,adult - Z68.30 Plan: * Treatment: Value Reference Range B UN 14 8-23 - mg/dL * C alcium 10.0 8.6-10.4 - mg/dL * C hloride 109 H 97-108 - mmol/L * C O2 22 22-32 - mmol/L * C reatinine 0.83 0.50-1.00 - mg/dL * G lucose 127 H 65-99 - mg/dL * P otassium 4.3 3.5-5.3 - mmol/L * S odium 143 135-145 - mmol/L * e GFR by Creatinine 69 >59 - mL/min/1.73m2 * Gina Montgomery 12/13/2024 09:5 8:00 AM > See phone encounter ?LAB: P-Calcium, Ionized (Collection Date & Time - 12/09/2024 03:07 PM)?5.44 * Value Reference Range C alcium, Ionized 5.44 H 4.60-5.30 - mg/dL * Gina Montgomery 12/13/2024 09:5 8:00 AM > See phone encounter * Procedure Codes: G 2211 Complex e/m visit add on, G8420 BMI<30 AND >=22 CALC & DOCU, 3075F SYST BP GE 130 - 139MM HG, 3078F DIAST BP < 80 MM HG * Follow Up: v ia phone to report test results * Images: Billing Information: * Visit Code: 61888 Office Visit, Est Pt., Level 3. * Procedure Codes: G2211 Complex e/m visit add on. G8420 BMI<30 AND >=22 CALC & DOCU. 3075F SYST BP GE 130 - 139MM HG. 3078F DIAST BP < 80 MM HG. * Electronic signature of Natasha Lilly MD on 06/17/2025 at 02:50 PM EST Sign off status: Pending * Provider: Elie Lilly M.D. Date: 0 12/09/2024 Generated for Barbara trinh/Luis/Magnoliaitting on: 1 08/17/2024 02:50 PM EST History and Physical Notes * HPI (History of Present Illness) Category Sub-Category Detail Notes Category Not es HPI Patient is here today for Pt is here today to discuss her calcium level. She states it has been elevated at 10.5, 10.3 and 10.8 over the past 12 months. [facility]but her next blood draw is in 6 months and her is concerned that she may be dehydrated Examination Category Sub-Category Detail Notes Category Not es General Examination Heart: RSR Lungs: clear to auscultatio n Extremities: no leg edema General Appearance: NAD Neurologic Exam: Intact, gait normal
--- OUTSIDE RECORDS SUMMARY | 2025-01-08 05:15 | XMS_ITS ---
Author Organization [facility] Address [address] [facility] [address] [place] [id number] Care Team Providers Care Steel Grinder Name Role Phone Heladio Rosales Primary Care Provider [phone] Vijaya Sony Unavailable [phone] Allergies Allergen (clinical drug ingredient) Drug/Non Drug [...] 10.5 Performing Lab: Notes/Report: Test performed by [facility], [address] [facility] [place] [address] González King MD, Wellness Specialist CLIA: [id number] Sodium 139 135-145 mmol/L Potassium 4.5 3.5-5.3 mmol/L Chloride 104 97-108 mmol/L CO2 23 22-32 mmol/L Glucose 99 65-99 mg/dL BUN 18 8-23 mg/dL Creatinine 0.81 0.50-1.00 mg/dL Calcium 10.5 8.6-10.4 mg/dL eGFR by Creatinine 71 >59 mL/min/1.73m2 P-Calcium, Ionized Reviewed date:01/09/2025 09:49:25 AM Interpretation:5.62 Performing Lab: Notes/Report: Test performed by [facility] [address] , [place] [address] González King MD, Wellness Specialist CLIA: [id number] Calcium, Ionized 5.62 4.60-5.30 mg/dL P-Culture, Urine Reviewed date:01/13/2025 04:55:36 PM Interpretation:E. Coli Performing Lab: Notes/Report: Test performed by [facility] [employer] [facility] [address] [place] [address] , [address], [place] [address] González King MD, Wellness Specialist CLIA: [id number] Specimen Source Urine - Void Culture, Urine [...] 2 WEEKS Active Vitamin D3 1.25 MG (10462 UT) 1 capsule Orally; Duration: 30 day(s) Active Vital Signs Blood pressure systolic 134 mm Hg 01/09/20 25 Blood pressure diastolic 72 mm Hg 025 Heart Rate 70 /min 01/08/2025 Height 62 in 01/08/2025 Weight 166.2 lbs 01/08/2025 BMI 30.4 kg/m2 01/08/2025 Encounters Encounter Location Date Provider Diagnosis [facility] [address], [place] [phone] 01/08/2025 Sony [place] Acute UTI N39.0 and Hypercalcemia E83.52 Assessments [...] phone to repo rt progress, Reason: Provider Name:Zita Ramey et, 06/17/2025 02:30:00 PM, 1210 [facility] 36 [facility], [address], [place], [place], [id number], Provider Name:Heladio Meier er, 08/08/2025 10:30:00 AM, [address], [address], [place], [place], [id number], Progress Notes * Leonor MCCABEeDOB:1940 (84 yo F)Acc No.[id number]:01/08/2025 Progress Notes Patient: Jeannie JAIN Provider: Elie Lilly M.D. :1940 A ge:84 Y S ex:Female Date:01/08/2025 Address:[address] [place], [place] [phone] Pcp:Heladio Rosales Subjective: * Chief Complaints: * [...] stic Procedure: B ack Pain From Fall- [facility] 03/21/2020, Passed Out, Recent Fall- [facility] 05/20-. * Family History: F ather: [...] Medications: T aking Vitamin D3 1.25 MG (46324 UT) Capsule 1 capsule Orally , Taking [...] 28:19 PM EDT > pt started on CiproKing, Monique 01/13/2025 04:54:32 PM EDT > Pt informed [...] Ionized 5.62 H 4.60-5.30 - mg/dL * Gina Montgomery 01/09/2025 09:4 9:16 AM EDT > See phone encounter * Procedure Codes: G 2211 Complex e/[place], [address] Urinalysis, no micro, 763[address] CBC WITH AUTO DIFF, 1036F TOBACCO NON-USER, G8783 BP SCR PRFRM RCMDD DEFIND SCR INTVL, G8752 MOST RECENT SYSTOLIC BP < 140MM HG, G8754 MOST RECENT DIASTOLIC BP < 90MM HG * Follow Up: v ia phone to report progress * Images: Billing Information: * Visit Code: 09922 Office Visit, Est Pt., Level 4. * Procedure Codes: G2211 Complex e/[place]. [address] Urinalysis, no micro. 27122 CBC WITH AUTO DIFF. 1036F TOBACCO NON-USER. G8783 BP SCR PRFRM RCMDD DEFIND SCR INTVL. G8752 MOST RECENT SYSTOLIC BP < 140MM HG. G8754 MOST RECENT DIASTOLIC BP < 90MM HG. * Electronic signature of Natasha Lilly MD on 06/17/2025 at 02:51 PM EST Sign off status: Pending * Provider: Elie Lilly M.D. Date: 0 01/08/2025 Generated for Barbara trinh/Luis/Magnoliaitting on: 1 08/17/2024 02:51 PM EST History [...]
--- OUTSIDE RECORDS SUMMARY | 2025-01-13 09:15 | XMS_ITS ---
Author Organization [facility] Address [address]10 [facility] 36 [facility] [address] [place] [phone] Care Team Providers Care Packing Clerk Name Role Phone Heladio Rosales Primary Care Provider [phone] Allergies Allergen (clinical drug ingredient) Drug/Non Drug Allergy documented on EMR Reaction Allergy Type Onset Date Status cefdinir Cefdinir AMS Drug Allergy Active dexamethasone DexAMETHasone AMS Drug Allergy Active REASON FOR VISIT 6 week check Encounters Encounter Location Date Provider Diagnosis [facility] [address] [facility] [address] [place], [place] [phone] 01/13/2025 Heladio Rosales Plan Of Treatment Next Appt Details Provider Name:Zita Ramey et, 06/17/2025 02:30:00 PM, [facility], [address], [place], [place], [phone], Provider Name:Heladio Meier er, 08/08/2025 10:30:00 AM, [facility], [address], [place], [place], [phone], Progress Notes * Leonor MCCABEeDOB:1940 (84 yo F)Acc No.[id number]:01/13/2025 Patient: Jeannie JAIN Provider: Heladio Rosales M.D. :1940 A ge:84 Y S ex:Female Date:01/13/2025 Address:[address] [place] [phone] Subjective: * Chief Complaints: * 1 . 6 week check. * ROS: D ERMATOLOGY: no R neo. [...] stic Procedure: B ack Pain From Fall- [facility] 03/21/2020, Passed Out, Recent Fall- [facility] 05/20-. * Family History: F [...] status: Does not smoke. Alcohol: no. * Allergies: C efdinir: AMS, DexAMETHasone: AMS. Objective: * Vitals: Assessment: Plan: * Treatment: * Images: Billing Information: * Visit Code: * Procedure Codes: * Electronic signature of Heladio Rosales MD on 06/17/2025 at 02:51 PM EST Sign off status: Pending * Provider: Heladio Rosales M.D. Date: 0 01/13/2025 Generated for Barbara trinh/Luis/Magnoliaitting on: 08/17/2024 02:51 PM EST
--- OUTSIDE RECORDS SUMMARY | 2025-01-17 06:30 | XMS_ITS ---
Author Organization [facility] Address [address] [place] [phone] Care Team Providers Care Stemhole Borer Name Role Phone Heladio Rosales Primary Care Provider Sony Lilly Unavailable [phone] Results Component Value Reference Range Notes Urinalysis - Inhouse Reviewed date:01/17/2025 04:48:57 PM Interpretation: Performing Lab: Notes/Report: Color/Clarity yellow Leuk trace Nitrite neg Urobili 3.2 Protein neg pH 5.5 Blood neg Sp. Gr. 1.010 Ketone neg Bili neg Gluc neg P-Culture, Urine Reviewed date:01/22/2025 01:14:38 PM Interpretation:no significant growth Performing Lab: Notes/Report: Test performed by [facility], [employer] [address] [place] [address] , [address], [place] [address] González King MD, Supervisor Dyer CLIA: [id number] Specimen Source Urine - Void Culture, Urine See Below Final Report : No Significant Growth REASON FOR VISIT URINE SAMPLE Medications Medication SIG (Take, Route, Frequency, Duration) Notes Start Date End Date Status B-12 1000 MCG 1 tab(s) orally once a day; Duration: 30 day(s) Active Vitamin D3 1.25 MG (23513 UT) 1 capsule Orally; Duration: 30 day(s) [...] Active Encounters Encounter Location Date Provider Diagnosis [facility] 1210 [facility] 36 [facility] [address] [place] [phone] 01/17/2025 Sony Lilly UTI (lower urinary tract infection) N39.0 Assessments Encounter Date Diagnosis (ICD Code) Assessment Notes Treatment Notes Treatment Clinical Notes Section Notes 01/17/2025 UTI (lower urinary tract infection) (ICD-10 - N39.0) Plan Of Treatment Next Appt Details Provider Name:Zita Ramey et, 06/17/2025 02:30:00 PM, 1210 [facility] 36 [facility], [address], [place], [phone], Provider Name:Heladio Meier er, 08/08/2025 10:30:00 AM, 1210 [facility] 36 [facility], [address], [place], [phone], Progress Notes * Leonor MCCABEIgnacioOB:1940 (84 yo F)Acc No.[id number]:01/17/2025 Patient: Jeannie JAIN Provider: Elei Lilly M.D. :1940 A ge:84 Y S ex:Female Date:01/17/2025 Address:[address] [place], [place] [phone] Pcp:Heladio Rosales Subjective: * Chief Complaints: * 1 . URINE SAMPLE. * Medical History: * Medications: T aking Vitamin D3 1.25 MG (31958 UT) Capsule 1 capsule Orally , Taking [...] Information: * Visit Code: * Procedure Codes: 10750 Urinalysis, no micro. * Electronic signature of Natasha Lilly MD on 06/17/2025 at 02:50 PM EST Sign off status: Pending * Provider: Elie Lilly M.D. Date: 0 01/17/2025 Generated for Barbara trinh/Luis/Khanh on: 08/17/2024 02:50 PM EST
--- OUTSIDE RECORDS SUMMARY | 2025-05-06 06:55 | XMS_ITS ---
Author Organization [facility] Address [address] [facility] [address] [place] [phone] Care Team Providers Care Stationary Boiler Fireman Name Role Phone Heladio Rosales Primary Care Provider Zita Whitaker [phone] Allergies Allergen (clinical drug ingredient) Drug/Non Drug [...] 30 days Active Vitamin D3 1.25 MG (52065 UT) 1 capsule Orally; Duration: 30 day(s) Active B-12 1000 MCG 1 tab(s) orally once a day; Duration: 30 day(s) Active Aspirin Adult Low Dose 81 MG 1 tablet Or ally Once a day Active Repatha 140 MG/ML INJECT 140MG UNDER T HE SKIN EVERY 2 WEEKS Active Bisoprolol Fumarate 10 MG 1 tab(s) orall y once a day Active Vital Signs Blood pressure systolic 142 mm Hg 05/06/20 25 Blood pressure diastolic 60 mm Hg 025 Heart Rate 70 /min 05/06/2025 Height 62 in 05/06/2025 Weight 169.6 lbs 05/06/2025 BMI 31.02 kg/m2 05/06/2025 Encounters Encounter Location Date Provider Diagnosis [place] [address] [facility] [place] [address] [facility] [address] [place] [phone] 05/06/2025 Zita Whitaker Essential hypertensi on I10 [...] Up: 4 Weeks,sooner pr n, Reason: Provider Name:Zita Ramey et, 06/17/2025 02:30:00 PM, [address] [facility] [place] [address] [facility], [address], [place], [phone], Provider Name:Heladio Meier er, 08/08/2025 10:30:00 AM, [address] [facility] 36 [facility], [address], [place], [phone], Progress Notes * JACKIENicoleGunjanOB:1940 (84 yo F)Acc No.[id number]:05/06/2025 Progress Notes Patient: Jeannie JAIN Provider: Zita Whitaker M.D. :1940 A ge:84 Y S ex:Female Date:05/06/2025 Address:[address] [place], [place] [phone] Pcp:Heladio Rosales Subjective: * Chief Complaints: * [...] B ack Pain From Fall- [facility] ER 03/21/2020, Passed Out, Recent Fall- [facility] ER 05/20-. * Family History: F ather: [...] BP , Taking Vitamin D3 1.25 MG (02997 UT) Capsule 1 capsule Orally , Taking [...] 70, O2 Sat: 95% on RA, Nurse: saul, Ht: 62, BMI:31.02. * Examination: G eneral [...] * Images: Billing Information: * Visit Code: 44792 Office Visit, Est Pt., Level 3. * Procedure Codes: G2211 Complex e/m visit add on. 1036F TOBACCO NON-USER. 3077F SYST BP = 140 MM HG6 IT. 3078F DIAST BP < 80 MM HG. * Electronic signature of Zita Whitaker MD on 06/17/2025 at 02:50 PM EST Sign off status: Pending * Provider: Zita Whitaker M.D. Date: Generated for Barbara trinh/Luis/Khanh on: 08/17/2024 02:50 PM EST History and Physical Notes * Examination Category Sub-Category Detail Notes Category Not es General Examination Heart: RSR Lungs: clear to auscultatio n Extremities: no leg edema General Appearance: NAD
--- OUTSIDE RECORDS SUMMARY | 2025-05-09 07:00 | XMS_ITS ---
Author Organization [facility] Address [address] [facility] [address] [facility] [address] [place] [phone] Care Team Providers Care Rod Buster Name Role Phone Heladio Rosales Primary Care Provider REASON FOR VISIT flu shot Medications Medication SIG (Take, Route, Frequency, Duration) Notes Start Date End Date Status risperiDONE 0.25 MG 1 tablet Orally At B ed Time; Duration: 30 day(s) Active hydrALAZINE HCl 10 MG 1 tab Orally 3 artur es a day prn elevated BP Active Levothyroxine Sodium 25 MCG 1 tab(s) ora lly once a day; Duration: 90 days Active Memantine HCl 5 MG 1 tablet Orally twic e a day; Duration: 30 days Active Omeprazole 40 MG 1 cap(s) Orally Once a day, prn; Duration: 30 days Active Bisoprolol Fumarate 10 MG 1 tab(s) orall y once a day Active B-12 1000 MCG 1 tab(s) orally once a day; Duration: 30 day(s) Active Vitamin D3 1.25 MG (92835 UT) 1 capsule Orally; Duration: 30 day(s) Active Repatha 140 MG/ML INJECT 140MG UNDER T HE SKIN EVERY 2 WEEKS Active Aspirin Adult Low Dose 81 MG 1 tablet Or ally Once a day Active Immunizations Vaccine Route Administration Date Status Comme nts Fluzone High Dose (65yr and older) IM Intramuscular 05/09/2025 Administered Encounters Encounter Location Date Provider Diagnosis [place] [address] [facility] [address] [place] [phone] 05/09/2025 Heladio Rosales Encounter for immunization Z23 Assessments Encounter Date Diagnosis (ICD Code) Assessment Notes Treatment Notes Treatment Clinical Notes Section Notes 05/09/2025 Encounter for immunization (ICD-10 - Z23) Plan Of Treatment Next Appt Details Provider Name:Zita Ramey et, 06/17/2025 02:30:00 PM, [address], [address], [place], [phone], Provider Name:Heladio Meier er, 08/08/2025 10:30:00 AM, [address], [address], [place], [phone], Progress Notes * Leonor MCCABEIgnacioOB:1940 (84 yo F)Acc No.[id number]:05/09/2025 Patient: Jeannie JAIN Provider: Heladio Rosales M.D. :1940 A ge:84 Y S ex:Female Date:05/09/2025 Address:[address] [place], [place] [phone] Subjective: * Chief Complaints: * 1 . Flu shot. * Medical History: * Medications: T aking Bisoprolol Fumarate 10 MG Tablet 1 tab(s) orally once a day , Taking Vitamin D3 1.25 MG (82013 UT) Capsule 1 capsule Orally , Taking [...] tab(s) orally once a day , Taking hydrALAZINE HCl 10 MG Tablet 1 tab Orally 3 times a day prn elevated BP , Medication List reviewed and reconciled with the patient Objective: * Vitals: Assessment: * Assessment: 1. E ncounter for immunization - Z23 (Primary) Plan: * Treatment: * Immunizations: Fluzone High Dose (65yr and older) : 0.5 mL (Route: Intramuscular) given by BETH Willis on Right Deltoid (Encounter for immunization) * Images: Billing Information: * Visit Code: * Procedure Codes: * Electronic signature of Heladio Rosales MD on 06/17/2025 at 02:50 PM EST Sign off status: Pending * Provider: Heladio Rosales M.D. Date: 1 Generated for Barbara trinh/Luis/Eversmitting on: 08/17/2024 02:50 PM EST
--- OUTSIDE RECORDS SUMMARY | 2025-06-06 06:30 | XMS_ITS ---
Author Organization [facility] Address [address] [place] [id number] Care Team Providers Care Rock Loader Name Role Phone Heladio Rosales Primary Care Provider Allergies Allergen (clinical drug ingredient) Drug/Non Drug Allergy documented on EMR Reaction Allergy Type Onset Date Status cefdinir Cefdinir AMS Drug Allergy Active dexamethasone DexAMETHasone AMS Drug Allergy Active Results Component Value Reference Range Notes Urinalysis - Inhouse Reviewed date:06/12/2025 11:40:53 AM Interpretation:Normal Performing Lab: Notes/Report: Normal Color/Clarity yellow/clear Leuk Neg Nitrite Neg Urobili 3.2 Protein Trace pH 6.0 Blood Neg Sp. Gr. >1.030 Ketone Neg Bili Neg Gluc Trace P-Comprehensive Metabolic Pa see (CMP) Reviewed date:06/12/2025 11:41:44 AM Interpretation:Normal Performing Lab: Notes/Report: Test performed by [facility] [address] [place] [address] , [address], [place] [address] González King MD, Finish Carpenter CLIA: [id number] Sodium 142 135-145 mmol/L Potassium 4.7 3.5-5.3 [...] 30 day(s) Active Vitamin D3 1.25 MG (43473 UT) 1 capsule Orally; Duration: 30 day(s) Active Repatha 140 MG/ML INJECT 140MG UNDER T HE SKIN EVERY 2 WEEKS Active Aspirin Adult Low Dose 81 MG 1 tablet Orally Once a day Active Problems Problem Type SNOMED Code ICD Code Onset Dates Problem Status W/U Status Risk Notes Problem Acquired absence (83581664) 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 Vital Signs Blood pressure systolic 132 mm Hg 06/06/20 25 Blood pressure diastolic 70 mm Hg 025 Heart Rate 73 /min 06/06/2025 Height 62 in 06/06/2025 Weight 171.0 lbs 06/06/2025 BMI 31.27 kg/m2 06/06/2025 Encounters Encounter Location Date Provider Diagnosis [facility] [address] [facility] [address] [place] [phone] 06/06/2025 Heladio Rosales Hyperparathyroidism E21.3 ; Senile [...] Dysuria (ICD-10 - R30.0) Plan Of Treatment Next Appt Details Follow Up: 2 Months, Reason: Provider Name:Zita Minorsrinivasa et, 06/17/2025 02:30:00 PM, [address] [facility] [address] [facility], [address], [place], [place], [id number], Provider Name:Heladio Meier er, 08/08/2025 10:30:00 AM, [address] [facility] [address] [facility], [address], [place], [place], [id number], Progress Notes * Leonor MCCABEIgnacioOB:1940 (84 yo F)Acc No.[id number]:06/06/2025 Physical Patient: Jeannie JAIN Provider: Heladio Rosales M.D. :1940 A ge:84 Y S ex:Female Date:06/06/2025 Address:[address] [place], [place] [id number] Subjective: * Chief Complaints: * 1 . [...] stic Procedure: B ack Pain From Fall- [facility] 03/21/2020, Passed Out, Recent Fall- [facility] 05/20-. * Family History: F [...] day , Taking Vitamin D3 1.25 MG (72787 UT) Capsule 1 capsule Orally , Taking [...] Temp: 97.8, BP: 132/70, HR: 73, Nurse: DAVID, Ht: 62, BMI:31.27. * Examination: G eneral [...] GFR by Creatinine 64 >59 - mL/min/1.73m2 * Monique Mccabe 06/12/2025 11:41 :31 AM EST > Pt notified 2.?Dysuria?LAB: Urinalysis - Inhouse (Collection Date & [...] Recio L 06/06/2025 0 1:26:00 PM EST >Monique Mccabe 06/12/2025 11:40:46 AM EST > Pt notified * Procedure Codes: 8 1002 Urinalysis, no micro, 56907 VENIPUNCT, ROUTINE* * Follow Up: 2 Months * Images: Billing Information: * Visit Code: 14432 Office Visit, Est Pt., Level 4. * Procedure Codes: 50702 Urinalysis, no micro. 38935 VENIPUNCT, ROUTINE*. * Electronic signature of Heladio Rosales MD on 06/17/2025 at 02:50 PM EST Sign off status: Pending * Provider: Heladio Rosales M.D. Date: 08/06/2024 Generated for Barbara trinh/Luis/eTransmitting on: 08/17/2024 02:50 PM EST History and [...]
--- OUTSIDE RECORDS SUMMARY | 2025-06-17 14:50 | XMS_ITS | Patient Health Record ---
Author Organization [facility] Address [address] [facility] [address] [place] [id number] Care Team Providers Care Cigar Tobacco Processing Supervisor Name Role Phone Heladio Rosales Primary Care Provider Zita Whitaker Unavailable [phone] Sony Lilly Unavailable [phone] Estefania Raines Unavailable [phone] Allergies Allergen (clinical drug ingredient) Drug/Non Drug Allergy documented on EMR Reaction Allergy Type Onset Date Status cefdinir Cefdinir AMS Drug Allergy Active dexamethasone DexAMETHasone AMS Drug Allergy Active Results Component Value Reference Range Notes Urinalysis - Inhouse (Not ye t reviewed by provider) Interpretation: Performing Lab: Notes/Report: Color/Clarity yellow/clear Leuk trace Nitrite neg Urobili 3.2 Protein neg pH 6.5 Blood neg Sp. Gr. 1.010 Ketone neg Bili neg Gluc neg Urinalysis - Inhouse Reviewed date:09/30/2024 05:19:47 PM [...] growth Performing Lab: Notes/Report: Test performed by [facility] [address] [place] [address] , [address], [place] [address] González King MD, Hop Strainer CLIA: [id number] Specimen Source Urine - Void Culture, Urine See Below Final Report : No growth H-CBC Reviewed date:10/01/2024 08:22:47 AM Interpretation:wbc 4.4, [...] AGRATIO 1.8 1.1-1.8 ALP 82 38-126 U/L H-Culture, Blood Reviewed date:10/02/2024 12:52:56 PM Interpretation:No growth Performing Lab: Notes/Report: CUBLD NO GROWTH AFTER 5 DAYS CUBLD NO GROWTH AFTER 5 DAYS H-CMP Reviewed date:01/09/2025 09:07:39 AM Interpretation: Performing Lab: Notes/Report: H-CBC Reviewed date:01/09/2025 09:07:54 AM Interpretation: Performing Lab: Notes/Report: P-Culture, Urine Reviewed date:08/28/2024 09:55:50 AM Interpretation:not [...] contamination Performing Lab: Notes/Report: Test performed by [facility] [address] [place] [address] , [address], [place] [address] González King MD, Hop Strainer CLIA: [id number] Specimen Source Urine - Void Culture, Urine [...] Interpretation:103 Performing Lab: Notes/Report: Test performed by [facility] [address] [place] [address] , [address], [place] [address] González King MD, Hop Strainer CLIA: [id number] Parathyroid Hormone (PTH) Intact 103.0 15.0-65.0 pg/mL P-Calcium, Ionized Reviewed date:07/26/2024 02:36:21 PM Interpretation:5.56 Performing Lab: Notes/Report: Test performed by [facility] [address] [place] [address] , [address], [place] [address] González King MD, Hop Strainer CLIA: [id number] Calcium, Ionized 5.56 4.60-5.30 mg/dL P-Basic Metabolic Panel (BMP ) Reviewed date:07/26/2024 02:36:21 PM Interpretation:Cr 1.02, Ca 10.7, gfr 54 Performing Lab: Notes/Report: Test performed by [facility] [address] [place] [address] , [address], [place] [address] González King MD, Hop Strainer CLIA: [id number] Sodium 141 135-145 mmol/L Potassium 4.7 3.5-5.3 mmol/L Chloride 105 97-108 mmol/L CO2 25 22-32 mmol/L Glucose 95 65-99 mg/dL BUN 19 8-23 mg/dL Creatinine 1.02 0.50-1.00 mg/dL Calcium 10.7 8.6-10.4 mg/dL eGFR by Creatinine 54 >59 mL/min/1.73m2 P-Parathyroid Hormone (PTH) Intact Reviewed date:10/11/2024 08:37:36 AM Interpretation:95.0 Performing Lab: Notes/Report: Test performed by [facility] [address] [place] [address] , [place] [address] González King MD, Hop Strainer CLIA: [id number] Parathyroid Hormone (PTH) Intact 95.0 15.0-65.0 pg/mL P-Basic Metabolic Panel (BMP ) Reviewed date:10/11/2024 08:37:36 AM Interpretation:Cuong 10.5 Performing Lab: Notes/Report: Test performed by [facility] [address] [facility] , [address], [place] [address] González King MD, Hop Strainer CLIA: [id number] Sodium 142 135-145 mmol/L Potassium 4.9 3.5-5.3 mmol/L Chloride 107 97-108 mmol/L CO2 25 22-32 mmol/L Glucose 90 65-99 mg/dL BUN 15 8-23 mg/dL Creatinine 0.81 0.50-1.00 mg/dL Calcium 10.5 8.6-10.4 mg/dL eGFR by Creatinine 71 >59 mL/min/1.73m2 Fine needle aspiration : Thy roid Reviewed date:12/06/2024 04:19:49 PM Interpretation:pathology negative for malignant cells Performing Lab: Notes/Report: pathology negative for malignant cells Urinalysis - Inhouse Reviewed date:06/21/2024 03:08:39 PM [...] 127 Performing Lab: Notes/Report: Test performed by [facility] [address] [facility] [address], [address], [place] [address] González King MD, Hop Strainer CLIA: [id number] Sodium 143 135-145 mmol/L Potassium 4.3 3.5-5.3 mmol/L Chloride 109 97-108 mmol/L CO2 22 22-32 mmol/L Glucose 127 65-99 mg/dL BUN 14 8-23 mg/dL Creatinine 0.83 0.50-1.00 mg/dL Calcium 10.0 8.6-10.4 mg/dL eGFR by Creatinine 69 >59 mL/min/1.73m2 P-Calcium, Ionized Reviewed date:12/13/2024 09:58:11 AM Interpretation:5.44 Performing Lab: Notes/Report: Test performed by [facility] [address] [place] [address] , [address], [place] [address] González King MD, Hop Strainer CLIA: [id number] Calcium, Ionized 5.44 4.60-5.30 mg/dL Urinalysis - Inhouse Reviewed date:06/12/2025 11:40:53 AM Interpretation:Normal Performing Lab: Notes/Report: Normal Color/Clarity yellow/clear Leuk Neg Nitrite Neg Urobili 3.2 Protein Trace pH 6.0 Blood Neg Sp. Gr. >1.030 Ketone Neg Bili Neg Gluc Trace P-Comprehensive Metabolic Pa see (CMP) Reviewed date:06/12/2025 11:41:44 AM Interpretation:Normal Performing Lab: Notes/Report: Test performed by [facility] [address] [place] [address] , [address], [place] [address] González King MD, Hop Strainer CLIA: [id number] Sodium 142 135-145 mmol/L Potassium 4.7 3.5-5.3 [...] 0.3 <0.2-1.2 mg/dL A/G Ratio 2.2 1.1-2.5 H-Urine Culture and Sensitiv ity Reviewed date:08/28/2024 03:47:55 PM Interpretation:Multiple organisms, suggests contamination Performing Lab: Notes/Report: CUU Multiple organisms, suggests contamination. H-UA Reviewed date:08/26/2024 11:08:33 PM Interpretation: Performing [...] Occasional 0-5 #/hpf UBACT Trace NONE /lpf Urinalysis - Inhouse Reviewed date:01/09/2025 09:00:18 AM [...] 10.5 Performing Lab: Notes/Report: Test performed by [facility] , [address], [place] [address] González King MD, Hop Strainer CLIA: [id number] Sodium 139 135-145 mmol/L Potassium 4.5 3.5-5.3 mmol/L Chloride 104 97-108 mmol/L CO2 23 22-32 mmol/L Glucose 99 65-99 mg/dL BUN 18 8-23 mg/dL Creatinine 0.81 0.50-1.00 mg/dL Calcium 10.5 8.6-10.4 mg/dL eGFR by Creatinine 71 >59 mL/min/1.73m2 P-Calcium, Ionized Reviewed date:01/09/2025 09:49:25 AM Interpretation:5.62 Performing Lab: Notes/Report: Test performed by [facility] [address] [place] [address] , [address], [place] [address] González King MD, Hop Strainer CLIA: [id number] Calcium, Ionized 5.62 4.60-5.30 mg/dL P-Culture, Urine Reviewed date:01/13/2025 04:55:36 PM Interpretation:E. Coli Performing Lab: Notes/Report: Test performed by [facility] [address] [place] [address] , [address], [place] [address] González King MD, Hop Strainer CLIA: [id number] Specimen Source Urine - Void Culture, Urine [...] Performing Lab: Notes/Report: US guided FNA recommended Urinalysis - Inhouse Reviewed date:01/17/2025 04:48:57 PM Interpretation: Performing Lab: Notes/Report: Color/Clarity yellow Leuk trace Nitrite neg Urobili 3.2 Protein neg pH 5.5 Blood neg Sp. Gr. 1.010 Ketone neg Bili neg Gluc neg P-Culture, Urine Reviewed date:01/22/2025 01:14:38 PM Interpretation:no significant growth Performing Lab: Notes/Report: Test performed by [facility] [address] [place] [address] , [address], [place] [address] González King MD, Hop Strainer CLIA: [id number] Specimen Source Urine - Void Culture, Urine See Below Final Report : No Significant Growth Medications Medication SIG (Take, Route, Frequency, Duration) Notes Start Date End Date Status Omeprazole 40 MG 1 cap(s) Orally Once a day, prn; Duration: 30 days Active Aspirin Adult Low Dose 81 MG 1 tablet Orally Once a day Active risperiDONE 0.25 MG 1 tablet Orally At B ed Time; Duration: 30 day(s) Active Memantine HCl 5 MG 1 tablet Orally twic e a day; Duration: 30 days Active Bisoprolol Fumarate 10 MG 1 tab(s) orall y once a day Active B-12 1000 MCG 1 tab(s) orally once a day; Duration: 30 day(s) Active Vitamin D3 1.25 MG (41022 UT) 1 capsule Orally; Duration: 30 day(s) Active Levothyroxine Sodium 25 MCG 1 tab(s) ora lly once a day; Duration: 90 days Active Repatha 140 MG/ML 1 mL Subcutaneous ev alondra 2 weeks Active Immunizations Vaccine Route Administration Date Status [...] (65yr and older) IM Intramuscular 05/09/2025 Administered PNEUMOVAX 23 VACCINE IM Intramuscular 11/22/2017 Administe red Prevnar (PCV13) IM Intramuscular 09/01/2014 Administered Tetanus Tdap-Adacel (over 7yrs) Unknown 03/18/2013 Administered Tetanus Tdap-Adacel (over 7yrs) IM Intramuscular 11/22/2017 Administered xAdministration of injection Unknown 03/18/2013 Administered xFlu shot- 6months-36 months of ntp-XJPU-GDCC-trivale nt Unknown 04/27/2010 Administered xFlu shot-36 months and older IM Intramuscular 05/16/2007 Administered 05/03/2007 pt received the flu shot from [facility] Problems Problem Type SNOMED Code ICD Code Onset Dates Problem Status W/U Status Risk Notes Problem Essential hypertension (79396749) Essential (primary) hypertension (I10) Active confirmed Problem Vitamin B12 deficiency (024644569) Vitamin B12 deficiency (E53.8) Active confirmed Problem Hypercalcemia (33115763) Hypercalcemia (E83.52) Active confirmed Problem Essential hypertension (70637435) Essential hypertension (I10) Active confirmed Problem Osteopenia (256534633) Osteopenia (M85.80) Active confirmed Problem Altered mental statu s (188371138) Altered mental state (R41.82) Active confirmed Problem Body mass index 30+ - obesity (621593617) BMI 30.0-30.9,adult (Z68.30) Active confirmed Problem Memory loss (86182470) Memory loss (R41.3) Active confirmed Problem Mixed hyperlipidemia (803078262) Mixed hyperlipidemia (E78.2) Active confirmed Problem Vasomotor rhinitis (4994647) Vasomotor rhinitis (J30.0) Active confirmed Problem Vaccination given (842380104) Encounter for immunization (Z23) Active confirmed Problem Acquired absence (30049179) 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 Problem Arteriosclerotic vascular disease (59944456) Arteriosclerotic cardiovascular disease (I25.10) Active confirmed Problem Hyperlipidemia (31762930) Hyperlipidemia, unspecified (E78.5) Active confirmed Problem Cardiac pacemaker in situ (751676724) Status cardiac pacemaker (Z95.0) Active confirmed Problem Acquired hypothyroidism (412290786) Acquired hypothyroidism (E03.9) Active confirmed Problem Hyperlipidaemia (85675533) Hyperlipidemia, unspecified hyperlipidemia type (E78.5) Active confirmed Problem Occlusion and stenosis of multiple and bilateral cerebral arteries (650949050) Carotid stenosis, bilateral (I65.23) Active confirmed Problem Altered mental statu s (251006567) Altered mental status, unspecified altered mental status type (R41.82) Active confirmed Problem Hyperparathyroidism (87202975) Hyperparathyroidism (E21.3) Active confirmed Problem Cardiac dysrhythmia (233105294) Cardiac dysrhythmia, unspecified (I49.9) Active confirmed Problem Encephalopathy (65405805) Encephalopathy (G93.40) Active confirmed Problem Allergic rhinitis (04310265) Allergic rhinitis, unspecified allergic rhinitis trigger, unspecified rhinitis seasonality (J30.9) Active confirmed Problem Osteoarthritis of knee (173694166) Arthropathy of both knees (M17.0) Active confirmed Problem Artificial knee join t present (158874325286) 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) Active confirmed Problem Fibrocystic breast changes (81574703) Fibrocystic breast disease (FCBD), unspecified laterality (N60.19) Active confirmed Problem Osteoarthritis of left knee joint (221444051370817) Osteoarthritis of left knee, unspecified osteoarthritis type (M17.12) Active confirmed Problem Imaging of thyroid gland abnormal (finding) (044926975) Abnormal thyroid ultrasound (R93.89) Active confirmed Problem Altered mental statu s (810378739) Acute alteration in mental status (R41.82) Active confirmed Problem Gastroesophageal reflux disease (609496351) Gastroesophageal reflux disease, unspecified whether esophagitis present (K21.9) Active confirmed Problem Paroxysmal ventricular tachycardia (41833496) V tach (I47.2) Active confirmed Problem Senile dementia (09622793) 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 [address] [place], [place] [id number] 07/25/2024 Estefania Olu Renal insufficiency N28.9 ; Acute UTI N39.0 ; Hypercalcemia E83.[address] [facility] [address] [place], [place] [id number] 07/31/2024 Estefania Raines Urinary tract infect ion N39.0 [facility] [address] [place] [id number] 08/23/2024 Estefania Olu Conf[facility] R41.[facility] [address] [place] [id number] 09/09/2024 Heladio Rosales Acute alteration in mental status R41.82 and 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 [facility] [address] [place] [id number] 10/10/2024 Heladio Rosales Altered mental statu s, unspecified altered mental status type R41.82 ; 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 and Hypercalcemia E83.52 [facility] [address] [facility] [address] [place] [id number] 12/09/2024 Sony Sebring Hypercalcemia E83.52 ; Mixed hyperlipidemia E78.2 ; Ventricular tachycardia I47.20 and BMI 30.0-30.9,adult Z68.30 [facility] [address] [place], [place] [id number] 01/08/2025 Sony Sebring Acute UTI N39.0 and Hypercalcemia E83.52 [facility] [address] [place], [place] [id number] 01/17/2025 Sony Sebring UTI (lower urinary t ract infection) N39.0 [facility] [address] [place], [place] [id number] 05/06/2025 R Sumit Whitaker Essential hypertensi on I10 [facility] [address] [place] [id number] 05/09/2025 Heladio Rosales Encounter for immuni zation Z23 [facility] [address] [place], [place] [id number] 06/06/2025 Heladio Rosales Hyperparathyroidism E21.3 ; 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 ; Other specified postprocedural states Z98.890 ; 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 and Dysuria R30.0 [facility] [address] [place] [id number] 06/17/2025 R Sumit Floresfleet UTI (lower urinary t ract infection) N39.0 [facility] [address] [place], [place] [id number] 09/23/2024 Heladio Rosales Arteriosclerotic cardiovascular disease I25.10 ; 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 ; Essential hypertension I10 ; Acquired hypothyroidism E03.9 and Status cardiac pacemaker Z95.0 [facility] [address] [place], [place] [id number] 09/27/2024 Estefania Crowdy Dysuria R30.0 ; Alte red mental status, unspecified altered mental status type R41.82 ; Dehydration E86.0 ; Unspecified fall, initial encounter W19.XXXA and Unspecified place in unspecified non-institutional (private) residence as the place of occurrence of the external cause Y92.009 [facility] [address] [place], [place] [id number] 06/25/2024 Estefania Raines [facility] [address] [place], [place] [id number] 07/26/2024 Estefania Thomascale Hypercalcemia E83.52 [facility] [address] [place], [place] [id number] 08/20/2024 Estefania Raines [facility] [address] [place] [id number] 08/26/2024 Estefania Olu Confusion R41.0 [facility] [address] [place] [id number] 09/05/2024 J Edgar Rosales [facility] [address] [place] [id number] 09/06/2024 J Edgar Rosales [facility] [address] [place] [id number] 09/09/2024 J Edgar Rosales [facility] [address] [place] [id number] 10/01/2024 Estefania Raines [facility] [address] [place], [place] [id number] 10/07/2024 J Edgar Rosales [facility] [address] [place] [id number] 10/11/2024 J Edgar Rosales [facility] [address] [place] [id number] 10/25/2024 J Edgar Rosales [facility] [address] [place] [id number] 11/14/2024 J Edgar Rosales [facility] [address] [place] [id number] 12/05/2024 J Edgar Rosales [facility] [address] [place] [id number] 12/13/2024 Sony Munguiaberry [facility] [address] [facility] [address] [place] [id number] 01/09/2025 Sony Lilly [facility] [address] [place] [id number] 02/10/2025 Heladio Rosales [facility] [address] [place] [id number] 03/17/2025 Heladio Rosales [facility] [address] [place] [id number] 06/12/2025 Heladio Rosales Assessments Encounter Date Diagnosis (ICD Code) Assessment Notes Treatment Notes Treatment Clinical Notes Section Notes 06/21/2024 Acute UTI (ICD-10 - N39.0) 06/21/2024 [...] 06/06/2025 Senile dementia (ICD -10 - F03.90) 06/17/2025 UTI (lower urinary tract infection) (ICD-10 - N39.0) 06/06/2025 Other specified postprocedural states (ICD-10 - Z98.890) 12/09/2024 Ventricular tachycar dorina (ICD-10 - I47.20) 10/10/2024 Hypercalcemia (ICD-1 0 - E83.52) 09/27/2024 Dehydration (ICD-10 - E86.0) Patient has not been drinking at home. Will give a liter of normal saline today. 09/23/2024 Essential hypertensi on (ICD-10 - I10) 08/26/2024 Confusion (ICD-10 - R41.0) 07/25/2024 Hypercalcemia (ICD-1 0 - E83.52) 07/25/2024 Confusion (ICD-10 - R41.0) Resolved. 09/23/2024 [...] Test Name Order Date Urinalysis - Inhouse 06/17/2025 H-COVIDPANEL 03/21/2024 Next Appt Details Provider Name:Zita Arana Karoline et, 06/17/2025 02:30:00 PM, [address] [facility] [address] [facility], [address], [place], [place], [id number], Provider Name:Heladio Hernández Renea er, 08/08/2025 10:30:00 AM, [facility], [address], [place], [place], [id number], Insurance Providers Payer Name Payer Address Payer Phone Subscriber Number Group Number Insured Name Patient Relationship to Insured Coverage Start Date Coverage End Date [employer] (MEDICAR E) [address] [address] [place] [address] [id number] Jeannie Mccabe Self - patient is the insured Medications [...] History Reason Date(Month/Year) Passed Out, Recent Fall- [facility] 05/20- Back Pain From Fall- [facility] 03/21/2020
--- OUTSIDE RECORDS SUMMARY | 2025-06-17 14:51 | XMS_ITS | Clinical Summary ---
Author Organization [facility] Address [address] [place] [address] Care Team Providers Care Acid Splicer Name Role Phone Diego Rosales MD Primary Care Provider [phone] Allergies No known active allergies Medications ranolazine [...] Take 81 mg by mouth Daily. Active [place]-3 Fatty Acids (fish oil) 1000 MG capsule [...] or Tdap) 11/23/2027 11/22/2017, 03/18/2013, 04/21/2000 Insurance [place] [employer] Care Teams Acid Splicer Relationship Specialty Start Date End Date Diego Rosales MD [address] [facility] [address] [place] [address] PCP - General Family Medicine 06/16/20
--- OUTSIDE RECORDS SUMMARY | 2025-06-17 14:51 | XMS_ITS | Clinical Summary ---
Author Organization Healthcare Address [address] [place] [address] Care Team Providers Care Faculty Criminal Justice Name Role Phone Pcp, No Primary Care [...] or (1 - 1-dose 75+ series) 2015 [id number] Vaccine ( - season) 2025 11/04/2021, 05/27/2021, [...] this topic Insurance [employer] Care Teams Faculty Criminal Justice Relationship Specialty [place] [address] PCP - General Family Medicine 02/12/25
== END 2025-06-17 23:59 | disposition home or self-care (01) ==
LOC: LAB 14:47
PROVIDERS: PCP Family Medicine; Visit Provider Family Medicine
DX: N39.0 Urinary tract infection, site not specified (principal)
CPT/HCPCS: 87086

== ENCOUNTER 2025-06-30 15:28 | Outpatient (CLI) | payer MEDICARE, OTHER, SELFPAY ==
[2025-06-30] MEDS: SODIUM CHLORIDE 0.9% 10ML FLUSH SYRINGE 10 ML IV (15:40)
[2025-06-30 15:44] VITALS: BP 148/68; PULSE 88; RESP 16; TEMP 36.9; O2SAT 97
[2025-06-30] MEDS: 0.9 % SODIUM CHLORIDE 1000ML 1,000 ML 999 ML IV (15:44)
[2025-06-30 16:44] VITALS: BP 155/84; PULSE 71; RESP 14; O2SAT 97
== END 2025-06-30 23:59 | disposition home or self-care (01) ==
LOC: INF 15:29
PROVIDERS: PCP Family Medicine; Visit Provider Family Medicine
DX: N39.0 Urinary tract infection, site not specified (principal)
CPT/HCPCS: 96360; J7030